=== PATIENT | female | born 1940 | race African-American/Black ===

== ENCOUNTER 2020-06-24 10:51 | Outpatient (REF) | payer MEDICARE, SELFPAY | END 2020-06-24 10:52 | disposition home or self-care (01) | LOC: HO.LAB 10:51 | PROVIDERS: PCP Internal Medicine; Visit Provider Internal Medicine | DX: Z20.822 Contact with and (suspected) exposure to COVID-19 (principal) | CPT/HCPCS: 36415; C9803; U0003 ==

== ENCOUNTER 2023-10-23 01:33 | Emergency (ER) | payer MEDICARE, MEDICAID, SELFPAY ==
--- NOTE | 2023-10-23 | ECG_ITS ---
Test Reason : ABD PAIN Blood Pressure : / mmHG Vent. Rate : 123 BPM Atrial Rate : 000 BPM P-R Int : 000 ms QRS Dur : 080 ms QT Int : 408 ms P-R-T Axes : 000 -31 087 degrees QTc Int : 584 ms Atrial tachycardia with occasional PVCs Left axis deviation Pulmonary disease pattern Septal infarct , age undetermined ST & T wave abnormality, consider anterior ischemia Abnormal ECG When compared with ECG of 18-SEP-2016 22:52, Atrial tachycardia present Referred By: Generic ED Physician Electronically Signed By:Munir Estrella
--- NOTE | ~2023-10-23 | CT_ITS ---
EXAMINATION: CT abdomen pelvis wo IV con CLINICAL INFORMATION: Reason for Exam Right sided abdominal pain, vomiting COMPARISON: No prior CT available for comparison. TECHNIQUE: Multidetector volumetric imaging was performed from the superior aspect of the liver through the pubic symphysis a noncontrasted CT Sagittal and coronal reformatted images were obtained on the technologist's workstation. This CT examination was performed using dose optimization techniques as appropriate, variously including the following: *Automated exposure control *Adjustment of mA and/or kV according to patient size (this includes techniques or standardized protocols for targeted exams where dose is matched to indication/reason for exam; i.e. extremities or head) *Use of iterative reconstruction technique DLP: 360 mGy-cm FINDINGS: LOWER THORAX: Included lung bases are clear. HEPATOBILIARY: No focal hepatic lesions. No biliary ductal dilatation. GALLBLADDER: Gallbladder is distended, there is a large gallstone. SPLEEN: Spleen is normal in size. PANCREAS: No focal mass or ductal dilatation. STOMACH AND GASTROINTESTINAL TRACT: Stomach is grossly unremarkable. Excess amount of stool in the colon possible constipation. Assessment of the bowel limited due to lack of contrast. Few sigmoid diverticula without evidence of diverticulitis. Normal appendix. Adjacent partially calcified lymph node. There is soft tissue fullness in the distal rectum rectoanal junction, this could be impacted stool and/or nondistention, cannot rule out underlying pathologic process. ADRENALS: No adrenal nodules. KIDNEYS/URETERS: No hydronephrosis, stones or solid mass lesions. URINARY BLADDER: Partially decompressed. PELVIC VISCERA: Multiple rounded calcifications likely phleboliths. There is heterogeneous right adnexal complex mass roughly 6 x 3.5 cm, concerning for possible dermoid. PERITONEUM: No free air or fluid. LYMPH NODES: No lymphadenopathy. VASCULAR:Heavy aortic vascular calcifications, no aneurysm. BONES, ABDOMINAL WALL AND SOFT TISSUES: Age-appropriate changes of the spine and skeletal system, no destructive osteolytic or osteosclerotic bone lesion found CT/CT abdomen pelvis wo IV con IMPRESSION: 1. Excess amount of stool in the colon possible constipation. 2. There is soft tissue fullness in the distal rectum rectoanal junction, this could be impacted stool and/or nondistention, cannot rule out underlying pathologic endorectal mass, attention to correlation with rectal exam and sigmoidoscopy. 3. Complex right adnexal mass 6 cm, concerning for possible large dermoid. Recommend follow-up pelvic ultrasound 4. Cholelithiasis. 5. Mild sigmoid diverticulosis without evidence of acute diverticulitis. (Referring physician staff is being called, by physician staff assistance, to be alerted of the above critical findings and recommendations.) 10/23/2023 9:00 AM RO
[2023-10-23 02:09] VITALS: BP 115/96; BP 150/98; PULSE 113; PULSE 92; RESP 15; TEMP 37; O2SAT 95; O2SAT 98; BMI 21.6
--- NOTE | 2023-10-23 02:16 | PC.NURSE ---
Dr. Calhoun notified of tachycardia ? sepsis alert.
[2023-10-23 02:51] LABS: MANUAL DIFF FLAG NO
[2023-10-23 02:52] LABS: Basophils Percent Auto 0.9 % (0-2); Eosinophils Absolute Auto 0.2 X10*3/uL (0.0-0.4); Eosinophils Percent Auto 5.2 % (0-4); Hematocrit 41.5 % (37.0-47.0); Hemoglobin 13.7 g/dl (12.0-16.0); Lymphocytes Absolute Auto 1.3 X10*3/uL (1.2-4.9); Lymphocytes Percent Auto 39.3 % (20-40); Mean Corpuscular Hemoglobin 31.4 pg (27.0-33.0); Mean Platelet Volume 10.3 fL (9.4-12.3); Monocytes Absolute Auto 0.3 X10*3/uL (0.1-1.2); Monocytes Percent Auto 8.9 % (2-11); Neutrophils Absolute Auto 1.5 x10*3/uL (2.0-8.3); Neutrophils Percent Auto 45.7 % (45-73); Platelet Count 187 X10*3/uL (160-400); Red Blood Count 4.37 X10*6/uL (4.20-5.50); Red Cell Distribution Width 13.5 % (11.0-16.0); White Blood Count 3.3 X10*3/uL (4.8-10.8)
[2023-10-23 02:53] LABS: Appearance Urine Clear; Color Urine Yellow; Glucose Urine UA Negative (Negative); Leukocyte Esterase Urine Negative (Negative); Nitrite Urine Negative (Negative); PH 7.5 (5.0-9.0); UMIC TRIGGER UACC YES; Urine Blood Trace (Negative); Urine Ketones Negative (Negative); Urine Protein Negative (Neg-Trace)
[2023-10-23 02:59] LABS: Bacteria Urine None Seen (None Seen); Hyaline Casts Urine 0-2 /LPF (0-2); WBC Urine 0-5 /HPF (0-5)
--- NOTE | 2023-10-23 03:02 | MHC.EDTECH ---
patient toileted. VSS
[2023-10-23 03:05] LABS: Alanine Aminotransferase 8 U/L (0-31); Albumin Level 3.6 g/dL (3.5-5.0); Alkaline Phosphatase 96 U/L (39-117); Anion Gap 11 (12-20); Aspartate Amino Transferase 15 U/L (5-31); Bilirubin Total 1.1 mg/dL (0.0-1.0); Blood Urea Nitrogen 7 mg/dL (9-16); Calcium 8.9 mg/dL (8.4-10.2); Carbon Dioxide 27 mmol/L (22-29); Chloride 110 mmol/L (96-108); Creatinine Clr Calc Pharmacy 40.6; Estimated Glomerular Filt Rate > 60; Glucose Random 90 mg/dL (60-115); Lipase 20 U/L (8-78); Magnesium 2.1 mg/dL (1.6-2.6); Potassium 3.7 mmol/L (3.3-5.1); Sodium 144 mmol/L (135-145); Total Protein 6.7 g/dL (6.5-8.0)
[2023-10-23 03:11] LABS: Troponin-I High Sensitivity 5.2 ng/L (<3.5-17.0)
[2023-10-23 05:29] LABS: Troponin-I High Sensitivity 6.5 ng/L (<3.5-17.0)
[2023-10-23 05:45] VITALS: BP 128/64; PULSE 55; RESP 16; TEMP 36.9; O2SAT 96
--- NOTE | 2023-10-23 07:27 | ED_ITS ---
HPI - Abdominal Pain General Chief Complaint: Abdominal Pain Stated Complaint: abd pain Time Seen by Provider: 10/23/23 06:32 Source: patient and EMS Mode of arrival: EMS Limitations: no limitations History of Present Illness ED Provider: Nicky Maddox APRN HPI narrative: 83 yo female who is legally blind with no known abdominal surgical history here with complaints of right sided abdominal pain intermittent over the last week. Patient reports she has a history of known gallstones and has been to [facility] ED several times, seen surgery team and told she was not a surgical candidate d/t age. She typically follows a low fat diet but still has intermittent pain. No vomiting, diarrhea, fevers, chills. Of note, the past few days she has also has some lower abdominal pressure, pain with urination and is concerned she may have either a UTI or yeast infection. Related Data Previous Rx's ?Medication ?Instructions ?Recorded metronidazole 0.75 % (37.5 mg/5 1 appful vaginal BEDTIME 5 days 10/23/23 gram) vaginal gel #70 grams Allergies Allergy/AdvReac Type Severity Reaction Status Date / Time Penicillins Allergy Unknown Verified 10/23/23 02:12 ANTIBIOTICS Allergy Intermediate STOMACH Uncoded 06/23/22 14:47 UPSET Review of Systems Review of Systems Yes all other systems are reviewed and are negative Constitutional: Reports no additional constitutional complaints, Denies body ache(s), Denies chills, Denies fever(s), Denies headache(s) and Denies weakness Eyes: Reports no additional eye complaints and Denies change in vision Reports system reviewed and no additional complaints, except as documented, Denies dizziness, Denies headache(s), Denies nasal congestion, Denies nasal discharge and Denies neck pain Cardiovascular: Reports no additional cardiovascular complaints, Denies chest pain, Denies leg edema and Denies dyspnea Respiratory: Reports no additional respiratory complaints, Denies cough and Denies dyspnea Gastrointestinal: Reports no additional gastrointestinal complaints, Reports abdominal pain, Denies diarrhea, Denies nausea and Denies vomiting Genitourinary: Reports no additional female genitourinary complaints, Reports dysuria, Denies pelvic pain, Denies flank pain, Denies urinary incontinence, Denies urinary hesitancy, Denies urinary urgency and Denies vaginal discharge Musculoskeletal: Reports no additional musculoskeletal complaints, Denies back pain, Denies arthralgias, Denies joint swelling, Denies neck pain, Denies numbness and Denies tingling Skin/Breast: Reports system reviewed and no additional complaints, except as docu and Denies rash Reports system reviewed and no additional complaints, except as documented, Denies Abnormal speech present, Denies dizziness, Denies headache(s), Denies numbness, Denies tingling and Denies weakness PMF Past Medical History Attestation statement: The following information was validated with the patient. Source: old records reviewed and nursing notes reviewed Social History Social History Smoked in Last 30 Days: No Use of substances other than those prescribed or required for medical reasons: No Advance Directives: No Advance Directives Information Provided: No Physical Exam ED Vital Signs: Vital Signs - 24 hr 10/23/23 02:09 10/23/23 05:45 10/23/23 07:51 Temperature 98.6 F 98.4 F Pulse Rate 113 H 55 74 Respiratory Rate 15 16 18 Blood Pressure 115/96 H 128/64 160/90 H Pulse Oximetry 95 96 96 Oxygen Delivery Method Room Air Room Air Room Air 10/23/23 09:47 10/23/23 11:22 10/23/23 11:23 Temperature 98.5 F 97.9 F 97.9 F Pulse Rate 70 74 74 Respiratory Rate 16 16 16 Blood Pressure 170/83 H 180/95 H 180/95 H Pulse Oximetry 98 97 97 Oxygen Delivery Method Room Air Room Air Room Air BMI result Body Mass Index 21.6 Const General: cooperative, healthy appearing, comfortable and no acute distress Orientation/consciousness: patient oriented x3 Limitations: no limitations [facility] Head: Yes normal to inspection Ears: hearing grossly normal bilaterally General nose exam: Normal external nose present Face and sinus: Yes normal facial exam Mouth: Normal oral and palatal mucosa present Throat: Yes posterior oropharynx normal Eyes General: appearance normal, both eyes and all related structures Pupils: Equal, round and reactive pupils present Neck Neck: Yes normal visual inspection Chest Chest palpation & inspection: normal inspection of the chest Resp Effort & Inspection: normal respiratory effort Auscultation: clear to auscultation bilaterally Cardio Rate: regular rate Rhythm: regular rhythm Peripheral pulses: Peripheral pulses 2+ throughout GI Other: Small amount on stool on rectal exam Inspection: Yes normal to inspection and No distended Palpation (GI): Soft to palpation, Tenderness to palpation present (GI) in the RLQ and in the RUQ; with no rebound tenderness and no guarding Auscultation: normal bowel sounds Rectal Exam - Female: visual inspection normal and normal sphincter tone External Female Exam: normal external appearance Speculum Exam - Vagina: normal appearance of the vagina Back/Spine/Pelvis Thoracic/Lumbar Spine: thoracic and lumbar spine normal to inspection Skin General skin exam: no rashes or lesions noted Neuro General: patient oriented x3, no focal motor deficits and normal sensation to monofilament Cranial nerves: Yes Equal, round and reactive pupils present Cognition (Neuro): normal cognition Speech: No Abnormal speech present Gait exam (Neuro): Normal gait present Motor exam (neuro): 5/5 motor strength present throughout Extrem General: Yes normal to inspection Course Course Course Narrative: [address]/CT abdomen pelvis wo IV con IMPRESSION: 1. Excess amount of stool in the colon possible constipation. 2. There is soft tissue fullness in the distal rectum rectoanal junction, this could be impacted stool and/or nondistention, cannot rule out underlying pathologic endorectal mass, attention to correlation with rectal exam and sigmoidoscopy. 3. Complex right adnexal mass 6 cm, concerning for possible large dermoid. Recommend follow-up pelvic ultrasound 4. Cholelithiasis. 5. Mild sigmoid diverticulosis without evidence of acute diverticulitis. IN regards to finding 1/2 rectal exam shows small amount of stool with no impaction. Enema given. I will speak to GI. Will likely need outpatient f/u. Patient reports she has never had a colonoscopy. She denies any history or family history of colon cancer. In regards to finding 3. Patient was informed with the results. She will need to follow up outpatient with primary care doctor for outpatient pelvic ultrasound. In regards to finding 4. Patient has no evidence of acute cholecystitis. She refused all pain medication here in the emergency room and is tolerating p.o.. I will have her follow up outpatient with General surgery. Reevaluation(s) Reevaluation #1: I reviewed all the above findings with the patient's granddaughter and herself. They will follow up outpatient with these providers. I did review worrisome signs and symptoms of when to return to the emergency room. Comfortable plan for discharge home. Medical Decision Making Medical Decision Making [facility] Narrative: 83 yo female who is legally blind with no known abdominal surgical history here with complaints of right sided abdominal pain intermittent over the last week. Patient reports she has a history of known gallstones and has been to [facility] ED several times, seen surgery team and told she was not a surgical candidate d/t age. She typically follows a low fat diet but still has intermittent pain. No vomiting, diarrhea, fevers, chills. Of note, the past few days she has also has some lower abdominal pressure, pain with urination and is concerned she may have either a UTI or yeast infection.? RUQ/RLQ TTP with no rebound or guarding. +BS. VSS Will need exam, labs, EKG, UA, CT A/P, BV panel Differential Diagnosis Differential Diagnoses: The differential diagnosis associated with the presentation includes cholecystitis, cholethiasis, GERD, gastritis, ACS, appendicitis, UTI, pancreatitis Admission/Observation Consideration of admission/observation: Escalation of care including admission/observation considered Consult Healthcare Provider Management of the patient was discussed with: Hide Tanner Spoke to GI in regards to finding of constipation and ? rectal mass vs stool Patient can follow-up outpatient for colonoscopy Lab Data [facility] Lab Attestation statement: I reviewed the patient's lab results. 10/23/23 02:40 10/23/23 02:40 Labs: Lab Results 10/23/23 10/23/23 10/23/23 Range/Units 02:40 05:03 08:00 WBC 3.3 L (4.8-10.8) X10*3/uL RBC 4.37 (4.20-5.50) X10*6/uL Hgb 13.7 (12.0-16.0) g/dl Hct 41.5 (37.0-47.0) % MCV 95.0 (80.0-98.0) fL MCH 31.4 (27.0-33.0) pg MCHC 33.0 (31.0-35.0) g/dl RDW 13.5 (11.0-16.0) % Plt Count 187 (160-400) X10*3/uL MPV 10.3 (9.4-12.3) fL Immature Gran % (Auto) 0.0 (0.0-0.4) % Neut % (Auto) 45.7 (45-73) % Lymph % (Auto) 39.3 (20-40) % Henry % (Auto) 8.9 (2-11) % Eos % (Auto) 5.2 H (0-4) % Baso % (Auto) 0.9 (0-2) % Lymph # (Auto) 1.3 (1.2-4.9) X10*3/uL Henry # (Auto) 0.3 (0.1-1.2) X10*3/uL Eos # (Auto) 0.2 (0.0-0.4) X10*3/uL Baso # (Auto) 0.0 (0.0-0.2) X10*3/uL Abs Immat Gran (auto) 0.00 (0.00-0.03) X10*3/uL Absolute Neuts (auto) 1.5 L (2.0-8.3) x10*3/uL Absolute Nucleated RBC 0.000 (0.0-0.012) X10*3/uL Nucleated RBC % (auto) 0.0 (0.0-0.2) /100WBC Sodium 144 (135-145) mmol/L Potassium 3.7 (3.3-5.1) mmol/L Chloride 110 H (96-108) mmol/L Carbon Dioxide 27 (22-29) mmol/L Anion Gap 11 L (12-20) BUN 7 L (9-16) mg/dL Creatinine 0.80 (0.5-1.4) mg/dL Estim Creat Clear Calc 40.6 Estimated GFR > 60 Random Glucose 90 (60-115) mg/dL Calcium 8.9 (8.4-10.2) mg/dL Magnesium 2.1 (1.6-2.6) mg/dL Total Bilirubin 1.1 H (0.0-1.0) mg/dL AST 15 (5-31) U/L ALT 8 (0-31) U/L Alkaline Phosphatase 96 (39-117) U/L Troponin I High Sens 5.2 6.5 (<3.5-17.0) ng/L Total Protein 6.7 (6.5-8.0) g/dL Albumin 3.6 (3.5-5.0) g/dL Lipase 20 (8-78) U/L Urine Color Yellow Urine Appearance Clear Urine pH 7.5 (5.0-9.0) Ur Specific [place] 1.010 (1.005-1.025) Urine Protein Negative (Neg-Trace) mg/dL Urine Glucose (UA) Negative (Negative) mg/dL Urine Ketones Negative (Negative) mg/dL Urine Blood Trace H (Negative) Urine Nitrite Negative (Negative) Ur Leukocyte Esterase Negative (Negative) Urine RBC 3-5 H (0-2) /HPF Urine WBC 0-5 (0-5) /HPF Ur Squamous Epith Cells 6-10 (0-2) /HPF Urine Bacteria None Seen (None Seen) Hyaline Casts 0-2 (0-2) /LPF T. vaginalis (PCR) NOT DETECTED (Not Detect) Bact Vaginosis (PCR) POSITIVE A (Negative) C. krusei/glabrata (PCR) NOT DETECTED (Not Detect) April group (PCR) NOT DETECTED (Not Detect) Independent Interpretation I performed an independent interpretation of an: EKG and CT Scan Interpretation: I independently reviewed the CT scan agree with the radiology report I independently viewed the EKG which shows normal sinus rhythm with a rate of 70, normal NC, normal QRS, normal QT Radiology Impression Discussion of test interpretation with radiology: I have reviewed the radiologist's reading. Radiologist Impression: [place] [id number] CT Scan Report Signed Patient: Andreea Coffey MR#: [id number] : 1940 Acct:[id number] Age/Sex: 83 / F ADM Date: 10/23/23 Loc: .ED Attending Dr: Ordering Physician: Nicky Fagan NP Date of Service: 10/23/23 Procedure(s): CT abdomen pelvis wo IV con Accession Number(s): [id number] cc: Physician,Unknown ; Nicky Fagan NP~ EXAMINATION: CT abdomen pelvis wo IV con CLINICAL INFORMATION: Reason for Exam Right sided abdominal pain, vomiting COMPARISON: No prior CT available for comparison. TECHNIQUE: Multidetector volumetric imaging was performed from the superior aspect of the liver through the pubic symphysis a noncontrasted CT Sagittal and coronal reformatted images were obtained on the technologist's workstation. This CT examination was performed using dose optimization techniques as appropriate, variously including the following: *Automated exposure control *Adjustment of mA and/or kV according to patient size (this includes techniques or standardized protocols for targeted exams where dose is matched to indication/reason for exam; i.e. extremities or head) *Use of iterative reconstruction technique DLP: 360 mGy-cm FINDINGS: LOWER THORAX: Included lung bases are clear. HEPATOBILIARY: No focal hepatic lesions. No biliary ductal dilatation. GALLBLADDER: Gallbladder is distended, there is a large gallstone. SPLEEN: Spleen is normal in size. PANCREAS: No focal mass or ductal dilatation. STOMACH AND GASTROINTESTINAL TRACT: Stomach is grossly unremarkable. Excess amount of stool in the colon possible constipation. Assessment of the bowel limited due to lack of contrast. Few sigmoid diverticula without evidence of diverticulitis. Normal appendix. Adjacent partially calcified lymph node. There is soft tissue fullness in the distal rectum rectoanal junction, this could be impacted stool and/or nondistention, cannot rule out underlying pathologic process. ADRENALS: No adrenal nodules. KIDNEYS/URETERS: No hydronephrosis, stones or solid mass lesions. URINARY BLADDER: Partially decompressed. PELVIC VISCERA: Multiple rounded calcifications likely phleboliths. There is heterogeneous right adnexal complex mass roughly 6 x 3.5 cm, concerning for possible dermoid. PERITONEUM: No free air or fluid. LYMPH NODES: No lymphadenopathy. VASCULAR:Heavy aortic vascular calcifications, no aneurysm. BONES, ABDOMINAL WALL AND SOFT TISSUES: Age-appropriate changes of the spine and skeletal system, no destructive osteolytic or osteosclerotic bone lesion found CT/CT abdomen pelvis wo IV con IMPRESSION: 1. Excess amount of stool in the colon possible constipation. 2. There is soft tissue fullness in the distal rectum rectoanal junction, this could be impacted stool and/or nondistention, cannot rule out underlying pathologic endorectal mass, attention to correlation with rectal exam and sigmoidoscopy. 3. Complex right adnexal mass 6 cm, concerning for possible large dermoid. Recommend follow-up pelvic ultrasound 4. Cholelithiasis. 5. Mild sigmoid diverticulosis without evidence of acute diverticulitis. Independent Historian Clinical information obtained from an independent historian. History obtained from or confirmed by: EMS Medications Administered Discontinued Medications Generic Name Dose Route Start Last Admin Trade Name Freq PRN Reason Stop Dose Admin Fentanyl 25 mcg 10/23/23 06:53 10/23/23 07:48 Fentanyl Citrate/Pf 100 Mcg/2 Ml Vial IVPUSH 10/23/23 06:54 Not Given ONCE ONE Protocol Sodium Biphosphate/Sodium Phosphate 133 ml 10/23/23 10:02 10/23/23 10:26 Sodium Phosphate,Henry-Dibasic 133 Ml Enema NC 10/23/23 10:03 133 ml ONCE ONE Administration Critical Care Time Critical Care Time Critical Care Time: Yes Total Critical Care Time: 60 Attestation: Discussion of CT findings with specialists, family and the patient at the bedside with re-evaluation Discharge Plan Discharge Clinical Impression: Cholelithiases Patient Disposition: Home, Self-Care Instructions: Gallstones (ED) Additional Instructions: Her CT shows several findings. She does have gallstones on exam with no evidence of inflammation or infection. Her blood work is normal. She can follow up outpatient with General surgery for elective removal. Please follow a low-fat diet. Her CT also shows a pelvic mass. They do recommend that she have an outpatient pelvic ultrasound. Please follow-up with her primary care doctors that they may order this. Her CT also shows constipation and she may have either stool or a mass in her rectal area. We did speak to the chain mender who recommended an outpatient colonoscopy. She should be increasing fluid and fiber in the diet. She may take a stool softener like Colace daily which is [id number]. Please return for any worsening symptoms Prescriptions: New metronidazole 0.75 % (37.5mg/5 gram) gel 1 appful vaginal BEDTIME 5 Days Qty: 70 0RF Referrals: Emily Campbell MD [Physician] - 1 week Fabián Garduno MD [Physician] - 1 week Physician,Eriberto J [Primary Care Provider] - 1 week Interventions: ED Discharge Assessment Last Done: 10/23/23 11:23 Discharge Date/Time: 10/23/23 12:09 Print Language: Nigerian
[2023-10-23 07:51] VITALS: BP 160/90; PULSE 74; RESP 18; O2SAT 96
--- NOTE | 2023-10-23 07:51 | ECG_ITS ---
Test Reason : ADOMINAL PAIN Blood Pressure : / mmHG Vent. Rate : 070 BPM Atrial Rate : 070 BPM P-R Int : 172 ms QRS Dur : 086 ms QT Int : 384 ms P-R-T Axes : 054 -32 095 degrees QTc Int : 414 ms Normal sinus rhythm Left atrial enlargement Left axis deviation Septal infarct (cited on or before 23-OCT-2023) Abnormal ECG When compared with ECG of 23-OCT-2023 02:24, Rhythm change Vent. rate has decreased BY 53 BPM Referred By: Joanne Salguero Electronically Signed By:CALLIE ESPINOZA
--- NOTE | 2023-10-23 07:56 | PC.NURSE ---
Pt refuses any pain meds, reports she took Tylenol earlier and the pain is not bothering her right now.
--- OUTSIDE RECORDS SUMMARY | 2023-10-23 08:09 | XMS_ITS | Continuity of Care Document ---
Author Organization [facility] ter Address [address] [place] [id number]- Care Team Providers Care Adolescent Medicine Specialist Name Role Phone Prema SOSA, Lin Ortega Primary Care Physician [facility] Date[facility]s): 10/09/21 - 10/09/[address] [address]- Discharge Disposition: A-D/C Home Attending Physician: Trinity Prescott MD Admitting Physician: Trinity Prescott MD Referring Physician: Not on Staff, Referring MD Allergies, Adverse Reactions, Alerts Substance Reaction Severity Status chlorthalidone made BP go down Active hydrochlorothiazide Hydrochlorothiazide adverse reaction Hydrochlorothiazide adverse reaction depression Active lisinopril tinnitus Active losartan itching Active penicillins rash Active Amlodipine Besylate-Atorvastatin made BP down Active Immunizations Given and Recorded Vaccine Date Status Refusal Reason SARS-CoV-2 (COVID-19) Ad26 vaccine 09/28/20 Record ed pneumococcal 13-valent vaccine 1 03/14/19 Given influenza virus vaccine, inactivated 2 03/04/18 Gi sharron influenza virus vaccine, inactivated 3 03/04/16 Gi sharron influenza virus vaccine, inactivated 03/06/13 Give n tetanus/diphtheria/pertussis, acel(Tdap) 4 10/13/17 Given pneumococcal 23-valent vaccine 05/16/12 Given 1Result Comment: [facility]# [id number] PT. TOLERATED INJ. WITHOUT COMPLICATIONS....CO 2Result Comment: [03/04/2018] [facility]# [id number] 3Result Comment: [03/04/2016] pt. tolerated inj. without complications...CO 4Result Comment: [10/13/2017] [facility]# [id number] pt. tolerated inj. without complications...CO Medications brimonidine 0.2% ophthalmic solution See Instructions, 1 drop into Right eye three times a day, 0 Refills, Maintenance, 01/07/21 14:01:00 EDT, Solution, Partial fill upon patient request if the prescription is for a schedule II opioid drug. Start Date: 01/07/21 Status: Ordered clotrimazole 1% vaginal cream with applicator 1 application, Vaginally, Daily at bedtime, for 7 days, # 45 Gm, 0 Refills, Acute 10/16/21 6:20:00 EDT, 10/09/21 6:20:00 EDT, Cream, [facility] #[id number], Partial fill upon patient request if the prescription is for a schedule II opioid drug.,... Start Date: 10/09/21 Stop Date: 10/16/21 Status: Ordered estradiol 0.1 mg/g vaginal cream See Instructions, apply topically as directed 5 times a week, # 42 Gm, 3 Refills, Maintenance, 07/13/18 13:56:17 EST Start Date: 07/13/18 Status: Ordered Home Blood Pressure Monitor See Instructions, # 1 Unknown, Maintenance, dx: I10 use once daily height 158cm weight 48cm, 01/16/21 11:47:00 EDT, Supply Start Date: 01/16/21 Status: Ordered latanoprost 0.005% ophthalmic solution INSTILL 1 DROP INTO RIGHT EYE AT BEDTIME Start Date: 01/07/21 Status: Ordered metoprolol 25 mg oral tablet, extended release See Instructions, take 1/2 to 1 tablet By Mouth Daily, # 15 tablet, Refills 3, Tot. Refills 3, Maintenance, 10/06/21 16:20:00 EDT, Instructions Replace Required Details, Route to Pharmacy Electronically, [facility] #[id number], stop bisoprolol, 1... Start Date: 10/06/21 Status: Ordered metronidazole topical 0.75% gel with applicator 1 applicator, Vaginally, 2 times a day, for 10 days, dx: recurrent BV, # 140 Gm, 0 Refills, Acute 10/16/21 16:15:00 EDT, 10/06/21 16:15:00 EDT, Gel, [facility] #[id number], Partial fill upon patient request if the prescription is for a schedule I... Start Date: 10/06/21 Stop Date: 10/16/21 Status: Ordered Misc Rx Refills 0, Maintenance, Durezol drops, 05/15/19 15:41:08 EST, Compound Start Date: 05/15/19 Status: Ordered ofloxacin 0.3% ophthalmic solution INSTILL 1 DROP INTO LEFT EYE FOUR TIMES DAILY FOR 1 WEEK Start Date: 04/04/21 Status: Ordered omeprazole 20 mg oral enteric coated capsule 1 capsule = 20 mg, By Mouth, Daily, # 30 capsule, 5 Refills, Maintenance, 04/04/21 11:49:00 EDT, [facility] #[id number], Partial fill upon patient request if the prescription is for a schedule II opioid drug., 158, cm, 01/16/21 11:57:... Start Date: 04/04/21 Status: Ordered timolol maleate 0.5% ophthalmic gel forming solution INT 1 GTT IN OU BID UTD Start Date: 12/09/18 Status: Ordered Problem List Condition Effective Dates Status Health Status Inform ant Abdominal pain(Confirmed) Active Atrial tachycardia(Confirmed) Active Atrophic vaginitis(Confirmed) Active Dermoid cyst of right ovary(Confirmed) Active Cataracts, bilateral(Confirmed) Active Cerebral Aneurysm, Nonruptured(Confirmed) 1 04/09/10 Active Chronic cystitis(Confirmed) Active Epigastric pain(Confirmed) Active Epigastric abdominal pain(Confirmed) Active Glaucoma(Confirmed) Active Hypertension(Confirmed) Active Loss of weight(Confirmed) Active Postmenopausal bleeding(Confirmed) Active Urinary urgency(Confirmed) Active Vaginal discharge(Confirmed) Active Vertigo(Confirmed) Active Vision impairment(Confirmed) Active 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 Results Orders for Microbiology Reports Name Date Wet Prep 10/09/21 Microbiology Reports TEST:Wet Prep STATUS:Auth (Verified) BODY SITE: SOURCE:VAGINA COLLECTED DATE/TIME:10/09/21 5:25 AM Wet Prep SPECIMEN DESCRIPTION : VAGINAL SPECIMEN SPECIAL REQUESTS : NONE DIRECT EXAM : 2+ WHITE BLOOD CELLS 2+ YEAST NO CLUE CELLS OBSERVED NO TRICHOMONAS OBSERVED REPORT STATUS : FINAL 10/09/2021 Vital Signs Most recent to oldest [Reference Range]: 1 2 3 Oxygen Saturation [94-100 %] 98 % (10/09/21 6:00 AM) 99 % (10/09/21 4:31 AM) 99 % (10/09/21 3:44 AM) Pulse Rate [55-90 bpm] 57 bpm (10/09/21 6:00 AM) 52 bpm *L* (10/09/21 4:31 AM) 57 bpm (10/09/21 3:44 AM) Blood Pressure [90-138/55-84 mm Hg] 151/94mm Hg *H* (10/09/21 6:00 AM) 158/81mm Hg *H* (10/09/21 4:31 AM) 175/88mm Hg *H* (10/09/21 3:44 AM) Respiratory Rate [16-30 br/min] 27 br/min (10/09/21 6:00 AM) 19 br/min (10/09/21 3:44 AM) 18 br/min (10/09/21 12:52 AM) Temperature [96.8-100.4 DegF] 97.6 DegF (10/09/21 6:00 AM) 97.7 DegF (10/09/21 3:44 AM) 98.0 DegF (10/09/21 3:18 AM) Mode of Delivery (Oxygen) Room air (10/09/21 6:00 AM) Room air (10/09/21 4:31 AM) Room air (10/09/21 3:44 AM) Blood pressure sites Arm, right (10/09/21 6:00 AM) Arm, right (10/09/21 3:44 AM) Arm, left (10/09/21 3:18 AM) Temperature Route Oral (10/09/21 6:00 AM) Oral (10/09/21 3:44 AM) Oral (10/09/21 3:18 AM) Social History Social History Type Response Smoking Status Never smoker; Other: quit smoking about 35 years ago, 3 cigs/d x 3 years; entered on: 05/30/15 Sex Medical Equipment Implanted Date:12/28/18Target Site:Eye Right Description Quantity MRI Company Model CORNEA FULL THICKNESS - TSSU (K001-PK) 1 [employer] Unknow n GITA:No Information Assigning Authority: FDA
--- OUTSIDE RECORDS SUMMARY | 2023-10-23 08:09 | XMS_ITS | Continuity of Care Document ---
Author Organization [facility] Address [address] [place] [address]- Care Team Providers Care Zoo Director Name Role Phone Lin Lloyd MD Primary Care Physician [phone] Encounter [facility] Date(s): 05/21/20 - 05/28/20 [facility] [address], [place] [address] Attending Physician: Luli Bennett MD Referring Physician: Lin Lloyd MD Allergies, Adverse Reactions, Alerts Substance Reaction Severity Status chlorthalidone made BP go down Active hydrochlorothiazide Hydrochlorothiazide adverse reaction Hydrochlorothiazide adverse reaction depression Active lisinopril tinnitus Active losartan itching Active penicillins rash Active Amlodipine Besylate-Atorvastatin made BP down Active Immunizations Given and Recorded Vaccine Date Status Refusal Reason pneumococcal 13-valent vaccine 1 03/14/19 Given influenza virus vaccine, inactivated 2 03/04/18 Gi sharron influenza virus vaccine, inactivated 3 03/04/16 Gi sharron influenza virus vaccine, inactivated 03/06/13 Give n tetanus/diphtheria/pertussis, acel(Tdap) 4 10/13/17 Given pneumococcal 23-valent vaccine 05/16/12 Given 1Result Comment: [facility]# [id number] PT. TOLERATED INJ. WITHOUT COMPLICATIONS....CO 2Result Comment: [03/04/2018] [facility]# [id number] 3Result Comment: [03/04/2016] pt. tolerated inj. without complications...CO 4Result Comment: [10/13/2017] [facility]# [id number] pt. tolerated inj. without complications...CO Medications estradiol 0.1 mg/g vaginal cream See Instructions, apply topically as directed 5 times a week, # 42 Gm, 3 Refills, Maintenance, 07/13/18 13:56:17 EST Start Date: 07/13/18 Status: Ordered fluconazole 150 mg oral tablet 1 tablet, By Mouth, Every 48 hours, PRN NEEDED FOR YEAST INFECTION OR SYMPTOMS, # 2 tablet, 0 Refills, Soft Stop, 05/27/20 8:58:00 EST, [facility] #[id number], 154.94, cm, 05/21/20 13:27:00 EST, Height, 48.4, kg, 05/21/20 13:33:00 EST, Dry Weight Start Date: 05/27/20 Status: Ordered Metoprolol Tartrate 25 mg oral tablet 0.5 tablet = 12.5 mg, By Mouth, 2 times a day, # 90 tablet, 2 Refills, Maintenance, 09/13/19 15:08:00 EDT, Tablet, [facility] #[id number], PUT ON FILE, 154.94, cm, 06/19/19 11:29:00 EST, Height,47, kg, 05/21/19 13:50:00 EST, Dry Weight Start Date: 09/13/19 Status: Ordered Misc Rx Refills 0, Maintenance, Durezol drops, 05/15/19 15:41:08 EST, Compound Start Date: 05/15/19 Status: Ordered timolol maleate 0.5% ophthalmic gel forming solution INT 1 GTT IN OU BID UTD Start Date: 12/09/18 Status: Ordered Problem List Condition Effective Dates Status Health Status Inform ant Abdominal pain(Confirmed) Active Atrophic vaginitis(Confirmed) Active Dermoid cyst of right ovary(Confirmed) Active Cataracts, bilateral(Confirmed) Active Cerebral Aneurysm, Nonruptured(Confirmed) 1 04/09/10 Active Epigastric pain(Confirmed) Active Epigastric abdominal pain(Confirmed) Active Glaucoma(Confirmed) Active Hypertension(Confirmed) Active Loss of weight(Confirmed) Active Postmenopausal bleeding(Confirmed) Active Urinary urgency(Confirmed) Active Vertigo(Confirmed) Active Vision impairment(Confirmed) Active 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 Vital Signs Most recent to oldest [Reference Range]: 1 Height 154.94 cm (05/21/20 1:27 PM) Weight 48.4 kg (05/21/20 1:27 PM) Oxygen Saturation [94-100 %] 100 % (05/21/20 1:27 PM) Pulse Rate [55-90 bpm] 94 bpm *H* (05/21/20 1:27 PM) Body Mass Index [18.5-24.99] 20.16 (05/21/20 1:27 PM) Blood Pressure [90-138/55-84 mm Hg] 156/ 103mm Hg *H* (05/21/20 1:27 PM) Respiratory Rate [16-30 br/min] 16 br/mi n (05/21/20 1:27 PM) Temperature [96.8-100.4 DegF] 97.5 DegF (05/21/20 1:27 PM) Mode of Delivery (Oxygen) Room air (05/21/20 1:27 PM) Blood pressure sites Arm, right (05/21/20 1:27 PM) Temperature Route Temporal (05/21/20 1:27 PM) Dry Weight 48.4 kg (05/21/20 1:27 PM) Weight Obtained Via Standing scale (05/21/20 1:27 PM) Dry Weight Obtained Via Standing scale (05/21/20 1:27 PM) Social History Social History Type Response Smoking Status Never smoker; Other: quit smoking about 35 years ago, 3 cigs/d x 3 years; entered on: 05/30/15 Sex Medical Equipment Implanted Date:12/28/18Target Site:Eye Right Description Quantity MRI Company Model CORNEA FULL THICKNESS - TSSU (K001-PK) 1 [employer] Unknow n GITA:No Information Assigning Authority: FDA
--- OUTSIDE RECORDS SUMMARY | 2023-10-23 08:09 | XMS_ITS | Continuity of Care Document ---
Author Organization [facility] Address [address] [place] [address] [address] [place] [address]- Care Team Providers Care Nut Tightener Name Role Phone Prema SOSA, Lin Ortega Primary Care Physician [facility] Date(s): 01/05/23 - 02/04/[address] [place] [address]- Allergies, Adverse Reactions, Alerts Substance Reaction Severity Status chlorthalidone made BP go down Active hydrochlorothiazide Hydrochlorothiazide adverse reaction Hydrochlorothiazide adverse reaction depression Active bisoprolol dryness Active lisinopril tinnitus Active losartan itching Active penicillins rash Active cloNIDine ?headaches, abdominal pain A ctive Amlodipine Besylate-Atorvastatin made BP down Active Immunizations Given and Recorded Vaccine Date Status Refusal Reason influenza virus vaccine, inactivated 1 06/23/22 Gi sharron influenza virus vaccine, inactivated 2 03/04/18 Gi sharron influenza virus vaccine, inactivated 3 03/04/16 Gi sharron influenza virus vaccine, inactivated 03/06/13 Give n SARS-CoV-2 (COVID-19) Ad26 vaccine 09/28/20 Record ed pneumococcal 13-valent vaccine 4 03/14/19 Given tetanus/diphtheria/pertussis, acel(Tdap) 5 10/13/17 Given pneumococcal 23-valent vaccine 05/16/12 Given 1Result Comment: [facility] [id number] 2Result Comment: [03/04/2018] [facility]# [id number] 3Result Comment: [03/04/2016] pt. tolerated inj. without complications...CO 4Result Comment: [facility]# [id number] PT. TOLERATED INJ. WITHOUT COMPLICATIONS....CO 5Result Comment: [10/13/2017] [facility]# [id number] pt. tolerated inj. without complications...CO Medications brimonidine 0.2% ophthalmic solution 0 Refills, Maintenance, 01/05/23 21:52:00 EDT, Partial fill upon patient request if the prescription is for a schedule II opioid drug. Start Date: 01/05/23 Status: Ordered cloNIDine 0.1 mg oral tablet Refills 0, Maintenance, 01/05/23 21:51:00 EDT, Partial fill upon patient request if the prescription is for a schedule II opioid drug. Start Date: 01/05/23 Status: Ordered Problem List Condition Confirmation Course Effective Dates Status H ealth Status Informant Abdominal pain Confirmed Active Atrial tachycardia Confirmed Active Atrophic vaginitis Confirmed Active Bacterial vaginosis Confirmed Active Dermoid cyst of right ovary Confirmed Active Cataracts, bilateral Confirmed Active Cerebral Aneurysm, Nonruptured 1 Confirmed 04/09/10 Active Chronic cystitis Confirmed Active Epigastric pain Confirmed Active Epigastric abdominal pain Confirmed Active Glaucoma Confirmed Active Hypertension Confirmed Active Loss of weight Confirmed Active Postmenopausal bleeding Confirmed Active Pulmonary regurgitation Confirmed Active Urinary urgency Confirmed Active Vaginal discharge Confirmed Active Vertigo Confirmed Active Vision impairment Confirmed Active 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 Social History Social History Type Response Smoking Status Never smoker; Other: quit smoking about 35 years ago, 3 cigs/d x 3 years; entered on: 05/30/15 Sex Implantable Device List Procedure Provider Procedure Date Device Type Site Corneal Transplant Mando Greene MD 12/28/18 Unk nown Eye Right Device Identifier Serial Number Lot or Batch Number Manufacturing Date Expiration Date Distinct Identification Code MRI Safety Implantable Status Assigning Authority Unknown [id number] Unknown Unknown 01/07/19 Unknown Unknown Active Unknown Patient Care team information Care Team Personnel Name: Lin Lloyd MD Position: [facility] Physician - Primary Care Member Role: PCP Address: Address: [address] [place] [address]- Name: Julio Sampson MD Position: [facility] Renal MD Member Role: Lifetime Consulting Physician Address: Address: [address] [place] [id number]- Name: Frederick Bermudez MD Position: [facility] EMBOSSING TOOL SETTER MD Member Role: Lifetime EMBOSSING TOOL SETTER Physician Address: Address: [address], [address] [address] Name: Hilda Tate RN Position: S RN Member Role: Primary Care Nurse Name: Claudia Castellon RN Position: S RN Member Role: Primary Care Nurse Name: Meghna Martinez RN Position: [facility] SN RN Member Role: Primary Care Nurse Name: Marie Gomez RN Position: [facility] Onco RN Member Role: Primary Care Nurse Care Team Related Persons Name: STACEY BANDA Address: [place] [address] Name: HARDIK SIMMS Name: TABITHA ABDULLAHI Address: home [address] [place] [id number] Name: MADYSON ABDULLAHI
--- OUTSIDE RECORDS SUMMARY | 2023-10-23 08:09 | XMS_ITS | Continuity of Care Document ---
Author Organization [facility] Address [address] [place] [address]- Care Team Providers Care Loss Prevention Supervisor Name Role Phone Lin Lloyd MD Primary Care Physician [phone] [facility]s): 01/02/21 - 01/03/[address] [address] Discharge Disposition: A-D/C Home Attending Physician: Tala Blackwood MD Admitting Physician: Alicia Aguilera MD Referring Physician: Not on Staff, Referring [...] pneumococcal 23-valent vaccine 05/16/12 Given 1Result Comment: [facility]# [id number] PT. TOLERATED INJ. WITHOUT COMPLICATIONS....CO 2Result Comment: [03/04/2018] [facility]# [id number] 3Result Comment: [03/04/2016] pt. tolerated inj. without complications...CO 4Result Comment: [10/13/2017] [facility]# [id number] pt. tolerated inj. without complications...CO Medications acetaminophen 325 mg oral tablet 650 mg, By Mouth, Every 4 hours, PRN, Temperature Greater than 100.5, Refills 0, Maintenance, Pain , Mild, 01/03/21 9:18:00 EDT, Partial fill upon patient request if the prescription is for a schedule II opioid drug. Start Date: 01/03/21 Status: Ordered estradiol 0.1 mg/g vaginal cream See Instructions, apply topically as directed 5 times a week, # 42 Gm, 3 Refills, Maintenance, 07/13/18 13:56:17 EST Start Date: 07/13/18 Status: Ordered Gas-X 80 mg oral tablet, chewable 1 tablet = 80 mg, Chew, 4 times a day, # 48 tablet, 0 Refills, Maintenance, 11/12/20 10:23:00 EDT, Chew Tablet, [facility] #[id number], Partial fill upon patient request if the prescription is for a schedule II opioid drug., 158, cm, 10/29/20 8:1... Start Date: 11/12/20 Status: Ordered metoprolol 25 mg oral tablet 12.5 mg, Tablet, By Mouth, 01/03/21 9:00:00 EDT Start Date: 01/03/21 Stop Date: 01/03/21 Status: Completed Metoprolol Tartrate 25 mg oral tablet 0.5 tablet, By Mouth, 2 times a day, # 90 tablet, 2 Refills, Maintenance, 10/22/20 18:29:00 EDT, [email or web address] #[id number], 154.94, cm, 10/22/20 13:42:00 EDT, Height, 46.5, kg, 05/30/20 11:54:00 EST, Dry Weight Start Date: 10/22/20 Status: Ordered Misc Rx Refills 0, Maintenance, [...] to oldest [Reference Range]: 1 2 3 Weight 51 kg (01/02/21 8:49 PM) Oxygen Saturation [94-100 %] 100 % (01/03/21 11:35 AM) 99 % (01/03/21 6:55 AM) 99 % (01/03/21 4:37 AM) Pulse Rate [55-90 bpm] 69 bpm (01/03/21 11:35 AM) 71 bpm (01/03/21 9:15 AM) 71 bpm (01/03/21 6:55 AM) Blood Pressure [90-138/55-84 mm Hg] 146/68mm Hg *H* (01/03/21 11:35 AM) 134/81mm Hg (01/03/21 9:15 AM) 134/81mm Hg (01/03/21 6:55 AM) Respiratory Rate [16-30 br/min] 17 br/min (01/03/21 11:35 AM) 16 br/min (01/03/21 6:55 AM) 16 br/min (01/03/21 4:37 AM) Temperature [96.8-100.4 DegF] 98.1 DegF (01/03/21 11:35 AM) 98.0 DegF (01/03/21 6:55 AM) 98.5 DegF (01/03/21 4:37 AM) Mode of Delivery (Oxygen) Room air (01/03/21 11:35 AM) Room air (01/03/21 6:55 AM) Room air (01/03/21 4:37 AM) Blood pressure sites Arm, right (01/03/21 11:35 AM) Arm, right (01/03/21 6:55 AM) Arm, right (01/03/21 4:37 AM) Temperature Route Oral (01/03/21 11:35 AM) Oral (01/03/21 6:55 AM) Oral (01/03/21 4:37 AM) Weight Obtained Via Bed scale (01/02/21 8:49 PM) Social History Social History Type Response Smoking Status Never smoker; Other: quit smoking about 35 years ago, 3 cigs/d x 3 years; entered on: 05/30/15 Sex Medical Equipment Implanted Date:12/28/18Target Site:Eye Right Description Quantity MRI Company Model CORNEA FULL THICKNESS - TSSU (K001-PK) 1 [employer] Unknow n GITA:No Information Assigning Authority: FDA
--- OUTSIDE RECORDS SUMMARY | 2023-10-23 08:09 | XMS_ITS | Continuity of Care Document ---
Author Organization [facility] Address [address] [place] [address]- Care Team Providers Care Agricultural Services Director Name Role Phone Lin Lloyd MD Primary Care Physician [phone] Encounter [facility] Date(s): 12/14/22 - 12/15/[address] [address]- Discharge Disposition: A-D/C Home Attending Physician: Mervin Estrada MD Admitting Physician: Mervin Estrada MD Referring Physician: Not on Staff, Referring MD Allergies, Adverse Reactions, Alerts Substance Reaction Severity Status chlorthalidone made BP go down Active lisinopril tinnitus Active Amlodipine Besylate-Atorvastatin made BP down Active hydrochlorothiazide Hydrochlorothiazide adverse reaction Hydrochlorothiazide adverse reaction depression Active bisoprolol dryness Active losartan itching Active penicillins rash Active Immunizations Given and Recorded Vaccine Date [...] pneumococcal 23-valent vaccine 05/16/12 Given 1Result Comment: [facility] [id number] 2Result Comment: [03/04/2018] [facility]# [id number] 3Result Comment: [03/04/2016] pt. tolerated inj. without complications...CO 4Result Comment: [facility]# [id number] PT. TOLERATED INJ. WITHOUT COMPLICATIONS....CO 5Result Comment: [10/13/2017] [facility]# [id number] pt. tolerated inj. without complications...CO Medications brimonidine 0.2% ophthalmic solution See Instructions, 1 drop into Right eye three times a day, 0 Refills, Maintenance, 01/07/21 14:01:00 EDT, Solution, Partial fill upon patient request if the prescription is for a schedule II opioid drug. Start Date: 01/07/21 Status: Ordered cloNIDine 0.1 mg oral tablet 0.1 mg, 1, tablet, By Mouth, Daily at bedtime, # 30 tablet, Refills 0, Maintenance, 01/01/22 8:41:00 EDT, Partial fill upon patient request if the prescription is for a schedule II opioid drug. Start Date: 01/01/22 Status: Ordered Home Blood Pressure Monitor See Instructions, # 1 Unknown, Maintenance, dx: I10 use once daily height 158cm weight 48cm, 01/16/21 11:47:00 EDT, Supply Start Date: 01/16/21 Status: Ordered ursodiol 250 mg oral tablet 1 tablet = 250 mg, By Mouth, 2 times a day, # 60 tablet, 11 Refills, Maintenance, 11/24/22 16:05:00EDT, [facility] #[id number], Partial fill upon patient request if the prescription is for a schedule II opioid drug., 48, cm, 11/24/22 13:12:00 ED... Start Date: 11/24/22 Status: Ordered ursodiol 300 mg oral capsule 300 mg, 1, capsule, By Mouth, 2 times a day, # 180 capsule, Refills 5, Tot. Refills 5, Maintenance,08/18/22 14:42:00 EDT, Route to Pharmacy Electronically, [facility] #[id number], Partial fill upon patient request if the prescription is for a sc... Start Date: 08/18/22 Status: Ordered Problem List Condition Confirmation Course Effective Dates Status H ealth Status Informant Abdominal pain Confirmed Active Atrial tachycardia Confirmed Active Atrophic vaginitis Confirmed Active Bacterial vaginosis Confirmed Active Dermoid cyst of right ovary Confirmed Active Cataracts, bilateral Confirmed Active Cerebral Aneurysm, Nonruptured 1 Confirmed 11/10/10 Active Chronic cystitis Confirmed Active Epigastric pain [...] to oldest [Reference Range]: 1 2 3 Height 158 cm (12/15/22 4:33 PM) 158 cm (12/15/22 12:04 AM) Weight 51 kg (12/15/22 4:33 PM) 51 kg (12/15/22 12:04 AM) Oxygen Saturation [94-100 %] 98 % (12/15/22 4:33 PM) 100 % (12/15/22 11:44 AM) 99 % (12/15/22 10:20 AM) Pulse Rate [55-90 bpm] 77 bpm (12/15/22 4:33 PM) 83 bpm (12/15/22 11:44 AM) 83 bpm (12/15/22 10:20 AM) Body Mass Index [18.5-24.99 kg/m2] 20.43 kg/m2 (12/15/22 4:33 PM) Blood Pressure [90-138/55-84 mm Hg] 156/92mm Hg *H* (12/15/22 4:33 PM) 169/94mm Hg *H* (12/15/22 11:44 AM) 140/103mm Hg *H* (12/15/22 10:20 AM) Respiratory Rate [16-30 br/min] 18 br/min (12/15/22 4:33 PM) 16 br/min (12/15/22 11:44 AM) 18 br/min (12/15/22 10:20 AM) Temperature [96.8-100.4 DegF] 98.6 DegF (12/15/22 4:33 PM) 98.2 DegF (12/15/22 11:44 AM) 98.2 DegF (12/15/22 10:20 AM) Mode of Delivery (Oxygen) Room air (12/15/22 4:33 PM) Room air (12/15/22 11:44 AM) Room air (12/15/22 10:20 AM) Blood pressure sites Arm, right (12/15/22 4:33 PM) Arm, left (12/15/22 11:44 AM) Arm, right (12/15/22 10:20 AM) Temperature Route Oral (12/15/22 4:33 PM) Oral (12/15/22 11:44 AM) Oral (12/15/22 10:20 AM) Dry Weight 51 kg (12/15/22 4:33 PM) 51 kg (12/15/22 12:04 AM) Social History Social History Type Response [...] MRI Safety Implantable Status Assigning Authority Unknown [id number] RCN Unknown Unknown 01/07/19 Unknown Unknown Active Unknown Note * Noone Daniel SOSA: PERFORM Event Display: Patient Education Leaflets Authored Date: [id number] Brain (Cerebral) Aneurysm and Repair ?? Brain (Cerebral) Aneurysm and Repair - Video Brain aneurysms can cause bleeding in the brain. Bleeding in the brain is called a stroke, and stroke can cause serious health problems. Watch and learn about the symptoms of brain aneurysm and how it is repaired. To view the video go to this web address: [email or web address] Or, scan this QR code with your smart phone Last Reviewed Date: 2020 ?? 4946-7179 [employer]. All rights reserved. This information is not intended as a substitute for professional medical care. Always follow your healthcare professional's instructions. ?? Patient Care team information Care Team Personnel Name: Lin Lloyd MD Position: [facility] Physician - Primary Care Member Role: PCP Address: Address: [address] [place] [address]- Name: Julio Sampson MD Position: [facility] Renal MD Member Role: Lifetime Consulting Physician Address: Address: [address] [place] [address], [address] [address] Name: Frederick Bermudez MD Position: [facility] KINDERGARTEN PARAPROFESSIONAL MD Member Role: Lifetime KINDERGARTEN PARAPROFESSIONAL Physician Address: Address: [address] [place] [address]- Name: Hilda Tate RN Position: [facility] RN Member Role: Primary Care Nurse Name: Claudia Castellon RN Position: [facility] RN Member Role: Primary Care Nurse Name: Meghna Martinez RN Position: [facility] SN RN Member Role: Primary Care Nurse Name: Marie Gomez RN Position: [facility] Onco RN Member Role: Primary Care Nurse Name: Memo Durán MD Position: [facility] ED Medicine MD Address: Address: [address] [place] [address]- Name: Hilda Muñiz RN Position: [facility] ED RN W/OE and Tasks Member Role: Patient Care Provider Name: Natalie Fitzpatrick Position: [facility] ED TA [facility] Member Role: Crew Leader Gluing Name: Daniel Cassidy MD Position: [facility] Resident Member Role: ED Resident Address: Address: [address] [place] [address]- Care Team Related Persons Name: STACEY BANDA Address: [place] [address] Name: HARDIK SIMMS Name: TABITHA ABDULLAHI Address: home [address] [place] [id number] Name: MADYSON ABDULLAHI
--- OUTSIDE RECORDS SUMMARY | 2023-10-23 08:09 | XMS_ITS | Continuity of Care Document ---
Author Organization [facility] Address [address] [place] [address]- Care Team Providers Care Email Marketing Assistant Name Role Phone Prema SOSA, Lin Ortega Primary Care Physician Encounter [facility] Date(s): 09/25/19 - 10/02/19 [facility] [address] [place] [address]- [facility] Encounter Diagnosis Vaginitis(Discharge Diagnosis) - 09/25/19 Attending Physician: Kleber Verduzco MD Allergies, Adverse Reactions, Alerts Substance Reaction [...] pneumococcal 23-valent vaccine 05/16/12 Given 1Result Comment: [facility]# [id number] PT. TOLERATED INJ. WITHOUT COMPLICATIONS....CO 2Result Comment: [03/04/2018] [facility]# [id number] 3Result Comment: [03/04/2016] pt. tolerated inj. without complications...CO 4Result Comment: [10/13/2017] [facility]# [id number] pt. tolerated inj. without complications...CO Medications Diflucan 150 mg oral tablet 1 tablet = 150 mg, By Mouth, Once, PRN yeast infection symptoms, # 2 tablet, 0 Refills, Soft Stop, 09/25/19 9:21:00 EDT, Tablet, [facility] #[id number], 154.94, cm, 06/19/19 11:29:00 EST, Height, 47, kg, 05/21/19 13:50:00 EST, Dry Weight Start Date: 09/25/19 Status: Ordered estradiol 0.1 mg/g vaginal cream See Instructions, apply topically as directed 5 times a week, # 42 Gm, 3 Refills, Maintenance, 07/13/18 13:56:17 EST Start Date: 07/13/18 Status: Ordered Metoprolol Tartrate 25 mg oral tablet 0.5 tablet = 12.5 mg, By Mouth, 2 times a day, # 90 tablet, 2 Refills, Maintenance, 09/13/19 15:08:00 EDT, Tablet, [facility] #[id number], PUT ON FILE, 154.94, cm, 06/19/19 11:29:00 [...] 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
--- OUTSIDE RECORDS SUMMARY | 2023-10-23 08:09 | XMS_ITS | Continuity of Care Document ---
Author Organization [facility] Address [address] [place] [address]- Care Team Providers Care Mail Order Sorter Name Role Phone Prema SOSA, Lin Ortega Primary Care Physician [phone] [facility]counter [facility] Date(s): 03/02/23 - 04/01/23 [facility] [address] [place], [place] [address] Allergies, Adverse Reactions, Alerts Substance Reaction Severity Status chlorthalidone made BP go down Active bisoprolol dryness Active Amlodipine Besylate-Atorvastatin made BP down Active hydrochlorothiazide Hydrochlorothiazide adverse reaction Hydrochlorothiazide adverse reaction depression Active lisinopril tinnitus Active losartan itching Active penicillins rash Active cloNIDine ?headaches, abdominal pain A ctive Immunizations Given and Recorded Vaccine Date Status [...] pneumococcal 23-valent vaccine 05/16/12 Given 1Result Comment: [facility] [id number] 2Result Comment: [03/04/2018] [facility]# [id number] 3Result Comment: [03/04/2016] pt. tolerated inj. without complications...CO 4Result Comment: [facility]# [id number] PT. TOLERATED INJ. WITHOUT COMPLICATIONS....CO 5Result Comment: [10/13/2017] [facility]# [id number] pt. tolerated inj. without complications...CO Medications brimonidine [...] MRI Safety Implantable Status Assigning Authority Unknown [id number] RCN Unknown Unknown 01/07/19 Unknown Unknown Active Unknown Patient Care team information Care Team Personnel Name: Lin Lloyd MD Position: [facility] Physician - Primary Care Member Role: PCP Address: Address: [address] [place] [address]- Name: Julio Sampson MD Position: [facility] Renal MD Member Role: Lifetime Consulting Physician Address: Address: [address] [place] [id number] Name: Frederick Bermudez MD Position: [facility] GATE OPERATOR MD Member Role: Lifetime GATE OPERATOR Physician Address: Address: [address] [place] [address] Name: Sarai VASQUEZ, Marie White Position: [facility] Onco RN Member Role: Primary Care Nurse Name: Hilda Tate RN Position: S RN Member Role: Primary Care Nurse Name: Claudia Castellon RN Position: S RN Member Role: Primary Care Nurse Name: Meghna Martinez RN Position: [facility] SN RN Member Role: Primary Care Nurse Care Team Related Persons Name: STACEY BANDA Address: [place] [address] Name: HARDIK SIMMS Name: TABITHA ABDULLAHI Address: home [address] [place] [id number] Name: MADYSON ABDULLAHI
--- OUTSIDE RECORDS SUMMARY | 2023-10-23 08:09 | XMS_ITS | Continuity of Care Document ---
Author Organization [facility] Address [address] [place] [address]- Care Team Providers Care Steam Plant Control Room Operator Name Role Phone Prema SOSA, Lin Ortega Primary Care Physician [phone] Encounter [facility] Date(s): 10/01/21 - 10/31/21 [facility] [address] [place], [place] [address] Allergies, Adverse Reactions, Alerts Substance Reaction Severity [...] pneumococcal 23-valent vaccine 05/16/12 Given 1Result Comment: [facility]# [id number] PT. TOLERATED INJ. WITHOUT COMPLICATIONS....CO 2Result Comment: [03/04/2018] [facility]# [id number] 3Result Comment: [03/04/2016] pt. tolerated inj. without complications...CO 4Result Comment: [10/13/2017] [facility]# [id number] pt. tolerated inj. without complications...CO Medications brimonidine [...] bedtime, # 30 tablet, Refills 0, Maintenance, 10/14/21 14:38:00 EDT, Partial fill upon patient request if the prescription is for a schedule II opioid drug. Start Date: 10/14/21 Status: Ordered estradiol 0.1 mg/g vaginal cream [...] AT BEDTIME Start Date: 01/07/21 Status: Ordered Misc Rx Refills 0, Maintenance, Durezol drops, 05/15/19 15:41:08 EST, Compound Start Date: 05/15/19 Status: Ordered ofloxacin 0.3% ophthalmic solution INSTILL 1 DROP INTO LEFT EYE FOUR TIMES DAILY FOR 1 WEEK Start Date: 04/04/21 Status: Ordered omeprazole 20 mg oral enteric coated capsule 1 capsule = 20 mg, By Mouth, Daily, # 30 capsule, 5 Refills, Maintenance, 04/04/21 11:49:00 EDT, [facility] #[id number], Partial fill upon patient request if the [...]
--- OUTSIDE RECORDS SUMMARY | 2023-10-23 08:09 | XMS_ITS | Continuity of Care Document ---
Author Organization [facility] Address [address] [place] [address]- Care Team Providers Care Mica Miner Name Role Phone Lin Lloyd MD Primary Care Physician Encounter [facility] Date(s): 05/22/21 - 05/29/21 [facility] [address] [place] [address]- Attending Physician: Luli Bennett MD Referring Physician: [...] pneumococcal 23-valent vaccine 05/16/12 Given 1Result Comment: [facility]# [id number] PT. TOLERATED INJ. WITHOUT COMPLICATIONS....CO 2Result Comment: [03/04/2018] [facility]# [id number] 3Result Comment: [03/04/2016] pt. tolerated inj. without complications...CO 4Result Comment: [10/13/2017] [facility]# [id number] pt. tolerated inj. without complications...CO Medications amLODIPine 5 mg oral tablet See Instructions, take 1/2 by mouth daily, # 15 tablet, Refills 5, Tot. Refills 5, Maintenance, 03/14/21 14:41:00 EDT, Instructions Replace Required Details, Route to Pharmacy Electronically, [facility] #[id number], Pt reports allergy to amlodipi... Start Date: 03/14/21 Status: Ordered brimonidine 0.2% ophthalmic solution See Instructions, 1 drop into Right eye three times a day, 0 Refills, Maintenance, 01/07/21 14:01:00 EDT, Solution, Partial fill upon patient request if the prescription is for a schedule II opioid drug. Start Date: 01/07/21 Status: Ordered estradiol 0.1 mg/g vaginal cream [...] AT BEDTIME Start Date: 01/07/21 Status: Ordered metroNIDAZOLE 500 mg oral tablet 1 tablet = 500 mg, By Mouth, Every 12 hours, for 7 days, # 14 tablet, 0 Refills, Acute 06/03/21 14:42:00 EST, 05/27/21 14:42:00 EST, Tablet, [facility] #[id number], Partial fill upon patient request if the prescription is for a schedule II opioid... Start Date: 05/27/21 Stop Date: 06/03/21 Status: [facility] Refills [facility], Maintenance, Durezol drops, 05/15/19 15:41:08 EST, Compound Start Date: 05/15/19 Status: Ordered ofloxacin 0.3% ophthalmic solution INSTILL 1 DROP INTO LEFT EYE FOUR TIMES DAILY FOR 1 WEEK Start Date: 04/04/21 Status: Ordered omeprazole 20 mg oral enteric coated capsule 1 capsule = 20 mg, By Mouth, Daily, # 30 capsule, 5 Refills, Maintenance, 04/04/21 11:49:00 EDT, ECCapsule, [facility] #[id number], Partial fill upon patient request if the [...] recent to oldest [Reference Range]: 1 Height 158 cm (05/22/21 4:42 PM) Oxygen Saturation [94-100 %] 97 % (05/22/21 4:42 PM) Pulse Rate [55-90 bpm] 92 bpm *H* (05/22/21 4:42 PM) Blood Pressure [90-138/55-84 mm Hg] 173/ 94mm Hg *H* (05/22/21 4:42 PM) Respiratory Rate [16-30 br/min] 20 br/mi n (05/22/21 4:42 PM) Temperature [96.8-100.4 DegF] 98.2 DegF (05/22/21 4:42 PM) Mode of Delivery (Oxygen) Room air (05/22/21 4:42 PM) Blood pressure sites Arm, left (05/22/21 4:42 PM) Temperature Route Temporal (05/22/21 4:42 PM) Social History Social History Type Response Smoking Status Never smoker; Other: quit smoking about 35 years ago, 3 cigs/d x 3 years; entered on: 05/30/15 Sex Medical Equipment Implanted Date:12/28/18Target Site:Eye Right Description Quantity MRI Company Model CORNEA FULL THICKNESS - TSSU (K001-PK) 1 [employer] Unknow n GITA:No Information Assigning Authority: FDA
--- OUTSIDE RECORDS SUMMARY | 2023-10-23 08:09 | XMS_ITS | Continuity of Care Document ---
Author Organization [facility] Address [address] [place] [address]- Care Team Providers Care Java Grails Developer Name Role Phone Lin Lloyd MD Primary Care Physician [phone] [facility]counter [facility] Date(s): 06/10[facility]20 - 06/17/[facility] [address] [place], [place] [address] Encounter Diagnosis Dermoid cyst of right ovary(Discharge Diagnosis) - 06/10/20 Hypertension(Discharge Diagnosis) - 06/10/20 Attending Physician: Lin Lloyd MD Allergies, Adverse Reactions, Alerts Substance Reaction Severity Status chlorthalidone made BP go down Active Amlodipine Besylate-Atorvastatin made BP down Active [...] pneumococcal 23-valent vaccine 05/16/12 Given 1Result Comment: [facility]# [id number] PT. TOLERATED INJ. WITHOUT COMPLICATIONS....CO 2Result Comment: [03/04/2018] [facility]# [id number] 3Result Comment: [03/04/2016] pt. tolerated inj. without complications...CO 4Result Comment: [10/13/2017] [facility]# [id number] pt. tolerated inj. without complications...CO Medications Diflucan 150 mg oral tablet 1 tablet = 150 mg, By Mouth, Every 48 hours, # 2 tablet, 0 Refills, Soft Stop, 06/10/20 10:25:00 EST, Tablet, [facility] #[id number], Partial fill upon patient request if the prescription is fora schedule II opioid drug., 154.94, cm, 05/30/20 11... Start Date: 06/10/20 Status: Ordered estradiol 0.1 mg/g vaginal cream See Instructions, apply topically as directed 5 times a week, # 42 Gm, 3 Refills, Maintenance, 07/13/18 13:56:17 EST Start Date: 07/13/18 Status: Ordered Metoprolol Tartrate 25 mg oral tablet 0.5 tablet = 12.5 mg, By Mouth, 2 times a day, # 90 tablet, 2 Refills, Maintenance, 09/13/19 15:08:00 EDT, Tablet, [facility] #[id number], PUT ON FILE, 154.94, cm, 06/19/19 11:29:00 [...] Diagnosis Diagnosis Type Effective Dates Health Status Clinical Service Informant Dermoid cyst of right ovary Discharge Diagnosis 06/10/20 Hypertension Discharge Diagnosis 06/10/20 Social History Social History Type Response Smoking Status Never smoker; Other: quit smoking about 35 years ago, 3 cigs/d x 3 years; entered on: 05/30/15 Sex Medical Equipment Implanted Date:12/28/18Target Site:Eye Right Description Quantity MRI Company Model CORNEA FULL THICKNESS - TSSU (K001-PK) 1 [employer] Unknow n GITA:No Information Assigning Authority: FDA
--- OUTSIDE RECORDS SUMMARY | 2023-10-23 08:09 | XMS_ITS | Continuity of Care Document ---
Author Organization [facility] Address [address] [place] [address]- Care Team Providers Care Residential Supervisor Name Role Phone Lin Lloyd MD Primary Care Physician [place] [facility] [place] 06[place]/22 [facility] [address] [place] [address]- Encounter Diagnosis Atrial tachycardia(Discharge Diagnosis) - 06/23/22 Hypertension(Discharge Diagnosis) - 06/23/22 Cerebral Aneurysm, Nonruptured(Discharge Diagnosis) - 06/23/22 Attending Physician: Lin Lloyd MD Allergies, Adverse [...] pneumococcal 23-valent vaccine 05/16/12 Given 1Result Comment: [facility] [id number] 2Result Comment: [03/04/2018] [facility]# [id number] 3Result Comment: [03/04/2016] pt. tolerated inj. without complications...CO 4Result Comment: [facility]# [id number] PT. TOLERATED INJ. WITHOUT COMPLICATIONS....CO 5Result Comment: [10/13/2017] [facility]# [id number] pt. tolerated inj. 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 Diagnosis Diagnosis Type Effective Dates Health Status Clinical Service Informant Atrial tachycardia Discharge Diagnosis 06/23/22 Hypertension Discharge Diagnosis 06/23/22 Cerebral Aneurysm, Nonruptured Discharge Diagnosis 06/23/22 Vital Signs Most recent to oldest [Reference Range]: 1 2 Height 48 cm (06/25/22 8:28 AM) 48 cm (06/23/22 2:11 PM) Weight 47.8 kg (06/25/22 8:28 AM) 47.8 kg (06/23/22 2:11 PM) Oxygen Saturation [94-100 %] 98 % (06/23/22 2:11 PM) Pulse Rate [55-90 bpm] 71 bpm (06/23/22 2:11 PM) Body Mass Index [18.5-24.99 kg/m2] 207.4 7 kg/m2 *>HHI* (06/23/22 2:11 PM) Blood Pressure [90-138/55-84 mm Hg] 110/ 60mm Hg (06/23/22 2:11 PM) Temperature [96.8-100.4 DegF] 99.0 DegF (06/23/22 2:11 PM) Mode of Delivery (Oxygen) Room air (06/23/22 2:11 PM) Blood pressure sites Arm, left (06/23/22 2:11 PM) Temperature Route Temporal (06/23/22 2:11 PM) Weight Obtained Via Standing scale (06/23/22 2:11 PM) Social History Social History Type Response [...] MRI Safety Implantable Status Assigning Authority Unknown [id number] RCN Unknown Unknown 01/07/19 Unknown Unknown Active Unknown Note * Kati Sena: PERFORM, SIGN, VERIFY Event Display: Patient Education/Instruction Authored Date: [id number] [facility] Clinical Summary Name CAMERON BANDA Age 82 Years 1940 PCP Lin Lloyd MD PCP Visit Date 06/23/2022 13:58:00 Additional Instructions: Scheduled Appointments?? Future Appointments ?No Future Appointments Scheduled Follow-Up Instructions ?? Diagnosis Medications: Please continue your medications until treatment is completed or stopped by your provider. Discuss any questions related to medications with your provider. Medications to Continue with No Changes These medications were not printed or sent to your pharmacy Brimonidine Ophthalmic (brimonidine 0.2% ophthalmic solution) 1 drop into Right eye three times a day. Next Dose: Clonidine (cloNIDine 0.1 mg oral tablet) 1 tab(s) Oral Daily at Bedtime. Next Dose: Durable Medical Equipment (Home Blood Pressure Monitor) dx: I10 use once daily height 158cm weight 48cm. Refills: 0. Next Dose: No Longer Take the Following Medications Bisoprolol (bisoprolol 5 mg oral tablet) TAKE 1/2 TABLET BY MOUTH DAILY. Ocular Lubricant (Systane) Both eyes 4 times a day. Ofloxacin Ophthalmic (ofloxacin 0.3% ophthalmic solution) INSTILL 1 DROP INTO LEFT EYE FOUR TIMES DAILY FOR 1 WEEK. Allergy Info:?? Amlodipine Besylate-Atorvastatin; penicillins; losartan; lisinopril; bisoprolol; hydrochlorothiazide; chlorthalidone Medications Given This Visit Medication Dose Route influenza virus vaccine, inactivated (influenza virus, inactivated vacc (High Dose)) 0.7 mL Intramuscular Future Orders ?No future orders Vital Signs Height 48 cm Weight 47.8 kg BMI 207.47 kg/m2 Blood Pressure 110 mm Hg/60 mm Hg Temperature 99.0 DegF Pulse Rate 71 bpm Respiratory Rate 02 Sat Mode of Delivery 98 %/Room air You can now view a summary of your hospital visit from the comfort of your home through a free online portal called [employer] is a website that allows you to securely view your medical information including discharge summary, medications and follow-up visits. ??You can alsosend a secure electronic message to your doctor???s office to request appointments, renew medications or just ask a question. You can enroll at [email or web address] or register during your next office visit. Disclaimer:?? The information provided is of a general nature and is intended to be used in conjunction with the recommendations and advice of your health care practitioner. ??Every effort has been made to ensure that the information provided is accurate and complete at the time it is provided to you however, as your needs change, or, as new ??information becomes available, different or additional instructions may be required. If you have questions, please consult with your primary care provider or pharmacist, as appropriate. ??This information is not intended to serve as substitution for assessment and evaluation by a qualified health care provider. If you do not have a primary care provider, you may find a [facility] provider by calling [employer] at [phone]. For information about the plan of care including goals and instructions for your diagnosis, please see the patient education orders section of this document. Patient Education Materials?? The content of this educational material or handout may have been modified, supplemented, or adapted from its original content and format to support your individualized medical care. Patient Care team information Care Team Personnel Name: Lin Lloyd MD Position: [facility] Primary Care Physician Member Role: PCP Address: Address: [address] [place] [id number] Name: Julio Sampson MD Position: [facility] Physician (General Medicine) Member Role: Lifetime Consulting Physician Address: Address: [address] [place] [address] Name: Lara SOSA, Frederick Higgins Position: [facility] AUTO TECH MD Member Role: Lifetime AUTO TECH Physician Address: Address: [address] [place] [address] Name: Hilda Tate RN Position: [facility] RN Member Role: Primary Care Nurse Name: Claudia Castellon RN Position: S RN Member Role: Primary Care Nurse Name: Meghna Martinez RN Position: [facility] RN Member Role: Primary Care Nurse Name: Marie Gomez RN Position: [facility] RN Member Role: Primary Care Nurse Care Team Related Persons Name: STACEY B[place]DA Address: [place] [address] Name: HARDIK SIMMS Name: TABITHA ABDULLAHI Address: home [address] [place] [id number] Name: MADYSON ABDULLAHI
--- OUTSIDE RECORDS SUMMARY | 2023-10-23 08:09 | XMS_ITS | Continuity of Care Document ---
Author Organization [facility] Address [address] [place] [address]- Care Team Providers Care Synthetic Filament Spinner Name Role Phone Lin Lloyd MD Primary Care Physician Encounter [facility] [place] Date(s): 11/26/21 - 12/03/21 [facility] [address] [place] [address]- Encounter Diagnosis Hypertension(Discharge Diagnosis) - 11/26/21 Bacterial vaginosis(Discharge Diagnosis) - 11/26/21 Attending Physician: Lin Lloyd MD Allergies, Adverse [...] pneumococcal 23-valent vaccine 05/16/12 Given 1Result Comment: [facility]# [id number] PT. TOLERATED INJ. WITHOUT COMPLICATIONS....CO 2Result Comment: [03/04/2018] [facility]# [id number] 3Result Comment: [03/04/2016] pt. tolerated inj. without complications...CO 4Result Comment: [10/13/2017] [facility]# [id number] pt. tolerated inj. without complications...CO Medications brimonidine 0.2% ophthalmic solution See Instructions, 1 drop into Right eye three times a day, 0 Refills, Maintenance, 01/07/21 14:01:00 EDT, Solution, Partial fill upon patient request if the prescription is for a schedule II opioid drug. Start Date: 01/07/21 Status: Ordered cloNIDine 0.1 mg oral tablet 0.3 mg, 3, tablet, By Mouth, Daily at bedtime, # 30 tablet, Refills 0, Maintenance, 10/14/21 14:38:00 EDT, Partial fill upon patient request if the prescription is for a schedule II opioid drug. Start Date: 10/14/21 Status: Ordered Home Blood Pressure Monitor See Instructions, # 1 Unknown, Maintenance, dx: I10 use once daily height 158cm weight 48cm, 01/16/21 11:47:00 EDT, Supply Start Date: 01/16/21 Status: Ordered ofloxacin 0.3% ophthalmic solution INSTILL 1 DROP INTO LEFT EYE FOUR TIMES DAILY FOR 1 WEEK Start Date: 04/04/21 Status: Ordered Systane Eyes, Both, 4 times a day, 0 Refills, Maintenance, 11/26/21 11:48:00 EDT, Partial fill upon patientrequest if the prescription is for a schedule II opioid drug. Start Date: 11/26/21 Status: Ordered Problem List Condition Effective Dates Status Health Status Inform ant Abdominal pain(Confirmed) Active Atrial tachycardia(Confirmed) Active Atrophic vaginitis(Confirmed) Active Bacterial vaginosis(Confirmed) Active Dermoid cyst of right ovary(Confirmed) Active [...] Effective Dates Health Status Clinical Service Informant Hypertension Discharge Diagnosis 11/26/21 Bacterial vaginosis Discharge Diagnosis 11/26/21 Vital Signs Most recent to oldest [Reference Range]: 1 Height 155 cm (11/26/21 11:22 AM) Weight 46.9 kg (11/26/21 11:22 AM) Oxygen Saturation [94-100 %] 98 % (11/26/21 11:22 AM) Pulse Rate [55-90 bpm] 56 bpm (11/26/21 11:22 AM) Body Mass Index [18.5-24.99] 19.52 (11/26/21 11:22 AM) Blood Pressure [90-138/55-84 mm Hg] 108/ 60mm Hg (11/26/21 11: AM) Respiratory Rate [16-30 br/min] 18 br/mi n (11/26/21 11: AM) Temperature [96.8-100.4 DegF] 99.0 DegF (11/26/21 11: AM) Mode of Delivery (Oxygen) Room air (11/26/21 11:22 AM) Blood pressure sites Arm, left (11/26/21 11:22 AM) Temperature Route Temporal (11/26/21 11:22 AM) Weight Obtained Via Standing scale (11/26/21 11:22 AM) Social History Social History Type Response Smoking Status Never smoker; Other: quit smoking about 35 years ago, 3 cigs/d x 3 years; entered on: 05/30/15 Sex Medical Equipment Implanted Date:12/28/18Target Site:Eye Right Description Quantity MRI Company Model CORNEA FULL THICKNESS - TSSU (K001-PK) 1 [employer] Unknow n GITA:No Information Assigning Authority: FDA
--- OUTSIDE RECORDS SUMMARY | 2023-10-23 08:09 | XMS_ITS | Continuity of Care Document ---
Author Organization [facility] Address [address] [place] [address]- Care Team Providers Care Director Of Special Services Name Role Phone Prema SOSA, Lin Ortega Primary Care Physician Encounter [facility] Date(s): 11/12/20 - 12/12/20 [facility] [address] [place], [place] [address] Allergies, Adverse Reactions, Alerts Substance Reaction Severity [...] 05/16/12 Given 1Result Comment: [facility]# [id number] PT. TOLERATED INJ. WITHOUT COMPLICATIONS....CO 2Result Comment: [03/04/2018] [facility]# [id number] 3Result Comment: [03/04/2016] pt. tolerated inj. without complications...CO 4Result Comment: [10/13/2017] [facility]# [id number] pt. tolerated inj. without complications...CO Medications Diflucan 150 mg oral tablet 1 tablet = 150 mg, By Mouth, Every 48 hours, # 2 tablet, 0 Refills, Soft Stop, 09/04/20 16:38:00 EDT, Tablet, [facility] #[id number], Partial fill upon patient request if the prescription is fora schedule II opioid drug., 154.94, cm, 05/30/20 11... Start Date: 09/04/20 Status: Ordered Diflucan 150 mg oral tablet 1 tablet = 150 mg, By Mouth, Every 48 hours, # 2 tablet, 0 Refills, Soft Stop, 06/10/20 10:25:00 EST, Tablet, [facility] #[id number], Partial fill upon patient request if the [...] Refills, Maintenance, 11/12/20 10:23:00 EDT, Chew Tablet, [facility] #[id number], Partial fill upon patient request if the prescription is for a schedule II opioid drug., 158, cm, 10/29/20 8:1... Start Date: 11/12/20 Status: Ordered Metoprolol Tartrate 25 mg oral tablet 0.5 tablet, By Mouth, 2 times a day, # 90 tablet, 2 Refills, Maintenance, 10/22/20 18:29:00 EDT, [facility] #[id number], 154.94, cm, 10/22/20 13:42:00 EDT, Height, 46.5, [...]
--- OUTSIDE RECORDS SUMMARY | 2023-10-23 08:09 | XMS_ITS | Continuity of Care Document ---
Author Organization [facility] Address [address] [place] [address]- Care Team Providers Care Agile Test Lead Name Role Phone Prema SOSA, Lin Ortega Primary Care Physician [place] [facility] [place]21 [facility] [address] [place], [place] [address] Allergies, Adverse Reactions, Alerts Substance [...] pneumococcal 23-valent vaccine 05/16/12 Given 1Result Comment: [facility]# [id number] PT. TOLERATED INJ. WITHOUT COMPLICATIONS....CO 2Result Comment: [03/04/2018] [facility]# [id number] 3Result Comment: [03/04/2016] pt. tolerated inj. without complications...CO 4Result Comment: [10/13/2017] [facility]# [id number] pt. tolerated inj. without complications...CO Medications brimonidine [...] metoprolol 25 mg oral tablet, extended release 12.5 mg, 0.5, tablet, By Mouth, Daily, # 15 tablet, Refills 3, Tot. Refills 3, Maintenance, 07/29/21 16:47:00 EST, Route to Pharmacy Electronically, [facility] #[id number], Partial fill upon patient request if the prescription is for a schedule I... Start Date: 07/29/21 Stop Date: 11/26/21 Status: Ordered [facility] Rx Refills 0, Maintenance, Durezol drops, 05/15/19 15:41:08 EST, Compound Start Date: 05/15/19 Status: Ordered ofloxacin 0.3% ophthalmic solution INSTILL 1 DROP INTO LEFT EYE FOUR TIMES DAILY FOR 1 WEEK Start Date: 04/04/21 Status: Ordered omeprazole 20 mg oral enteric coated capsule 1 capsule = 20 mg, By Mouth, Daily, # 30 capsule, 5 Refills, Maintenance, 04/04/21 11:49:00 EDT, ECCapsule, [facility] #[id number], Partial fill upon patient request if the [...]
--- OUTSIDE RECORDS SUMMARY | 2023-10-23 08:09 | XMS_ITS | Continuity of Care Document ---
Author Organization [facility] Address [address] [place] [address]- Care Team Providers Care Share Dairy Farmer Name Role Phone Lin Lloyd MD Primary Care Physician [phone] Encounter [facility] [place] Date(s): 11/07/20 - 11/14/20 [facility] [address] [place], [place] [address] Encounter Diagnosis Chronic cystitis(Discharge Diagnosis) - 11/07/20 Abdominal pain(Discharge Diagnosis) - 11/07/20 Atrophic vaginitis(Discharge Diagnosis) - 11/07/20 Attending Physician: Lin Lloyd MD Allergies, Adverse [...] pneumococcal 23-valent vaccine 05/16/12 Given 1Result Comment: [facility]# [id number] PT. TOLERATED INJ. WITHOUT COMPLICATIONS....CO 2Result Comment: [03/04/2018] [facility]# [id number] 3Result Comment: [03/04/2016] pt. tolerated inj. without complications...CO 4Result Comment: [10/13/2017] [facility]# [id number] pt. tolerated inj. without complications...CO Medications Diflucan 150 mg oral tablet 1 tablet = 150 mg, By Mouth, Every 48 hours, # 2 tablet, 0 Refills, Soft Stop, 09/04/20 16:38:00 EDT, Tablet, [facility] #[id number], Partial fill upon patient request if the prescription is fora schedule II opioid drug., 154.94, cm, 05/30/20 11... Start Date: 09/04/20 Status: Ordered Diflucan 150 mg oral tablet 1 tablet = 150 mg, By Mouth, Every 48 hours, # 2 tablet, 0 Refills, Soft Stop, 06/10/20 10:25:00 EST, Tablet, [facility] #[id number], Partial fill upon patient request if the [...] Refills, Maintenance, 11/12/20 10:23:00 EDT, Chew Tablet, [email or web address] #[id number], Partial fill upon patient request if the prescription is for a schedule II opioid drug., 158, cm, 10/29/20 8:1... Start Date: 11/12/20 Status: Ordered Metoprolol Tartrate 25 mg oral tablet 0.5 tablet, By Mouth, 2 times a day, # 90 tablet, 2 Refills, Maintenance, 10/22/20 18:29:00 EDT, [facility] #[id number], 154.94, cm, 10/22/20 13:42:00 EDT, Height, 46.5, [...] Diagnosis Diagnosis Type Effective Dates Health Status Cl inical Service Informant Chronic cystitis Discharge Diagnosis 11/07/20 Abdominal pain Discharge Diagnosis 11/07/20 Atrophic vaginitis Discharge Diagnosis 11/07/20 Social History Social History Type Response Smoking Status Never smoker; Other: quit smoking about 35 years ago, 3 cigs/d x 3 years; entered on: 05/30/15 Sex Medical Equipment Implanted Date:12/28/18Target Site:Eye Right Description Quantity MRI Company Model CORNEA FULL THICKNESS - TSSU (K001-PK) 1 [employer] Unknow n GITA:No Information Assigning Authority: FDA
--- OUTSIDE RECORDS SUMMARY | 2023-10-23 08:09 | XMS_ITS | Continuity of Care Document ---
Author Organization [facility] Address [address] [place] [address]- Care Team Providers Care Medical Billing Assistant Name Role Phone Prema SOSA, Lin Ortega Primary Care Physician En[place] [facility] [place] Date(s): 09/25/21 - 10/02/21 [facility] [address] [place] [address]- Encounter Diagnosis Hypertension(Discharge Diagnosis) - 09/25/21 Atrophic vaginitis(Discharge Diagnosis) - 09/25/21 Attending Physician: Mandi PAPERHANGER PIPE, Sybil Allergies, Adverse Reactions, Alerts Substance Reaction Severity Status chlorthalidone made BP go down Active hydrochlorothiazide Hydrochlorothiazide adverse reaction Hydrochlorothiazide adverse reaction depression Active Amlodipine Besylate-Atorvastatin made BP down Active lisinopril tinnitus Active losartan itching Active [...] 05/16/12 Given 1Result Comment: [facility]# [id number] PT. TOLERATED INJ. WITHOUT COMPLICATIONS....CO 2Result Comment: [03/04/2018] [facility]# [id number] 3Result Comment: [03/04/2016] pt. tolerated inj. without complications...CO 4Result Comment: [10/13/2017] [facility]# [id number] pt. tolerated inj. without complications...CO Medications bisoprolol 5 mg oral tablet 0.5 tablet = 2.5 mg, By Mouth, Daily, # 15 tablet, 3 Refills, Maintenance, 09/29/21 14:29:00 EDT, Tablet, [facility] #[id number], please cut in 2 for patient, visually impaired discontinue metoprolol rx, 155, cm, 09/28/21 14:57:00 EDT, Height,... Start Date: 09/29/21 Status: Ordered brimonidine 0.2% ophthalmic solution See [...] 13:56:17 EST Start Date: 07/13/18 Status: Ordered flecainide 50 mg oral tablet See Instructions, 1 tablet By Mouth as needed for sustained palpitations, # 30 tablet, Refills 3, Tot. Refills 3, Maintenance, 08/26/21 16:33:00 EDT, Instructions Replace Required Details, Route to Pharmacy Electronically, [facility] #[id number],... Start Date: 08/26/21 Status: Ordered Home Blood Pressure Monitor See Instructions, # 1 Unknown, Maintenance, dx: I10 use once daily height 158cm weight 48cm, 01/16/21 11:47:00 EDT, Supply Start Date: 01/16/21 Status: Ordered latanoprost 0.005% ophthalmic solution INSTILL 1 DROP INTO RIGHT EYE AT BEDTIME Start Date: 01/07/21 Status: Ordered metroNIDAZOLE 500 mg oral tablet 1 tablet = 500 mg, By Mouth, Every 8 hours, for 7 days, do not drink alcohol, # 21 tablet, 0 Refills, Acute 10/09/21 12:34:00 EDT, 10/02/21 12:34:00 EDT, Tablet, [facility] #[id number], Partial fill upon patient request if the prescription is for... Start Date: 10/02/21 Stop Date: 10/09/21 Status: Ordered Misc Rx Refills 0, Maintenance, [...] 5 Refills, Maintenance, 04/04/21 11:49:00 EDT, ECCapsule, [facility] #[id number], Partial fill upon patient request if the [...] Status Clinical Service Informant Hypertension Discharge Diagnosis 09/25/21 Atrophic vaginitis Discharge Diagnosis 09/25/21 Vital Signs Most recent to oldest [Reference Range]: 1 2 3 Height 158 cm (09/25/21 4:26 PM) 158 cm (09/25/21 4:25 PM) 158 cm (09/25/21 4:00 PM) Weight 47.1 kg (09/25/21 4:00 PM) Oxygen Saturation [94-100 %] 98 % (09/25/21 4:00 PM) Pulse Rate [55-90 bpm] 79 bpm (09/25/21 4:00 PM) Body Mass Index [18.5-24.99] 18.87 (09/25/21 4:00 PM) Blood Pressure [90-138/55-84 mm Hg] 126/82mm Hg (09/25/21 4:26 PM) 120/80mm Hg (09/25/21 4:25 PM) 148/90mm Hg *H* (09/25/21 4:00 PM) Temperature [96.8-100.4 DegF] 97.3 DegF (09/25/21 4:00 PM) Mode of Delivery (Oxygen) Room air (09/25/21 4:00 PM) Blood pressure sites Arm, right (09/25/21 4:26 PM) Arm, left (09/25/21 4:25 PM) Arm, left (09/25/21 4:00 PM) Temperature Route Temporal (09/25/21 4:00 PM) Weight Obtained Via Standing scale (09/25/21 4:00 PM) Social History Social History Type Response Smoking Status Never smoker; Other: quit smoking about 35 years ago, 3 cigs/d x 3 years; entered on: 05/30/15 Sex Medical Equipment Implanted Date:12/28/18Target Site:Eye Right Description Quantity MRI Company Model CORNEA FULL THICKNESS - TSSU (K001-PK) 1 [employer] Unknow n IGTA:No Information Assigning Authority: FDA
--- OUTSIDE RECORDS SUMMARY | 2023-10-23 08:09 | XMS_ITS | Continuity of Care Document ---
Author Organization [facility] Address [address] [place] [address]- Care Team Providers Care Dye Boarding Machine Operator Name Role Phone Lin Lloyd MD Primary Care Physician Encounter [facility] Date(s): 05/30/20 - 06/29/20 [facility] [address] [place] [address]- Attending Physician: Olinda Currie Admitting Physician: AdmtrOlinda Referring Physician: Admtr, Ar8 Allergies, Adverse Reactions, Alerts Substance Reaction Severity Status chlorthalidone made BP go down Active losartan itching Active Amlodipine Besylate-Atorvastatin made BP down Active hydrochlorothiazide Hydrochlorothiazide adverse reaction Hydrochlorothiazide adverse reaction depression Active lisinopril tinnitus Active penicillins rash Active Immunizations Given and Recorded Vaccine Date Status Refusal Reason pneumococcal 13-valent vaccine 1 03/14/19 Given influenza virus vaccine, inactivated 2 03/04/18 Gi sharron influenza virus vaccine, inactivated 3 03/04/16 Gi sharron influenza virus vaccine, inactivated 03/06/13 Give n tetanus/diphtheria/pertussis, acel(Tdap) 4 10/13/17 Given pneumococcal 23-valent vaccine 05/16/12 Given 1Result Comment: [facility]# [id number] PT. TOLERATED INJ. WITHOUT COMPLICATIONS....CO 2Result Comment: [03/04/2018] [facility]# [id number] 3Result Comment: [03/04/2016] pt. tolerated inj. without complications...CO 4Result Comment: [10/13/2017] [facility]# [id number] pt. tolerated inj. without complications...CO Medications Diflucan 150 mg oral tablet 1 tablet = 150 mg, By Mouth, Every 48 hours, # 2 tablet, 0 Refills, Soft Stop, 06/10/20 10:25:00 EST, Tablet, [facility] #[id number], Partial fill upon patient request if the [...] 2 Refills, Maintenance, 09/13/19 15:08:00 EDT, Tablet, [facility] #[id number], PUT ON FILE, 154.94, cm, 06/19/19 11:29:00 [...] entered on: 05/30/15 Sex Medical Equipment Implanted Date:7/31/19Target Site:Eye Right Description Quantity MRI Company Model CORNEA FULL THICKNESS - TSSU (K001-PK) 1 [employer] Unknow n GITA:No Information Assigning Authority: FDA
--- OUTSIDE RECORDS SUMMARY | 2023-10-23 08:09 | XMS_ITS | Continuity of Care Document ---
Author Organization [facility] Address [address] [place] [address]- Care Team Providers Care Representative Phlebotomy Services Name Role Phone Prema SOSA, Lin Ortega Primary Care Physician [facility]counter [facility] Date(s): 11/07/20 - 12/07/20 [facility] [address] [place], [place] [address] Attending Physician: Olinda Currie Admitting Physician: Olinda Currie Referring Physician: AdmtrOlinda Allergies, Adverse Reactions, Alerts Substance Reaction Severity [...] pneumococcal 23-valent vaccine 05/16/12 Given 1Result Comment: [facility]# [id number] PT. TOLERATED INJ. WITHOUT COMPLICATIONS....CO 2Result Comment: [03/04/2018] [facility]# [id number] 3Result Comment: [03/04/2016] pt. tolerated inj. without complications...CO 4Result Comment: [10/13/2017] [facility]# [id number] pt. tolerated inj. without complications...CO Medications Diflucan 150 mg oral tablet 1 tablet = 150 mg, By Mouth, Every 48 hours, # 2 tablet, 0 Refills, Soft Stop, 09/04/20 16:38:00 EDT, Tablet, [facility] #[id number], Partial fill upon patient request if the prescription is fora schedule II opioid drug., 154.94, cm, 05/30/20 11... Start Date: 09/04/20 Status: Ordered Diflucan 150 mg oral tablet 1 tablet = 150 mg, By Mouth, Every 48 hours, # 2 tablet, 0 Refills, Soft Stop, 06/10/20 10:25:00 EST, Tablet, [facility] #[id number], Partial fill upon patient request if the [...] Refills, Maintenance, 11/12/20 10:23:00 EDT, Chew Tablet, [facility] #[id number], Partial fill upon patient request if the prescription is for a schedule II opioid drug., 158, cm, 10/29/20 8:1... Start Date: 11/12/20 Status: Ordered Metoprolol Tartrate 25 mg oral tablet 0.5 tablet, By Mouth, 2 times a day, # 90 tablet, 2 Refills, Maintenance, 10/22/20 18:29:00 EDT, [facility] #[id number], 154.94, cm, 10/22/20 13:42:00 EDT, Height, 46.5, [...] Most recent to oldest [Reference Range]: 1 Blood Pressure [90-138/55-84 mm Hg] 130/ 78mm Hg (05/15/19 3:46 PM) Social History Social History Type Response Smoking Status Never smoker; Other: quit smoking about 35 years ago, 3 cigs/d x 3 years; entered on: 05/30/15 Sex Medical Equipment Implanted Date:12/28/18Target Site:Eye Right Description Quantity MRI Company Model CORNEA FULL THICKNESS - TSSU (K001-PK) 1 [employer] Unknow n GITA:No Information Assigning Authority: FDA
--- OUTSIDE RECORDS SUMMARY | 2023-10-23 08:10 | XMS_ITS | Continuity of Care Document ---
Author Organization [facility] Address [address] [place] [address]- Care Team Providers Care Fisher Gill Net Name Role Phone Lin Lloyd MD Primary Care Physician Encounter [facility] Date(s): 12/10/21 - 01/09/22 [facility] [address] [place] [address] [place], [place] [address] Attending Physician: Olinda Currie Admitting Physician: Olinda Currie Referring Physician: AdmtrOlinda Allergies, Adverse Reactions, Alerts Substance Reaction Severity Status chlorthalidone made BP go down Active bisoprolol dryness Active losartan itching Active Amlodipine Besylate-Atorvastatin made [...] vaccine 05/16/12 Given 1Result Comment: [facility]# [id number] PT. TOLERATED INJ. WITHOUT COMPLICATIONS....CO 2Result Comment: [03/04/2018] [facility]# [id number] 3Result Comment: [03/04/2016] pt. tolerated inj. without complications...CO 4Result Comment: [10/13/2017] [facility]# [id number] pt. tolerated inj. without complications...CO Medications bisoprolol 5 mg oral tablet TAKE 1/2 TABLET BY MOUTH DAILY Start Date: 01/01/22 Status: Ordered brimonidine 0.2% ophthalmic solution See [...]
--- OUTSIDE RECORDS SUMMARY | 2023-10-23 08:10 | XMS_ITS | Continuity of Care Document ---
Author Organization [facility] Address [address] [place] [address]- Care Team Providers Care Blackjack Supervisor Name Role Phone Lin Lloyd MD Primary Care Physician [phone] [place] [facility] [place]): 05/[place]/20 - 06/06/20 [facility] [address] [place] [address]- Encounter Diagnosis Left eye pain(Discharge Diagnosis) - 05/30/20 Attending Physician: Luli Bennett MD Referring Physician: [...] pneumococcal 23-valent vaccine 05/16/12 Given 1Result Comment: [facility]# [id number] PT. TOLERATED INJ. WITHOUT COMPLICATIONS....CO 2Result Comment: [03/04/2018] [facility]# [id number] 3Result Comment: [03/04/2016] pt. tolerated inj. without complications...CO 4Result Comment: [10/13/2017] [facility]# [id number] pt. tolerated inj. without complications...CO Medications estradiol [...] 0 Refills, Soft Stop, 05/27/20 8:58:00 EST, [facility] #[id number], 154.94, cm, 05/21/20 13:27:00 EST, Height, 48.4, kg, 05/21/20 13:33:00 EST, Dry Weight Start Date: 05/27/20 Status: Ordered Metoprolol Tartrate 25 mg oral tablet 0.5 tablet = 12.5 mg, By Mouth, 2 times a day, # 90 tablet, 2 Refills, Maintenance, 09/13/19 15:08:00 EDT, Tablet, [facility] #[id number], PUT ON FILE, 154.94, cm, 06/19/19 11:29:00 [...] Dates Health Status Cl inical Service Informant Left eye pain Discharge Diagnosis 05/30/20 Vital Signs Most recent to oldest [Reference Range]: 1 Height 154.94 cm (05/30/20 11:47 AM) Weight 46.5 kg (05/30/20 11:47 AM) Oxygen Saturation [94-100 %] 100 % (05/30/20 11:47 AM) Pulse Rate [55-90 bpm] 75 bpm (05/30/20 11:47 AM) Body Mass Index [18.5-24.99] 19.37 (05/30/20 11:47 AM) Blood Pressure [90-138/55-84 mm Hg] 151/ 93mm Hg *H* (05/30/20 11:47 AM) Respiratory Rate [16-30 br/min] 16 br/mi n (05/30/20 11:47 AM) Temperature [96.8-100.4 DegF] 97.1 DegF (05/30/20 11:47 AM) Mode of Delivery (Oxygen) Room air (05/30/20 11:47 AM) Blood pressure sites Arm, right (05/30/20 11:47 AM) Temperature Route Temporal (05/30/20 11:47 AM) Dry Weight 46.5 kg (05/30/20 11:47 AM) Weight Obtained Via Standing scale (05/30/20 11:47 AM) Dry Weight Obtained Via Standing scale (05/30/20 11:47 AM) Social History Social History Type Response Smoking Status Never smoker; Other: quit smoking about 35 years ago, 3 cigs/d x 3 years; entered on: 05/30/15 Sex Medical Equipment Implanted Date:12/28/18Target Site:Eye Right Description Quantity MRI Company Model CORNEA FULL THICKNESS - TSSU (K001-PK) 1 [employer] Unknow n GITA:No Information Assigning Authority: FDA
--- OUTSIDE RECORDS SUMMARY | 2023-10-23 08:10 | XMS_ITS | Continuity of Care Document ---
Author Organization [facility] Address [address] [place] [address]- Care Team Providers Care Histology Tech Name Role Phone Prema SOSA, Lin Ortega Primary Care Physician [phone] Encounter [facility] Date(s): 05/11/19 - 05/11/[address] [address]- [facility] Attending Physician: Dion SOSA, Kenrick Conklin Allergies, Adverse Reactions, Alerts Substance Reaction Severity [...] pneumococcal 23-valent vaccine 05/16/12 Given 1Result Comment: [facility]# [id number] PT. TOLERATED INJ. WITHOUT COMPLICATIONS....CO 2Result Comment: [03/04/2018] [facility]# [id number] 3Result Comment: [03/04/2016] pt. tolerated inj. without complications...CO 4Result Comment: [10/13/2017] [facility]# [id number] pt. tolerated inj. without complications...CO Medications estradiol 0.1 mg/g vaginal cream See Instructions, apply topically as directed 5 times a week, # 42 Gm, 3 Refills, Maintenance, 07/13/18 13:56:17 EST Start Date: 07/13/18 Status: Ordered ketorolac 0.5% ophthalmic solution See Instructions, left eye once per day, 0 Refills, Maintenance, 12/09/18 11:21:33 EDT Start Date: 12/09/18 Status: Ordered Macrobid macrocrystals-monohydrate 100 mg oral capsule 1 capsule = 100 mg, By Mouth, 2 times a day, for 5 days, # 10 capsule, 0 Refills, Acute 05/16/19 11:19:00 EST, 05/11/19 11:19:00 EST, Capsule, 154.94, cm, 05/11/19 10:57:52 EST, Height, 46.2, kg, 05/11/19 10:57:52 EST, Dry Weight Start Date: 05/11/19 Stop Date: 05/16/19 Status: Ordered Metoprolol Tartrate 25 mg oral tablet 0.5 tablet = 12.5 mg, By Mouth, 2 times a day, # 45 tablet, 2 Refills, Maintenance, 03/14/19 13:41:46 EDT, Tablet, PUT ON FILE Start Date: 03/14/19 Status: Ordered Misc Rx Refills 0, Maintenance[facility] day netarsudil 0.02/latonoprost 0.005 takes at2 pm, 12/09/18 11:21:48 EDT, Compound Start Date: 12/09/18 Status: Ordered timolol maleate 0.5% ophthalmic gel forming solution INT 1 GTT IN OU BID UTD Start Date: 12/09/18 Status: Ordered Problem List Condition Effective Dates Status Health Status Inform ant Atrophic vaginitis(Confirmed) Active Dermoid cyst of right ovary(Confirmed) Active Cataracts, bilateral(Confirmed) Active Cerebral Aneurysm, Nonruptured(Confirmed) 1 04/09/10 Active Epigastric pain(Confirmed) Active Epigastric abdominal pain(Confirmed) Active Glaucoma(Confirmed) Active Hypertension(Confirmed) Active Loss of weight(Confirmed) Active Postmenopausal bleeding(Confirmed) Active Vertigo(Confirmed) Active Vision impairment(Confirmed) Active 13 [...]
--- OUTSIDE RECORDS SUMMARY | 2023-10-23 08:10 | XMS_ITS | Continuity of Care Document ---
Author Organization [facility] Address [address] [place] [address]- Care Team Providers Care Vascular Sonographer Name Role Phone Prema SOSA, Lin Ortega Primary Care Physician En[place] [facility] Date(s): 12/08/21 - 01/07/22 [facility] [address] [place] [address]- Allergies, Adverse Reactions, Alerts Substance Reaction Severity [...] Comment: [facility]# [id number] PT. TOLERATED INJ. WITHOUT COMPLICATIONS....CO 2Result Comment: [03/04/2018] [facility]# [id number] 3Result Comment: [03/04/2016] pt. tolerated inj. without complications...CO 4Result Comment: [10/13/2017] [facility]# [id number] pt. tolerated inj. without complications...CO Medications bisoprolol [...]
--- OUTSIDE RECORDS SUMMARY | 2023-10-23 08:10 | XMS_ITS | Continuity of Care Document ---
Author Organization [facility] Address [address] [place] [address]- Care Team Providers Care Biological Sciences Instructor Name Role Phone Lin Lloyd MD Primary Care Physician Encounter [facility] Date(s): 10/28/20 - 10/29/[address] [address]- Encounter Diagnosis Abdominal pain(Final) - 10/28/20 Discharge Disposition: A-D/C Home Attending Physician: Mark Meredith MD Admitting Physician: Mark Meredith MD Referring Physician: Not on Staff, Referring [...] pneumococcal 23-valent vaccine 05/16/12 Given 1Result Comment: [facility]# [id number] PT. TOLERATED INJ. WITHOUT COMPLICATIONS....CO 2Result Comment: [03/04/2018] [facility]# [id number] 3Result Comment: [03/04/2016] pt. tolerated inj. without complications...CO 4Result Comment: [10/13/2017] [facility]# [id number] pt. tolerated inj. without complications...CO Medications Diflucan 150 mg oral tablet 1 tablet = 150 mg, By Mouth, Every 48 hours, # 2 tablet, 0 Refills, Soft Stop, 09/04/20 16:38:00 EDT, Tablet, [facility] #[id number], Partial fill upon patient request if the prescription is fora schedule II opioid drug., 154.94, cm, 05/30/20 11... Start Date: 09/04/20 Status: Ordered Diflucan 150 mg oral tablet 1 tablet = 150 mg, By Mouth, Every 48 hours, # 2 tablet, 0 Refills, Soft Stop, 06/10/20 10:25:00 EST, Tablet, [facility] #[id number], Partial fill upon patient request if the [...] tablet, 2 Refills, Maintenance, 10/22/20 18:29:00 EDT, [facility] #[id number], 154.94, cm, 10/22/20 13:42:00 EDT, Height, 46.5, [...] mm left superior hypophyseal artery aneurysm Results Radiology Reports * Exam Date Time Procedure Performing Provider Status 10/28/20 8:34 PM Chest Portable Jessica Mane; Sera ( Verified) Notes: (Chest Portable) Reason For Exam: Shortness of Breath RESULT: Chest Portable Chest Portable HX OF PRESENT ILLNESS: epigastric pain, urinary incontinence and feeling hot in vagina area 4-5 days.; Reason: Shortness of Breath; Clinical Question(s): CHF / CHF COMPARISON: 03/15/2018 FINDINGS: LINES AND TUBES: None. LUNGS AND PLEURA: Clear lungs. Normal pulmonary vascularity. No pleural effusion. No pneumothorax. HEART, MEDIASTINUM AND MEAGAN: Heart appears enlarged but this is likely exaggerated by technique. Normal mediastinal and hilar contour. BONES AND SOFT TISSUES: No acute abnormality. IMPRESSION: No evidence of acute abnormality. WSN: [id number] Ordering Physician: Mando Mcneill Dictated By: Ag Pryor MD Dictated Date/Time: 10/28/20 8:34 pm Reviewed By: Ag Pryor MD Signed By: Ag Pryor MD Signed Date/Time: 10/28/20 8:34 pm Transcribed By: CHARBEL Transcribed Date/Time: 10/28/20 8:34 pm Vital Signs Most recent to oldest [Reference Range]: 1 2 3 Height 158 cm (10/29/20 8:18 AM) 158 cm (10/29/20 4:55 AM) 158 cm (10/29/20 3:21 AM) Weight 48 kg (10/29/20 8:18 AM) 48 kg (10/29/20 4:55 AM) 48 kg (10/29/20 3:21 AM) Oxygen Saturation [94-100 %] 100 % (10/29/20 8:18 AM) 100 % (10/29/20 4:55 AM) 100 % (10/29/20 3:21 AM) Pulse Rate [55-90 bpm] 70 bpm (10/29/20 8:18 AM) 73 bpm (10/29/20 4:55 AM) 83 bpm (10/29/20 3:21 AM) Body Mass Index [18.5-24.99] 19.23 (10/29/20 8:18 AM) 19.23 (10/29/20 4:55 AM) 19.23 (10/29/20 3:21 AM) Blood Pressure [90-138/55-84 mm Hg] 136/55mm Hg (10/29/20 8:18 AM) 146/74mm Hg *H* (10/29/20 4:55 AM) 181/102mm Hg *H* (10/29/20 3:21 AM) Respiratory Rate [16-30 br/min] 18 br/min (10/29/20 8:18 AM) 17 br/min (10/29/20 4:55 AM) 20 br/min (10/29/20 3:21 AM) Temperature [96.8-100.4 DegF] 98 DegF (10/29/20 8:18 AM) 98.5 DegF (10/29/20 4:55 AM) 97.7 DegF (10/29/20 3:21 AM) Mode of Delivery (Oxygen) Room air (10/29/20 8:18 AM) Room air (10/29/20 4:55 AM) Room air (10/29/20 3:21 AM) Blood pressure sites Arm, left (10/29/20 8:18 AM) Arm, left (10/29/20 4:55 AM) Arm, left (10/29/20 3:21 AM) Temperature Route Oral (10/29/20 8:18 AM) Oral (10/29/20 4:55 AM) Oral (10/29/20 3:21 AM) Dry Weight 48 kg (10/29/20 8:18 AM) 48 kg (10/29/20 4:55 AM) 48 kg (10/29/20 3:21 AM) Social History Social History Type Response Smoking Status Never smoker; Other: quit smoking about 35 years ago, 3 cigs/d x 3 years; entered on: 05/30/15 Sex Medical Equipment Implanted Date:12/28/18Target Site:Eye Right Description Quantity MRI Company Model CORNEA FULL THICKNESS - TSSU (K001-PK) 1 [employer] Unknow n GITA:No Information Assigning Authority: FDA
--- OUTSIDE RECORDS SUMMARY | 2023-10-23 08:10 | XMS_ITS | Continuity of Care Document ---
Author Organization [facility] Address [address] [place] [address]- Care Team Providers Care Brand Ambassador Name Role Phone Prema SOSA, Lin Ortega Primary Care Physician [facility]counter [facility] Date(s): 11/30/19 - 12/30/19 [facility] [address] [place] [address]- [facility] Allergies, Adverse Reactions, Alerts Substance Reaction Severity [...] pneumococcal 23-valent vaccine 05/16/12 Given 1Result Comment: [facility]# [id number] PT. TOLERATED INJ. WITHOUT COMPLICATIONS....CO 2Result Comment: [03/04/2018] [facility]# [id number] 3Result Comment: [03/04/2016] pt. tolerated inj. without complications...CO 4Result Comment: [10/13/2017] [facility]# [id number] pt. tolerated inj. without complications...CO Medications Diflucan 150 mg oral tablet 1 tablet = 150 mg, By Mouth, Once, PRN yeast infection symptoms, # 2 tablet, 0 Refills, Soft Stop, 11/21/19 13:22:00 EDT, Tablet, [facility] #[id number], 154.94, cm, 06/19/19 11:29:00 EST, Height, 47, kg, 05/21/19 13:50:00 EST, Dry Weight Start Date: 11/21/19 Status: Ordered estradiol 0.1 mg/g vaginal cream See Instructions, apply topically as directed 5 times a week, # 42 Gm, 3 Refills, Maintenance, 07/13/18 13:56:17 EST Start Date: 07/13/18 Status: Ordered Metoprolol Tartrate 25 mg oral tablet 0.5 tablet = 12.5 mg, By Mouth, 2 times a day, # 90 tablet, 2 Refills, Maintenance, 09/13/19 15:08:00 EDT, Tablet, [facility] #[id number], PUT ON FILE, 154.94, cm, 06/19/19 11:29:00 [...]
--- OUTSIDE RECORDS SUMMARY | 2023-10-23 08:10 | XMS_ITS | Continuity of Care Document ---
Author Organization [facility] Address [address] [place] [address]- Care Team Providers Care Billing Supervisor Name Role Phone Lin Lloyd MD Primary Care Physician [phone] [place] [facility] [place](s): 09/13/19 - 09/20/19 [facility] [address] [place] [address]- [facility] Encounter Diagnosis Atrophic vaginitis(Discharge Diagnosis) - 09/13/19 Hypertension(Discharge Diagnosis) - 09/13/19 Urinary urgency(Discharge Diagnosis) - 09/13/19 Attending Physician: Lin Lloyd MD Allergies, Adverse [...] Given 1Result Comment: [facility]# [id number] PT. TOLERATED INJ. WITHOUT COMPLICATIONS....CO 2Result Comment: [03/04/2018] [facility]# [id number] 3Result Comment: [03/04/2016] pt. tolerated inj. without complications...CO 4Result Comment: [10/13/2017] [facility]# [id number] pt. tolerated inj. without complications...CO Medications estradiol 0.1 mg/g vaginal cream See Instructions, apply topically as directed 5 times a week, # 42 Gm, 3 Refills, Maintenance, 07/13/18 13:56:17 EST Start Date: 07/13/18 Status: Ordered Metoprolol Tartrate 25 mg oral tablet 0.5 tablet = 12.5 mg, By Mouth, 2 times a day, # 90 tablet, 2 Refills, Maintenance, 09/13/19 15:08:00 EDT, Tablet, [facility] #[id number], PUT ON FILE, 154.94, cm, 06/19/19 11:29:00 [...] Effective Dates Health Status Clinical Service Informant Atrophic vaginitis Discharge Diagnosis 09/13/19 Hypertension Discharge Diagnosis 09/13/19 Urinary urgency Discharge Diagnosis 09/13/19 Social History Social History Type Response Smoking Status Never smoker; Other: quit smoking about 35 years ago, 3 cigs/d x 3 years; entered on: 05/30/15 Sex Medical Equipment Implanted Date:12/28/18Target Site:Eye Right Description Quantity MRI Company Model CORNEA FULL THICKNESS - TSSU (K001-PK) 1 [employer] Unknow n GITA:No Information Assigning Authority: FDA
--- OUTSIDE RECORDS SUMMARY | 2023-10-23 08:10 | XMS_ITS | Continuity of Care Document ---
Author Organization [facility] Address [address] [place] [address]- Care Team Providers Care Lunchroom Food Service Supervisor Name Role Phone Lin Lloyd MD Primary Care Physician [facility]counter [facility] Date(s): 06/08/22 - 07/08/22 [facility] [address] [place], [place] [address] Allergies, Adverse Reactions, Alerts Substance Reaction Severity [...] pneumococcal 23-valent vaccine 05/16/12 Given 1Result Comment: [facility] [id number] 2Result Comment: [03/04/2018] [facility]# [id number] 3Result Comment: [03/04/2016] pt. tolerated inj. without complications...CO 4Result Comment: [facility]# [id number] PT. TOLERATED INJ. WITHOUT COMPLICATIONS....CO 5Result Comment: [10/13/2017] [facility]# [id number] pt. tolerated inj. without complications...CO Medications brimonidine [...] MRI Safety Implantable Status Assigning Authority Unknown [id number] RCN Unknown Unknown 01/07/19 Unknown Unknown Active Unknown Patient Care team information Care Team Personnel Name: Lin Llody MD Position: [facility] Primary Care Physician Member Role: PCP Address: Address: [address] [place] [address] Name: Julio Sampson MD Position: [facility] Physician (General Medicine) Member Role: Lifetime Consulting Physician Address: Address: [address] [place] [address], [address] [place] [address]- Name: Lara SOSA, Frederick Higgins Position: [facility] STRAW HAT BRUSHER MD Member Role: Lifetime STRAW HAT BRUSHER Physician Address: Address: [address] [place] [address]- Name: Hilda Tate RN Position: [facility] RN Member Role: Primary Care Nurse Name: Claudia Castellon RN Position: [facility] RN Member Role: Primary Care Nurse Name: Meghna Martinez RN Position: [facility] SN RN Member Role: Primary Care Nurse Name: Marie Gomez RN Position: [facility] RN Member Role: Primary Care Nurse Care Team Related Persons Name: STACEY BANDA Address: [place] [address] Name: HARDIK SIMMS Name: TABITHA ABDULLAHI Address: home [address] [place] [id number] Name: MADYSON ABDULLAHI
--- OUTSIDE RECORDS SUMMARY | 2023-10-23 08:10 | XMS_ITS | Continuity of Care Document ---
Author Organization [facility] Address [address] [place] [address]- Care Team Providers Care Harvest Worker Name Role Phone Lin Lloyd MD Primary Care Physician [phone] Encounter [facility] Date(s): 12/31/21 - 01/01/[address] [address]- Encounter Diagnosis Abdominal pain(Final) - 01/01/22 Cholelithiasis(Final) - 01/01/22 Dizziness(Final) - 01/01/22 EKG abnormality(Final) - 01/01/22 Dizziness(Final) - 01/01/22 EKG abnormality(Final) - 01/01/22 Discharge Disposition: A-D/C Home Attending Physician: Abran Ball MD Admitting Physician: Fabio Perez MD Referring Physician: Not on Staff, Referring [...] 23-valent vaccine 05/16/12 Given 1Result Comment: [facility]# [id number] PT. TOLERATED INJ. WITHOUT COMPLICATIONS....CO 2Result Comment: [03/04/2018] [facility]# [id number] 3Result Comment: [03/04/2016] pt. tolerated inj. without complications...CO 4Result Comment: [10/13/2017] [facility]# [id number] pt. tolerated inj. without complications...CO Medications Acetaminophen Tablet 650 mg, Tablet, By Mouth, Once, STAT, 12/31/21 10:00:00 EDT, Stop date 12/31/21 10:00:00 EDT Start Date: 12/31/21 Stop Date: 12/31/21 Status: Completed bisoprolol 5 mg oral tablet TAKE 1/2 [...] Results Orders for Microbiology Reports Name Date Urine Culture (URINE CULTURE) 12/31/21 Microbiology Reports TEST:Urine Culture STATUS:Auth (Verified) BODY SITE: SOURCE:URINE COLLECTED DATE/TIME:12/31/21 10:57 AM Urine Culture SPECIMEN DESCRIPTION : URINE SPECIAL REQUESTS : NONE CULTURE : NO GROWTH REPORT STATUS : FINAL 01/01/2022 Radiology Reports * Exam Date Time Procedure Performing Provider Status 12/31/21 11:45 AM Chest 2 Views Frontal and Lat Amanda Reyez; Auth (Verified) Notes: (Chest 2 Views Frontal and Lat) Reason For Exam: Abdominal Pain RESULT: Chest 2 Views Frontal and Lat Chest 2 Views Frontal and Lat Hx of Present Illness: patient from home, has hx of gallstones and known r sided ovarian cyst, presents today with right lower abdominal pain for four days, worsening today.; Reason: Abdominal Pain; Clinical Question(s): Pneumonia COMPARISON: 10/28/20. FINDINGS: LINES AND TUBES: None. LUNGS AND PLEURA: Clear lungs. Normal pulmonary vascularity. No pleural effusion. No pneumothorax. HEART, MEDIASTINUM AND MEAGAN: Heart is at the upper limits of normal for size. Normal upper mediastinal and hilar contour. BONES AND SOFT TISSUES: No acute abnormality. IMPRESSION: No acute abnormality. WSN: [id number] Ordering Physician: Bryson Carrera Dictated By: Dominga Brenner MD Dictated Date/Time: 12/31/21 12:06 p Reviewed By: Domniga Brenner MD Signed By: Dominga Brenner MD Signed Date/Time: 12/31/21 12:06 pm Transcribed By: CHARBEL Transcribed Date/Time: 12/31/21 11:58 am Vital Signs Most recent to oldest [Reference Range]: 1 2 3 Height 158 cm (01/01/22 10:08 AM) 158 cm (01/01/22 4:11 AM) 158 cm (01/01/22 2:04 AM) Weight 46.6 kg (01/01/22 2:04 AM) 46.8 kg (01/01/22 1:48 AM) Oxygen Saturation [94-100 %] 100 % (01/01/22 10:08 AM) 100 % (01/01/22 7:59 AM) 99 % (01/01/22 4:11 AM) Pulse Rate [55-90 bpm] 61 bpm (01/01/22 10:08 AM) 54 bpm *L* (01/01/22 7:59 AM) 56 bpm (01/01/22 4:11 AM) Body Mass Index [18.5-24.99] 18.67 (01/01/22 2:04 AM) Blood Pressure [90-138/55-84 mm Hg] 115/86mm Hg (01/01/22 10:08 AM) 117/66mm Hg (01/01/22 7:59 AM) 106/54mm Hg (01/01/22 4:11 AM) Respiratory Rate [16-30 br/min] 18 br/min (01/01/22 10:08 AM) 18 br/min (01/01/22 9:48 AM) 18 br/min (01/01/22 7:59 AM) Temperature [96.8-100.4 DegF] 97.5 DegF (01/01/22 10:08 AM) 97.3 DegF (01/01/22 7:59 AM) 98.2 DegF (01/01/22 4:11 AM) Mode of Delivery (Oxygen) Room air (01/01/22 10:08 AM) Room air (01/01/22 7:59 AM) Room air (01/01/22 4:11 AM) Blood pressure sites Arm, right (01/01/22 10:08 AM) Arm, right (01/01/22 7:59 AM) Arm, right (01/01/22 4:11 AM) Temperature Route Oral (01/01/22 10:08 AM) Oral (01/01/22 7:59 AM) Oral (01/01/22 4:11 AM) Dry Weight 46.6 kg (01/01/22 2:04 AM) Weight Obtained Via Bed scale (01/01/22 2:04 AM) Social History Social History Type Response Smoking Status Never smoker; Other: quit smoking about 35 years ago, 3 cigs/d x 3 years; entered on: 05/30/15 Sex Medical Equipment Implanted Date:12/28/18Target Site:Eye Right Description Quantity MRI Company Model CORNEA FULL THICKNESS - TSSU (K001-PK) 1 [employer] Unknow n GITA:No Information Assigning Authority: FDA
--- OUTSIDE RECORDS SUMMARY | 2023-10-23 08:10 | XMS_ITS | Continuity of Care Document ---
Author Organization [facility] Address [address] [place] [address]- Care Team Providers Care Farm Operations Technical Director Name Role Phone Prema SOSA, Lin Ortega Primary Care Physician [phone] Encounter [facility] Date(s): 12/28/22 - 01/27/23 [facility] [address] [place], [place] [address] Allergies, Adverse Reactions, Alerts Substance Reaction Severity [...] 05/16/12 Given 1Result Comment: [facility] [id number] 2Result Comment: [03/04/2018] [facility]# [id number] 3Result Comment: [03/04/2016] pt. tolerated inj. without complications...CO 4Result Comment: [facility]# [id number] PT. TOLERATED INJ. WITHOUT COMPLICATIONS....CO 5Result Comment: [10/13/2017] [facility]# [id number] pt. tolerated inj. without complications...CO Medications brimonidine [...] MRI Safety Implantable Status Assigning Authority Unknown [id number] RCN Unknown Unknown 01/07/19 Unknown Unknown Active Unknown Patient Care team information Care Team Personnel Name: Lin Lloyd MD Position: [facility] Physician - Primary Care Member Role: PCP Address: Address: [address] [place] [address]- [place] Name: Julio Sampson MD Position: [facility] Renal MD Member Role: Lifetime Consulting Physician Address: Address: [address] [place] [address]- [place] Name: Frederick Bermudez MD Position: [facility] PROP AND EFFECTS DESIGNER MD Member Role: [employer]etime PROP AND EFFECTS DESIGNER Physician Address: Address: [address] [place], [place] [address] [place], [place] [address] Name: Hilda Tate RN Position: S RN Member Role: Primary Care Nurse Name: Claudia Castellon RN Position: S RN Member Role: Primary Care Nurse Name: Meghna Martinez RN Position: [facility] SN RN Member Role: Primary Care Nurse Name: Marie Gomez RN Position: [facility] Onco RN Member Role: Primary Care Nurse Care Team Related Persons Name: STACEY BANDA Address: [place] [address] Name: HARDIK SIMMS Name: TABITHA ABDULLAHI Address: home [address] [place] [address] Name: MADYSON ABDULLAHI
--- OUTSIDE RECORDS SUMMARY | 2023-10-23 08:10 | XMS_ITS | Continuity of Care Document ---
Author Organization [facility] Address [address] [place] [address]- Care Team Providers Care Boiler House Inspector Name Role Phone Lin Lloyd MD Primary Care Physician [phone] Encounter [facility] Date(s): 08/25/23 - 08/25/[address] [address]- Encounter Diagnosis Urinary tract infection(Final) - 08/25/23 Discharge Disposition: A-D/C Home Attending Physician: Jarrell Fan DO Admitting Physician: Jarrell Fan DO Referring Physician: Not on Staff, Referring MD [...] pneumococcal 23-valent vaccine 05/16/12 Given 1Result Comment: [facility] [id number] 2Result Comment: [03/04/2018] [facility]# [id number] 3Result Comment: [03/04/2016] pt. tolerated inj. without complications...CO 4Result Comment: [facility]# [id number] PT. TOLERATED INJ. WITHOUT COMPLICATIONS....CO 5Result Comment: [10/13/2017] [facility]# [id number] pt. tolerated inj. without complications...CO Medications brimonidine 0.2% ophthalmic solution 0 Refills, Maintenance, 01/05/23 21:52:00 EDT, Partial fill upon patient request if the prescription is for a schedule II opioid drug. Start Date: 01/05/23 Status: Ordered cephalexin monohydrate 500 mg oral capsule 1 capsule = 500 mg, By Mouth, 4 times a day, for 5 days, # 20 capsule, 0 Refills, Acute 08/30/23 5:37:00 EDT, 08/25/23 5:37:00 EDT, Capsule, [facility] #[id number], Partial fill upon patient request if the prescription is for a schedule II opioid... Start Date: 08/25/23 Stop Date: 08/30/23 Status: Ordered cloNIDine 0.1 mg oral tablet [...] Exam Date Time Procedure Performing Provider Status 08/25/23 3:51 AM Chest 2 Views Frontal and Lat Mando Bush; Sera (Verified) Notes: (Chest 2 Views Frontal and Lat) Reason For Exam: Shortness of Breath, Fever;Other: RESULT: Chest 2 Views Frontal and Lat Examination: Chest performed on 08/25/2023. History: Shortness of breath Findings: Frontal and lateral views of the chest are compared to a prior study dated 12/31/2021. The cardiac silhouette is at the upper limits of normal for size. The lungs are clear. The osseous and soft tissue structures are unremarkable. Impression: There is no acute cardiopulmonary disease. WSN: [id number] Ordering Physician: Sybil Pepe Dictated By: Jovanna Rivera MD Dictated Date/Time: 08/25/23 7:51 am Reviewed By: Jovanna Rivera MD Signed By: Jovanna Rivera MD Signed Date/Time: 08/25/23 7:51 am Transcribed By: CHARBEL Transcribed Date/Time: 08/25/23 7:50 am * Exam Date Time Procedure Performing Provider Status 08/25/23 3:12 AM US RUQ Richard Benitez; Sera (Jennifer ified) Notes: (US RUQ) Reason For Exam: Abdominal Pain;Other: RESULT: US RUQ US RUQ REASON: Abdominal Pain; Clinical Question(s): Cholecystitis COMPARISON: 01/05/2023. FINDINGS: Liver: Normal in size and echotexture. No focal lesion. Smooth hepatic contour. Main portal vein patent with normal hepatopetal direction of flow. Gallbladder: Solitary mobile gallstone. Normal wall thickness. No pericholecystic fluid. Negative Perez sign. Biliary Tree: No intrahepatic or extrahepatic bile duct dilation is identified. Common duct measures: 0.4 cm. Pancreas: No abnormality in the visualized portions of the pancreas. Right kidney: 7.3 cm in length. Normal parenchymal echotexture and thickness. No hydronephrosis, stone or mass. IMPRESSION: Cholelithiasis, no sonographic evidence for acute cholecystitis. I have personally reviewed the images and I agree with this report. WSN: [id number] Ordering Physician: Sybil Pepe Dictated By: Ezio[Radiology] Marito SOSA Dictated Date/Time: 08/25/23 7:32 am Reviewed By: Ag Pryor MD Signed By: Ag Pryor MD Signed Date/Time: 08/25/23 7:37 am Transcribed By: CHARBEL Transcribed Date/Time: 08/25/23 3:53 am Vital Signs Most recent to oldest [Reference Range]: 1 2 3 Oxygen Saturation [94-100 %] 97 % (08/25/23 9:48 AM) 92 % *L* (08/25/23 4:00 AM) 98 % (08/25/23 2:26 AM) Pulse Rate [55-90 bpm] 69 bpm (08/25/23 9:48 AM) 75 bpm (08/25/23 4:00 AM) 85 bpm (08/25/23 2:26 AM) Blood Pressure [90-138/55-84 mm Hg] 151/85mm Hg *H* (08/25/23 9:48 AM) 149/82mm Hg *H* (08/25/23 4:00 AM) 158/88mm Hg *H* (08/25/23 2:26 AM) Respiratory Rate [16-30 br/min] 18 br/min (08/25/23 9:48 AM) 17 br/min (08/25/23 4:00 AM) 20 br/min (08/25/23 2:26 AM) Temperature [96.8-100.4 DegF] 97.9 DegF (08/25/23 4:00 AM) 98.1 DegF (08/25/23 2:26 AM) Mode of Delivery (Oxygen) Room air (08/25/23 9:48 AM) Room air (08/25/23 4:00 AM) Room air (08/25/23 2:26 AM) Blood pressure sites Arm, right (08/25/23 9:48 AM) Arm, right (08/25/23 4:00 AM) Arm, right (08/25/23 2:26 AM) Temperature Route Oral (08/25/23 4:00 AM) Oral (08/25/23 2:26 AM) Social History Social History Type Response [...] MRI Safety Implantable Status Assigning Authority Unknown [id number] RCN Unknown Unknown 01/07/19 Unknown Unknown Active Unknown Note * Afshin SOSA, Sybil Mata: PERFORM Event Display: Patient Education Leaflets Authored Date: [id number] Gallstones??with Biliary Colic ?? [id number] Gallstones??with Biliary Colic Your abdominal pain??is from irritation and spasm of the gallbladder.??This is called biliary colic.??The gallbladder is a small sac under the liver that stores and releases a bile. Bile is a fluid made in the liver that helps your body digest fat.??Crystals may form stones inside the gallbladder (gallstones). Gallstones can cause the gallbladder to spasm. If they block the duct out of the gallbladder, they??can cause pain and even an infection.?? A number of things increase the risk of having gallstones: ??? Being female ??? Being severely overweight (obese) ??? Older age ??? Losing or gaining weight quickly ??? Eating a high-calorie diet ??? Being ??? Taking hormone therapy ??? Having diabetes Home care ??? Rest in bed. ??? Drink only clear liquids until you feel better. ??? You may have been prescribed medicine for pain or nausea. Take these as directed. ??? Fat in your diet makes the gallbladder contract and may cause increased pain. Don't eat foods that are high in fat such as full-fat dairy, fried foods, and fatty meats for at least 2 days. ??? If you are overweight, talk with yourhealthcare provider about losing weight. ?? Follow-up care Follow up with your healthcare provider or as advised. You may have another bout of pain from your gallstones??at some point.??Removal of the gallbladder is an option to prevent this. Talk with your healthcare provider about your treatment options. ?? When to seek medical advice Call your healthcare provider if any of the following occur: ??? Pain gets worse or lasts for longer than 6 hours ??? Pain moves to the right lower belly ??? Repeated vomiting ??? Swollen belly ??? Fever of 100.4??F (38??C) or higher, or as directed by your healthcare provider ??? Very dark urine, light colored stools, or yellow color of the skin or eyes ??? Chest, arm, back, neck, or jaw pain ??? Symptoms get worse or you have new symptoms ?? Last Reviewed Date: 2021 ?? [id number] [employer]. All rights reserved. This information is not intended as a substitute for professional medical care. Always follow your healthcare professional's instructions. ?? Patient Care team information Care Team Personnel Name: Prema SOSA, Lin Ortega Position: [facility] Physician - Primary Care Member Role: PCP Address: Address: [address] [place] [address]- Name: Adrián SOSA, Julio Bethea Position: [facility] Renal MD Member Role: Lifetime Consulting Physician Address: Address: [address] [place] [address], [address] [address]- Name: Lara SOSA, Frederick Higgins Position: [facility] TONE REGULATOR MD Member Role: Lifetime TONE REGULATOR Physician Address: Address: [address] [place] [address]- Name: Jarvis VASQUEZ, Marie White Position: [facility] Onco RN Member Role: Primary Care Nurse Name: Hilda Tate RN Position: S RN Member Role: Primary Care Nurse Name: Claudia Castellon RN Position: [facility] RN Member Role: Primary Care Nurse Care Team Related Persons Name: STACEY BANDA Address: [place] [address] Name: HARDIK SIMMS Name: TABITHA ABDULLAHI Address: home [address] [place] [address] Name: MADYSON ABDULLAHI
--- OUTSIDE RECORDS SUMMARY | 2023-10-23 08:10 | XMS_ITS | Continuity of Care Document ---
Author Organization [facility] ter Address [address] [place] [address]- Care Team Providers Care Housecleaner Floor Name Role Phone Lin Lloyd MD Primary Care Physician [phone] [place] [facility] Date[place]s): 09/01/23 - 09/01/[address] [address]- Discharge Disposition: A-D/C Home Attending Physician: Alaina Chow MD Admitting Physician: Alaina Chow MD Referring Physician: Not on Staff, Referring MD Allergies, Adverse Reactions, Alerts Substance Reaction Severity Status chlorthalidone made BP go down Active hydrochlorothiazide Hydrochlorothiazide adverse reaction Hydrochlorothiazide adverse reaction depression Active cloNIDine ?headaches, abdominal pain A ctive Amlodipine Besylate-Atorvastatin made BP down Active bisoprolol dryness Active lisinopril tinnitus Active [...] 23-valent vaccine 05/16/12 Given 1Result Comment: [facility] [id number] 2Result Comment: [03/04/2018] [facility]# [id number] 3Result Comment: [03/04/2016] pt. tolerated inj. without complications...CO 4Result Comment: [facility]# [id number] PT. TOLERATED INJ. WITHOUT COMPLICATIONS....CO 5Result Comment: [10/13/2017] [facility]# [id number] pt. tolerated inj. without complications...CO Medications brimonidine [...] Exam Date Time Procedure Performing Provider Status 09/01/23 10:[address] Abd/Pelvis W/ IV Contrast Only Edith Soler; Auth (Verified) Notes: (CT Abd/Pelvis W/ IV Contrast Only) Reason For Exam: LLQ abdominal pain;Other: RESULT: CT Abd/Pelvis W/ IV Contrast Only CT Abd/Pelvis W/ IV Contrast Only Hx of Present Illness: abd pain; Reason: Other:; LLQ abdominal pain; Clinical Question(s): Diverticulitis; Order Comment: TECHNIQUE: Spiral CT through the abdomen and pelvis with IV contrast formatted in 3 planes. 75 cc of Omnipaque 300 was administered intravenously. This study was performed without oral contrast. Weight-based protocol using automatic tube modulation was used to optimize exposure parameters. CTDIvol Body: 11.30 mGy, DLP Body: 539 mGy*cm. COMPARISON: CT abdomen and pelvis from 04/11/2022 FINDINGS: Bleacher Operator View Findings, Lines and Tubes: None. Visualized Chest: Dependent changes. No pleural effusion. Cardiomegaly. Diaphragm: Normal. Liver: Normal. Gallbladder: Cholelithiasis without acute cholecystitis Bile ducts: No biliary ductal dilation. Spleen: Normal. Pancreas: Atrophic. Minimal prominence of the distal pancreatic duct (201:36) is unchanged. Adrenal glands: Normal. Kidneys and ureters: No hydronephrosis, stones, or suspicious masses. Small hypodensities that are too small to characterize are noted, requiring no dedicated follow up. Bladder: Trace pericystic stranding, unchanged from 2022. Reproductive organs: Bilobed fat-containing right adnexal mass measuring at least 5.4 x 3.1 cm (202:84) with some calcification (202:80), compatible with dermoid, similar to 2022. 1.9 cm fluid density right adnexal cyst (201:90). Similar fullness of the left adnexa and tissue adjacent to the left gonadal vein compared to 2022 (201:91). Stomach, small bowel, and large bowel: No abnormal bowel wall thickening or distention. Colonic diverticulosis without evidence of acute diverticulitis. Appendix: Normal. Peritoneum and retroperitoneum: No ascites or pneumoperitoneum. No omental or mesenteric lesions. Lymph nodes: No enlarged lymph nodes. Blood vessels: Moderate atherosclerotic vascular calcification. No aortic aneurysm. No evidence of venous thrombosis. Abdominal and pelvic wall: Similar configuration of the peritoneal cavity with decreased AP diameter of the peritoneal cavity with only 1.2 cm between the anterior wall of the aorta and rectus sheathin the mid abdomen (201:49). No evidence of bowel obstruction. Bones: No acute abnormality. Osteopenia. Grade 1 retrolisthesis of L1 on L2 is unchanged. Spine degenerative changes. IMPRESSION: No acute abnormality within the abdomen or pelvis. Colonic diverticulosis without evidence of acutediverticulitis. Chronic findings as above. WSN: [id number] Ordering Physician: Irina Lopez Dictated By: Ag Peters MD Dictated Date/Time: 09/01/23 11:54 a Reviewed By: Ag Peters MD Signed By: Ag Peters MD Signed Date/Time: 09/01/23 11:54 am Transcribed By: CHARBEL Transcribed Date/Time: 09/01/23 11:42 am * Exam Date Time Procedure Performing Provider Status 09/01/23 8:08 AM US RUQ Zara Fan; Sera ( Verified) Notes: (US RUQ) Reason For Exam: Abdominal Pain;Other: RESULT: US RUQ US RUQ Hx of Present Illness: Abdominal Pain; Clinical Question(s): Cholecystitis COMPARISON: Multiple priors, most recent 08/25/2023. FINDINGS: Liver: Normal in size and echotexture. No focal lesion. Smooth hepatic contour. Main portal vein patent with normal hepatopetal direction of flow. Gallbladder: Solitary mobile gallstone. Normal wall thickness. No pericholecystic fluid. Negative Perez sign. Biliary Tree: No intrahepatic or extrahepatic bile duct dilation is identified. Common duct measures: 0.4 cm. Pancreas: Partially obscured by overlying bowel gas. No abnormality in the visualized portions of the pancreas. Right kidney: 8.3 cm in length. Normal parenchymal echotexture and thickness. No hydronephrosis, stone or mass. IMPRESSION: Solitary gallstone without evidence of acute cholecystitis. I have personally reviewed the images and I agree with this report. WSN: [id number] Ordering Physician: Irina Lopez Dictated By: Afia Valdez DO Dictated Date/Time: 09/01/23 8:22 am Reviewed By: Ghassan Chávez MD Signed By: Ghassan Chávez MD Signed Date/Time: 09/01/23 8:27 am Transcribed By: CHARBEL Transcribed Date/Time: 09/01/23 8:14 am Vital Signs Most recent to oldest [Reference Range]: 1 2 3 Oxygen Saturation [94-100 %] 97 % (09/01/23 2:29 PM) 15 % *L* (09/01/23 9:24 AM) Pulse Rate [55-90 bpm] 75 bpm (09/01/23 2:29 PM) 72 bpm (09/01/23 9:24 AM) Blood Pressure [90-138/55-84 mm Hg] 164/89mm Hg *H* (09/01/23 2:29 PM) 159/96mm Hg *H* (09/01/23 9:24 AM) Respiratory Rate [16-30 br/min] 12 br/min *L* (09/01/23 2:29 PM) 99 br/min *H* (09/01/23 9:24 AM) Temperature [96.8-100.4 DegF] 98.3 DegF (09/01/23 2:29 PM) 97.7 DegF (09/01/23 9:24 AM) Mode of Delivery (Oxygen) Room air (09/01/23 2:29 PM) Room air (09/01/23 12:27 PM) Room air (09/01/23 9:24 AM) Blood pressure sites Arm, left (09/01/23 2:29 PM) Arm, right (09/01/23 12:27 PM) Arm, left (09/01/23 9:24 AM) Temperature Route Oral (09/01/23 2:29 PM) Oral (09/01/23 12:27 PM) Oral (09/01/23 9:24 AM) Social History Social History Type Response [...] MRI Safety Implantable Status Assigning Authority Unknown [id number] RCN Unknown Unknown 01/07/19 Unknown Unknown Active Unknown EKG study * Event Display: ECG 12-Lead Authored Date: Please click on pdf link to open report * Event Display: ECG 12-Lead Authored Date: Ventricular Rate: 68 BPM Atrial Rate: 68 BPM P-R Interval: 170 ms QRS Duration: 86 ms Q-T Interval: 430 ms QTC Calculation(Bazett): 457 ms P [place]: 62 degrees R [place]: -31 degrees T [place]: 109 degrees Normal sinus rhythm Possible Left atrial enlargement Left axis deviation Septal infarct , age undetermined T wave abnormality, consider anterolateral ischemia Abnormal ECG When compared with ECG of 05-JAN-2023 15:11, Premature atrial complexes are no longer Present Septal infarct is now Present Confirmed by MDAYSON MONTIEL MD ([id number]) on 09/01/2023 9:18:21 AM [place]: MADYSON MONTIEL MD Note * Irina Bonds: PERFORM, SIGN, VERIFY Event Display: Patient Education Handout Authored Date: [id number] Patient Care team information Care Team Personnel Name: Lin Lloyd MD Position: [facility] Physician - Primary Care Member Role: PCP Address: Address: [address] [address]- Name: Julio Sampson MD Position: [facility] Renal MD Member Role: Lifetime Consulting Physician Address: Address: [address] [facility], [facility] [address] [place] [address]- [place] Name: Lara SOSA, Frederick Higgins Position: [facility] MOLDER SHOULDER PAD MD Member Role: Lifetime MOLDER SHOULDER PAD Physician Address: Address: [address] [place] [address]- Name: Marie Conley RN Position: [facility] Onco RN Member Role: Primary Care Nurse Name: Hilda Tate RN Position: [facility] RN Member Role: Primary Care Nurse Name: Claudia Castellon RN Position: [facility] RN Member Role: Primary Care Nurse Name: Meghna Martinez RN Position: [facility] [place] Office Staff Member Role: Primary Care Nurse Care Team Related Persons Name: STACEY BANDA Address: [place] [address] Name: HARDIK SIMMS Name: TABITHA ABDULLAHI Address: home [address] [place] [address] Name: MADYSON ABDULLAHI
--- OUTSIDE RECORDS SUMMARY | 2023-10-23 08:10 | XMS_ITS | Continuity of Care Document ---
Author Organization [facility] Address [address] [place] [address]- Care Team Providers Care Wares Sorter Name Role Phone Lin Lloyd MD Primary Care Physician [phone] Encounter [facility] Date(s): 03/04/21 - 04/03/21 [facility] [address] [place] [address]- [place] Allergies, Adverse Reactions, Alerts Substance Reaction Severity [...] 23-valent vaccine 05/16/12 Given 1Result Comment: [facility]# [id number] PT. TOLERATED INJ. WITHOUT COMPLICATIONS....CO 2Result Comment: [03/04/2018] [facility]# [id number] 3Result Comment: [03/04/2016] pt. tolerated inj. without complications...CO 4Result Comment: [10/13/2017] [facility]# [id number] pt. tolerated inj. without complications...CO Medications amiodarone 200 mg oral tablet 200 mg, 1, tablet, By Mouth, Daily, # 30 tablet, Refills 3, Tot. Refills 3, Maintenance, 03/07/21 14:10:00 EDT, Route to Pharmacy Electronically, [email or web address] #[id number], Partial fill upon patient request if the prescription is for a schedule II o... Start Date: 03/07/21 Status: Ordered amLODIPine 5 mg oral tablet 5 mg, 1, tablet, By Mouth, Daily, # 30 tablet, Refills 5, Tot. Refills 5, Maintenance, 03/14/21 14:41:00 EDT, Route to Pharmacy Electronically, [facility] #[id number], Pt reports allergy to amlodipine, however, reaction is documented as made BP... Start Date: 03/14/21 Stop Date: 09/10/21 Status: Ordered brimonidine 0.2% ophthalmic solution See Instructions, 1 drop into Right eye three times a day, 0 Refills, Maintenance, 01/07/21 14:01:00 EDT, Solution, Partial fill upon patient request if the prescription is for a schedule II opioid drug. Start Date: 01/07/21 Status: Ordered Diflucan 150 mg oral tablet 1 tablet = 150 mg, By Mouth, Once, # 1 tablet, 0 Refills, Soft Stop, 04/01/21 11:10:00 EDT, Tablet,[facility] #[id number], Partial fill upon patient request if the prescription is for a schedule II opioid drug., 158, cm, 01/16/21 11:57:00 EDT, H... Start Date: 04/01/21 Status: Ordered estradiol 0.1 mg/g vaginal cream See Instructions, apply topically as directed 5 times a week, # 42 Gm, 3 Refills, Maintenance, 07/13/18 13:56:17 EST Start Date: 07/13/18 Status: Ordered Gas-X 80 mg oral tablet, chewable 1 tablet = 80 mg, Chew, 4 times a day, # 48 tablet, 0 Refills, Maintenance, 11/12/20 10:23:00 EDT, Chew Tablet, [facility] #[id number], Partial fill upon patient request if the prescription is for a schedule II opioid drug., 158, cm, 10/29/20 8:1... Start Date: 11/12/20 Status: Ordered Home Blood Pressure Monitor See Instructions, # 1 Unknown, Maintenance, dx: I10 use once daily height 158cm weight 48cm, 01/16/21 11:47:00 EDT, Supply Start Date: 01/16/21 Status: Ordered latanoprost 0.005% ophthalmic solution INSTILL 1 DROP INTO RIGHT EYE AT BEDTIME Start Date: 01/07/21 Status: Ordered lidocaine 5% topical film 1 patch, Topically, Daily, remove patches after 12 hours If patches not covered by insurance, can use lidocaine gel or cream, # 30 patch, 5 Refills, Maintenance, 01/16/21 11:51:00 EDT, Patch, [facility] #[id number], Partial fill upon patient r... Start Date: 01/16/21 Status: Ordered Misc Rx Refills 0, Maintenance, Durezol drops, 05/15/19 15:41:08 EST, Compound Start Date: 05/15/19 Status: Ordered ocular lubricant - solution See Instructions, PRN for dry eyes, 2 drops left eye 4 times a day as needed for pain/ dry eyes., #15 mL, 2 Refills, Maintenance, 01/07/21 14:31:00 EDT, Solution, [facility] #[id number], Partial fill upon patient request if the prescription is... Start Date: 01/07/21 Status: Ordered omeprazole 20 mg oral enteric coated capsule 1 capsule = 20 mg, By Mouth, Daily, # 30 capsule, 3 Refills, Maintenance, 01/17/21 12:14:00 EDT, ECCapsule, [facility] #[id number], Partial fill upon patient request if the prescription is for a schedule II opioid drug., 158, cm, 01/16/21 11:57:... Start Date: 01/17/21 Status: Ordered timolol maleate 0.5% ophthalmic gel forming solution INT 1 GTT IN OU BID UTD Start Date: 12/09/18 Status: Ordered traMADol 50 mg oral tablet 1 tablet = 50 mg, By Mouth, Every 8 hours, PRN as needed for pain, # 25 tablet, 0 Refills, Maintenance, 01/07/21 14:05:00 EDT, Tablet, [facility] #[id number], Partial fill upon patient request if the prescription is for a schedule II opioid drug.... Start Date: 01/07/21 Status: Ordered Problem List Condition Effective Dates [...]
--- OUTSIDE RECORDS SUMMARY | 2023-10-23 08:10 | XMS_ITS | Continuity of Care Document ---
Author Organization [facility] Address [address] [place] [address]- Care Team Providers Care Ancient Art Curator Name Role Phone Prema SOSA, Lin Ortega Primary Care Physician [phone] Encounter [facility] Date(s): 01/27/21 - 02/26/21 [facility] [address] [place], [place] [address] Allergies, Adverse Reactions, Alerts [...] Given 1Result Comment: [facility]# [id number] PT. TOLERATED INJ. WITHOUT COMPLICATIONS....CO 2Result Comment: [03/04/2018] [facility]# [id number] 3Result Comment: [03/04/2016] pt. tolerated inj. without complications...CO 4Result Comment: [10/13/2017] [facility]# [id number] pt. tolerated inj. without complications...CO Medications brimonidine 0.2% ophthalmic solution See Instructions, 1 drop into Right eye three times a day, 0 Refills, Maintenance, 01/07/21 14:01:00 EDT, Solution, Partial fill upon patient request if the prescription is for a schedule II opioid drug. Start Date: 01/07/21 Status: Ordered diltiazem 30 mg oral tablet 30 mg, 1, tablet, By Mouth, 3 times a day, # 90 tablet, Refills 5, Tot. Refills 5, Maintenance, 01/16/21 11:45:00 EDT, Route to Pharmacy Electronically, [facility] #[id number], new dosage, cancel out prescriptin for 120mg ER diltiazem, 158, cm, 0... Start Date: 01/16/21 Status: Ordered estradiol 0.1 mg/g vaginal cream See Instructions, apply topically as directed 5 times a week, # 42 Gm, 3 Refills, Maintenance, 07/13/18 13:56:17 EST Start Date: 07/13/18 Status: Ordered Gas-X 80 mg oral tablet, chewable 1 tablet = 80 mg, Chew, 4 times a day, # 48 tablet, 0 Refills, Maintenance, 11/12/20 10:23:00 EDT, Chew Tablet, [facility] #[id number], Partial fill upon patient request if the [...] 5 Refills, Maintenance, 01/16/21 11:51:00 EDT, Patch, [facility] #[id number], Partial fill upon patient r... Start Date: 01/16/21 Status: Ordered Misc Rx Refills 0, Maintenance, Durezol drops, 05/15/19 15:41:08 EST, Compound Start Date: 05/15/19 Status: Ordered nebivolol 2.5 mg oral tablet 1 tablet = 2.5 mg, By Mouth, Daily, To replace diltiazem, # 30 tablet, 5 Refills, Maintenance, 02/24/21 10:12:00 EDT, Tablet, [facility] #[id number], Partial fill upon patient request if the prescription is for a schedule II opioid drug., 158, cm... Start Date: 02/24/21 Stop Date: 08/23/21 Status: Ordered ocular lubricant - solution See Instructions, PRN for dry eyes, 2 drops left eye 4 times a day as needed for pain/ dry eyes., #15 mL, 2 Refills, Maintenance, 01/07/21 14:31:00 EDT, Solution, [facility] #[id number], Partial fill upon patient request if the prescription is... Start Date: 01/07/21 Status: Ordered omeprazole 20 mg oral enteric coated capsule 1 capsule = 20 mg, By Mouth, Daily, # 30 capsule, 3 Refills, Maintenance, 01/17/21 12:14:00 EDT, ECCapsule, [facility] #[id number], Partial fill upon patient request if the [...] 0 Refills, Maintenance, 01/07/21 14:05:00 EDT, Tablet, [facility] #[id number], Partial fill upon patient request if the [...]
--- OUTSIDE RECORDS SUMMARY | 2023-10-23 08:11 | XMS_ITS | Continuity of Care Document ---
Author Organization [facility] Address [address] [place] [address] [address] [place] [address]- Care Team Providers Care Service Writer Advisor Name Role Phone Lin Lloyd MD Primary Care Physician Encounter [facility] Date(s): 08/18/22 - 08/25/[address] [place] [address]- Attending Physician: Saurav Gutierrez MD Referring Physician: Lin Lloyd MD Allergies, Adverse Reactions, Alerts Substance Reaction Severity Status chlorthalidone made BP go down Active penicillins rash Active Amlodipine Besylate-Atorvastatin made BP down Active hydrochlorothiazide Hydrochlorothiazide adverse reaction Hydrochlorothiazide adverse reaction depression Active bisoprolol dryness Active lisinopril tinnitus Active losartan itching Active Immunizations Given and Recorded Vaccine Date [...] Given 1Result Comment: [facility] [id number] 2Result Comment: [03/04/2018] [facility]# [id number] 3Result Comment: [03/04/2016] pt. tolerated inj. without complications...CO 4Result Comment: [facility]# [id number] PT. TOLERATED INJ. WITHOUT COMPLICATIONS....CO 5Result Comment: [10/13/2017] [facility]# [id number] pt. tolerated inj. without complications...CO Medications brimonidine [...] Supply Start Date: 01/16/21 Status: Ordered ursodiol 300 mg oral capsule 300 mg, 1, capsule, By Mouth, 2 times a day, # 180 capsule, Refills 5, Tot. Refills 5, Maintenance,08/18/22 14:42:00 EDT, [id number], Partial fill upon patient request if the [...] recent to oldest [Reference Range]: 1 Height 48 cm (08/18/22 2:00 PM) Weight 48.2 kg (08/18/22 2:00 PM) Pulse Rate [55-90 bpm] 85 bpm (08/18/22 2:00 PM) Body Mass Index [18.5-24.99 kg/m2] 209.2 kg/m2 *>HHI* (08/18/22 2:00 PM) Blood Pressure [90-138/55-84 mm Hg] 157/ 94mm Hg *H* (08/18/22 2:00 PM) Respiratory Rate [16-30 br/min] 16 br/mi n (08/18/22 2:00 PM) Temperature [96.8-100.4 DegF] 97.8 DegF (08/18/22 2:00 PM) Blood pressure sites Arm, left (08/18/22 2:00 PM) Temperature Route Temporal (08/18/22 2:00 PM) Weight Obtained Via Standing scale (08/18/22 2:00 PM) Social History Social History Type Response [...] MRI Safety Implantable Status Assigning Authority Unknown [id number] RCN Unknown Unknown 01/07/19 Unknown Unknown Active Unknown Patient Care team information Care Team Personnel Name: Lin Lloyd MD Position: [facility] Primary Care Physician Member Role: PCP Address: Address: [address] [place] [address]- Name: Julio Sampson MD Position: [facility] Physician (General Medicine) Member Role: Lifetime Consulting Physician Address: Address: [address] [place] [address] Name: Frederick Bermudez MD Position: [facility] LABORATORY SCIENTIST MD Member Role: Lifetime LABORATORY SCIENTIST Physician Address: Address: [address] [place] [address] Name: Hilda Tate RN Position: [facility] RN Member Role: Primary Care Nurse Name: Claudia Castellon RN Position: [facility] RN Member Role: Primary Care Nurse Name: Meghna Martinez RN Position: S SN RN Member Role: Primary Care Nurse Name: Marie Gomez RN Position: [facility] Onco RN Member Role: Primary Care Nurse Care Team Related Persons Name: VERONIKA, STACEY Address: [place] [address] Name: HARDIK SIMMS Name: TABITHA ABDULLAHI Address: [address] [address] Name: MADYSON ABDULLAHI
--- OUTSIDE RECORDS SUMMARY | 2023-10-23 08:11 | XMS_ITS | Continuity of Care Document ---
Author Organization [facility] Address [address] [place] [address]- Care Team Providers Care Poundmaster Name Role Phone Lin Lloyd MD Primary Care Physician [facility] Date(s): 04/01/22 - 05/01/22 [facility] [address] [place], [place] [address] Attending Physician: Olinda Currie Admitting Physician: AdmtrOlinda [...] 1Result Comment: [facility]# [id number] PT. TOLERATED INJ. WITHOUT COMPLICATIONS....CO 2Result Comment: [03/04/2018] [facility]# [id number] 3Result Comment: [03/04/2016] pt. tolerated inj. without complications...CO 4Result Comment: [10/13/2017] [facility]# [id number] pt. tolerated inj. without complications...CO Medications bisoprolol [...] Date: 11/26/21 Status: Ordered Problem List Condition Confirmation Course [...] weight Confirmed Active Postmenopausal bleeding Confirmed Active Urinary urgency Confirmed Active Vaginal [...] MRI Safety Implantable Status Assigning Authority Unknown [id number] RCN Unknown Unknown 01/07/19 Unknown Unknown Active Unknown EKG study * Event Display: EKG Authored Date: Patient Care team information Care Team Personnel Name: Lin Lloyd MD Position: [facility] Primary Care Physician Member Role: PCP Address: Address: [address] [place] [address]- Name: Julio Sampson MD Position: [facility] Physician (General Medicine) Member Role: Lifetime Consulting Physician Address: Address: [address] [place] [address], [address] [address] Name: Frederick Bermudez MD Position: [facility] DOUGHNUT MAKER MD Member Role: Lifetime DOUGHNUT MAKER Physician Address: Address: [address] [place] [id number] Name: Hilda Tate RN Position: [facility] RN Member Role: Primary Care Nurse Name: Claudia Castellon RN Position: S RN Member Role: Primary Care Nurse Name: Meghna Martinez RN Position: [facility] SN RN Member Role: Primary Care Nurse Name: Marie Gomez RN Position: S RN Member Role: Primary Care Nurse Care Team Related Persons Name: STACEY BANDA Address: [place] [address] Name: HARDIK SIMMS Name: TABITHA ABDULLAHI Address: home [address] [place] [address] Name: MADYSON ABDULLAHI
--- OUTSIDE RECORDS SUMMARY | 2023-10-23 08:11 | XMS_ITS | Continuity of Care Document ---
Author Organization [facility] Address [address] [place] [address]- Care Team Providers Care Medicine Assistant Name Role Phone Lin Lloyd MD Primary Care Physician [phone] Encounter [facility] Date(s): 12/30/21 - 01/29/22 [facility] [address] [place], [place] [address] Allergies, Adverse Reactions, Alerts Substance Reaction Severity [...] 23-valent vaccine 05/16/12 Given 1Result Comment: [facility]# [id number] PT. TOLERATED INJ. WITHOUT COMPLICATIONS....CO 2Result Comment: [03/04/2018] [facility]# [id number] 3Result Comment: [03/04/2016] pt. tolerated inj. without complications...CO 4Result Comment: [10/13/2017] [facility]# [id number] pt. tolerated inj. without complications...CO Medications bisoprolol [...] Procedure Date Device Type Site Corneal Transplant Ramona SOSA, Mando Davis 12/28/18 Unk nown Eye Right Device Identifier Serial Number Lot or Batch Number Manufacturing Date Expiration Date Distinct Identification Code MRI Safety Implantable Status Assigning Authority Unknown [id number] RCN Unknown Unknown 01/07/19 Unknown Unknown Active Unknown Care Team Personnel Name: Lin Lloyd MD Address: [address] [place] [address]
--- OUTSIDE RECORDS SUMMARY | 2023-10-23 08:11 | XMS_ITS | Continuity of Care Document ---
Author Organization [facility] Address [address] [place] [address]- Care Team Providers Care Handkerchief Presser Name Role Phone Prema SOSA, Lin Ortega Primary Care Physician [facility] Date(s): 10/06/21 - 11/05/21 [facility] [address] [place], [place] [address] Allergies, Adverse Reactions, Alerts Substance Reaction Severity [...] 23-valent vaccine 05/16/12 Given 1Result Comment: [facility]# [id number] PT. TOLERATED INJ. WITHOUT COMPLICATIONS....CO 2Result Comment: [03/04/2018] [facility]# [id number] 3Result Comment: [03/04/2016] pt. tolerated inj. without complications...CO 4Result Comment: [10/13/2017] [facility]# [id number] pt. tolerated inj. without complications...CO Medications brimonidine [...] 5 Refills, Maintenance, 04/04/21 11:49:00 EDT, [facility][id number], Partial fill upon patient request if the [...]
--- OUTSIDE RECORDS SUMMARY | 2023-10-23 08:11 | XMS_ITS | Continuity of Care Document ---
Author Organization [facility] Address [address] [place] [address] [address] [place] [address]- Care Team Providers Care Compliance Consultant Name Role Phone Prema SOSA, Lin Ortega Primary Care Physician Encounter [facility] Date(s): 02/23/23 - 03/25/[address] [place] [address]- Attending Physician: Admtr, Olinda Admitting Physician: Admtr, Olinda Referring Physician: Admtr, Ar8 Allergies, Adverse Reactions, Alerts Substance Reaction Severity Status chlorthalidone made BP go down Active hydrochlorothiazide Hydrochlorothiazide adverse reaction Hydrochlorothiazide adverse reaction depression Active lisinopril tinnitus Active Amlodipine Besylate-Atorvastatin made BP down Active bisoprolol dryness Active losartan itching [...] vaccine 05/16/12 Given 1Result Comment: [facility] [id number] 2Result Comment: [03/04/2018] [facility]# [id number] 3Result Comment: [03/04/2016] pt. tolerated inj. without complications...CO 4Result Comment: [facility]# [id number] PT. TOLERATED INJ. WITHOUT COMPLICATIONS....CO 5Result Comment: [10/13/2017] [facility]# [id number] pt. tolerated inj. without complications...CO Medications brimonidine [...] MRI Safety Implantable Status Assigning Authority Unknown [id number] RCN Unknown Unknown 01/07/19 Unknown Unknown Active Unknown Patient Care team information Care Team Personnel Name: Lin Lloyd MD Position: [facility] Physician - Primary Care Member Role: PCP Address: Address: [address] [place] [id number] Name: Julio Sampson MD Position: [facility] Renal MD Member Role: Lifetime Consulting Physician Address: Address: [address] [place] [address], [address] [address]- Name: Lara SOSA, Frederick Higgins Position: [facility] PUBLIC SPEAKING TEACHER MD Member Role: Lifetime PUBLIC SPEAKING TEACHER Physician Address: Address: [address] [place], [place] [address] [place] [address]- Name: Sarai VASQUEZ, Marie White Position: [facility] Onco RN Member Role: Primary Care Nurse Name: Hilda Tate RN Position: S RN Member Role: Primary Care Nurse Name: Claudia Castellon RN Position: S RN Member Role: Primary Care Nurse Name: Meghna Martinez RN Position: [facility] SN RN Member Role: Primary Care Nurse Care Team Related Persons Name: STACEY BANDA Address: [place] [address] Name: HARDIK SIMMS Name: TABITHA ABDULLAHI Address: home [address] [place] [id number] Name: MADYSON ABDULLAHI
--- OUTSIDE RECORDS SUMMARY | 2023-10-23 08:11 | XMS_ITS | Continuity of Care Document ---
Author Organization [facility] Address [address] [place] [address]- Care Team Providers Care Psychiatric Technician Name Role Phone Prema SOSA, Lin Ortega Primary Care Physician [facility] Date(s): 10/06/21 - 11/05/21 [facility] [address] [place], [place] [address] Allergies, Adverse Reactions, Alerts Substance [...] pneumococcal 23-valent vaccine 05/16/12 Given 1Result Comment: [facility]# [id number] PT. TOLERATED INJ. WITHOUT COMPLICATIONS....CO 2Result Comment: [03/04/2018] [facility]# [id number] 3Result Comment: [03/04/2016] pt. tolerated inj. without complications...CO 4Result Comment: [10/13/2017] [facility]# [id number] pt. tolerated inj. without complications...CO Medications brimonidine [...] 5 Refills, Maintenance, 04/04/21 11:49:00 EDT, [facility][id number], Partial fill upon patient request if the [...]
--- OUTSIDE RECORDS SUMMARY | 2023-10-23 08:11 | XMS_ITS | Continuity of Care Document ---
Author Organization [facility] Address [address], [address] [address]- Care Team Providers Care Radiologic Technology Program Director Name Role Phone Lin Lloyd MD Primary Care Physician [phone] Encounter [facility] Date(s): 06/22/19 - 08/03/19 [facility] [address] [place] [address]- Attending Physician: Latoya Way MD Admitting Physician: Latoya Way MD Referring Physician: Lin Lloyd MD Allergies, [...] 23-valent vaccine 05/16/12 Given 1Result Comment: [facility]# [id number] PT. TOLERATED INJ. WITHOUT COMPLICATIONS....CO 2Result Comment: [03/04/2018] [facility]# [id number] 3Result Comment: [03/04/2016] pt. tolerated inj. without complications...CO 4Result Comment: [10/13/2017] [facility]# [id number] pt. tolerated inj. without complications...CO Medications Carafate 1 gm oral tablet 1 Gm, 1, tablet, By Mouth, 2 times a day, # 28 tablet, Refills 0, Tot. Refills 0, Maintenance, 05/21/19 14:35:00 EST, Route to Pharmacy Electronically, [facility] #[id number], 154.94, cm, 05/21/19 13:50:00 EST, Height, 47, kg, 05/21/19 13:50:00 E... Start Date: 05/21/19 Stop Date: 06/04/19 Status: Ordered estradiol 0.1 mg/g vaginal cream See Instructions, apply topically as directed 5 times a week, # 42 Gm, 3 Refills, Maintenance, 07/13/18 13:56:17 EST Start Date: 07/13/18 Status: Ordered fluconazole 150 mg oral tablet 1 tablet = 150 mg, By Mouth, Every 48 hours, # 2 tablet, 0 Refills, Soft Stop, 06/29/19 13:37:00 EST, Tablet, [facility] #[id number], 154.94, cm, 06/19/19 11:29:00 EST, Height, 47, kg, 05/21/19 13:50:00 EST, Dry Weight Start Date: 06/29/19 Status: Ordered Metoprolol Tartrate 25 mg oral tablet 0.5 tablet = 12.5 mg, By Mouth, 2 times a day, # 45 tablet, 2 Refills, Maintenance, 03/14/19 13:41:46 EDT, Tablet, PUT ON FILE Start Date: 03/14/19 Status: Ordered Misc Rx Refills 0, Maintenance, Durezol drops, 05/15/19 15:41:08 EST, Compound Start Date: 05/15/19 Status: Ordered pantoprazole 40 mg oral delayed release tablet 1 tablet = 40 mg, By Mouth, Daily, for gastritis take before food, # 30 tablet, 0 Refills, Maintenance, 05/15/19 15:32:57 EST, CR Tablet, 154.94, cm, 05/15/19 14:55:01 EST, Height, 46.2, kg, 05/11/1910:57:52 EST, Dry Weight Start Date: 05/15/19 Status: Ordered timolol maleate [...]
--- OUTSIDE RECORDS SUMMARY | 2023-10-23 08:11 | XMS_ITS | Continuity of Care Document ---
Author Organization [facility] ter Address [address] [place] [address]- Care Team Providers Care Spring Clipper Name Role Phone Prema SOSA, Lin Ortega Primary Care Physician [facility]counter [facility] Date(s): 07/01/19 - 07/01/[address] [address]- [place] Encounter Diagnosis Abdominal pain(Final) - 07/01/19 Discharge Disposition: A-D/C Home Attending Physician: Leda Elias DO Admitting Physician: Leda Elias DO Referring Physician: Not on Staff, Referring [...] 23-valent vaccine 05/16/12 Given 1Result Comment: [facility]# [id number] PT. TOLERATED INJ. WITHOUT COMPLICATIONS....CO 2Result Comment: [03/04/2018] [facility]# [id number] 3Result Comment: [03/04/2016] pt. tolerated inj. without complications...CO 4Result Comment: [10/13/2017] [facility]# [id number] pt. tolerated inj. without complications...CO Medications Carafate 1 gm oral tablet 1 Gm, 1, tablet, By Mouth, 2 times a day, # 28 tablet, Refills 0, Tot. Refills 0, Maintenance, 05/21/19 14:35:00 EST, Route to Pharmacy Electronically, [facility] #[id number], 154.94, cm, 05/21/19 13:50:00 EST, Height, 47, [...] Refills, Soft Stop, 06/29/19 13:37:00 EST, Tablet, [facility] #[id number], 154.94, cm, 06/19/19 11:29:00 EST, Height, 47, [...] 1 2 3 Oxygen Saturation [94-100 %] 100 % (07/01/19 5:40 PM) 99 % (07/01/19 4:41 PM) 99 % (07/01/19 2:02 PM) Pulse Rate [55-90 bpm] 61 bpm (07/01/19 5:40 PM) 62 bpm (07/01/19 4:41 PM) 60 bpm (07/01/19 2:02 PM) Blood Pressure [90-138/55-84 mm Hg] 163/92mm Hg *H* (07/01/19 5:40 PM) 154/91mm Hg *H* (07/01/19 4:41 PM) 177/85mm Hg *H* (07/01/19 2:02 PM) Respiratory Rate [16-30 br/min] 18 br/min (07/01/19 5:40 PM) 20 br/min (07/01/19 4:41 PM) 16 br/min (07/01/19 2:02 PM) Temperature [96.8-100.4 DegF] 98.4 DegF (07/01/19 4:41 PM) 98.2 DegF (07/01/19 2:02 PM) 98.1 DegF (07/01/19 11:45 AM) Liters per Minute 0 L/min (07/01/19 4:41 PM) 0 L/min (07/01/19 2:02 PM) 0 L/min (07/01/19 11:45 AM) Mode of Delivery (Oxygen) Room air (07/01/19 5:40 PM) Room air (07/01/19 4:41 PM) Room air (07/01/19 2:02 PM) Blood pressure sites Arm, right (07/01/19 5:40 PM) Arm, left (07/01/19 4:41 PM) Arm, right (07/01/19 2:02 PM) Temperature Route Oral (07/01/19 4:41 PM) Oral (07/01/19 2:02 PM) Oral (07/01/19 11:45 AM) Social History Social History Type Response Smoking Status Never smoker; Other: quit smoking about 35 years ago, 3 cigs/d x 3 years; entered on: 05/30/15 Sex Medical Equipment Implanted Date:12/28/18Target Site:Eye Right Description Quantity MRI Company Model CORNEA FULL THICKNESS - TSSU (K001-PK) 1 [employer] Unknow n GITA:No Information Assigning Authority: FDA
--- OUTSIDE RECORDS SUMMARY | 2023-10-23 08:11 | XMS_ITS | Continuity of Care Document ---
Author Organization [facility] Address [address] [place] [address]- Care Team Providers Care Senior Assistant Manager Name Role Phone Prema SOSA, Lin Ortega Primary Care Physician [facility] Date(s): 11/11/21 - 12/11/21 [facility] [address] [place], [place] [address] Allergies, Adverse Reactions, Alerts [...] 23-valent vaccine 05/16/12 Given 1Result Comment: [facility]# [id number] PT. TOLERATED INJ. WITHOUT COMPLICATIONS....CO 2Result Comment: [03/04/2018] [facility]# [id number] 3Result Comment: [03/04/2016] pt. tolerated inj. without complications...CO 4Result Comment: [10/13/2017] [facility]# [id number] pt. tolerated inj. without complications...CO Medications brimonidine [...]
--- OUTSIDE RECORDS SUMMARY | 2023-10-23 08:11 | XMS_ITS | Continuity of Care Document ---
Author Organization [facility] ter Address [address] [place] [address]- Care Team Providers Care Drum Puller Name Role Phone Lin Lloyd MD Primary Care Physician Encounter [facility] Date(s): 02/23/22 - 03/28/[address] [address]- Attending Physician: Lin Lloyd MD Admitting Physician: Lin Lloyd MD Referring Physician: Lin Lloyd MD Allergies, [...] [facility]# [id number] PT. TOLERATED INJ. WITHOUT COMPLICATIONS....CO 2Result Comment: [03/04/2018] [facility]# [id number] 3Result Comment: [03/04/2016] pt. tolerated inj. without complications...CO 4Result Comment: [10/13/2017] [facility]# [id number] pt. tolerated inj. without complications...CO Medications bisoprolol [...] MRI Safety Implantable Status Assigning Authority Unknown [id number] RCN Unknown Unknown 01/07/19 Unknown Unknown Active Unknown Patient Care team information Personnel Name: Lin Lloyd MD Address: Address: [address] [place] [address]
--- OUTSIDE RECORDS SUMMARY | 2023-10-23 08:11 | XMS_ITS | Continuity of Care Document ---
Author Organization [facility] Address [address] [place] [address]- Care Team Providers Care Industrial Engineering Technologist Name Role Phone Lin Lloyd MD Primary Care Physician [phone] Encounter [facility] Date(s): 06/14/20 - 07/24/[address] [address] Attending Physician: Lin Lloyd MD Admitting Physician: [...] pneumococcal 23-valent vaccine 05/16/12 Given 1Result Comment: [facility]# [id number] PT. TOLERATED INJ. WITHOUT COMPLICATIONS....CO 2Result Comment: [03/04/2018] [facility]# [id number] 3Result Comment: [03/04/2016] pt. tolerated inj. without complications...CO 4Result Comment: [10/13/2017] [facility]# [id number] pt. tolerated inj. without complications...CO Medications Diflucan 150 mg oral tablet 1 tablet = 150 mg, By Mouth, Every 48 hours, # 2 tablet, 0 Refills, Soft Stop, 06/10/20 10:25:00 EST, Tablet, [facility] #[id number], Partial fill upon patient request if the [...] 2 Refills, Maintenance, 09/13/19 15:08:00 EDT, Tablet, [facility] #[id number], PUT ON FILE, 154.94, cm, 06/19/19 11:29:00 [...]
--- OUTSIDE RECORDS SUMMARY | 2023-10-23 08:11 | XMS_ITS | Continuity of Care Document ---
Author Organization [facility] Address Unknown Care Team Providers Care Monotype Operator Name Role Phone Lin Lloyd MD Primary Care Physician [place] [facility] [place] 01/08/22 - 01/15/22 [facility] Attending Physician: Simón Tafoya MD Referring Physician: Lin Lloyd MD Allergies, Adverse Reactions, Alerts Substance Reaction Severity Status chlorthalidone made BP go down Active hydrochlorothiazide Hydrochlorothiazide adverse reaction Hydrochlorothiazide adverse reaction depression Active bisoprolol dryness Active Amlodipine Besylate-Atorvastatin made [...] 23-valent vaccine 05/16/12 Given 1Result Comment: [facility]# [id number] PT. TOLERATED INJ. WITHOUT COMPLICATIONS....CO 2Result Comment: [03/04/2018] [facility]# [id number] 3Result Comment: [03/04/2016] pt. tolerated inj. without complications...CO 4Result Comment: [10/13/2017] [facility]# [id number] pt. tolerated inj. without complications...CO Medications bisoprolol [...] oldest [Reference Range]: 1 Height 158 cm (01/08/22 2:35 PM) Weight 53.5 kg (01/08/22 2:35 PM) Pulse Rate [55-90 bpm] 78 bpm (01/08/22 2:35 PM) Body Mass Index [18.5-24.99] 21.43 (01/08/22 2:35 PM) Blood Pressure [90-138/55-84 mm Hg] 158/ 98mm Hg *H* (01/08/22 2:35 PM) Temperature [96.8-100.4 DegF] 97.0 DegF (01/08/22 2:35 PM) Blood pressure sites Arm, right (01/08/22 2:35 PM) Temperature Route Temporal (01/08/22 2:35 PM) Weight Obtained Via Standing scale (01/08/22 2:35 PM) Social History Social History Type Response Smoking Status Never smoker; Other: quit smoking about 35 years ago, 3 cigs/d x 3 years; entered on: 05/30/15 Sex Medical Equipment Implanted Date:12/28/18Target Site:Eye Right Description Quantity MRI Company Model CORNEA, TBI Full Thickness, Fresh, Human Allograft 1 [employer] Unknow n GITA:No Information Assigning Authority: FDA
--- OUTSIDE RECORDS SUMMARY | 2023-10-23 08:11 | XMS_ITS | Continuity of Care Document ---
Author Organization [facility] Address [address] [place] [address]- Care Team Providers Care Sash Repairer Name Role Phone Prema SOSA, Lin Ortega Primary Care Physician [phone] [facility]counter [facility] Date(s): 05/21/20 - 06/20/20 [facility] [address] [place], [place] [address] Allergies, Adverse Reactions, Alerts Substance [...] pneumococcal 23-valent vaccine 05/16/12 Given 1Result Comment: [facility]# [id number] PT. TOLERATED INJ. WITHOUT COMPLICATIONS....CO 2Result Comment: [03/04/2018] [facility]# [id number] 3Result Comment: [03/04/2016] pt. tolerated inj. without complications...CO 4Result Comment: [10/13/2017] [facility]# [id number] pt. tolerated inj. without complications...CO Medications Diflucan 150 mg oral tablet 1 tablet = 150 mg, By Mouth, Every 48 hours, # 2 tablet, 0 Refills, Soft Stop, 06/10/20 10:25:00 EST, Tablet, [id number] #[id number], Partial fill upon patient request if the [...] 2 Refills, Maintenance, 09/13/19 15:08:00 EDT, Tablet, [facility] #[id number], PUT ON FILE, 154.94, cm, 06/19/19 11:29:00 [...]
--- OUTSIDE RECORDS SUMMARY | 2023-10-23 08:11 | XMS_ITS | Continuity of Care Document ---
Author Organization [facility] Address [address] [place] [address]- Care Team Providers Care Prospect Manager Name Role Phone Prema SOSA, Lin Ortega Primary Care Physician [phone] Encounter [facility] Date(s): 05/01/20 - 05/31/20 [facility] [address] [place] [address]- Allergies, Adverse Reactions, Alerts Substance Reaction Severity [...] 1Result Comment: [facility]# [id number] PT. TOLERATED INJ. WITHOUT COMPLICATIONS....CO 2Result Comment: [03/04/2018] [facility]# [id number] 3Result Comment: [03/04/2016] pt. tolerated inj. without complications...CO 4Result Comment: [10/13/2017] [facility]# [id number] pt. tolerated inj. without complications...CO Medications estradiol [...] 0 Refills, Soft Stop, 05/27/20 8:58:00 EST, [facility] #[id number], 154.94, cm, 05/21/20 13:27:00 EST, Height, 48.4, kg, 05/21/20 13:33:00 EST, Dry Weight Start Date: 05/27/20 Status: Ordered Metoprolol Tartrate 25 mg oral tablet 0.5 tablet = 12.5 mg, By Mouth, 2 times a day, # 90 tablet, 2 Refills, Maintenance, 09/13/19 15:08:00 EDT, Tablet, [facility] #[id number], PUT ON FILE, 154.94, cm, 06/19/19 11:29:00 EST, Height,47, kg, 05/21/19 13:50:00 EST, Dry Weight Start Date: 09/13/19 Status: Ordered Misc Rx Refills 0, Maintenance, Durezol drops, 05/15/19 15:41:08 EST, Compound Start Date: 05/15/19 Status: Ordered prednisolone ophthalmic acetate 1% suspension 1 drops, Eye, Left, 4 times a day, for 7 days, # 5 mL, 0 Refills, Acute 06/06/20 16:53:00 EST, 05/30/20 16:53:00 EST, Ophth Suspension, [facility] #[id number], Partial fill upon patient request if the prescription is for a schedule II opioid drug... Start Date: 05/30/20 Stop Date: 06/06/20 Status: Ordered timolol maleate 0.5% ophthalmic gel [...]
--- OUTSIDE RECORDS SUMMARY | 2023-10-23 08:11 | XMS_ITS | Continuity of Care Document ---
Author Organization [facility] Address [address] [place] [address]- Care Team Providers Care Concentrator Operator Name Role Phone Lin Lloyd MD Primary Care Physician Encounter [facility] Date(s): 06/19/19 - 06/26/19 [facility] [address] [place] [address]- [facility] Encounter Diagnosis Suprapubic pain(Discharge Diagnosis) - 06/19/19 Attending Physician: Kenrick Ashley MD Referring Physician: Lin Lloyd MD Allergies, [...] pneumococcal 23-valent vaccine 05/16/12 Given 1Result Comment: [facility]# [id number] PT. TOLERATED INJ. WITHOUT COMPLICATIONS....CO 2Result Comment: [03/04/2018] [facility]# [id number] 3Result Comment: [03/04/2016] pt. tolerated inj. without complications...CO 4Result Comment: [10/13/2017] [facility]# [id number] pt. tolerated inj. without complications...CO Medications Carafate 1 gm oral tablet 1 Gm, 1, tablet, By Mouth, 2 times a day, # 28 tablet, Refills 0, Tot. Refills 0, Maintenance, 05/21/19 14:35:00 EST, Route to Pharmacy Electronically, [facility] #[id number], 154.94, cm, 05/21/19 13:50:00 EST, Height, 47, [...] # 1 tablet, 0 Refills, Soft Stop, 06/21/19 17:52:00 EST, Tablet,[facility] #[id number], 154.94, cm, 06/19/19 11:29:00 EST, Height, 47, kg, 05/21/19 13:50:00 EST, Dry Weight Start Date: 06/21/19 Status: Ordered Metoprolol Tartrate 25 mg oral [...] Dates Health Status Cl inical Service Informant Suprapubic pain Discharge Diagnosis 06/19/19 Vital Signs Most recent to oldest [Reference Range]: 1 Height 154.94 cm (06/19/19 11:29 AM) Oxygen Saturation [94-100 %] 100 % (06/19/19 11:29 AM) Pulse Rate [55-90 bpm] 94 bpm *H* (06/19/19 11:29 AM) Blood Pressure [90-138/55-84 mm Hg] 145/ 91mm Hg *H* (06/19/19 11:29 AM) Respiratory Rate [16-30 br/min] 20 br/mi n (06/19/19 11:29 AM) Temperature [96.8-100.4 DegF] 98.2 DegF (06/19/19 11:29 AM) Mode of Delivery (Oxygen) Room air (06/19/19 11:29 AM) Blood pressure sites Arm, left (06/19/19 11:29 AM) Temperature Route Oral (06/19/19 11:29 AM) Weight Obtained Via Standing scale (06/19/19 11:29 AM) Dry Weight Obtained Via Standing scale (06/19/19 11:29 AM) Social History Social History Type Response Smoking Status Never smoker; Other: quit smoking about 35 years ago, 3 cigs/d x 3 years; entered on: 05/30/15 Sex Medical Equipment Implanted Date:12/28/18Target Site:Eye Right Description Quantity MRI Company Model CORNEA FULL THICKNESS - TSSU (K001-PK) 1 [employer] Unknow n GITA:No Information Assigning Authority: FDA
--- OUTSIDE RECORDS SUMMARY | 2023-10-23 08:11 | XMS_ITS | Continuity of Care Document ---
Author Organization [facility] Address [address] [place] [address]- Care Team Providers Care Director Of Cloud Services Name Role Phone Prema SOSA, Lin Ortega Primary Care Physician [phone] [facility]counter [facility] Date[facility]s): 03/05/20 - 04/04/20 [facility] [address], [place] [address] [...] 23-valent vaccine 05/16/12 Given 1Result Comment: [facility]# [id number] PT. TOLERATED INJ. WITHOUT COMPLICATIONS....CO 2Result Comment: [03/04/2018] [facility]# [id number] 3Result Comment: [03/04/2016] pt. tolerated inj. without complications...CO 4Result Comment: [10/13/2017] [facility]# [id number] pt. tolerated inj. without complications...CO Medications Diflucan 150 mg oral tablet 1 tablet = 150 mg, By Mouth, Once, PRN yeast infection symptoms, # 2 tablet, 0 Refills, Soft Stop, 11/21/19 13:22:00 EDT, Tablet, [facility] #[id number], 154.94, cm, 06/19/19 11:29:00 EST, Height, 47, [...] 2 Refills, Maintenance, 09/13/19 15:08:00 EDT, Tablet, [id number] #[id number], PUT ON FILE, 154.94, cm, 06/19/19 11:29:00 [...]
--- OUTSIDE RECORDS SUMMARY | 2023-10-23 08:11 | XMS_ITS | Continuity of Care Document ---
Author Organization [facility] Address [address] [place] [address]- Care Team Providers Care Computer Tape Librarian Name Role Phone Prema SOSA, Lin Ortega Primary Care Physician [facility]counter [facility] Date(s): 04/17/21 - 05/17/21 [facility] [address] [place], [place] [address] Allergies, Adverse Reactions, Alerts Substance Reaction [...] pneumococcal 23-valent vaccine 05/16/12 Given 1Result Comment: [facility]# [id number] PT. TOLERATED INJ. WITHOUT COMPLICATIONS....CO 2Result Comment: [03/04/2018] [facility]# [id number] 3Result Comment: [03/04/2016] pt. tolerated inj. without complications...CO 4Result Comment: [10/13/2017] [facility]# [id number] pt. tolerated inj. without complications...CO Medications amLODIPine 5 mg oral tablet See Instructions, take 1/2 by mouth daily, # 15 tablet, Refills 5, Tot. Refills 5, Maintenance, 03/14/21 14:41:00 EDT, Instructions Replace Required Details, Route to Pharmacy Electronically, [email or web address] #[id number], Pt reports allergy to amlodipi... Start Date: [...] 5 Refills, Maintenance, 04/04/21 11:49:00 EDT, ECCapsule, [email or web address] #[id number], Partial fill upon patient request if the [...]
--- OUTSIDE RECORDS SUMMARY | 2023-10-23 08:11 | XMS_ITS | Continuity of Care Document ---
Author Organization [facility] Address [address] [place] [address]- Care Team Providers Care Manager Product Name Role Phone Prema SOSA, Lin Ortega Primary Care Physician [facility]counter [facility] Date(s): 12/21/22 - 01/20/23 [facility] [address] [place], [place] [address] Allergies, Adverse Reactions, Alerts Substance Reaction [...] pneumococcal 23-valent vaccine 05/16/12 Given 1Result Comment: [facility] [id number] 2Result Comment: [03/04/2018] [facility]# [id number] 3Result Comment: [03/04/2016] pt. tolerated inj. without complications...CO 4Result Comment: [facility]# [id number] PT. TOLERATED INJ. WITHOUT COMPLICATIONS....CO 5Result Comment: [10/13/2017] [facility]# [id number] pt. tolerated inj. without complications...CO Medications brimonidine [...] MRI Safety Implantable Status Assigning Authority Unknown [id number] RCN Unknown Unknown 01/07/19 Unknown Unknown Active Unknown Patient Care team information Care Team Personnel Name: Lin Lloyd MD Position: [facility] Physician - Primary Care Member Role: PCP Address: Address: [address] [place] [address]- Name: Julio Sampson MD Position: [facility] Renal MD Member Role: Lifetime Consulting Physician Address: Address: [address] [place] [address]- Name: Frederick Bermudez MD Position: [facility] VOICE OVER ARTIST MD Member Role: Lifetime VOICE OVER ARTIST Physician Address: Address: [address] [place], [place] [address] [place] [address]- Name: Hilda Tate RN Position: S RN Member Role: Primary Care Nurse Name: Claudia Castellon RN Position: S RN Member Role: Primary Care Nurse Name: Meghna Martinez RN Position: [facility] SN RN Member Role: Primary Care Nurse Name: Marie Gomez RN Position: [facility] Onco RN Member Role: Primary Care Nurse Care Team Related Persons Name: STACEY BANDA Address: [place] [address] Name: HARDIK SIMMS Name: TABITHA ABDULLAHI Address: home [address] [place] [address] Name: MADYSON ABDULLAHI
--- OUTSIDE RECORDS SUMMARY | 2023-10-23 08:11 | XMS_ITS | Continuity of Care Document ---
Author Organization [facility] Address [address] [place] [address]- Care Team Providers Care Design/Animation Instructor Name Role Phone Lin Lloyd MD Primary Care Physician [phone] Encounter [facility] Date(s): 10/22/20 - 10/29/20 [facility] [address] [place] [address]- Encounter Diagnosis Suprapubic pain(Discharge Diagnosis) - 10/22/20 Attending Physician: Luli Bennett MD Referring Physician: [...] pneumococcal 23-valent vaccine 05/16/12 Given 1Result Comment: [facility]# [id number] PT. TOLERATED INJ. WITHOUT COMPLICATIONS....CO 2Result Comment: [03/04/2018] [facility]# [id number] 3Result Comment: [03/04/2016] pt. tolerated inj. without complications...CO 4Result Comment: [10/13/2017] [facility]# [id number] pt. tolerated inj. without complications...CO Medications Diflucan 150 mg oral tablet 1 tablet = 150 mg, By Mouth, Every 48 hours, # 2 tablet, 0 Refills, Soft Stop, 09/04/20 16:38:00 EDT, Tablet, [facility] #[id number], Partial fill upon patient request if the prescription is fora schedule II opioid drug., 154.94, cm, 05/30/20 11... Start Date: 09/04/20 Status: Ordered Diflucan 150 mg oral tablet 1 tablet = 150 mg, By Mouth, Every 48 hours, # 2 tablet, 0 Refills, Soft Stop, 06/10/20 10:25:00 EST, Tablet, [facility] #[id number], Partial fill upon patient request if the [...] tablet, 2 Refills, Maintenance, 10/22/20 18:29:00 EDT, [facility] #[id number], 154.94, cm, 10/22/20 13:42:00 EDT, Height, 46.5, [...] inical Service Informant Suprapubic pain Discharge Diagnosis 10/22/20 Vital Signs Most recent to oldest [Reference Range]: 1 Height 154.94 cm (10/22/20 1:42 PM) Oxygen Saturation [94-100 %] 100 % (10/22/20 1:42 PM) Pulse Rate [55-90 bpm] 73 bpm (10/22/20 1:42 PM) Blood Pressure [90-138/55-84 mm Hg] 187/ 105mm Hg *H* (10/22/20 1:42 PM) Respiratory Rate [16-30 br/min] 18 br/mi n (10/22/20 1:42 PM) Temperature [96.8-100.4 DegF] 97.5 DegF (10/22/20 1:42 PM) Mode of Delivery (Oxygen) Room air (10/22/20 1:42 PM) Blood pressure sites Arm, left (10/22/20 1:42 PM) Temperature Route Temporal (10/22/20 1:42 PM) Social History Social History Type Response Smoking Status Never smoker; Other: quit smoking about 35 years ago, 3 cigs/d x 3 years; entered on: 05/30/15 Sex Medical Equipment Implanted Date:12/28/18Target Site:Eye Right Description Quantity MRI Company Model CORNEA FULL THICKNESS - TSSU (K001-PK) 1 [employer] Unknow n GITA:No Information Assigning Authority: FDA
--- OUTSIDE RECORDS SUMMARY | 2023-10-23 08:11 | XMS_ITS | Continuity of Care Document ---
Author Organization [facility] Address [address] [place] [address]- Care Team Providers Care Stave And Bolt Equalizer Name Role Phone Prema SOSA, Lin Ortega Primary Care Physician [facility]counter [facility] Date(s): 11/30/22 - 12/30/22 [facility] [address] [place], [place] [address] Allergies, Adverse Reactions, Alerts Substance Reaction Severity Status chlorthalidone made BP go down Active hydrochlorothiazide Hydrochlorothiazide adverse reaction Hydrochlorothiazide adverse reaction depression Active bisoprolol dryness Active cloNIDine ?headaches, abdominal pain A ctive Amlodipine Besylate-Atorvastatin made BP down Active lisinopril [...] 05/16/12 Given 1Result Comment: [facility] [id number] 2Result Comment: [03/04/2018] [facility]# [id number] 3Result Comment: [03/04/2016] pt. tolerated inj. without complications...CO 4Result Comment: [facility]# [id number] PT. TOLERATED INJ. WITHOUT COMPLICATIONS....CO 5Result Comment: [10/13/2017] [facility]# [id number] pt. tolerated inj. without complications...CO Medications aluminum hydroxide/magnesium hydroxide/simethicone 200 mg-200 mg-20 mg/5 mL oral suspension 10 mL, By Mouth, 4 times a day, PRN Pain , Moderate, # 400 mL, 11 Refills, Maintenance, 12/25/22 13:07:00 EDT, Suspension, [facility] #[id number], Partial fill upon patient request if the prescription is for a schedule II opioid drug., 10 mL By M... Start Date: 12/25/22 Status: Ordered brimonidine 0.2% ophthalmic solution See Instructions, 1 drop into Right eye three times a day, 0 Refills, Maintenance, 01/07/21 14:01:00 EDT, Solution, Partial fill upon patient request if the prescription is for a schedule II opioid drug. Start Date: 01/07/21 Status: Ordered candesartan 4 mg oral tablet 1 tablet = 4 mg, By Mouth, Daily, TAKE WITH FOOD, # 30 tablet, 2 Refills, Maintenance, 12/21/22 16:55:00 EDT, Tablet, [facility] #[id number], Partial fill upon patient request if the prescription is for a schedule II opioid drug., 158, cm, ... Start Date: 12/21/22 Status: Ordered Home Blood Pressure Monitor See Instructions, # 1 Unknown, Maintenance, dx: I10 use once daily height 158cm weight 48cm WITH SMALL ADULT CUFF 20 TO 26 CM, 12/25/22 13:01:00 EDT, Supply Start Date: 12/25/22 Status: Ordered ursodiol 250 mg oral tablet 1 tablet = 250 mg, By Mouth, 2 times a day, # 60 tablet, 11 Refills, Maintenance, 11/24/22 16:05:00EDT, [facility] #[id number], Partial fill upon patient request if the prescription is for a schedule II opioid drug., 48, cm, 11/24/22 13:12:00 ED... Start Date: 11/24/22 Status: Ordered ursodiol 300 mg oral capsule 300 mg, 1, capsule, By Mouth, 2 times a day, # 180 capsule, Refills 5, Tot. Refills 5, Maintenance,08/18/22 14:42:00 EDT, Route to Pharmacy Electronically, [facility] #[id number], Partial fill upon patient request if the [...] MRI Safety Implantable Status Assigning Authority Unknown [id number] RCN Unknown Unknown 01/07/19 Unknown Unknown Active Unknown Patient Care team information Care Team Personnel Name: Lin Lloyd MD Position: [facility] Physician - Primary Care Member Role: PCP Address: Address: [address] [place] [address]- Name: Julio Sampson MD Position: [facility] Renal MD Member Role: Lifetime Consulting Physician Address: Address: [address] [place] [id number] Name: Frederick Bermudez MD Position: [facility] OIL BURNER INSTALLER MD Member Role: Lifetime OIL BURNER INSTALLER Physician Address: Address: [address] [place] [address] Name: Hilda Tate RN Position: [facility] RN Member Role: Primary Care Nurse Name: Claudia Castellon RN Position: [facility] RN Member Role: Primary Care Nurse Name: Meghna Martinez RN Position: [facility] SN RN Member Role: Primary Care Nurse Name: Marie Gomez RN Position: [facility] Onco RN Member Role: Primary Care Nurse Care Team Related Persons Name: STACEY BANDA Address: [place] [address] Name: HARDIK SIMMS Name: TABITHA ABDULLAHI Address: [address] [address] Name: MADYSON ABDULLAHI
--- OUTSIDE RECORDS SUMMARY | 2023-10-23 08:11 | XMS_ITS | Continuity of Care Document ---
Author Organization [facility] Address [address] [place] [address]- Care Team Providers Care After School Tutor Name Role Phone Lin Lloyd MD Primary Care Physician [phone] [facility]counter [facility] Date(s): 01/28/22 - 02/27/22 [facility] [address] [place], [place] [address] Allergies, Adverse Reactions, Alerts Substance Reaction Severity Status chlorthalidone made BP go down Active hydrochlorothiazide Hydrochlorothiazide adverse reaction Hydrochlorothiazide adverse reaction depression Active bisoprolol dryness Active lisinopril tinnitus Active Amlodipine Besylate-Atorvastatin made BP down Active losartan itching Active penicillins rash Active [...] vaccine 05/16/12 Given 1Result Comment: [facility]# [id number] PT. TOLERATED INJ. WITHOUT COMPLICATIONS....CO 2Result Comment: [03/04/2018] [facility]# [id number] 3Result Comment: [03/04/2016] pt. tolerated inj. without complications...CO 4Result Comment: [10/13/2017] [facility]# [id number] pt. tolerated inj. without complications...CO Medications bisoprolol [...] MRI Safety Implantable Status Assigning Authority Unknown [id number] RCN Unknown Unknown 01/07/19 Unknown Unknown Active Unknown Patient Care team information Personnel Name: Prema SOSA, Lin Ortega Address: Address: [address] [place] [address]
--- OUTSIDE RECORDS SUMMARY | 2023-10-23 08:11 | XMS_ITS | Continuity of Care Document ---
Author Organization [facility] Address [address] [place] [address] [address] [place] [address]- Care Team Providers Care Front End Web Designer Name Role Phone Prema SOSA, Lin Ortega Primary Care Physician [facility]counter [facility] Date(s): 11/24/22 - 12/24/[address] [place] [address]- Allergies, Adverse Reactions, Alerts Substance Reaction Severity Status chlorthalidone made BP go down Active hydrochlorothiazide Hydrochlorothiazide adverse reaction Hydrochlorothiazide adverse reaction depression Active bisoprolol dryness Active lisinopril tinnitus Active penicillins rash Active cloNIDine ?headaches, abdominal pain A ctive Amlodipine Besylate-Atorvastatin made BP down Active losartan itching Active Immunizations Given and [...] 1Result Comment: [facility] [id number] 2Result Comment: [03/04/2018] [facility]# [id number] 3Result Comment: [03/04/2016] pt. tolerated inj. without complications...CO 4Result Comment: [facility]# [id number] PT. TOLERATED INJ. WITHOUT COMPLICATIONS....CO 5Result Comment: [10/13/2017] [facility]# [id number] pt. tolerated inj. without complications...CO Medications brimonidine [...] 2 Refills, Maintenance, 12/21/22 16:55:00 EDT, Tablet, [facility] #[id number], Partial fill upon patient request if the [...] 60 tablet, 11 Refills, Maintenance, 11/24/22 16:05:00EDT, [facility] #[id number], Partial fill upon patient request if the prescription is for a schedule II opioid drug., 48, cm, 11/24/22 13:12:00 ED... Start Date: 11/24/22 Status: Ordered ursodiol 300 mg oral capsule 300 mg, 1, capsule, By Mouth, 2 times a day, # 180 capsule, Refills 5, Tot. Refills 5, Maintenance,08/18/22 14:42:00 EDT, Route to Pharmacy Electronically, [facility] #[id number], Partial fill upon patient request if the [...] MRI Safety Implantable Status Assigning Authority Unknown [id number] RCN Unknown Unknown 01/07/19 Unknown Unknown Active Unknown Patient Care team information Care Team Personnel Name: Lin Lloyd MD Position: [facility] Physician - Primary Care Member Role: PCP Address: Address: [address] [place] [address]- Name: Julio Sampson MD Position: [facility] Renal MD Member Role: Lifetime Consulting Physician Address: Address: [address] [place] [address], [address] [address] Name: Frederick Bermudez MD Position: [facility] MANAGER INSURANCE MD Member Role: Lifetime MANAGER INSURANCE Physician Address: Address: [address] [place] [address] Name: Hilda Tate RN Position: [facility] RN Member Role: Primary Care Nurse Name: Claudia Castellon RN Position: [facility] RN Member Role: Primary Care Nurse Name: Meghna Martinez RN Position: [facility] SN RN Member Role: Primary Care Nurse Name: Marie Gomez RN Position: [facility] Onco RN Member Role: Primary Care Nurse Care Team Related Persons Name: STACEY BANDA Address: [place] [address] Name: HARDIK SIMMS Name: TABITHA ABDULLAHI Address: home [address] [place] [address] Name: MADYSON ABDULLAHI
--- OUTSIDE RECORDS SUMMARY | 2023-10-23 08:11 | XMS_ITS | Continuity of Care Document ---
Author Organization [facility] Address [address] [place] [address]- Care Team Providers Care Apartment Locator Name Role Phone Lin Lloyd MD Primary Care Physician [facility] Date(s): 03/25/22 - 04/24/22 [facility] [address] [place], [place] [address] Allergies, Adverse Reactions, Alerts Substance Reaction [...] 05/16/12 Given 1Result Comment: [facility]# [id number] PT. TOLERATED INJ. WITHOUT COMPLICATIONS....CO 2Result Comment: [03/04/2018] [facility]# [id number] 3Result Comment: [03/04/2016] pt. tolerated inj. without complications...CO 4Result Comment: [10/13/2017] [facility]# [id number] pt. tolerated inj. without complications...CO Medications aluminum hydroxide/magnesium hydroxide/simethicone 200 mg-200 mg-20 mg/5 mL oral suspension 10 mL, By Mouth, 2 times a day before breakfast and dinne, PRN for control of stomach acid, for 14 days, # 360 mL, 0 Refills, Acute 04/25/22 18:30:00 EST, 04/11/22 18:30:00 EST, Suspension, [facility] #[id number], Partial fill upon patient reques... Start Date: 04/11/22 Stop Date: 04/25/22 Status: Ordered bisoprolol 5 mg oral tablet TAKE 1/2 [...] opioid drug. Start Date: 11/26/21 Status: Ordered Tylenol 325 mg oral tablet 650 mg, 2, tablet, By Mouth, Every 4 hours, PRN, for 14 days, not to exceed 4000 mg/day, # 50 tablet, Refills 0, Tot. Refills 0, Acute 04/25/22 18:30:00 EST, for pain, 04/11/22 18:30:00 EST, Route toPharmacy Electronically, [facility] #[id number]... Start Date: 04/11/22 Stop Date: 04/25/22 Status: Ordered Problem List Condition Confirmation Course [...] MRI Safety Implantable Status Assigning Authority Unknown [id number] RCN Unknown Unknown 01/07/19 Unknown Unknown Active Unknown Patient Care team information Care Team Personnel Name: Lin Lloyd MD Position: [facility] Primary Care Physician Member Role: PCP Address: Address: [address] [place] [address] Name: Julio Sampson MD Position: [facility] Physician (General Medicine) Member Role: Lifetime Consulting Physician Address: Address: [address] [place] [address] Name: Frederick Bermudez MD Position: [facility] BINDING NICKER MD Member Role: Lifetime BINDING NICKER Physician Address: Address: [address] [place] [address] Name: Hilda Tate RN Position: [facility] RN Member Role: Primary Care Nurse Name: Claudia Castellon RN Position: [facility] RN Member Role: Primary Care Nurse Name: Meghna Martinze RN Position: [facility] RN Member Role: Primary Care Nurse Name: Marie Gomez RN Position: [facility] RN Member Role: Primary Care Nurse Care Team Related Persons Name: STACEY BANDA Address: [place] [address] Name: HARDIK SIMMS Name: TABITHA ABDULLAHI Address: home [address] [place] [id number] Name: MADYSON ABDULLAHI
--- OUTSIDE RECORDS SUMMARY | 2023-10-23 08:11 | XMS_ITS | Continuity of Care Document ---
Author Organization [facility] Address [address] [place] [address]- Care Team Providers Care Accounts Receivable Collector Name Role Phone Lin Lloyd MD Primary Care Physician [facility]s): 10/30/21 - 11/29/21 [facility] [address] [place] [address]- Attending Physician: Admtr, Lai8 Admitting Physician: Admtr, Ar8 Referring Physician: Admtr, Ar8 Allergies, Adverse Reactions, [...] pneumococcal 23-valent vaccine 05/16/12 Given 1Result Comment: [facility]# [id number] PT. TOLERATED INJ. WITHOUT COMPLICATIONS....CO 2Result Comment: [03/04/2018] [facility]# [id number] 3Result Comment: [03/04/2016] pt. tolerated inj. without complications...CO 4Result Comment: [10/13/2017] [facility]# [id number] pt. tolerated inj. without complications...CO Medications brimonidine [...]
--- OUTSIDE RECORDS SUMMARY | 2023-10-23 08:11 | XMS_ITS | Continuity of Care Document ---
Author Organization [facility] Address [address] [place] [address]- Care Team Providers Care Supervisor Ornamental Ironworking Name Role Phone Lin Lloyd MD Primary Care Physician Encounter [facility] Date(s): 04/04/21 - 04/11/21 [facility] [address] [place] [address]- Encounter Diagnosis Hypertension(Discharge Diagnosis) - 04/04/21 Atrial tachycardia(Discharge Diagnosis) - 04/04/21 Attending Physician: Lin Lloyd MD Allergies, Adverse Reactions, Alerts Substance Reaction Severity Status chlorthalidone made BP go down Active hydrochlorothiazide Hydrochlorothiazide adverse reaction Hydrochlorothiazide adverse reaction depression Active penicillins rash Active Amlodipine Besylate-Atorvastatin made [...] pneumococcal 23-valent vaccine 05/16/12 Given 1Result Comment: [facility]# [id number] PT. TOLERATED INJ. WITHOUT COMPLICATIONS....CO 2Result Comment: [03/04/2018] [facility]# [id number] 3Result Comment: [03/04/2016] pt. tolerated inj. without complications...CO 4Result Comment: [10/13/2017] [facility]# [id number] pt. tolerated inj. without complications...CO Medications amLODIPine 5 mg oral tablet See Instructions, take 1/2 by mouth daily, # 15 tablet, Refills 5, Tot. Refills 5, Maintenance, 03/14/21 14:41:00 EDT, Instructions Replace Required Details, Route to Pharmacy Electronically, [facility] #[id number], Pt reports allergy to amlodipi... Start Date: [...] 5 Refills, Maintenance, 04/04/21 11:49:00 EDT, ECCapsule, [facility] #[id number], Partial fill upon patient request if the [...] Status Clinical Service Informant Hypertension Discharge Diagnosis 04/04/21 Atrial tachycardia Discharge Diagnosis 04/04/21 Vital Signs Most recent to oldest [Reference Range]: 1 Height 158 cm (04/04/21 11:30 AM) Weight 46.2 kg (04/04/21 11:30 AM) Oxygen Saturation [94-100 %] 99 % (04/04/21 11:30 AM) Pulse Rate [55-90 bpm] 104 bpm *H* (04/04/21 11:30 AM) Body Mass Index [18.5-24.99] 18.51 (04/04/21 11:30 AM) Blood Pressure [90-138/55-84 mm Hg] 124/ 68mm Hg (04/04/21 11:30 AM) Respiratory Rate [16-30 br/min] 18 br/mi n (04/04/21 11:30 AM) Temperature [96.8-100.4 DegF] 97.8 DegF (04/04/21 11:30 AM) Mode of Delivery (Oxygen) Room air (04/04/21 11:30 AM) Blood pressure sites Arm, left (04/04/21 11:30 AM) Temperature Route Temporal (04/04/21 11:30 AM) Weight Obtained Via Standing scale (04/04/21 11:30 AM) Social History Social History Type Response Smoking Status Never smoker; Other: quit smoking about 35 years ago, 3 cigs/d x 3 years; entered on: 05/30/15 Sex Medical Equipment Implanted Date:12/28/18Target Site:Eye Right Description Quantity MRI Company Model CORNEA FULL THICKNESS - TSSU (K001-PK) 1 [employer] Unknow n GITA:No Information Assigning Authority: FDA
--- OUTSIDE RECORDS SUMMARY | 2023-10-23 08:11 | XMS_ITS | Continuity of Care Document ---
Author Organization [facility] ter Address [address] [place] [address]- Care Team Providers Care Wildlife Manager Name Role Phone Lin Lloyd MD Primary Care Physician [facility] Date(s): 01/03/21 - 02/02/[address] [address]- Attending Physician: Not on Staff, Attending MD Admitting Physician: Not on Staff, Admitting MD Referring Physician: Not on Staff, Referring [...] 05/16/12 Given 1Result Comment: [facility]# [id number] PT. TOLERATED INJ. WITHOUT COMPLICATIONS....CO 2Result Comment: [03/04/2018] [facility]# [id number] 3Result Comment: [03/04/2016] pt. tolerated inj. without complications...CO 4Result Comment: [10/13/2017] [facility]# [id number] pt. tolerated inj. without complications...CO Medications brimonidine [...] 01/16/21 11:45:00 EDT, Route to Pharmacy Electronically, [facility] #[id number], new dosage, cancel out prescriptin for 120mg [...] Refills, Maintenance, 11/12/20 10:23:00 EDT, Chew Tablet, [facility] #[id number], Partial fill upon patient request if the [...] 5 Refills, Maintenance, 01/16/21 11:51:00 EDT, Patch, [facility] #[id number], Partial fill upon patient r... Start Date: 01/16/21 Status: Ordered Misc Rx Refills 0, Maintenance, Durezol drops, 05/15/19 15:41:08 EST, Compound Start Date: 05/15/19 Status: Ordered ocular lubricant - solution See Instructions, PRN for dry eyes, 2 drops left eye 4 times a day as needed for pain/ dry eyes., #15 mL, 2 Refills, Maintenance, 01/07/21 14:31:00 EDT, Solution, [facility] #[id number], Partial fill upon patient request if the prescription is... Start Date: 01/07/21 Status: Ordered omeprazole 20 mg oral enteric coated capsule 1 capsule = 20 mg, By Mouth, Daily, # 30 capsule, 3 Refills, Maintenance, 01/17/21 12:14:00 EDT, ECCapsule, [facility] #[id number], Partial fill upon patient request if the [...] 0 Refills, Maintenance, 01/07/21 14:05:00 EDT, Tablet, [facility] #[id number], Partial fill upon patient request if the [...]
--- OUTSIDE RECORDS SUMMARY | 2023-10-23 08:11 | XMS_ITS | Continuity of Care Document ---
Author Organization [facility] Address [address] [place] [address]- Care Team Providers Care Historian Research Assistant Name Role Phone Prema SOSA, Lin Ortega Primary Care Physician [facility] Date(s): 01/16/21 - 02/15/21 [facility] [address] [place], [place] [address] Allergies, Adverse Reactions, Alerts Substance Reaction [...] 23-valent vaccine 05/16/12 Given 1Result Comment: [facility]# [id number] PT. TOLERATED INJ. WITHOUT COMPLICATIONS....CO 2Result Comment: [03/04/2018] [facility]# [id number] 3Result Comment: [03/04/2016] pt. tolerated inj. without complications...CO 4Result Comment: [10/13/2017] [facility]# [id number] pt. tolerated inj. without complications...CO Medications brimonidine [...] 01/16/21 11:45:00 EDT, Route to Pharmacy Electronically, [facility] #[id number], new dosage, cancel out prescriptin for 120mg [...] Refills, Maintenance, 11/12/20 10:23:00 EDT, Chew Tablet, [facility] #[id number], Partial fill upon patient request if the [...] 5 Refills, Maintenance, 01/16/21 11:51:00 EDT, Patch, [facility] #[id number], Partial fill upon patient r... Start Date: 01/16/21 Status: Ordered Misc Rx Refills 0, Maintenance, Durezol drops, 05/15/19 15:41:08 EST, Compound Start Date: 05/15/19 Status: Ordered ocular lubricant - solution See Instructions, PRN for dry eyes, 2 drops left eye 4 times a day as needed for pain/ dry eyes., #15 mL, 2 Refills, Maintenance, 01/07/21 14:31:00 EDT, Solution, [facility] #[id number], Partial fill upon patient request if the prescription is... Start Date: 01/07/21 Status: Ordered omeprazole 20 mg oral enteric coated capsule 1 capsule = 20 mg, By Mouth, Daily, # 30 capsule, 3 Refills, Maintenance, 01/17/21 12:14:00 EDT, ECCapsule, [facility] #[id number], Partial fill upon patient request if the [...] 0 Refills, Maintenance, 01/07/21 14:05:00 EDT, Tablet, [facility] #46046, Partial fill upon patient request if the [...]
--- OUTSIDE RECORDS SUMMARY | 2023-10-23 08:11 | XMS_ITS | Continuity of Care Document ---
Author Organization [facility] Address [address] [place] [address]- Care Team Providers Care Care Partner Name Role Phone Lin Lloyd MD Primary Care Physician [facility] Date(s): 07/29/21 - 08/28/21 [facility] [address] [place] [address]- [place] Allergies, Adverse Reactions, Alerts Substance Reaction [...] vaccine 05/16/12 Given 1Result Comment: [facility]# [id number] PT. TOLERATED INJ. WITHOUT COMPLICATIONS....CO 2Result Comment: [03/04/2018] [facility]# [id number] 3Result Comment: [03/04/2016] pt. tolerated inj. without complications...CO 4Result Comment: [10/13/2017] [facility]# [id number] pt. tolerated inj. without complications...CO Medications brimonidine [...] Replace Required Details, Route to Pharmacy Electronically, [facility] #[id number],... Start Date: 08/26/21 Status: Ordered Home Blood [...] 07/29/21 16:47:00 EST, Route to Pharmacy Electronically, [facility] #[id number], Partial fill upon patient request if the prescription is for a schedule I... Start Date: 07/29/21 Stop Date: 11/26/21 Status: Ordered [facility] Rx Refills 0, Maintenance, Durezol drops, 05/15/19 15:41:08 EST, Compound Start Date: 05/15/19 Status: Ordered ofloxacin 0.3% ophthalmic solution INSTILL 1 DROP INTO LEFT EYE FOUR TIMES DAILY FOR 1 WEEK Start Date: 04/04/21 Status: Ordered omeprazole 20 mg oral enteric coated capsule 1 capsule = 20 mg, By Mouth, Daily, # 30 capsule, 5 Refills, Maintenance, 04/04/21 11:49:00 EDT, ECCapsule, [facility] #[id number], Partial fill upon patient request if the [...]
--- OUTSIDE RECORDS SUMMARY | 2023-10-23 08:11 | XMS_ITS | Continuity of Care Document ---
Author Organization [facility] Address [address] [place] [address]- Care Team Providers Care Big Data Analytics Lead Name Role Phone Prema SOSA, Lin Ortega Primary Care Physician [facility] Date[facility]s): 01/27/23 - 02/26/23 [facility] [address] [place], [place] [address] Allergies, Adverse [...] 1Result Comment: [facility] [id number] 2Result Comment: [03/04/2018] [facility]# [id number] 3Result Comment: [03/04/2016] pt. tolerated inj. without complications...CO 4Result Comment: [facility]# [id number] PT. TOLERATED INJ. WITHOUT COMPLICATIONS....CO 5Result Comment: [10/13/2017] [facility]# [id number] pt. tolerated inj. without complications...CO Medications brimonidine [...] MRI Safety Implantable Status Assigning Authority Unknown [id number] RCN Unknown Unknown 01/07/19 Unknown Unknown Active Unknown Patient Care team information Care Team Personnel Name: Lin Lloyd MD Position: [facility] Physician - Primary Care Member Role: PCP Address: Address: [address] [place] [address]- Name: Julio Sampson MD Position: [facility] Renal MD Member Role: Lifetime Consulting Physician Address: Address: [address] [place] [address] Name: Frederick Bermudez MD Position: [facility] CLINICAL INFORMATICIST MD Member Role: Lifetime CLINICAL INFORMATICIST Physician Address: Address: [address] [place] [address] Name: Hilda Tate RN Position: S RN Member Role: Primary Care Nurse Name: Claudia Castellon RN Position: S RN Member Role: Primary Care Nurse Name: Meghna Martinez RN Position: [facility] SN RN Member Role: Primary Care Nurse Name: Marie Gomez RN Position: [facility] Onco RN Member Role: Primary Care Nurse Care Team Related Persons Name: STACEY BANDA Address: [place] [address] Name: HARDIK SIMMS Name: TABITHA ABDULLAHI Address: home [address] [place] [id number] Name: MADYSON ABDULLAHI
--- OUTSIDE RECORDS SUMMARY | 2023-10-23 08:11 | XMS_ITS | Continuity of Care Document ---
Author Organization [facility] Address [address] [place] [address]- Care Team Providers Care Commercial Plumber Name Role Phone Lin Lloyd MD Primary Care Physician [phone] [facility]counter [facility] Date[facility]s): 10/22/20 - 11/21/20 [facility] [address] [place] [address]- Attending Physician: Olinda Currie Admitting Physician: AdmOlinda mccullough Referring Physician: Admtr, Ar8 Allergies, Adverse Reactions, [...] 05/16/12 Given 1Result Comment: [facility]# [id number] PT. TOLERATED INJ. WITHOUT COMPLICATIONS....CO 2Result Comment: [03/04/2018] [facility]# [id number] 3Result Comment: [03/04/2016] pt. tolerated inj. without complications...CO 4Result Comment: [10/13/2017] [facility]# [id number] pt. tolerated inj. without complications...CO Medications Diflucan 150 mg oral tablet 1 tablet = 150 mg, By Mouth, Every 48 hours, # 2 tablet, 0 Refills, Soft Stop, 09/04/20 16:38:00 EDT, Tablet, [facility] #[id number], Partial fill upon patient request if the prescription is fora schedule II opioid drug., 154.94, cm, 05/30/20 11... Start Date: 09/04/20 Status: Ordered Diflucan 150 mg oral tablet 1 tablet = 150 mg, By Mouth, Every 48 hours, # 2 tablet, 0 Refills, Soft Stop, 06/10/20 10:25:00 EST, Tablet, [facility] #[id number], Partial fill upon patient request if the [...] Refills, Maintenance, 11/12/20 10:23:00 EDT, Chew Tablet, [facility] #[id number], Partial fill upon patient request if the prescription is for a schedule II opioid drug., 158, cm, 10/29/20 8:1... Start Date: 11/12/20 Status: Ordered Metoprolol Tartrate 25 mg oral tablet 0.5 tablet, By Mouth, 2 times a day, # 90 tablet, 2 Refills, Maintenance, 10/22/20 18:29:00 EDT, [facility] #[id number], 154.94, cm, 10/22/20 13:42:00 EDT, Height, 46.5, [...]
--- OUTSIDE RECORDS SUMMARY | 2023-10-23 08:11 | XMS_ITS | Continuity of Care Document ---
Author Organization [facility] ter Address [address] [place] [address]- Care Team Providers Care Atlassian Administrator Name Role Phone Lin Lloyd MD Primary Care Physician [facility] Date(s): 05/15/19 - 05/15/[address] [address]- [facility] Attending Physician: Lin Lloyd MD Allergies, Adverse [...] pneumococcal 23-valent vaccine 05/16/12 Given 1Result Comment: [facility]# [id number] PT. TOLERATED INJ. WITHOUT COMPLICATIONS....CO 2Result Comment: [03/04/2018] [facility]# [id number] 3Result Comment: [03/04/2016] pt. tolerated inj. without complications...CO 4Result Comment: [10/13/2017] [facility]# [id number] pt. tolerated inj. without complications...CO Medications ciprofloxacin 250 mg oral tablet 1 capsule, By Mouth, 2 times a day, for 7 days, TAKE WITH FOOD, # 14 tablet, 0 Refills, Acute 05/22/19 15:35:56 EST, 05/15/19 15:35:56 EST, Tablet, [facility] #[id number], 154.94, cm, 05/15/19 14:55:01 EST, Height, 46.2, kg, 05/11/19 10:57:52 EST... Start Date: 05/15/19 Stop Date: 05/22/19 Status: Ordered estradiol 0.1 mg/g vaginal cream [...]
--- OUTSIDE RECORDS SUMMARY | 2023-10-23 08:12 | XMS_ITS | Continuity of Care Document ---
Author Organization [facility] Address [address] [place] [address]- Care Team Providers Care Captain/Airline Pilot Name Role Phone Lin Lloyd MD Primary Care Physician [facility] Date(s): 02/16/23 - 06/16/23 [facility] [address] [place], [place] [address] Attending Physician: Lin Lloyd MD Allergies, Adverse [...] Given 1Result Comment: [facility] [id number] 2Result Comment: [03/04/2018] [facility]# [id number] 3Result Comment: [03/04/2016] pt. tolerated inj. without complications...CO 4Result Comment: [facility]# [id number] PT. TOLERATED INJ. WITHOUT COMPLICATIONS....CO 5Result Comment: [10/13/2017] [facility]# [id number] pt. tolerated inj. without complications...CO Medications brimonidine [...] MRI Safety Implantable Status Assigning Authority Unknown [id number] RCN Unknown Unknown 01/07/19 Unknown Unknown Active Unknown Patient Care team information Care Team Personnel Name: Lin Lloyd MD Position: [facility] Physician - Primary Care Member Role: PCP Address: Address: [address] [place] [id number] Name: Julio Sampson MD Position: [facility] Renal MD Member Role: Lifetime Consulting Physician Address: Address: [address] [place] [address], [address] [address] Name: Frederick Bermudez MD Position: [facility] MAP AND CHART MOUNTER MD Member Role: Lifetime MAP AND CHART MOUNTER Physician Address: Address: [address] [place] [address] Name: Jarvis VASQUEZ, Marie White Position: [facility] Onco RN Member Role: Primary Care Nurse Name: Hilda Tate RN Position: [facility] RN Member Role: Primary Care Nurse Name: Claudia Castellon RN Position: [facility] RN Member Role: Primary Care Nurse Name: Meghna Martinez RN Position: [facility] SN RN Member Role: Primary Care Nurse Care Team Related Persons Name: STACEY BANDA Address: [place] [address] Name: HARDIK SIMMS Name: TABITAH ABDULLAHI Address: home [address] [place] [id number] Name: MADYSON ABDULLAHI
--- OUTSIDE RECORDS SUMMARY | 2023-10-23 08:12 | XMS_ITS | Continuity of Care Document ---
Author Organization [facility] Address [address] [place] [address]- Care Team Providers Care Erp Engineer Name Role Phone Lin Lloyd MD Primary Care Physician [facility] Date(s): 07/30/21 - 08/29/21 [facility] [address] [place] [address]- Attending Physician: Olinda Currie Admitting Physician: Olinda [...] 23-valent vaccine 05/16/12 Given 1Result Comment: [facility]# [id number] PT. TOLERATED INJ. WITHOUT COMPLICATIONS....CO 2Result Comment: [03/04/2018] [facility]# [id number] 3Result Comment: [03/04/2016] pt. tolerated inj. without complications...CO 4Result Comment: [10/13/2017] [facility]# [id number] pt. tolerated inj. without complications...CO Medications brimonidine [...] Replace Required Details, Route to Pharmacy Electronically, [facility] #[id number],... Start Date: 08/26/21 Status: Ordered Home Blood [...] 07/29/21 16:47:00 EST, Route to Pharmacy Electronically, [facility] #[id number], Partial fill upon patient request if the prescription is for a schedule I... Start Date: 07/29/21 Stop Date: 11/26/21 Status: Ordered Misc Rx Refills 0, Maintenance, Durezol drops, 05/15/19 15:41:08 EST, Compound Start Date: 05/15/19 Status: Ordered ofloxacin 0.3% ophthalmic solution INSTILL 1 DROP INTO LEFT EYE FOUR TIMES DAILY FOR 1 WEEK Start Date: 04/04/21 Status: Ordered omeprazole 20 mg oral enteric coated capsule 1 capsule = 20 mg, By Mouth, Daily, # 30 capsule, 5 Refills, Maintenance, 04/04/21 11:49:00 EDT, ECCinocenteule, [facility] #[id number], Partial fill upon patient request if the [...]
--- OUTSIDE RECORDS SUMMARY | 2023-10-23 08:12 | XMS_ITS | Continuity of Care Document ---
Author Organization [facility] Address [address] [place] [address]- Care Team Providers Care Inspector Balance Truing Name Role Phone Prema SOSA, Lin Ortega Primary Care Physician [facility]s): 11/12/20 - 12/12/20 [facility] [address] [place], [place] [address] Allergies, Adverse Reactions, Alerts Substance [...] 23-valent vaccine 05/16/12 Given 1Result Comment: [facility]# [id number] PT. TOLERATED INJ. WITHOUT COMPLICATIONS....CO 2Result Comment: [03/04/2018] [facility]# [id number] 3Result Comment: [03/04/2016] pt. tolerated inj. without complications...CO 4Result Comment: [10/13/2017] [facility]# [id number] pt. tolerated inj. without complications...CO Medications Diflucan 150 mg oral tablet 1 tablet = 150 mg, By Mouth, Every 48 hours, # 2 tablet, 0 Refills, Soft Stop, 09/04/20 16:38:00 EDT, Tablet, [facility] #[id number], Partial fill upon patient request if the prescription is fora schedule II opioid drug., 154.94, cm, 05/30/20 11... Start Date: 09/04/20 Status: Ordered Diflucan 150 mg oral tablet 1 tablet = 150 mg, By Mouth, Every 48 hours, # 2 tablet, 0 Refills, Soft Stop, 06/10/20 10:25:00 EST, Tablet, [facility] #[id number], Partial fill upon patient request if the [...] Refills, Maintenance, 11/12/20 10:23:00 EDT, Chew Tablet, [facility] #[id number], Partial fill upon patient request if the prescription is for a schedule II opioid drug., 158, cm, 10/29/20 8:1... Start Date: 11/12/20 Status: Ordered Metoprolol Tartrate 25 mg oral tablet 0.5 tablet, By Mouth, 2 times a day, # 90 tablet, 2 Refills, Maintenance, 10/22/20 18:29:00 EDT, [facility] #[id number], 154.94, cm, 10/22/20 13:42:00 EDT, Height, 46.5, [...]
--- OUTSIDE RECORDS SUMMARY | 2023-10-23 08:12 | XMS_ITS | Continuity of Care Document ---
Author Organization [facility] Address [address] [place] [address]- Care Team Providers Care Hand Shaker Name Role Phone Lin Lloyd MD Primary Care Physician Encounter [facility] R [id number] Date(s): 01/04/23 - 02/03/23 [facility] [address] [place] [address]- Attending Physician: Olinda Currie Admitting Physician: AdmOlinda [...] influenza virus vaccine, inactivated 2 03/04/18 Gi sharrno influenza virus vaccine, inactivated 3 03/04/16 Gi sharron influenza virus vaccine, inactivated 03/06/13 Give n SARS-CoV-2 (COVID-19) Ad26 vaccine 09/28/20 Record ed pneumococcal 13-valent vaccine 4 03/14/19 Given tetanus/diphtheria/pertussis, acel(Tdap) 5 10/13/17 Given pneumococcal 23-valent vaccine 05/16/12 Given 1Result Comment: [facility] [id number] 2Result Comment: [03/04/2018] [facility]# [id number] 3Result Comment: [03/04/2016] pt. tolerated inj. without complications...CO 4Result Comment: [facility]# [id number] PT. TOLERATED INJ. WITHOUT COMPLICATIONS....CO 5Result Comment: [10/13/2017] [facility]# [id number] pt. tolerated inj. without complications...CO Medications brimonidine [...] MRI Safety Implantable Status Assigning Authority Unknown [id number] RCN Unknown Unknown 01/07/19 Unknown Unknown Active Unknown Patient Care team information Care Team Personnel Name: Lin Lloyd MD Position: [facility] Physician - Primary Care Member Role: PCP Address: Address: [address] [place] [address]- Name: Julio Sampson MD Position: [facility] Renal MD Member Role: Lifetime Consulting Physician Address: Address: [address] [place] [address]- Name: Frederick Bermudez MD Position: [facility] TURNING LATHE TENDER MD Member Role: Lifetime TURNING LATHE TENDER Physician Address: Address: [address], [address] [address]- Name: Hilda Tate RN Position: S RN Member Role: Primary Care Nurse Name: Claudia Castellon RN Position: S RN Member Role: Primary Care Nurse Name: Meghna Martinez RN Position: [facility] SN RN Member Role: Primary Care Nurse Name: Marie Gomez RN Position: [facility] Onco RN Member Role: Primary Care Nurse Care Team Related Persons Name: STACEY BANDA Address: [place] [address] Name: HARDIK SIMMS Name: TABITHA ABDULLAHI Address: home [address] [place] [address] Name: MADYSON ABDULLAHI
--- OUTSIDE RECORDS SUMMARY | 2023-10-23 08:12 | XMS_ITS | Continuity of Care Document ---
Author Organization [facility] Address [address] [place] [address]- Care Team Providers Care Radiographer Angiogram Name Role Phone Prema SOSA, Lin Ortega Primary Care Physician [facility] Date[facility]): 09[facility]/21 - 10/11/21 [facility] [address] [place], [place] [address] Attending Physician: Kailey Garduno DO Allergies, Adverse Reactions, Alerts Substance Reaction Severity [...] Given 1Result Comment: [facility]# [id number] PT. TOLERATED INJ. WITHOUT COMPLICATIONS....CO 2Result Comment: [03/04/2018] [facility]# [id number] 3Result Comment: [03/04/2016] pt. tolerated inj. without complications...CO 4Result Comment: [10/13/2017] [facility]# [id number] pt. tolerated inj. without complications...CO Medications brimonidine [...] 10/16/21 6:20:00 EDT, 10/09/21 6:20:00 EDT, Cream, [facility] #[id number], Partial fill upon patient request if the [...] Replace Required Details, Route to Pharmacy Electronically, [facility] #[id number], stop bisoprolol, 1... Start Date: 10/06/21 Status: Ordered metronidazole topical 0.75% gel with applicator 1 applicator, Vaginally, 2 times a day, for 10 days, dx: recurrent BV, # 140 Gm, 0 Refills, Acute 10/16/21 16:15:00 EDT, 10/06/21 16:15:00 EDT, Gel, [facility] #[id number], Partial fill upon patient request if the [...] 5 Refills, Maintenance, 04/04/21 11:49:00 EDT, ECCapsule, [facility] #[id number], Partial fill upon patient request if the [...] THICKNESS - TSSU (K001-PK) 1 Tissue Bank [employer] Unknow n GITA:No Information Assigning Authority: FDA
--- OUTSIDE RECORDS SUMMARY | 2023-10-23 08:12 | XMS_ITS | Continuity of Care Document ---
Author Organization [facility] Address [address] [place] [address]- Care Team Providers Care Cargo Worker Name Role Phone Prema SOSA, Lin Ortega Primary Care Physician Encounter [facility] Date(s): 01/28/21 - 02/27/21 [facility] [address] [place] [address]- Allergies, Adverse Reactions, Alerts Substance Reaction Severity [...] 05/16/12 Given 1Result Comment: [facility]# [id number] PT. TOLERATED INJ. WITHOUT COMPLICATIONS....CO 2Result Comment: [03/04/2018] [facility]# [id number] 3Result Comment: [03/04/2016] pt. tolerated inj. without complications...CO 4Result Comment: [10/13/2017] [facility]# [id number] pt. tolerated inj. without complications...CO Medications brimonidine [...] 01/16/21 11:45:00 EDT, Route to Pharmacy Electronically, [facility] #[id number], new dosage, cancel out prescriptin for 120mg [...] Refills, Maintenance, 11/12/20 10:23:00 EDT, Chew Tablet, [facility] #[id number], Partial fill upon patient request if the [...] 5 Refills, Maintenance, 01/16/21 11:51:00 EDT, Patch, [facility] #[id number], Partial fill upon patient r... Start Date: 01/16/21 Status: Ordered Misc Rx Refills 0, Maintenance, Durezol drops, 05/15/19 15:41:08 EST, Compound Start Date: 05/15/19 Status: Ordered nebivolol 2.5 mg oral tablet 1 tablet = 2.5 mg, By Mouth, Daily, To replace diltiazem, # 30 tablet, 5 Refills, Maintenance, 02/24/21 10:12:00 EDT, Tablet, [facility] #[id number], Partial fill upon patient request if the prescription is for a schedule II opioid drug., 158, cm... Start Date: 02/24/21 Stop Date: 08/23/21 Status: Ordered ocular lubricant - solution See Instructions, PRN for dry eyes, 2 drops left eye 4 times a day as needed for pain/ dry eyes., #15 mL, 2 Refills, Maintenance, 01/07/21 14:31:00 EDT, Solution, [facility] #[id number], Partial fill upon patient request if the prescription is... Start Date: 01/07/21 Status: Ordered omeprazole 20 mg oral enteric coated capsule 1 capsule = 20 mg, By Mouth, Daily, # 30 capsule, 3 Refills, Maintenance, 01/17/21 12:14:00 EDT, ECCapsule, [facility] #[id number], Partial fill upon patient request if the [...] 0 Refills, Maintenance, 01/07/21 14:05:00 EDT, Tablet, [facility] #[id number], Partial fill upon patient request if the [...]
--- OUTSIDE RECORDS SUMMARY | 2023-10-23 08:12 | XMS_ITS | Continuity of Care Document ---
Author Organization [facility] Address [address] [place] [address]- Care Team Providers Care Pumper Brewery Name Role Phone Prema SOSA, Lin Ortega Primary Care Physician [facility] Date(s): 06/07/20 - 07/07/20 [facility] [address] [place], [place] [address] Allergies, Adverse Reactions, Alerts Substance [...] pneumococcal 23-valent vaccine 05/16/12 Given 1Result Comment: [facility]# [id number] PT. TOLERATED INJ. WITHOUT COMPLICATIONS....CO 2Result Comment: [03/04/2018] [facility]# [id number] 3Result Comment: [03/04/2016] pt. tolerated inj. without complications...CO 4Result Comment: [10/13/2017] [facility]# [id number] pt. tolerated inj. without complications...CO Medications Diflucan 150 mg oral tablet 1 tablet = 150 mg, By Mouth, Every 48 hours, # 2 tablet, 0 Refills, Soft Stop, 06/10/20 10:25:00 EST, Tablet, [facility] #[id number], Partial fill upon patient request if the [...] 2 Refills, Maintenance, 09/13/19 15:08:00 EDT, Tablet, [facility] #[id number], PUT ON FILE, 154.94, cm, 06/19/19 11:29:00 [...]
--- OUTSIDE RECORDS SUMMARY | 2023-10-23 08:12 | XMS_ITS | Continuity of Care Document ---
Author Organization [facility] Address [address] [place] [address]- Care Team Providers Care Drive In Teller Name Role Phone Lin Lloyd MD Primary Care Physician [facility] Date(s): 05/30/20 - 05/30/[address] [address]- Discharge Disposition: A-D/C Home Attending Physician: Jair Sparks DO Admitting Physician: Jair Sparks DO Referring Physician: Not on Staff, Referring [...] Given 1Result Comment: [facility]# [id number] PT. TOLERATED INJ. WITHOUT COMPLICATIONS....CO 2Result Comment: [03/04/2018] [facility]# [id number] 3Result Comment: [03/04/2016] pt. tolerated inj. without complications...CO 4Result Comment: [10/13/2017] [facility]# [id number] pt. tolerated inj. without complications...CO Medications estradiol [...] 0 Refills, Soft Stop, 05/27/20 8:58:00 EST, [facility] #[id number], 154.94, cm, 05/21/20 13:27:00 EST, Height, 48.4, kg, 05/21/20 13:33:00 EST, Dry Weight Start Date: 05/27/20 Status: Ordered Metoprolol Tartrate 25 mg oral tablet 0.5 tablet = 12.5 mg, By Mouth, 2 times a day, # 90 tablet, 2 Refills, Maintenance, 09/13/19 15:08:00 EDT, Tablet, [facility] #[id number], PUT ON FILE, 154.94, cm, 06/19/19 11:29:00 [...] 16:53:00 EST, 05/30/20 16:53:00 EST, Ophth Suspension, [facility] #[id number], Partial fill upon patient request if the [...] Most recent to oldest [Reference Range]: 1 Oxygen Saturation [94-100 %] 100 % (05/30/20 2:17 PM) Pulse Rate [55-90 bpm] 70 bpm (05/30/20 2:17 PM) Blood Pressure [90-138/55-84 mm Hg] 94/7 0mm Hg (05/30/20 2:17 PM) Respiratory Rate [16-30 br/min] 18 br/mi n (05/30/20 2:17 PM) Temperature [96.8-100.4 DegF] 97.9 DegF (05/30/20 2:17 PM) Mode of Delivery (Oxygen) Room air (05/30/20 2:17 PM) Blood pressure sites Arm, left (05/30/20 2:17 PM) Temperature Route Oral (05/30/20 2:17 PM) Social History Social History Type Response Smoking Status Never smoker; Other: quit smoking about 35 years ago, 3 cigs/d x 3 years; entered on: 05/30/15 Sex Medical Equipment Implanted Date:12/28/18Target Site:Eye Right Description Quantity MRI Company Model CORNEA FULL THICKNESS - TSSU (K001-PK) 1 [employer] Unknow n GITA:No Information Assigning Authority: FDA
--- OUTSIDE RECORDS SUMMARY | 2023-10-23 08:12 | XMS_ITS | Continuity of Care Document ---
Author Organization [facility] Address [address] [place] [address]- Care Team Providers Care Development Intern Name Role Phone Lin Lloyd MD Primary Care Physician [facility] Date(s): 11/04/20 - 11/04/[address] [address]- Encounter Diagnosis Abdominal pain(Final) - 11/04/20 UTI (urinary tract infection)(Final) - 11/04/20 Discharge Disposition: A-D/C Home Attending Physician: Julius Stover MD Admitting Physician: Julius Stover MD Referring Physician: Not on Staff, Referring [...] 23-valent vaccine 05/16/12 Given 1Result Comment: [facility]# [id number] PT. TOLERATED INJ. WITHOUT COMPLICATIONS....CO 2Result Comment: [03/04/2018] [facility]# [id number] 3Result Comment: [03/04/2016] pt. tolerated inj. without complications...CO 4Result Comment: [10/13/2017] [facility]# [id number] pt. tolerated inj. without complications...CO Medications Diflucan 150 mg oral tablet 1 tablet = 150 mg, By Mouth, Every 48 hours, # 2 tablet, 0 Refills, Soft Stop, 09/04/20 16:38:00 EDT, Tablet, [facility] #[id number], Partial fill upon patient request if the prescription is fora schedule II opioid drug., 154.94, cm, 05/30/20 11... Start Date: 09/04/20 Status: Ordered Diflucan 150 mg oral tablet 1 tablet = 150 mg, By Mouth, Every 48 hours, # 2 tablet, 0 Refills, Soft Stop, 06/10/20 10:25:00 EST, Tablet, [facility] #[id number], Partial fill upon patient request if the prescription is fora schedule II opioid drug., 154.94, cm, 05/30/20 11... Start Date: 06/10/20 Status: Ordered estradiol 0.1 mg/g vaginal cream See Instructions, apply topically as directed 5 times a week, # 42 Gm, 3 Refills, Maintenance, 07/13/18 13:56:17 EST Start Date: 07/13/18 Status: Ordered Keflex monohydrate 500 mg oral capsule 1 capsule = 500 mg, By Mouth, 4 times a day, for 7 days, # 27 capsule, 0 Refills, Acute 11/11/20 14:20:00 EDT, 11/04/20 14:20:00 EDT, Capsule, [facility] #[id number], Partial fill upon patient request if the prescription is for a schedule II opio... Start Date: 11/04/20 Stop Date: 11/11/20 Status: Ordered Metoprolol Tartrate 25 mg oral tablet 0.5 tablet, By Mouth, 2 times a day, # 90 tablet, 2 Refills, Maintenance, 10/22/20 18:29:00 EDT, [facility] #[id number], 154.94, cm, 10/22/20 13:42:00 EDT, Height, 46.5, [...] [Reference Range]: 1 Oxygen Saturation [94-100 %] 98 % (11/04/20 11:43 AM) Pulse Rate [55-90 bpm] 88 bpm (11/04/20 11:43 AM) Blood Pressure [90-138/55-84 mm Hg] 165/ 86mm Hg *H* (11/04/20 11:43 AM) Respiratory Rate [16-30 br/min] 17 br/mi n (11/04/20 11:43 AM) Temperature [96.8-100.4 DegF] 98.6 DegF (11/04/20 11:43 AM) Mode of Delivery (Oxygen) Room air (11/04/20 11:43 AM) Temperature Route Oral (11/04/20 11:43 AM) Social History Social History Type Response Smoking Status Never smoker; Other: quit smoking about 35 years ago, 3 cigs/d x 3 years; entered on: 05/30/15 Sex Medical Equipment Implanted Date:12/28/18Target Site:Eye Right Description Quantity MRI Company Model CORNEA FULL THICKNESS - TSSU (K001-PK) 1 [employer] Unknow n GITA:No Information Assigning Authority: FDA
--- OUTSIDE RECORDS SUMMARY | 2023-10-23 08:12 | XMS_ITS | Continuity of Care Document ---
Author Organization [facility] Address [address] [place] [address]- Care Team Providers Care Medical Coding Instructor Name Role Phone Prema SOSA, Lin Ortega Primary Care Physician [phone] [facility]counter [facility] Date(s): 12/04/19 - 01/03/20 [facility] [address] [place] [address]- [facility] Allergies, Adverse Reactions, Alerts Substance Reaction Severity [...] 1Result Comment: [facility]# [id number] PT. TOLERATED INJ. WITHOUT COMPLICATIONS....CO 2Result Comment: [03/04/2018] [facility]# [id number] 3Result Comment: [03/04/2016] pt. tolerated inj. without complications...CO 4Result Comment: [10/13/2017] [facility]# [id number] pt. tolerated inj. without complications...CO Medications Diflucan 150 mg oral tablet 1 tablet = 150 mg, By Mouth, Once, PRN yeast infection symptoms, # 2 tablet, 0 Refills, Soft Stop, 11/21/19 13:22:00 EDT, Tablet, [facility] #[id number], 154.94, cm, 06/19/19 11:29:00 EST, Height, 47, [...] 2 Refills, Maintenance, 09/13/19 15:08:00 EDT, Tablet, [facility] #[id number], PUT ON FILE, 154.94, cm, 06/19/19 11:29:00 [...]
--- OUTSIDE RECORDS SUMMARY | 2023-10-23 08:12 | XMS_ITS | Continuity of Care Document ---
Author Organization [facility] Address [address] [place] [address]- Care Team Providers Care Management Specialist Name Role Phone Prema SOSA, Lin Ortega Primary Care Physician [facility] Date(s): 09/11/21 - 10/11/21 [facility] [address] [place] [address]- Attending Physician: Olinda Currie Admitting Physician: AdmOlinda mccullough Referring Physician: AdmtrOlinda Allergies, Adverse Reactions, Alerts [...] 05/16/12 Given 1Result Comment: [facility]# [id number] PT. TOLERATED INJ. WITHOUT COMPLICATIONS....CO 2Result Comment: [03/04/2018] [facility]# [id number] 3Result Comment: [03/04/2016] pt. tolerated inj. without complications...CO 4Result Comment: [10/13/2017] [facility]# [id number] pt. tolerated inj. without complications...CO Medications brimonidine [...] 10/16/21 6:20:00 EDT, 10/09/21 6:20:00 EDT, Cream, [facility] #[id number], Partial fill upon patient request if the [...] Replace Required Details, Route to Pharmacy Electronically, [facility] #[id number], stop bisoprolol, 1... Start Date: 10/06/21 Status: Ordered metronidazole topical 0.75% gel with applicator 1 applicator, Vaginally, 2 times a day, for 10 days, dx: recurrent BV, # 140 Gm, 0 Refills, Acute 10/16/21 16:15:00 EDT, 10/06/21 16:15:00 EDT, Gel, [email or web address] #[id number], Partial fill upon patient request if the [...] 5 Refills, Maintenance, 04/04/21 11:49:00 EDT, ECCapsule, [facility] #[id number], Partial fill upon patient request if the [...]
--- OUTSIDE RECORDS SUMMARY | 2023-10-23 08:12 | XMS_ITS | Continuity of Care Document ---
Author Organization [facility] Address [address] [place] [address]- Care Team Providers Care Medical Administrative Assistant Name Role Phone Prema SOSA, Lin Ortega Primary Care Physician [facility] Date[facility]s): 05/15/19 - 05/25/19 [facility] [address] [place] [address]- [facility] Attending Physician: Olinda Currie Admitting Physician: Olinda Currie Referring Physician: AdmOlinda mccullough Allergies, Adverse Reactions, Alerts Substance Reaction Severity [...] pneumococcal 23-valent vaccine 05/16/12 Given 1Result Comment: [facility]# [id number] PT. TOLERATED INJ. WITHOUT COMPLICATIONS....CO 2Result Comment: [03/04/2018] [facility]# [id number] 3Result Comment: [03/04/2016] pt. tolerated inj. without complications...CO 4Result Comment: [10/13/2017] [facility]# [id number] pt. tolerated inj. without complications...CO Medications Carafate 1 gm oral tablet 1 Gm, 1, tablet, By Mouth, 2 times a day, # 28 tablet, Refills 0, Tot. Refills 0, Maintenance, 05/21/19 14:35:00 EST, Route to Pharmacy Electronically, [facility] #[id number], 154.94, cm, 05/21/19 13:50:00 EST, Height, 47, [...] Dry Weight Start Date: 05/15/19 Status: Ordered simethicone 80 mg oral tablet 1 tablet = 80 mg, Chew, 3 times a day after meals and bedtime, PRN for gas, for 10 days, # 60 tablet, 0 Refills, Acute 05/31/19 14:35:00 EST, 05/21/19 14:35:00 EST, Tablet, [facility] #[id number], 154.94, cm, 05/21/19 13:50:00 EST, Height, 47, kg... Start Date: 05/21/19 Stop Date: 05/31/19 Status: Ordered timolol maleate 0.5% ophthalmic gel [...]
--- OUTSIDE RECORDS SUMMARY | 2023-10-23 08:12 | XMS_ITS | Continuity of Care Document ---
Author Organization [facility] Address [address] [place] [address]- Care Team Providers Care Family Sociologist Name Role Phone Lin Lloyd MD Primary Care Physician [facility] Date(s): 03/25/21 - 04/24/21 [facility] [address] [place] [address]- [place] Allergies, Adverse Reactions, Alerts Substance Reaction [...] 1Result Comment: [facility]# [id number] PT. TOLERATED INJ. WITHOUT COMPLICATIONS....CO 2Result Comment: [03/04/2018] [facility]# [id number] 3Result Comment: [03/04/2016] pt. tolerated inj. without complications...CO 4Result Comment: [10/13/2017] [facility]# [id number] pt. tolerated inj. without complications...CO Medications amLODIPine 5 mg oral tablet See Instructions, take 1/2 by mouth daily, # 15 tablet, Refills 5, Tot. Refills 5, Maintenance, 03/14/21 14:41:00 EDT, Instructions Replace Required Details, Route to Pharmacy Electronically, [facility] #[id number], Pt reports allergy to amlodipi... Start Date: [...] 5 Refills, Maintenance, 04/04/21 11:49:00 EDT, ECCapsule, [facility] #[id number], Partial fill upon patient request if the [...]
--- OUTSIDE RECORDS SUMMARY | 2023-10-23 08:12 | XMS_ITS | Continuity of Care Document ---
Author Organization [facility] Address [address] [place] [address] [address] [place] [address]- Care Team Providers Care Wheel Press Clerk Name Role Phone Lin Lloyd MD Primary Care Physician Encounter [facility] Date(s): 01/04/23 - 03/25/[address] [place] [address]- Attending Physician: Saurav Gutierrez MD Referring Physician: [...] pneumococcal 23-valent vaccine 05/16/12 Given 1Result Comment: [facility] [id number] 2Result Comment: [03/04/2018] [facility]# [id number] 3Result Comment: [03/04/2016] pt. tolerated inj. without complications...CO 4Result Comment: [facility]# [id number] PT. TOLERATED INJ. WITHOUT COMPLICATIONS....CO 5Result Comment: [10/13/2017] [facility]# [id number] pt. tolerated inj. without complications...CO Medications brimonidine [...] MRI Safety Implantable Status Assigning Authority Unknown [id number] RCN Unknown Unknown 01/07/19 Unknown Unknown Active Unknown Patient Care team information Care Team Personnel Name: Lin Lloyd MD Position: [facility] Physician - Primary Care Member Role: PCP Address: Address: [address] [place] [address]- Name: Julio Sampson MD Position: [facility] Renal MD Member Role: Lifetime Consulting Physician Address: Address: [address] [place] [address], [address] [address]- [place] Name: Lara SOSA, Frederick Higgins Position: [facility] SHOT HOLE SHOOTER MD Member Role: Lifetime SHOT HOLE SHOOTER Physician Address: Address: [address] [place] [address]- Name: Sarai VASQUEZ, Marie White Position: [facility] Onco RN Member Role: Primary Care Nurse Name: Hilda Tate RN Position: S RN Member Role: Primary Care Nurse Name: Claudia Castellon RN Position: S RN Member Role: Primary Care Nurse Name: Meghna Martinez RN Position: [facility] SN RN Member Role: Primary Care Nurse Care Team Related Persons Name: STACEY BANDA Address: [place] [address] Name: HARDIK SIMMS Name: TABITHA ABDULLAHI Address: home [address] [place] [address] Name: MADYSON ABDULLAHI
--- OUTSIDE RECORDS SUMMARY | 2023-10-23 08:12 | XMS_ITS | Continuity of Care Document ---
Author Organization [facility] Address [address] [place] [address]- Care Team Providers Care Biomedical Electronics Technician Name Role Phone Lin Lloyd MD Primary Care Physician [phone] [facility] Date(s): 12/11/22 - 01/10/23 [facility] [address] [place] [address]- [place] Allergies, Adverse Reactions, Alerts Substance Reaction Severity Status chlorthalidone made BP go down Active cloNIDine ?headaches, abdominal pain A ctive Amlodipine Besylate-Atorvastatin made BP down Active hydrochlorothiazide [...] 1Result Comment: [facility] [id number] 2Result Comment: [03/04/2018] [facility]# [id number] 3Result Comment: [03/04/2016] pt. tolerated inj. without complications...CO 4Result Comment: [facility]# [id number] PT. TOLERATED INJ. WITHOUT COMPLICATIONS....CO 5Result Comment: [10/13/2017] [facility]# [id number] pt. tolerated inj. without complications...CO Medications brimonidine [...] Procedure Date Device Type Site Corneal Transplant Manod Greene MD 12/28/18 Unk nown Eye Right Device Identifier Serial Number Lot or Batch Number Manufacturing Date Expiration Date Distinct Identification Code MRI Safety Implantable Status Assigning Authority Unknown [id number] RCN Unknown Unknown 01/07/19 Unknown Unknown Active Unknown Patient Care team information Care Team Personnel Name: Lin Lloyd MD Position: [facility] Physician - Primary Care Member Role: PCP Address: Address: [address] [place] [address]- Name: Julio Sampson MD Position: [facility] Renal MD Member Role: Lifetime Consulting Physician Address: Address: [address] [place] [address] Name: Frederick Bermudez MD Position: [facility] SHOOK MACHINE OPERATOR MD Member Role: Lifetime SHOOK MACHINE OPERATOR Physician Address: Address: [address] [place] [address] Name: Hilda Tate RN Position: [facility] RN Member Role: Primary Care Nurse Name: Claudia Castellon RN Position: S RN Member Role: Primary Care Nurse Name: Meghna Martinez RN Position: [facility] SN RN Member Role: Primary Care Nurse Name: Marie Gomez RN Position: [facility] Onco RN Member Role: Primary Care Nurse Care Team Related Persons Name: VERONIKASTACEY KHOURY Address: [place] [address] Name: HARDIK SIMMS Name: TABITHA ABDULLAHI Address: home [address] [place] [address] Name: MADYSON ABDULLAHI
--- OUTSIDE RECORDS SUMMARY | 2023-10-23 08:12 | XMS_ITS | Continuity of Care Document ---
Author Organization [facility] Address [address] [place] [address]- Care Team Providers Care Boat Painter Name Role Phone Lin Lloyd MD Primary Care Physician [phone] Encounter [facility] R [id number] Date(s): 12/22/21 - 01/21/22 [facility] [address] [place] [address]- Attending Physician: Olinda Currie Admitting Physician: Admtr, Ar8 Referring Physician: Admtr, [...] [facility]# [id number] PT. TOLERATED INJ. WITHOUT COMPLICATIONS....CO 2Result Comment: [03/04/2018] [facility]# [id number] 3Result Comment: [03/04/2016] pt. tolerated inj. without complications...CO 4Result Comment: [10/13/2017] [facility]# [id number] pt. tolerated inj. without complications...CO Medications bisoprolol [...] MRI Safety Implantable Status Assigning Authority Unknown [id number] RCN Unknown Unknown 01/07/19 Unknown Unknown Active Unknown
--- OUTSIDE RECORDS SUMMARY | 2023-10-23 08:12 | XMS_ITS | Continuity of Care Document ---
Author Organization [facility] ter Address [address] [place] [address]- Care Team Providers Care Cloth Printer Helper Name Role Phone Lin Lloyd MD Primary Care Physician Encounter [facility] Date(s): 04/11/22 - 04/11/[address] [address]- Discharge Disposition: A-D/C Home Attending Physician: Horacio Beckwith MD Admitting Physician: Horacio Beckwith MD Referring Physician: Not on Staff, Referring [...] 23-valent vaccine 05/16/12 Given 1Result Comment: [facility]# [id number] PT. TOLERATED INJ. WITHOUT COMPLICATIONS....CO 2Result Comment: [03/04/2018] [facility]# [id number] 3Result Comment: [03/04/2016] pt. tolerated inj. without complications...CO 4Result Comment: [10/13/2017] [facility]# [id number] pt. tolerated inj. without complications...CO Medications aluminum hydroxide/magnesium hydroxide/simethicone 200 mg-200 mg-20 mg/5 mL oral suspension 10 mL, By Mouth, 2 times a day before breakfast and dinne, PRN for control of stomach acid, for 14 days, # 360 mL, 0 Refills, Acute 04/25/22 18:30:00 EST, 04/11/22 18:30:00 EST, Suspension, [facility] #[id number], Partial fill upon patient reques... Start Date: [...] pain, 04/11/22 18:30:00 EST, Route toPharmacy Electronically, [id number]... Start Date: 04/11/22 Stop Date: 04/25/22 [...] Exam Date Time Procedure Performing Provider Status 04/11/22 3:[address] Abd/Pelvis W/ IV Contrast Only Paola Aponte; Auth (Verified) Notes: (CT Abd/Pelvis W/ IV Contrast Only) Reason For Exam: RUQ abdominal pain;Other: RESULT: CT Abd/Pelvis W/ IV Contrast Only CT Abd/Pelvis W/ IV Contrast Only Hx of Present Illness: Pt to ED via EMS from home with c o RLQ abd pain x 1 week. Notes nausea, no vomiting or diarrhea. Legally blind.; Reason: Other:; RUQ abdominal pain; Clinical Question(s): Biliary Obstruction; Order Comment: Patient unable to tolerate PO contrast. TECHNIQUE: Spiral CT through the abdomen and pelvis with IV contrast formatted in 3 planes. 100 cc of Omnipaque 300 was administered intravenously. This study was performed without oral contrast. Weight-based protocol using automatic tube modulation was used to optimize exposure parameters. CTDIvol Body: 10.20 mGy, DLP Body: 502 mGy*cm. COMPARISON: 12/31/2021 FINDINGS: Leather Cutter View Findings, Lines and Tubes: None. Visualized Chest: Lung bases are clear. No pleural effusion. The heart is normal in size. No pericardial effusion. Diaphragm: Normal. Liver: Normal. Gallbladder: Cholelithiasis. Bile ducts: No biliary ductal dilation. Spleen: Normal. Pancreas: Normal. Adrenal glands: Normal. Kidneys and ureters: Tiny cyst in the upper pole of the left kidney. The kidneys and ureters are otherwise unremarkable. Bladder: Normal. 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 The uterus and left adnexal region are unremarkable. Stomach, small bowel, and large bowel: The stomach and small intestine are normal. There is diverticulosis of the distal descending and sigmoid segments of the colon without diverticulitis. The colonand rectum are otherwise unremarkable. Appendix: Normal. Peritoneum and retroperitoneum: No ascites or pneumoperitoneum. No omental or mesenteric lesions. Lymph nodes: No enlarged lymph nodes. Blood vessels: Normal. No aneurysm. No evidence of venous thrombosis. Abdominal and pelvic wall: Unremarkable. Bones: No acute abnormality. Stable retrolisthesis of L1 on L2 with diminished height of the L1-2 intervertebral disc. IMPRESSION: No acute abnormality. 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 Sigmoid diverticulosis without diverticulitis. Cholelithiasis. WSN: [id number] Ordering Physician: Shiva Winslow Dictated By: Ghassan Chávez MD Dictated Date/Time: 04/11/22 4:33 pm Reviewed By: Ghassan Chávez MD Signed By: Ghassan Chávez MD Signed Date/Time: 04/11/22 4:33 pm Transcribed By: CHARBEL Transcribed Date/Time: 04/11/22 4:19 pm * Exam Date Time Procedure Performing Provider Status 04/11/22 11:29 AM US RUQ Joanne Quarles; Auth (Verified) Notes: (US RUQ) Reason For Exam: Abdominal Pain;Other: RESULT: US RUQ US RUQ Reason: Abdominal Pain; Clinical Question(s): Cholecystitis COMPARISON: Right upper quadrant ultrasound dated 01/27/2022, CT abdomen and pelvis dated 12/31/2021, MR abdomen dated 01/11/2012 FINDINGS: Liver: Coarse hepatic echotexture. No suspicious lesion. Smooth hepatic contour. Main portal vein patent with normal hepatopetal direction of flow. Gallbladder: Multiple mobile gallstones. Normal wall thickness. No pericholecystic fluid. Negative Perez sign. Biliary Tree: No intrahepatic or extrahepatic bile duct dilation is identified. Common duct measures: 0.2 cm. Pancreas: Partially obscured by overlying bowel gas. No abnormality in the visualized portions of the pancreas. Right kidney: 7.9 cm in length. Normal parenchymal echotexture and thickness. No hydronephrosis, stone or mass. IMPRESSION: Cholelithiasis without evidence of acute cholecystitis. Coarse hepatic echotexture may be related to underlying hepatocellular disease.Clinical correlationis recommended. I have personally reviewed the images and I agree with this report. WSN: [id number] Ordering Physician: Shiva Winslow Dictated By: Phoebe Mojica MD Dictated Date/Time: 04/11/22 1:40 pm Reviewed By: Amanda Horvath MD Signed By: Amanda Horvath MD Signed Date/Time: 04/11/22 1:45 pm Transcribed By: CHARBEL Transcribed Date/Time: 04/11/22 12:45 pm Vital Signs Most recent to oldest [Reference Range]: 1 2 3 Height 48 cm (04/11/22 7:22 PM) 48 cm (04/11/22 6:44 PM) 160 cm (04/11/22 4:40 PM) Weight 48 kg (04/11/22 4:40 PM) 48 kg (04/11/22 3:40 PM) 48 kg (04/11/22 11:46 AM) Oxygen Saturation [94-100 %] 100 % (04/11/22 7:22 PM) 100 % (04/11/22 6:44 PM) 98 % (04/11/22 4:40 PM) Pulse Rate [55-90 bpm] 79 bpm (04/11/22 7:22 PM) 83 bpm (04/11/22 6:44 PM) 64 bpm (04/11/22 4:40 PM) Body Mass Index [18.5-24.99 kg/m2] 18.75 kg/m2 (04/11/22 4:40 PM) Blood Pressure [90-138/55-84 mm Hg] 167/94mm Hg *H* (04/11/22 7:22 PM) 195/118mm Hg *H* (04/11/22 6:44 PM) 182/93mm Hg *H* (04/11/22 4:40 PM) Respiratory Rate [16-30 br/min] 17 br/min (04/11/22 7:22 PM) 17 br/min (04/11/22 6:44 PM) 16 br/min (04/11/22 4:40 PM) Temperature [96.8-100.4 DegF] 97.9 DegF (04/11/22 7:22 PM) 98.1 DegF (04/11/22 6:44 PM) 97.5 DegF (04/11/22 4:40 PM) Mode of Delivery (Oxygen) Room air (04/11/22 7:22 PM) Room air (04/11/22 6:44 PM) Room air (04/11/22 4:40 PM) Blood pressure sites Arm, right (04/11/22 7:22 PM) Arm, right (04/11/22 6:44 PM) Arm, left (04/11/22 4:40 PM) Temperature Route Oral (04/11/22 7:22 PM) Oral (04/11/22 6:44 PM) Oral (04/11/22 4:40 PM) Dry Weight 48 kg (04/11/22 4:40 PM) 48 kg (04/11/22 9:50 AM) Social History Social History Type Response [...] MRI Safety Implantable Status Assigning Authority Unknown [id number] RCN Unknown Unknown 01/07/19 Unknown Unknown Active Unknown Note * Abigail Burnham DO: PERFORM Event Display: Patient Education Leaflets Authored Date: [id number] Aluminum Hydroxide/Magnesium Hydroxide/Simethicone Oral Suspension ?? [id number] Aluminum Hydroxide/Magnesium Hydroxide/Simethicone Oral Suspension Brands: Almacone, Comfort Gel, Maalox Max, Maalox Plus, Mi-Acid, Mintox Plus Uses This medicine is used for the following purposes: ??? heartburn ??? indigestion ??? reduce gas ?? Instructions Drink the medicine. Measure the dose of liquid medicine carefully. Use the measuring device that comes with the medicine. If you do not have one, please ask your pharmacist for help. Take the medicine after eating a meal. Store at room temperature or in the refrigerator. Do not freeze. Keep the medicine away from heat and light. Shake the bottle well before using the medicine. This medicine can reduce the absorption of other medicines. Talk to your doctor or pharmacist aboutthe best times to use this product. If you are using this medicine regularly, it is important to take each dose of medicine on time. Keep taking the medicine even if you feel well. If you forget to take a dose on time, take it as soon as you remember. If it is almost time for thenext dose, do not take the missed dose. Return to your normal dosing schedule. Do not take 2 doses of this medicine at one time. Tell your doctor and pharmacist about all your medicines. Include prescription and ckus-rwh-mxlzjormykajtdpr, vitamins, and herbal medicines. Tell your doctor if symptoms do not get better or if they get worse. ?? Cautions Tell your doctor and pharmacist if you ever had an allergic reaction to a medicine. Do not use the medication any more than instructed. Please check with your doctor before drinking alcohol while on this medicine. Tell the doctor or pharmacist if you are , planning to be , or . Do not start or stop any other medicines without first speaking to your doctor or pharmacist. ?? Side Effects The following is a list of some common side effects from this medicine. Please speak with your doctor about what you should do if you experience these or other side effects. ??? constipation or diarrhea ??? headaches ??? nausea Call your doctor or get medical help right away if you notice any of these more serious side effects: ??? decreased appetite ??? irregular heart beat ??? shallow, irregular breathing ??? confusion ??? coughing up blood or vomit that looks like coffee grounds ??? fainting ??? slow heartbeat ??? muscleweakness ??? stomach pain ??? dark, tarry stool ??? unusual or unexplained tiredness or weakness A few people may have an allergic reaction to this medicine. Symptoms can include difficulty breathing, skin rash, itching, swelling, or severe dizziness. If you notice any of these symptoms, seek medical help quickly. ?? Extra Please speak with your doctor, nurse, or pharmacist if you have any questions about this medicine. ?? [email or web address] IMPORTANT NOTE: This document tells you briefly how to take your medicine, but it does not tell youall there is to know about it. Your doctor or pharmacist may give you other documents about your medicine. Please talk to them if you have any questions. Always follow their advice. There is a more complete description of this medicine available in [place]. Scan this code on your smartphone or tablet or use the web address below. You can also ask your pharmacist for a printout. If you have any questions, please ask your pharmacist. The display and use of this drug information is subject to Terms of Use. Copyright(c) 2021 [employer]. ?? The [employer]. All rights reserved. This information is not intended as a substitute for professional medical care. Always follow your healthcare professional's instructions. ?? * Abigail Burnham DO: PERFORM Event Display: Patient Education Leaflets Authored Date: Gallstones??with Biliary Colic ?? [id number] Gallstones??with Biliary Colic Your abdominal pain??is from [...] ??? If you are overweight, [facility] about losing weight. ?? Follow-up care [...] symptoms ?? Last Reviewed Date: 2021 ?? [id number] The [employer]. All rights reserved. This information is not intended as a substitute for professional medical care. Always follow your healthcare professional's instructions. ?? * BHSPowerscribe , CIS S: TRANSCRIBE Amanda Horvath MD O: VERIFY Phoebe Mojica MD: SIGN Event Display: Result: Authored Date: [id number] US RUQ Reason: Abdominal Pain; Clinical Question(s): Cholecystitis COMPARISON: Right upper quadrant ultrasound dated 01/27/2022, CT abdomen and pelvis dated 12/31/2021, MR abdomen dated 01/11/2012 FINDINGS: Liver: Coarse hepatic echotexture. No suspicious lesion. Smooth hepatic contour. Main portal vein patent with normal hepatopetal direction of flow. Gallbladder: Multiple mobile gallstones. Normal wall thickness. No pericholecystic fluid. Negative Perez sign. Biliary Tree: No intrahepatic or extrahepatic bile duct dilation is identified. Common duct measures: 0.2 cm. Pancreas: Partially obscured by overlying bowel gas. No abnormality in the visualized portions of the pancreas. Right kidney: 7.9 cm in length. Normal parenchymal echotexture and thickness. No hydronephrosis, stone or mass. IMPRESSION: Cholelithiasis without evidence of acute cholecystitis. Coarse hepatic echotexture may be related to underlying hepatocellular disease.Clinical correlationis recommended. I have personally reviewed the images and I agree with this report. WSN: [id number] Ordering Physician: Shiva Winslow Dictated By: Phoebe Mojica MD Dictated Date/Time: 04/11/22 1:40 pm Reviewed By: Amanda Horvath MD Signed By: Amanda Horvath MD Signed Date/Time: 04/11/22 1:45 pm Transcribed By: CHARBEL Transcribed Date/Time: 04/11/22 12:[address] Abdomen and Pelvis W contrast IV * BHSPowerscribe , CIS S: TRANSCRIBE Ghassan Chávez MD: VERIFY Event Display: Result: Authored Date: CT Abd/Pelvis W/ IV Contrast Only Hx of Present Illness: Pt to ED via EMS from home with c o RLQ abd pain x 1 week. Notes nausea, no vomiting or diarrhea. Legally blind.; Reason: Other:; RUQ abdominal pain; Clinical Question(s): Biliary Obstruction; Order Comment: Patient unable to tolerate PO contrast. TECHNIQUE: Spiral CT through the abdomen and pelvis with IV contrast formatted in 3 planes. 100 cc of Omnipaque 300 was administered intravenously. This study was performed without oral contrast. Weight-based protocol using automatic tube modulation was used to optimize exposure parameters. CTDIvol Body: 10.20 mGy, DLP Body: 502 mGy*cm. COMPARISON: 12/31/2021 FINDINGS: Leather Cutter View Findings, Lines and Tubes: None. Visualized Chest: Lung bases are clear. No pleural effusion. The heart is normal in size. No pericardial effusion. Diaphragm: Normal. Liver: Normal. Gallbladder: Cholelithiasis. Bile ducts: No biliary ductal dilation. Spleen: Normal. Pancreas: Normal. Adrenal glands: Normal. Kidneys and ureters: Tiny cyst in the upper pole of the left kidney. The kidneys and ureters are otherwise unremarkable. Bladder: Normal. 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 The uterus and left adnexal region are unremarkable. Stomach, small bowel, and large bowel: The stomach and small intestine are normal. There is diverticulosis of the distal descending and sigmoid segments of the colon without diverticulitis. The colonand rectum are otherwise unremarkable. Appendix: Normal. Peritoneum and retroperitoneum: No ascites or pneumoperitoneum. No omental or mesenteric lesions. Lymph nodes: No enlarged lymph nodes. Blood vessels: Normal. No aneurysm. No evidence of venous thrombosis. Abdominal and pelvic wall: Unremarkable. Bones: No acute abnormality. Stable retrolisthesis of L1 on L2 with diminished height of the L1-2 intervertebral disc. IMPRESSION: No acute abnormality. 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 Sigmoid diverticulosis without diverticulitis. Cholelithiasis. WSN: [id number] Ordering Physician: Shiva Winslow Dictated By: Ghassan Chávez MD Dictated Date/Time: 04/11/22 4:33 pm Reviewed By: Ghassan Chávez MD Signed By: Ghassan Chávez MD Signed Date/Time: 04/11/22 4:33 pm Transcribed By: CHARBEL Transcribed Date/Time: 04/11/22 4:19 pm Patient Care team information Care Team Personnel Name: Lin Lloyd MD Position: [facility] Primary Care Physician Member Role: PCP Address: Address: [address] [place] [address] Name: Julio Sampson MD Position: [facility] Physician (General Medicine) Member Role: Lifetime Consulting Physician Address: Address: [address] [place] [address] Name: Frederick Bermudez MD Position: [facility] PORTABLE MACHINE SANDER MD Member Role: Lifetime PORTABLE MACHINE SANDER Physician Address: Address: [address] [place] [address] Name: Hilda Tate RN Position: [facility] RN Member Role: Primary Care Nurse Name: Claudia Castellon RN Position: [facility] RN Member Role: Primary Care Nurse Name: Meghna Martinez RN Position: [facility] RN Member Role: Primary Care Nurse Name: Marie Gomez RN Position: [facility] RN Member Role: Primary Care Nurse Name: Abigail Burnham DO Position: [facility] Resident Member Role: ED Resident Address: Address: [address] [place] [address] Name: Horacio Beckwith MD Position: [facility] ED Medicine MD Member Role: Admitting Physician Address: Address: [address] [place] [address] [place] [address]- [place] Name: Kaylynn Jiang Position: [facility] ED RN W/OE and Tasks Member Role: Patient Care Provider Name: Shahida Figueroa Position: [facility] ED TA [facility] Care Team Related Persons Name: STACEY BANDA Address: [place] [address] Name: HARDIK SIMMS Name: TABITHA ABDULLAHI Address: home [address] [place] [id number] Name: MADYSON ABDULLAHI
--- OUTSIDE RECORDS SUMMARY | 2023-10-23 08:12 | XMS_ITS | Continuity of Care Document ---
Author Organization [facility] Address [address] [place] [address]- Care Team Providers Care Log Cutter Name Role Phone Prema SOSA, Lin Ortega Primary Care Physician [facility]counter [facility] Date(s): 11/01/20 - 12/01/20 [facility] [address] [place], [place] [address] Allergies, Adverse Reactions, Alerts Substance [...] pneumococcal 23-valent vaccine 05/16/12 Given 1Result Comment: [facility]# [id number] PT. TOLERATED INJ. WITHOUT COMPLICATIONS....CO 2Result Comment: [03/04/2018] [facility]# [id number] 3Result Comment: [03/04/2016] pt. tolerated inj. without complications...CO 4Result Comment: [10/13/2017] [facility]# [id number] pt. tolerated inj. without complications...CO Medications Diflucan 150 mg oral tablet 1 tablet = 150 mg, By Mouth, Every 48 hours, # 2 tablet, 0 Refills, Soft Stop, 09/04/20 16:38:00 EDT, Tablet, [facility][id number], Partial fill upon patient request if the prescription is fora schedule II opioid drug., 154.94, cm, 05/30/20 11... Start Date: 09/04/20 Status: Ordered Diflucan 150 mg oral tablet 1 tablet = 150 mg, By Mouth, Every 48 hours, # 2 tablet, 0 Refills, Soft Stop, 06/10/20 10:25:00 EST, Tablet, [facility] #[id number], Partial fill upon patient request if the [...] Refills, Maintenance, 11/12/20 10:23:00 EDT, Chew Tablet, [facility][id number], Partial fill upon patient request if the prescription is for a schedule II opioid drug., 158, cm, 10/29/20 8:1... Start Date: 11/12/20 Status: Ordered Metoprolol Tartrate 25 mg oral tablet 0.5 tablet, By Mouth, 2 times a day, # 90 tablet, 2 Refills, Maintenance, 10/22/20 18:29:00 EDT, [facility] #[id number], 154.94, cm, 10/22/20 13:42:00 EDT, Height, 46.5, [...] International Unknow n GITA:No Information Assigning Authority: FDA"
--- OUTSIDE RECORDS SUMMARY | 2023-10-23 08:12 | XMS_ITS | Continuity of Care Document ---
Author Organization [facility] Address [address] [place] [address]- Care Team Providers Care Furnace Clerk Name Role Phone Prema SOSA, Lin Ortega Primary Care Physician Encounter [facility] Date(s): 09/25/21 - 10/25/21 [facility] [address] [place], [place] [address] Allergies, Adverse Reactions, Alerts Substance Reaction Severity [...] 05/16/12 Given 1Result Comment: [facility]# [id number] PT. TOLERATED INJ. WITHOUT COMPLICATIONS....CO 2Result Comment: [03/04/2018] [facility]# [id number] 3Result Comment: [03/04/2016] pt. tolerated inj. without complications...CO 4Result Comment: [10/13/2017] [facility]# [id number] pt. tolerated inj. without complications...CO Medications brimonidine [...] capsule, 5 Refills, Maintenance, 04/04/21 11:49:00 EDT, [id number], Partial fill upon patient request if the [...]
--- OUTSIDE RECORDS SUMMARY | 2023-10-23 08:12 | XMS_ITS | Continuity of Care Document ---
Author Organization [facility] Address [address] [place] [address]- Care Team Providers Care Technical Solutions Director Name Role Phone Prema SOSA, Lin Ortega Primary Care Physician [phone] Encounter [facility] Date(s): 05/21/19 - 05/31/19 [facility] [address] [place] [address]- [facility] Attending Physician: Olinda Currie Admitting Physician: AdmOlinda [...] 23-valent vaccine 05/16/12 Given 1Result Comment: [facility]# [id number] PT. TOLERATED INJ. WITHOUT COMPLICATIONS....CO 2Result Comment: [03/04/2018] [facility]# [id number] 3Result Comment: [03/04/2016] pt. tolerated inj. without complications...CO 4Result Comment: [10/13/2017] [facility]# [id number] pt. tolerated inj. without complications...CO Medications Carafate 1 gm oral tablet 1 Gm, 1, tablet, By Mouth, 2 times a day, # 28 tablet, Refills 0, Tot. Refills 0, Maintenance, 05/21/19 14:35:00 EST, [id number], 154.94, cm, 05/21/19 13:50:00 EST, Height, 47, [...] ON FILE Start Date: 03/14/19 Status: [facility] Refills [facility], Maintenance, Durezol drops, 05/15/19 [...]
--- OUTSIDE RECORDS SUMMARY | 2023-10-23 08:12 | XMS_ITS | Continuity of Care Document ---
Author Organization [facility] Address [address] [place] [address]- Care Team Providers Care Tobacco Sieve Operator Name Role Phone Prema SOSA, Lin Ortega Primary Care Physician [phone] Encounter [facility] Date(s): 07/04/19 - 07/14/19 [facility] [address] [place] [address]- Attending Physician: AdmLai [email or web address] Admitting Physician: AdmtrOlinda Referring Physician: Admtr, Ar8 [...] pneumococcal 23-valent vaccine 05/16/12 Given 1Result Comment: [facility]# [id number] PT. TOLERATED INJ. WITHOUT COMPLICATIONS....CO 2Result Comment: [03/04/2018] [facility]# [id number] 3Result Comment: [03/04/2016] pt. tolerated inj. without complications...CO 4Result Comment: [10/13/2017] [facility]# [id number] pt. tolerated inj. without complications...CO Medications Carafate 1 gm oral tablet 1 Gm, 1, tablet, By Mouth, 2 times a day, # 28 tablet, Refills 0, Tot. Refills 0, Maintenance, 05/21/19 14:35:00 EST, Route to Pharmacy Electronically, [facility] #[id number], 154.94, cm, 05/21/19 13:50:00 EST, Height, 47, [...] Refills, Soft Stop, 06/29/19 13:37:00 EST, [id number], 154.94, cm, 06/19/19 11:29:00 EST, Height, 47, [...]
--- OUTSIDE RECORDS SUMMARY | 2023-10-23 08:12 | XMS_ITS | Continuity of Care Document ---
Author Organization [facility] Address [address] [place] [address]- Care Team Providers Care Croze Machine Operator Name Role Phone Prema SOSA, Lin Ortega Primary Care Physician [phone] Encounter [facility] Date(s): 04/04/21 - 05/04/21 [facility] [address] [place] [address]- Allergies, Adverse Reactions, Alerts Substance Reaction Severity [...] 1Result Comment: [facility]# [id number] PT. TOLERATED INJ. WITHOUT COMPLICATIONS....CO 2Result Comment: [03/04/2018] [facility]# [id number] 3Result Comment: [03/04/2016] pt. tolerated inj. without complications...CO 4Result Comment: [10/13/2017] [facility]# [id number] pt. tolerated inj. without complications...CO Medications amLODIPine 5 mg oral tablet See Instructions, take 1/2 by mouth daily, # 15 tablet, Refills 5, Tot. Refills 5, Maintenance, 03/14/21 14:41:00 EDT, Instructions Replace Required Details, Route to Pharmacy Electronically, [facility] #[id number], Pt reports allergy to amlodipi... Start Date: [...] 5 Refills, Maintenance, 04/04/21 11:49:00 EDT, ECCapsule, [facility] #[id number], Partial fill upon patient request if the [...]
--- OUTSIDE RECORDS SUMMARY | 2023-10-23 08:12 | XMS_ITS | Continuity of Care Document ---
Author Organization [facility] Address [address] [place] [address]- Care Team Providers Care Utility Locator Name Role Phone Lin Lolyd MD Primary Care Physician [phone] Encounter [facility] Date(s): 10/14/21 - 10/21/21 [facility] [address] [place] [address]- Encounter Diagnosis Hypertension(Discharge Diagnosis) - 10/14/21 Atrial tachycardia(Discharge Diagnosis) - 10/14/21 Attending Physician: Lin Lloyd MD Allergies, Adverse [...] Comment: [facility]# [id number] PT. TOLERATED INJ. WITHOUT COMPLICATIONS....CO 2Result Comment: [03/04/2018] [facility]# [id number] 3Result Comment: [03/04/2016] pt. tolerated inj. without complications...CO 4Result Comment: [10/13/2017] [facility]# [id number] pt. tolerated inj. without complications...CO Medications brimonidine [...] AT BEDTIME Start Date: 01/07/21 Status: Ordered [facility] Rx Refills 0, Maintenance, Durezol drops, 05/15/19 15:41:08 EST, Compound Start Date: 05/15/19 Status: Ordered ofloxacin 0.3% ophthalmic solution INSTILL 1 DROP INTO LEFT EYE FOUR TIMES DAILY FOR 1 WEEK Start Date: 04/04/21 Status: Ordered omeprazole 20 mg oral enteric coated capsule 1 capsule = 20 mg, By Mouth, Daily, # 30 capsule, 5 Refills, Maintenance, 04/04/21 11:49:00 EDT, [facility] #[id number], Partial fill upon patient request if the [...] Status Clinical Service Informant Hypertension Discharge Diagnosis 10/14/21 Atrial tachycardia Discharge Diagnosis 10/14/21 Vital Signs Most recent to oldest [Reference Range]: 1 2 3 Height 155 cm (10/14/21 2:43 PM) 155 cm (10/14/21 2:25 PM) 155 cm (10/14/21 2:10 PM) Weight 47.4 kg (10/14/21 2:10 PM) Oxygen Saturation [94-100 %] 98 % (10/14/21 2:10 PM) Pulse Rate [55-90 bpm] 64 bpm (10/14/21 2:10 PM) Body Mass Index [18.5-24.99] 19.73 (10/14/21 2:10 PM) Blood Pressure [90-138/55-84 mm Hg] 158/88mm Hg *H* (10/14/21 2:43 PM) 164/98mm Hg *H* (10/14/21 2:25 PM) 162/94mm Hg *H* (10/14/21 2:10 PM) Respiratory Rate [16-30 br/min] 18 br/min (10/14/21 2:10 PM) Temperature [96.8-100.4 DegF] 98.8 DegF (10/14/21 2:10 PM) Mode of Delivery (Oxygen) Room air (10/14/21 2:10 PM) Blood pressure sites Arm, left (10/14/21 2:25 PM) Arm, left (10/14/21 2:10 PM) Temperature Route Temporal (10/14/21 2:10 PM) Weight Obtained Via Standing scale (10/14/21 2:10 PM) Social History Social History Type Response Smoking Status Never smoker; Other: quit smoking about 35 years ago, 3 cigs/d x 3 years; entered on: 05/30/15 Sex Medical Equipment Implanted Date:12/28/18Target Site:Eye Right Description Quantity MRI Company Model CORNEA FULL THICKNESS - TSSU (K001-PK) 1 [employer] Unknow n GITA:No Information Assigning Authority: FDA
--- OUTSIDE RECORDS SUMMARY | 2023-10-23 08:12 | XMS_ITS | Continuity of Care Document ---
Author Organization [facility] ter Address [address] [place] [address]- Care Team Providers Care Web Marketing Assistant Name Role Phone Prema SOSA, Lin Ortega Primary Care Physician Encounter [facility] Date(s): 06/19/19 - 06/26/[address] [address]- [facility] Attending Physician: Dion SOSA, Kenrick Conklin Allergies, [...] pneumococcal 23-valent vaccine 05/16/12 Given 1Result Comment: [facility]# [id number] PT. TOLERATED INJ. WITHOUT COMPLICATIONS....CO 2Result Comment: [03/04/2018] [facility]# [id number] 3Result Comment: [03/04/2016] pt. tolerated inj. without complications...CO 4Result Comment: [10/13/2017] [facility]# [id number] pt. tolerated inj. without complications...CO Medications Carafate 1 gm oral tablet 1 Gm, 1, tablet, By Mouth, 2 times a day, # 28 tablet, Refills 0, Tot. Refills 0, Maintenance, 05/21/19 14:35:00 EST, Route to Pharmacy Electronically, [facility] #[id number], 154.94, cm, 05/21/19 13:50:00 EST, Height, 47, [...] 0 Refills, Soft Stop, 06/21/19 17:52:00 EST, Tablet,[facility] #[id number], 154.94, cm, 06/19/19 11:29:00 EST, Height, 47, [...] for Microbiology Reports Name Date Urine Culture 06/19/19 Microbiology Reports TEST:Urine Culture STATUS:Auth (Verified) BODY SITE: SOURCE:CLEAN COLLECTED DATE/TIME:06/19/19 11:53 AM Urine Culture SPECIMEN DESCRIPTION : CLEAN CATCH (URINE) SPECIAL REQUESTS : NONE CULTURE : NO GROWTH REPORT STATUS : FINAL 06/20/2019 Social History Social History Type Response Smoking Status Never smoker; Other: quit smoking about 35 years ago, 3 cigs/d x 3 years; entered on: 05/30/15 Sex Medical Equipment Implanted Date:12/28/18Target Site:Eye Right Description Quantity MRI Company Model CORNEA FULL THICKNESS - TSSU (K001-PK) 1 [employer] Unknow n GITA:No Information Assigning Authority: FDA
--- OUTSIDE RECORDS SUMMARY | 2023-10-23 08:12 | XMS_ITS | Continuity of Care Document ---
Author Organization [facility] Address [address] [place] [address] [address] [place] [address]- Care Team Providers Care Wine Pasteurizer Name Role Phone Lin Lloyd MD Primary Care Physician [phone] Encounter [facility] Date(s): 11/24/22 - 12/01/[address] [place] [address]- Attending Physician: Saurav Gutierrez MD Referring Physician: [...] 05/16/12 Given 1Result Comment: [facility] [id number] 2Result Comment: [03/04/2018] [facility]# [id number] 3Result Comment: [03/04/2016] pt. tolerated inj. without complications...CO 4Result Comment: [facility]# [id number] PT. TOLERATED INJ. WITHOUT COMPLICATIONS....CO 5Result Comment: [10/13/2017] [facility]# [id number] pt. tolerated inj. without complications...CO Medications brimonidine [...] 60 tablet, 11 Refills, Maintenance, 11/24/22 16:05:00EDT, [facility] #[id number], Partial fill upon patient request if the prescription is for a schedule II opioid drug., 48, cm, 11/24/22 13:12:00 ED... Start Date: 11/24/22 Status: Ordered ursodiol 300 mg oral capsule 300 mg, 1, capsule, By Mouth, 2 times a day, # 180 capsule, Refills 5, Tot. Refills 5, Maintenance,08/18/22 14:42:00 EDT, Route to Pharmacy Electronically, [facility] #[id number], Partial fill upon patient request if the [...] [Reference Range]: 1 2 Height 48 cm (11/24/22 1:12 PM) 48 cm (11/24/22 1:05 PM) Weight 51.0 kg (11/24/22 1:05 PM) Pulse Rate [55-90 bpm] 92 bpm *H* (11/24/22 1:05 PM) Body Mass Index [18.5-24.99 kg/m2] 221.3 5 kg/m2 *>HHI* (11/24/22 1:05 PM) Blood Pressure [90-138/55-84 mm Hg] 157/ 101mm Hg *H* (11/24/22 1:12 PM) 166/103mm Hg *H* (11/24/22 1:05 PM) Respiratory Rate [16-30 br/min] 16 br/mi n (11/24/22 1:12 PM) 16 br/min (11/24/22 1:05 PM) Temperature [96.8-100.4 DegF] 98.1 DegF (11/24/22 1:05 PM) Blood pressure sites Arm, left (11/24/22 1:12 PM) Arm, left (11/24/22 1:05 PM) Temperature Route Temporal (11/24/22 1:05 PM) Weight Obtained Via Standing scale (11/24/22 1:05 PM) Social History Social History Type Response [...] MRI Safety Implantable Status Assigning Authority Unknown [id number] RCN Unknown Unknown 01/07/19 Unknown Unknown Active Unknown Patient Care team information Care Team Personnel Name: Lin Lloyd MD Position: [facility] Physician - Primary Care Member Role: PCP Address: Address: [address], [place] [address]- [place] Name: Julio Sampson MD Position: [facility] Renal MD Member Role: Lifetime Consulting Physician Address: Address: [address] [facility], [address] [address]- [place] Name: Frederick Bermudez MD Position: [facility] STREET INSPECTOR MD Member Role: Lifetime STREET INSPECTOR Physician Address: Address: [address] [place] [address]- Name: Hilda Tate RN Position: S RN Member Role: Primary Care Nurse Name: Claudia Castellon RN Position: [facility] RN Member Role: Primary Care Nurse Name: Meghna Martinez RN Position: [facility] SN RN Member Role: Primary Care Nurse Name: Marie Gomez RN Position: [facility] Onco RN Member Role: Primary Care Nurse Care Team Related Persons Name: VERONIKA STACEY Address: [place] [address] Name: HARDIK SIMMS Name: TABITHA ABDULLAHI Address: home [address] [place] [address] Name: MADYSON ABDULLAHI
--- OUTSIDE RECORDS SUMMARY | 2023-10-23 08:12 | XMS_ITS | Continuity of Care Document ---
Author Organization [facility] Address [address] [place] [address]- Care Team Providers Care Mixed Crop Farmer Name Role Phone Lin Lloyd MD Primary Care Physician [phone] Encounter [facility] Date(s): 12/25/22 - 01/01/23 [facility] [address] [place] [address]- Encounter Diagnosis Hypertension(Discharge Diagnosis) - 12/25/22 Atrial tachycardia(Discharge Diagnosis) - 12/25/22 Cerebral Aneurysm, Nonruptured(Discharge Diagnosis) - 12/25/22 Attending Physician: Lin Lloyd MD Allergies, Adverse [...] vaccine 05/16/12 Given 1Result Comment: [facility]] [id number] 2Result Comment: [03/04/2018] [facility] 2[facility]# [id number] 3Result Comment: [03/04/2016] pt. tolerated inj. without complications...CO 4Result Comment: [facility] 2]# [id number] PT. TOLERATED INJ. WITHOUT COMPLICATIONS....CO 5Result Comment: [10/13/2017] [facility] 2[facility]# [id number] pt. tolerated inj. without complications...CO Medications aluminum hydroxide/magnesium hydroxide/simethicone 200 mg-200 mg-20 mg/5 mL oral suspension 10 mL, By Mouth, 4 times a day, PRN Pain , Moderate, # 400 mL, 11 Refills, Maintenance, 12/25/22 13:07:00 EDT, Suspension, [facility] #[id number], Partial fill upon patient request if the [...] 2 Refills, Maintenance, 12/21/22 16:55:00 EDT, Tablet, [facility] #[id number], Partial fill upon patient request if the [...] 60 tablet, 11 Refills, Maintenance, 11/24/22 16:05:00EDT, [facility] #[id number], Partial fill upon patient request if the prescription is for a schedule II opioid drug., 48, cm, 11/24/22 13:12:00 ED... Start Date: 11/24/22 Status: Ordered ursodiol 300 mg oral capsule 300 mg, 1, capsule, By Mouth, 2 times a day, # 180 capsule, Refills 5, Tot. Refills 5, Maintenance,08/18/22 14:42:00 EDT, Route to Pharmacy [facility]ically, [id number], Partial fill upon patient request if the [...] Status Clinical Service Informant Hypertension Discharge Diagnosis 12/25/22 Atrial tachycardia Discharge Diagnosis 12/25/22 Cerebral Aneurysm, Nonruptured Discharge Diagnosis 12/25/22 Vital Signs Most recent to oldest [Reference Range]: 1 2 3 Height 158 cm (12/25/22 1:00 PM) 158 cm (12/25/22 12:52 PM) 158 cm (12/25/22 12:47 PM) Weight 49 kg (12/25/22 12:38 PM) Oxygen Saturation [94-100 %] 100 % (12/25/22 12:38 PM) Pulse Rate [55-90 bpm] 95 bpm *H* (12/25/22 12:38 PM) Body Mass Index [18.5-24.99 kg/m2] 19.63 kg/m2 (12/25/22 12:38 PM) Blood Pressure [90-138/55-84 mm Hg] 136/88mm Hg (12/25/22 1:00 PM) 120/72mm Hg (12/25/22 12:52 PM) 119/85mm Hg (12/25/22 12:47 PM) Temperature [96.8-100.4 DegF] 99.0 DegF (12/25/22 12:38 PM) Mode of Delivery (Oxygen) Room air (12/25/22 12:38 PM) Blood pressure sites Arm, right (12/25/22 12:52 PM) Arm, right (12/25/22 12:47 PM) Arm, right (12/25/22 12:38 PM) Temperature Route Temporal (12/25/22 12:38 PM) Weight Obtained Via Standing scale (12/25/22 12:38 PM) Social History Social History Type Response [...] MRI Safety Implantable Status Assigning Authority Unknown [id number] RCN Unknown Unknown 01/07/19 Unknown Unknown Active Unknown Note * Adore Jones: PERFORM, SIGN, VERIFY Event Display: Patient Education/Instruction Authored Date: [id number] [facility] *No Edge Adult Ped Clinical Summary Name CAMERON BANDA Age 82 Years 1940 PCP Lin Lloyd MD PCP Visit Date 12/25/2022 12:29:00 Additional Instructions: Scheduled Appointments?? Future Appointments ?*[facility]??Cardiology1 ?[address]??[place],??[place],??[address] ?Phone:??--?Fax:??-- ?Appt. Date:??01/04/2023?3:15 PM ?Scheduled Provider:??Gerson Henderson Follow-Up Instructions ?? Diagnosis Medications: Please continue your medications until treatment is completed or stopped by your provider. Discuss any questions related to medications with your provider. New Medications [facility] #[id number], [address], [place] [id number], [phone] Al Hydroxide/Mg Hydroxide/Simethicone (aluminum hydroxide/magnesium hydroxide/simethicone 200 mg-200 mg-20 mg/5 mL oral suspension) 10 Milliliter Oral 4 times a day as needed Pain , Moderate. Refills: 11. Next Dose: Medications to Continue Taking That Have Changed - - Durable Medical Equipment (Home Blood Pressure Monitor) dx: I10 use once daily height 158cm weight 48cm WITH SMALL ADULT CUFF 20 TO 26 CM. Refills: 0. Next Dose: Medications to Continue with No Changes These medications were not printed or sent to your pharmacy Brimonidine Ophthalmic (brimonidine 0.2% ophthalmic solution) 1 drop into Right eye three times a day. Next Dose: Candesartan (candesartan 4 mg oral tablet) 1 tab(s) Oral Daily. TAKE WITH FOOD. Refills: 2. Next Dose: Ursodiol (ursodiol 250 mg oral tablet) 1 tab(s) Oral twice a day. Refills: 11. Next Dose: Ursodiol (ursodiol 300 mg oral capsule) 1 capsule Oral twice a day. Refills: 5. Next Dose: Allergy Info:?? Amlodipine Besylate-Atorvastatin; cloNIDine; penicillins; losartan; lisinopril; bisoprolol; hydrochlorothiazide; chlorthalidone Medications Given This Visit Future Orders ?No future orders Vital Signs Height 158 cm Weight 49 kg BMI 19.63 kg/m2 Blood Pressure 136 mm Hg/88 mm Hg Temperature 99.0 DegF Pulse Rate 95 bpm Respiratory Rate 02 Sat Mode of Delivery 100 %/Room air You can now view a summary of your hospital visit from the comfort of your home through a free online portal called [employer]. [employer] is a website that allows you to securely view your medical information including discharge summary, medications and follow-up visits. ??You can alsosend a secure electronic message to your doctor???s office to request appointments, renew medications or just ask a question. You can enroll at [email or web address] or register during your next office visit. [...] primary care provider, you may find a [facility] provider by calling [facility] [employer] Link at [phone]. For information about the plan of care [...] Team Personnel Name: Lin Lloyd MD Position: [facility] Physician - Primary Care Member Role: PCP Address: Address: [address] [place] [address]- Name: Julio Sampson MD Position: [facility] Renal MD Member Role: Lifetime Consulting Physician Address: Address: [address] [place] [address], [facility] [address] [place] [address]- Name: Frederick Bermudez MD Position: [facility] TAX MANAGER PUBLIC MD Member Role: Lifetime TAX MANAGER PUBLIC Physician Address: Address: [address] [place] [address] [id number] Name: Hilda Tate RN Position: [facility] RN Member Role: Primary Care Nurse Name: Claudia Castellon RN Position: S RN Member Role: Primary Care Nurse Name: Meghna Martinez RN Position: [facility] SN RN Member Role: Primary Care Nurse Name: Marie Gomez RN Position: [facility] Onco RN Member Role: Primary Care Nurse Care Team Related Persons Name: STACEY BANDA Address: [place] [address] Name: HARDIK SIMMS Name: TABITHA ABDULLAHI Address: home [address] [place] [address] Name: MADYSON ABDULLAHI
--- OUTSIDE RECORDS SUMMARY | 2023-10-23 08:12 | XMS_ITS | Continuity of Care Document ---
Author Organization [facility] Address [address] [place] [address]- Care Team Providers Care Master Craftsman Name Role Phone Prema SOSA, Lin Ortega Primary Care Physician [phone] Encounter [facility] Date(s): 08/12/21 - 09/11/21 [facility] [address] [place] [address]- Allergies, Adverse Reactions, Alerts Substance Reaction Severity [...] Given 1Result Comment: [facility]# [id number] PT. TOLERATED INJ. WITHOUT COMPLICATIONS....CO 2Result Comment: [03/04/2018] [facility]# [id number] 3Result Comment: [03/04/2016] pt. tolerated inj. without complications...CO 4Result Comment: [10/13/2017] [facility]# [id number] pt. tolerated inj. without complications...CO Medications brimonidine [...] Replace Required Details, Route to Pharmacy Electronically, [facility] #[id number],... Start Date: 08/26/21 Status: Ordered Home Blood [...] 07/29/21 16:47:00 EST, Route to Pharmacy Electronically, [facility] #[id number], Partial fill upon patient request if the [...] 5 Refills, Maintenance, 04/04/21 11:49:00 EDT, ECCapsule, [facility] #[id number], Partial fill upon patient request if the [...]
--- OUTSIDE RECORDS SUMMARY | 2023-10-23 08:12 | XMS_ITS | Continuity of Care Document ---
Author Organization [facility] Address [address] [place] [address]- Care Team Providers Care Wire Photo Operator News Name Role Phone Lin Lloyd MD Primary Care Physician En[place] [facility] Date(s): 01/16/21 - 01/23/21 [facility] [address] [place] [address]- Encounter Diagnosis Atrial tachycardia(Discharge Diagnosis) - 01/16/21 Cerebral Aneurysm, Nonruptured(Discharge Diagnosis) - 01/16/21 Hypertension(Discharge Diagnosis) - 01/16/21 Attending Physician: Lin Lloyd MD Allergies, Adverse [...] 23-valent vaccine 05/16/12 Given 1Result Comment: [facility]# [id number] PT. TOLERATED INJ. WITHOUT COMPLICATIONS....CO 2Result Comment: [03/04/2018] [facility]# [id number] 3Result Comment: [03/04/2016] pt. tolerated inj. without complications...CO 4Result Comment: [10/13/2017] [facility]# [id number] pt. tolerated inj. without complications...CO Medications brimonidine [...] 01/16/21 11:45:00 EDT, Route to Pharmacy Electronically, [facility] #[id number], new dosage, cancel out prescriptin for 120mg [...] Refills, Maintenance, 11/12/20 10:23:00 EDT, Chew Tablet, [facility] #[id number], Partial fill upon patient request if the [...] 5 Refills, Maintenance, 01/16/21 11:51:00 EDT, Patch, [facility] #[id number], Partial fill upon patient r... Start Date: 01/16/21 Status: Ordered Misc Rx Refills 0, Maintenance, Durezol drops, 05/15/19 15:41:08 EST, Compound Start Date: 05/15/19 Status: Ordered ocular lubricant - solution See Instructions, PRN for dry eyes, 2 drops left eye 4 times a day as needed for pain/ dry eyes., #15 mL, 2 Refills, Maintenance, 01/07/21 14:31:00 EDT, Solution, [facility] #[id number], Partial fill upon patient request if the prescription is... Start Date: 01/07/21 Status: Ordered omeprazole 20 mg oral enteric coated capsule 1 capsule = 20 mg, By Mouth, Daily, # 30 capsule, 3 Refills, Maintenance, 01/17/21 12:14:00 EDT, ECCapsule, [facility] #[id number], Partial fill upon patient request if the [...] 0 Refills, Maintenance, 01/07/21 14:05:00 EDT, Tablet, [facility] #[id number], Partial fill upon patient request if the [...] Effective Dates Health Status Clinical Service Informant Cerebral Aneurysm, Nonruptured Discharge Diagnosis 01/16/21 Atrial tachycardia Discharge Diagnosis 01/16/21 Hypertension Discharge Diagnosis 01/16/21 Vital Signs Most recent to oldest [Reference Range]: 1 2 Height 158 cm (01/16/21 11:57 AM) 158 cm (01/16/21 11:36 AM) Weight 48.2 kg (01/16/21 11:36 AM) Oxygen Saturation [94-100 %] 98 % (01/16/21 11:36 AM) Pulse Rate [55-90 bpm] 61 bpm (01/16/21 11:36 AM) Body Mass Index [18.5-24.99] 19.31 (01/16/21 11:36 AM) Blood Pressure [90-138/55-84 mm Hg] 136/ 78mm Hg (01/16/21 11:57 AM) 142/76mm Hg *H* (01/16/21 11:36 AM) Temperature [96.8-100.4 DegF] 98.6 DegF (01/16/21 11:36 AM) Blood pressure sites Arm, left (01/16/21 11:36 AM) Temperature Route Temporal (01/16/21 11:36 AM) Social History Social History Type Response Smoking Status Never smoker; Other: quit smoking about 35 years ago, 3 cigs/d x 3 years; entered on: 05/30/15 Sex Medical Equipment Implanted Date:12/28/18Target Site:Eye Right Description Quantity MRI Company Model CORNEA FULL THICKNESS - TSSU (K001-PK) 1 [employer] Unknow n GITA:No Information Assigning Authority: FDA
--- OUTSIDE RECORDS SUMMARY | 2023-10-23 08:12 | XMS_ITS | Continuity of Care Document ---
Author Organization [facility] Address [address] [place] [address]- Care Team Providers Care Senior Benefits Specialist Name Role Phone Prema SOSA, Lin Ortega Primary Care Physician Encounter [facility] Date(s): 01/08/21 - 02/07/21 [facility] [address] [place] [address]- Allergies, Adverse Reactions, Alerts Substance Reaction Severity [...] 1Result Comment: [facility]# [id number] PT. TOLERATED INJ. WITHOUT COMPLICATIONS....CO 2Result Comment: [03/04/2018] [facility]# [id number] 3Result Comment: [03/04/2016] pt. tolerated inj. without complications...CO 4Result Comment: [10/13/2017] [facility]# [id number] pt. tolerated inj. without complications...CO Medications brimonidine [...] 01/16/21 11:45:00 EDT, Route to Pharmacy Electronically, [facility] #[id number], new dosage, cancel out prescriptin for 120mg [...] Refills, Maintenance, 11/12/20 10:23:00 EDT, Chew Tablet, [facility] #[id number], Partial fill upon patient request if the [...] 5 Refills, Maintenance, 01/16/21 11:51:00 EDT, Patch, [facility] #[id number], Partial fill upon patient r... Start Date: 01/16/21 Status: Ordered Misc Rx Refills 0, Maintenance, Durezol drops, 05/15/19 15:41:08 EST, Compound Start Date: 05/15/19 Status: Ordered ocular lubricant - solution See Instructions, PRN for dry eyes, 2 drops left eye 4 times a day as needed for pain/ dry eyes., #15 mL, 2 Refills, Maintenance, 01/07/21 14:31:00 EDT, Solution, [facility] #[id number], Partial fill upon patient request if the prescription is... Start Date: 01/07/21 Status: Ordered omeprazole 20 mg oral enteric coated capsule 1 capsule = 20 mg, By Mouth, Daily, # 30 capsule, 3 Refills, Maintenance, 01/17/21 12:14:00 EDT, ECCapsule, [facility] #[id number], Partial fill upon patient request if the [...] 0 Refills, Maintenance, 01/07/21 14:05:00 EDT, Tablet, [facility] #[id number], Partial fill upon patient request if the [...]
--- OUTSIDE RECORDS SUMMARY | 2023-10-23 08:12 | XMS_ITS | Continuity of Care Document ---
Author Organization [facility] Address [address] [place] [address]- Care Team Providers Care Rn Assessment Name Role Phone Prema SOSA, Lin Ortega Primary Care Physician [phone] Encounter [facility] Date(s): 03/27/21 - 04/26/21 [facility] [address] [place], [place] [address] Allergies, Adverse Reactions, Alerts Substance Reaction [...] 23-valent vaccine 05/16/12 Given 1Result Comment: [facility]# [id number] PT. TOLERATED INJ. WITHOUT COMPLICATIONS....CO 2Result Comment: [03/04/2018] [facility]# [id number] 3Result Comment: [03/04/2016] pt. tolerated inj. without complications...CO 4Result Comment: [10/13/2017] [facility]# [id number] pt. tolerated inj. without complications...CO Medications amLODIPine 5 mg oral tablet See Instructions, take 1/2 by mouth daily, # 15 tablet, Refills 5, Tot. Refills 5, Maintenance, 03/14/21 14:41:00 EDT, Instructions Replace Required Details, Route to Pharmacy Electronically, [email or web address] #[id number], Pt reports allergy to amlodipi... Start Date: [...] 5 Refills, Maintenance, 04/04/21 11:49:00 EDT, ECCapsule, [email or web address] #[id number], Partial fill upon patient request if the [...]
--- OUTSIDE RECORDS SUMMARY | 2023-10-23 08:13 | XMS_ITS | Continuity of Care Document ---
Author Organization [facility] Address [address] [place] [address]- Care Team Providers Care Power Screwdriver Operator Name Role Phone Prema SOSA, Lin Ortega Primary Care Physician [facility] Date(s): 09/25/19 - 10/25/19 [facility] [address] [place] [address]- [facility] Attending Physician: Olinda Currie Admitting [...] 23-valent vaccine 05/16/12 Given 1Result Comment: [facility]# [id number] PT. TOLERATED INJ. WITHOUT COMPLICATIONS....CO 2Result Comment: [03/04/2018] [facility]# [id number] 3Result Comment: [03/04/2016] pt. tolerated inj. without complications...CO 4Result Comment: [10/13/2017] [facility]# [id number] pt. tolerated inj. without complications...CO Medications Diflucan 150 mg oral tablet 1 tablet = 150 mg, By Mouth, Once, PRN yeast infection symptoms, # 2 tablet, 0 Refills, Soft Stop, 09/25/19 9:21:00 EDT, Tablet, [facility] #[id number], 154.94, cm, 06/19/19 11:29:00 EST, Height, 47, [...] 2 Refills, Maintenance, 09/13/19 15:08:00 EDT, Tablet, [facility] #[id number], PUT ON FILE, 154.94, cm, 06/19/19 11:29:00 [...]
--- OUTSIDE RECORDS SUMMARY | 2023-10-23 08:13 | XMS_ITS | Continuity of Care Document ---
Author Organization [facility] Address [address] [place] [address]- Care Team Providers Care Client Strategist Name Role Phone Prema SOSA, Lin Ortega Primary Care Physician [facility]counter [facility] Date(s): 11/18/22 - 12/18/22 [facility] [address] [place], [place] [address] Allergies, Adverse Reactions, Alerts Substance Reaction [...] vaccine 05/16/12 Given 1Result Comment: [facility] [id number] 2Result Comment: [03/04/2018] [facility]# [id number] 3Result Comment: [03/04/2016] pt. tolerated inj. without complications...CO 4Result Comment: [facility]# [id number] PT. TOLERATED INJ. WITHOUT COMPLICATIONS....CO 5Result Comment: [10/13/2017] [facility]# [id number] pt. tolerated inj. without complications...CO Medications brimonidine [...] 60 tablet, 11 Refills, Maintenance, 11/24/22 16:05:00EDT, [facility] #[id number], Partial fill upon patient request if the prescription is for a schedule II opioid drug., 48, cm, 11/24/22 13:12:00 ED... Start Date: 11/24/22 Status: Ordered ursodiol 300 mg oral capsule 300 mg, 1, capsule, By Mouth, 2 times a day, # 180 capsule, Refills 5, Tot. Refills 5, Maintenance,08/18/22 14:42:00 EDT, Route to Pharmacy Electronically, [facility] #[id number], Partial fill upon patient request if the [...] Range]: 1 Blood Pressure [90-138/55-84 mm Hg] 137/ 82mm Hg (11/19/22 12:45 PM) Social History Social History Type Response [...] MRI Safety Implantable Status Assigning Authority Unknown [id number] RCN Unknown Unknown 01/07/19 Unknown Unknown Active Unknown Patient Care team information Care Team Personnel Name: Prema SOSA, Lin Ortega Position: [facility] Physician - Primary Care Member Role: PCP Address: Address: [address] [place] [address]- Name: Julio Sampson MD Position: [facility] Renal MD Member Role: Lifetime Consulting Physician Address: Address: [address] [place] [address], [address] [address] Name: Lara SOSA, Frederick Higgins Position: [facility] EPIC TRAINER MD Member Role: Lifetime EPIC TRAINER Physician Address: Address: [address] [place] [address] Name: Hilda Ttae RN Position: S RN Member Role: Primary Care Nurse Name: Claudia Castellon RN Position: S RN Member Role: Primary Care Nurse Name: Meghna Martinez RN Position: [facility] SN RN Member Role: Primary Care Nurse Name: Marie Gomez RN Position: [facility] Onco RN Member Role: Primary Care Nurse Care Team Related Persons Name: STACEY BANDA Address: [place] [address] Name: HARDIK SIMMS Name: TABITHA ABDULLAHI Address: home [address] [place] [id number] Name: MADYSON ABDULLAHI
--- OUTSIDE RECORDS SUMMARY | 2023-10-23 08:13 | XMS_ITS | Continuity of Care Document ---
Author Organization [facility] Address [address] [place] [address]- Care Team Providers Care Barrel Rifler Button Name Role Phone Prema SOSA, Lin Ortega Primary Care Physician [phone] [facility]counter [facility] Date(s): 07/18/19 - 07/18/[address] [address]- [facility] Encounter Diagnosis left eye pain(Final) - 07/18/19 Discharge Disposition: A-D/C Home Attending Physician: Gretta Muro MD Admitting Physician: Gretta Muro MD Referring Physician: Not on Staff, Referring [...] Comment: [facility]# [id number] PT. TOLERATED INJ. WITHOUT COMPLICATIONS....CO 2Result Comment: [03/04/2018] [facility]# [id number] 3Result Comment: [03/04/2016] pt. tolerated inj. without complications...CO 4Result Comment: [10/13/2017] [facility]# [id number] pt. tolerated inj. without complications...CO Medications Carafate 1 gm oral tablet 1 Gm, 1, tablet, By Mouth, 2 times a day, # 28 tablet, Refills 0, Tot. Refills 0, Maintenance, 05/21/19 14:35:00 EST, Route to Pharmacy Electronically, [facility] #[id number], 154.94, cm, 05/21/19 13:50:00 EST, Height, 47, [...] Refills, Soft Stop, 06/29/19 13:37:00 EST, Tablet, [facility] #[id number], 154.94, cm, 06/19/19 11:29:00 EST, Height, 47, kg, 05/21/19 13:50:00 EST, Dry Weight Start Date: 06/29/19 Status: Ordered Metoprolol Tartrate 25 mg oral tablet 0.5 tablet = 12.5 mg, By Mouth, 2 times a day, # 45 tablet, 2 Refills, Maintenance, 03/14/19 13:41:46 EDT, Tablet, PUT ON FILE Start Date: 03/14/19 Status[facility], Maintenance, Durezol drops, 05/15/19 [...] 3 Oxygen Saturation [94-100 %] 100 % (07/18/19 5:45 PM) 98 % (07/18/19 3:10 PM) 100 % (07/18/19 12:16 PM) Pulse Rate [55-90 bpm] 69 bpm (07/18/19 5:45 PM) 79 bpm (07/18/19 3:10 PM) 93 bpm *H* (07/18/19 12:16 PM) Blood Pressure [90-138/55-84 mm Hg] 160/109mm Hg *H* (07/18/19 5:45 PM) 147/102mm Hg *H* (07/18/19 3:10 PM) 111/62mm Hg (07/18/19 12:16 PM) Respiratory Rate [16-30 br/min] 20 br/min (07/18/19 5:45 PM) 20 br/min (07/18/19 3:10 PM) 16 br/min (07/18/19 12:16 PM) Temperature [96.8-100.4 DegF] 98.1 DegF (07/18/19 3:10 PM) 97.8 DegF (07/18/19 12:16 PM) Mode of Delivery (Oxygen) Room air (07/18/19 5:45 PM) Room air (07/18/19 3:10 PM) Room air (07/18/19 12:16 PM) Blood pressure sites Arm, right (07/18/19 5:45 PM) Arm, right (07/18/19 3:10 PM) Arm, right (07/18/19 12:16 PM) Temperature Route Oral (07/18/19 3:10 PM) Oral (07/18/19 12:16 PM) Social History Social History Type Response Smoking Status Never smoker; Other: quit smoking about 35 years ago, 3 cigs/d x 3 years; entered on: 05/30/15 Sex Medical Equipment Implanted Date:12/28/18Target Site:Eye Right Description Quantity MRI Company Model CORNEA FULL THICKNESS - TSSU (K001-PK) 1 [employer] Unknow n GITA:No Information Assigning Authority: FDA
--- OUTSIDE RECORDS SUMMARY | 2023-10-23 08:13 | XMS_ITS | Continuity of Care Document ---
Author Organization [facility] Address [address] [place] [address]- Care Team Providers Care Mobile Marketing Manager Name Role Phone Prema SOSA, Lin Ortega Primary Care Physician [facility] Date(s): 09/03/20 - 10/03/20 [facility] [address] [place], [place] [address] Allergies, Adverse Reactions, Alerts Substance Reaction Severity [...] 23-valent vaccine 05/16/12 Given 1Result Comment: [facility]# [id number] PT. TOLERATED INJ. WITHOUT COMPLICATIONS....CO 2Result Comment: [03/04/2018] [facility]# [id number] 3Result Comment: [03/04/2016] pt. tolerated inj. without complications...CO 4Result Comment: [10/13/2017] [facility]# [id number] pt. tolerated inj. without complications...CO Medications Diflucan 150 mg oral tablet 1 tablet = 150 mg, By Mouth, Every 48 hours, # 2 tablet, 0 Refills, Soft Stop, 09/04/20 16:38:00 EDT, Tablet, [facility] #[id number], Partial fill upon patient request if the prescription is fora schedule II opioid drug., 154.94, cm, 05/30/20 11... Start Date: 09/04/20 Status: Ordered Diflucan 150 mg oral tablet 1 tablet = 150 mg, By Mouth, Every 48 hours, # 2 tablet, 0 Refills, Soft Stop, 06/10/20 10:25:00 EST, Tablet, [facility] #[id number], Partial fill upon patient request if the [...] 2 Refills, Maintenance, 09/13/19 15:08:00 EDT, Tablet, [email or web address] #76228, PUT ON FILE, 154.94, cm, 06/19/19 11:29:00 [...]
--- OUTSIDE RECORDS SUMMARY | 2023-10-23 08:13 | XMS_ITS | Continuity of Care Document ---
Author Organization [facility] Address [address] [place] [address]- Care Team Providers Care Forensics Team Director Name Role Phone Lin Lloyd MD Primary Care Physician [phone] [facility]counter [facility] Date(s): 05/15/19 - 05/22/19 [facility] [address] [place] [address]- [facility] Encounter Diagnosis Abdominal pain(Discharge Diagnosis) - 05/15/19 Urinary urgency(Discharge Diagnosis) - 05/15/19 Hypertension(Discharge Diagnosis) - 05/15/19 Attending Physician: Lin Lloyd MD Allergies, Adverse [...] 1Result Comment: [facility]# [id number] PT. TOLERATED INJ. WITHOUT COMPLICATIONS....CO 2Result Comment: [03/04/2018] [facility]# [id number] 3Result Comment: [03/04/2016] pt. tolerated inj. without complications...CO 4Result Comment: [10/13/2017] [facility]# [id number] pt. tolerated inj. without complications...CO Medications Carafate 1 gm oral tablet 1 Gm, 1, tablet, By Mouth, 2 times a day, # 28 tablet, Refills 0, Tot. Refills 0, Maintenance, 05/21/19 14:35:00 EST, Route to Pharmacy Electronically, [facility] #[id number], 154.94, cm, 05/21/19 13:50:00 EST, Height, 47, [...] 05/31/19 14:35:00 EST, 05/21/19 14:35:00 EST, Tablet, [facility] #[id number], 154.94, cm, 05/21/19 13:50:00 EST, Height, 47, [...] Dates Health Status Cl inical Service Informant Hypertension Discharge Diagnosis 05/15/19 Urinary urgency Discharge Diagnosis 05/15/19 Abdominal pain Discharge Diagnosis 05/15/19 Vital Signs Most recent to oldest [Reference Range]: 1 Height 154.94 cm (05/15/19 2:55 PM) Weight 47.6 kg (05/15/19 2:55 PM) Oxygen Saturation [94-100 %] 98 % (05/15/19 2:55 PM) Pulse Rate [55-90 bpm] 56 bpm (05/15/19 2:55 PM) Body Mass Index [18.5-24.99] 19.83 (05/15/19 2:55 PM) Blood Pressure [90-138/55-84 mm Hg] 154/ 86mm Hg *H* (05/15/19 2:55 PM) Respiratory Rate [16-30 br/min] 16 br/mi n (05/15/19 2:55 PM) Temperature [96.8-100.4 DegF] 97.9 DegF (05/15/19 2:55 PM) Mode of Delivery (Oxygen) Room air (05/15/19 2:55 PM) Blood pressure sites Arm, left (05/15/19 2:55 PM) Temperature Route Oral (05/15/19 2:55 PM) Weight Obtained Via Standing scale (05/15/19 2:55 PM) Social History Social History Type Response Smoking Status Never smoker; Other: quit smoking about 35 years ago, 3 cigs/d x 3 years; entered on: 05/30/15 Sex Medical Equipment Implanted Date:12/28/18Target Site:Eye Right Description Quantity MRI Company Model CORNEA FULL THICKNESS - TSSU (K001-PK) 1 [employer] Unknow n GITA:No Information Assigning Authority: FDA
--- OUTSIDE RECORDS SUMMARY | 2023-10-23 08:13 | XMS_ITS | Continuity of Care Document ---
Author Organization [facility] Address [address] [place] [address]- Care Team Providers Care Painter Helper Spray Name Role Phone Prema SOSA, Lin Ortega Primary Care Physician [phone] Encounter [facility] Date(s): 05/13/20 - 05/20/20 [facility] [address] [place] [address]- Encounter Diagnosis Eye pain(Discharge Diagnosis) - 05/13/20 Attending Physician: Luli Bennett MD Referring Physician: Lin Lloyd MD Allergies, Adverse Reactions, Alerts Substance Reaction Severity Status chlorthalidone made BP go down Active lisinopril tinnitus Active losartan itching Active penicillins rash Active Amlodipine Besylate-Atorvastatin made BP down Active hydrochlorothiazide Hydrochlorothiazide adverse reaction Hydrochlorothiazide adverse reaction depression Active Immunizations Given and Recorded Vaccine Date Status Refusal Reason pneumococcal 13-valent vaccine 1 03/14/19 Given influenza virus vaccine, inactivated 2 03/04/18 Gi sharron influenza virus vaccine, inactivated 3 03/04/16 Gi sharron influenza virus vaccine, inactivated 03/06/13 Give n tetanus/diphtheria/pertussis, acel(Tdap) 4 10/13/17 Given pneumococcal 23-valent vaccine 05/16/12 Given 1Result Comment: [facility]# [id number] PT. TOLERATED INJ. WITHOUT COMPLICATIONS....CO 2Result Comment: [03/04/2018] [facility]# [id number] 3Result Comment: [03/04/2016] pt. tolerated inj. without complications...CO 4Result Comment: [10/13/2017] [facility]# [id number] pt. tolerated inj. without complications...CO Medications Diflucan 150 mg oral tablet 1 tablet = 150 mg, By Mouth, Once, PRN yeast infection symptoms, # 2 tablet, 0 Refills, Soft Stop, 05/01/20 15:50:00 EST, Tablet, [facility] #[id number], 154.94, cm, 06/19/19 11:29:00 EST, Height, 47, kg, 05/21/19 13:50:00 EST, Dry Weight Start Date: 05/01/20 Status: Ordered Diflucan 150 mg oral tablet 1 tablet = 150 mg, By Mouth, Once, PRN yeast infection symptoms, # 2 tablet, 0 Refills, Soft Stop, 11/21/19 13:22:00 EDT, Tablet, [facility] #[id number], 154.94, cm, 06/19/19 11:29:00 EST, Height, 47, [...] 2 Refills, Maintenance, 09/13/19 15:08:00 EDT, Tablet, [facility] #[id number], PUT ON FILE, 154.94, cm, 06/19/19 11:29:00 [...] Dates Health Status Clini jeanette Service Informant Eye pain Discharge Diagnosis 05/13/20 Vital Signs Most recent to oldest [Reference Range]: 1 Height 154.94 cm (05/13/20 10:18 AM) Weight 48.8 kg (05/13/20 10:18 AM) Oxygen Saturation [94-100 %] 100 % (05/13/20 10:18 AM) Pulse Rate [55-90 bpm] 107 bpm *H* (05/13/20 10:18 AM) Body Mass Index [18.5-24.99] 20.33 (05/13/20 10:18 AM) Blood Pressure [90-138/55-84 mm Hg] 149/ 95mm Hg *H* (05/13/20 10:18 AM) Respiratory Rate [16-30 br/min] 16 br/mi n (05/13/20 10:18 AM) Temperature [96.8-100.4 DegF] 97.5 DegF (05/13/20 10:18 AM) Mode of Delivery (Oxygen) Room air (05/13/20 10:18 AM) Blood pressure sites Arm, right (05/13/20 10:18 AM) Temperature Route Temporal (05/13/20 10:18 AM) Dry Weight 48.8 kg (05/13/20 10:18 AM) Weight Obtained Via Standing scale (05/13/20 10:18 AM) Dry Weight Obtained Via Standing scale (05/13/20 10:18 AM) Social History Social History Type Response Smoking Status Never smoker; Other: quit smoking about 35 years ago, 3 cigs/d x 3 years; entered on: 05/30/15 Sex Medical Equipment Implanted Date:12/28/18Target Site:Eye Right Description Quantity MRI Company Model CORNEA FULL THICKNESS - TSSU (K001-PK) 1 [employer] Unknow n GITA:No Information Assigning Authority: FDA
--- OUTSIDE RECORDS SUMMARY | 2023-10-23 08:13 | XMS_ITS | Continuity of Care Document ---
Author Organization [facility] Address [address] [place] [address]- Care Team Providers Care Manager Case Name Role Phone Lin Lloyd MD Primary Care Physician [facility] Date(s): 03/05/21 - 04/04/21 [facility] [address] [place] [address]- [place] Allergies, Adverse Reactions, Alerts Substance Reaction [...] 1Result Comment: [facility]# [id number] PT. TOLERATED INJ. WITHOUT COMPLICATIONS....CO 2Result Comment: [03/04/2018] [facility]# [id number] 3Result Comment: [03/04/2016] pt. tolerated inj. without complications...CO 4Result Comment: [10/13/2017] [facility]# [id number] pt. tolerated inj. without complications...CO Medications amLODIPine 5 mg oral tablet See Instructions, take 1/2 by mouth daily, # 15 tablet, Refills 5, Tot. Refills 5, Maintenance, 03/14/21 14:41:00 EDT, Instructions Replace Required Details, Route to Pharmacy Electronically, [facility] #[id number], Pt reports allergy to amlodipi... Start Date: [...] 5 Refills, Maintenance, 04/04/21 11:49:00 EDT, ECCapsule, [facility] #[id number], Partial fill upon patient request if the [...]
--- OUTSIDE RECORDS SUMMARY | 2023-10-23 08:13 | XMS_ITS | Continuity of Care Document ---
Author Organization [facility] Address [address] [place] [address]- Care Team Providers Care Sample Examiner Name Role Phone Prema SOSA, Lin Ortega Primary Care Physician [facility] Date[facility]s): 11/11/22 - 12/11/22 [facility] [address] [place], [place] [address] Allergies, Adverse Reactions, Alerts Substance [...] 23-valent vaccine 05/16/12 Given 1Result Comment: [facility] [id number] 2Result Comment: [03/04/2018] [facility]# [id number] 3Result Comment: [03/04/2016] pt. tolerated inj. without complications...CO 4Result Comment: [facility]# [id number] PT. TOLERATED INJ. WITHOUT COMPLICATIONS....CO 5Result Comment: [10/13/2017] [facility]# [id number] pt. tolerated inj. without complications...CO Medications brimonidine [...] 60 tablet, 11 Refills, Maintenance, 11/24/22 16:05:00EDT, [facility] #[id number], Partial fill upon patient request if the prescription is for a schedule II opioid drug., 48, cm, 11/24/22 13:12:00 ED... Start Date: 11/24/22 Status: Ordered ursodiol 300 mg oral capsule 300 mg, 1, capsule, By Mouth, 2 times a day, # 180 capsule, Refills 5, Tot. Refills 5, Maintenance,08/18/22 14:42:00 EDT, Route to Pharmacy Electronically, [facility] #[id number], Partial fill upon patient request if the [...] MRI Safety Implantable Status Assigning Authority Unknown [id number] RCN Unknown Unknown 01/07/19 Unknown Unknown Active Unknown Patient Care team information Care Team Personnel Name: Prema SOSA, Lin Ortega Position: [facility] Physician - Primary Care Member Role: PCP Address: Address: [address] [place] [id number] Name: Julio Sampson MD Position: [facility] Renal MD Member Role: Lifetime Consulting Physician Address: Address: [address] [place] [id number] Name: Frederick Bermudez MD Position: [facility] CYCLE TOURING GUIDE MD Member Role: Lifetime CYCLE TOURING GUIDE Physician Address: Address: [address] [place] [id number] Name: Hilda Tate RN Position: S RN Member Role: Primary Care Nurse Name: Claudia Castellon RN Position: S RN Member Role: Primary Care Nurse Name: Meghna Martinez RN Position: [facility] SN RN Member Role: Primary Care Nurse Name: Marie Gomez RN Position: [facility] Onco RN Member Role: Primary Care Nurse Care Team Related Persons Name: STACEY BANDA Address: [place] [address] Name: HARDIK SIMMS Name: TABITHA ABDULLAHI Address: home [address] [place] [id number] Name: MADYSON ABDULLAHI
--- OUTSIDE RECORDS SUMMARY | 2023-10-23 08:13 | XMS_ITS | Continuity of Care Document ---
Author Organization [facility] Address [address] [place] [address]- Care Team Providers Care Automation Engineer Name Role Phone Lin Lloyd MD Primary Care Physician [facility] Date(s): 06/24/20 - 06/24/[address] [address]- Encounter Diagnosis Abdominal pain(Final) - 06/24/20 Discharge Disposition: A-D/C Home Attending Physician: Richard Bourgeois MD Admitting Physician: Richard Bourgeois MD Referring Physician: Not on Staff, Referring [...] pneumococcal 23-valent vaccine 05/16/12 Given 1Result Comment: [facility]# [id number] PT. TOLERATED INJ. WITHOUT COMPLICATIONS....CO 2Result Comment: [03/04/2018] [facility]# [id number] 3Result Comment: [03/04/2016] pt. tolerated inj. without complications...CO 4Result Comment: [10/13/2017] [facility]# [id number] pt. tolerated inj. without complications...CO Medications Diflucan 150 mg oral tablet 1 tablet = 150 mg, By Mouth, Every 48 hours, # 2 tablet, 0 Refills, Soft Stop, 06/10/20 10:25:00 EST, Tablet, [facility] #[id number], Partial fill upon patient request if the [...] 2 Refills, Maintenance, 09/13/19 15:08:00 EDT, Tablet, [facility] #[id number], PUT ON FILE, 154.94, cm, 06/19/19 11:29:00 [...] recent to oldest [Reference Range]: 1 2 Oxygen Saturation [94-100 %] 98 % (06/24/20 5:02 PM) 99 % (06/24/20 1:39 PM) Pulse Rate [55-90 bpm] 72 bpm (06/24/20 5:02 PM) 77 bpm (06/24/20 1:39 PM) Blood Pressure [90-138/55-84 mm Hg] 133/ 89mm Hg (06/24/20 5:02 PM) 140/88mm Hg *H* (06/24/20 1:39 PM) Respiratory Rate [16-30 br/min] 16 br/mi n (06/24/20 5:02 PM) 14 br/min *L* (06/24/20 1:39 PM) Temperature [96.8-100.4 DegF] 98 DegF (06/24/20 5:02 PM) 98.3 DegF (06/24/20 1:39 PM) Mode of Delivery (Oxygen) Room air (06/24/20 5:02 PM) Room air (06/24/20 1:39 PM) Blood pressure sites Arm, right (06/24/20 1:39 PM) Temperature Route Oral (06/24/20 5:02 PM) Oral (06/24/20 1:39 PM) Social History Social History Type Response Smoking Status Never smoker; Other: quit smoking about 35 years ago, 3 cigs/d x 3 years; entered on: 05/30/15 Sex Medical Equipment Implanted Date:12/28/18Target Site:Eye Right Description Quantity MRI Company Model CORNEA FULL THICKNESS - TSSU (K001-PK) 1 [employer] Unknow n GITA:No Information Assigning Authority: FDA
--- OUTSIDE RECORDS SUMMARY | 2023-10-23 08:13 | XMS_ITS | Continuity of Care Document ---
Author Organization [facility] Address [address] [place] [address]- Care Team Providers Care Reservations Agent Name Role Phone Prema SOSA, Lin Ortega Primary Care Physician [phone] [facility]counter [facility] Date(s): 12/04/21 - 01/03/22 [facility] [address] [place], [place] [address] Allergies, Adverse Reactions, Alerts [...] pneumococcal 23-valent vaccine 05/16/12 Given 1Result Comment: [facility]# [id number] PT. TOLERATED INJ. WITHOUT COMPLICATIONS....CO 2Result Comment: [03/04/2018] [facility]# [id number] 3Result Comment: [03/04/2016] pt. tolerated inj. without complications...CO 4Result Comment: [10/13/2017] [facility]# [id number] pt. tolerated inj. without complications...CO Medications bisoprolol [...]
--- OUTSIDE RECORDS SUMMARY | 2023-10-23 08:13 | XMS_ITS | Continuity of Care Document ---
Author Organization [facility] Address [address] [place] [address] soniya, [address] [place] [address]- Care Team Providers Care Game Protector Name Role Phone Prema SOSA, Lin Ortega Primary Care Physician [facility] Date(s): 01/16/21 - 02/15/21 [facility] [address] [place] [address] Drive, [address] [place], [place] [address] Allergies, Adverse Reactions, Alerts [...] Given 1Result Comment: [facility]# [id number] PT. TOLERATED INJ. WITHOUT COMPLICATIONS....CO 2Result Comment: [03/04/2018] [facility]# [id number] 3Result Comment: [03/04/2016] pt. tolerated inj. without complications...CO 4Result Comment: [10/13/2017] [facility]# [id number] pt. tolerated inj. without complications...CO Medications brimonidine [...] 01/16/21 11:45:00 EDT, Route to Pharmacy Electronically, [facility] #[id number], new dosage, cancel out prescriptin for 120mg [...] Refills, Maintenance, 11/12/20 10:23:00 EDT, Chew Tablet, [facility] #[id number], Partial fill upon patient request if the [...] 5 Refills, Maintenance, 01/16/21 11:51:00 EDT, Patch, [facility] #[id number], Partial fill upon patient r... Start Date: 01/16/21 Status: Ordered Misc Rx Refills 0, Maintenance, Durezol drops, 05/15/19 15:41:08 EST, Compound Start Date: 05/15/19 Status: Ordered ocular lubricant - solution See Instructions, PRN for dry eyes, 2 drops left eye 4 times a day as needed for pain/ dry eyes., #15 mL, 2 Refills, Maintenance, 01/07/21 14:31:00 EDT, Solution, [facility] #[id number], Partial fill upon patient request if the prescription is... Start Date: 01/07/21 Status: Ordered omeprazole 20 mg oral enteric coated capsule 1 capsule = 20 mg, By Mouth, Daily, # 30 capsule, 3 Refills, Maintenance, 01/17/21 12:14:00 EDT, ECCapsule, [facility] #[id number], Partial fill upon patient request if the [...] 0 Refills, Maintenance, 01/07/21 14:05:00 EDT, Tablet, [facility] #[id number], Partial fill upon patient request if the [...]
--- OUTSIDE RECORDS SUMMARY | 2023-10-23 08:13 | XMS_ITS | Continuity of Care Document ---
Author Organization [facility] Address [address] [place] [address]- Care Team Providers Care Rounding Machine Tender Name Role Phone Lin Lloyd MD Primary Care Physician [facility]counter [facility] Date(s): 09/28/21 - 09/28/[address] [address]- Encounter Diagnosis Asymptomatic hypertension(Final) - 09/28/21 Discharge Disposition: A-D/C Home Attending Physician: Austin Cardozo MD Admitting Physician: Austin Cardozo MD Referring Physician: Not on Staff, Referring MD Allergies, Adverse Reactions, Alerts Substance Reaction Severity Status chlorthalidone made BP go down Active hydrochlorothiazide Hydrochlorothiazide adverse reaction Hydrochlorothiazide adverse reaction depression Active Amlodipine Besylate-Atorvastatin made BP down Active penicillins rash Active lisinopril tinnitus Active losartan itching Active [...] Comment: [facility]# [id number] PT. TOLERATED INJ. WITHOUT COMPLICATIONS....CO 2Result Comment: [03/04/2018] [facility]# [id number] 3Result Comment: [03/04/2016] pt. tolerated inj. without complications...CO 4Result Comment: [10/13/2017] [facility]# [id number] pt. tolerated inj. without complications...CO Medications brimonidine [...] Replace Required Details, Route to Pharmacy Electronically, [facility] #[id number],... Start Date: 08/26/21 Status: Ordered Home Blood [...] 07/29/21 16:47:00 EST, Route to Pharmacy Electronically, [facility] #[id number], Partial fill upon patient request if the prescription is for a schedule I... Start Date: 07/29/21 Stop Date: 11/26/21 Status: [facility]dered [facility] Refills 0, Maintenance, Durezol drops, 05/15/19 15:41:08 EST, Compound Start Date: 05/15/19 Status: Ordered ofloxacin 0.3% ophthalmic solution INSTILL 1 DROP INTO LEFT EYE FOUR TIMES DAILY FOR 1 WEEK Start Date: 04/04/21 Status: Ordered omeprazole 20 mg oral enteric coated capsule 1 capsule = 20 mg, By Mouth, Daily, # 30 capsule, 5 Refills, Maintenance, 04/04/21 11:49:00 [facility] #[id number], Partial fill upon patient request if the [...] to oldest [Reference Range]: 1 2 Height 155 cm (09/28/21 2:57 PM) 155 cm (09/28/21 9:38 AM) Weight 48 kg (09/28/21 2:57 PM) 48 kg (09/28/21 9:38 AM) Oxygen Saturation [94-100 %] 100 % (09/28/21 2:57 PM) 100 % (09/28/21 9:38 AM) Pulse Rate [55-90 bpm] 70 bpm (09/28/21 2:57 PM) 80 bpm (09/28/21 9:38 AM) Blood Pressure [90-138/55-84 mm Hg] 170/ 80mm Hg *H* (09/28/21 2:57 PM) 155/84mm Hg *H* (09/28/21 9:38 AM) Respiratory Rate [16-30 br/min] 16 br/mi n (09/28/21 2:57 PM) 18 br/min (09/28/21 9:38 AM) Temperature [96.8-100.4 DegF] 98.0 DegF (09/28/21 2:57 PM) 98.8 DegF (09/28/21 9:38 AM) Mode of Delivery (Oxygen) Room air (09/28/21 2:57 PM) Room air (09/28/21 9:38 AM) Blood pressure sites Arm, left (09/28/21 2:57 PM) Arm, right (09/28/21 9:38 AM) Temperature Route Oral (09/28/21 2:57 PM) Oral (09/28/21 9:38 AM) Dry Weight 48 kg (09/28/21 2:57 PM) 48 kg (09/28/21 9:38 AM) Social History Social History Type Response Smoking Status Never smoker; Other: quit smoking about 35 years ago, 3 cigs/d x 3 years; entered on: 05/30/15 Sex Medical Equipment Implanted Date:12/28/18Target Site:Eye Right Description Quantity MRI Company Model CORNEA FULL THICKNESS - TSSU (K001-PK) 1 [employer] Unknow n GITA:No Information Assigning Authority: FDA
--- OUTSIDE RECORDS SUMMARY | 2023-10-23 08:13 | XMS_ITS | Continuity of Care Document ---
Author Organization [facility] Address [address] [place] [address]- Care Team Providers Care Size Roller Operator Name Role Phone Prema SOSA, Lin Ortega Primary Care Physician [facility] Date(s): 04/30/23 - 05/30/23 [facility] [address] [place], [place] [address] Allergies, Adverse Reactions, Alerts Substance Reaction [...] 05/16/12 Given 1Result Comment: [facility] [id number] 2Result Comment: [03/04/2018] [facility]# [id number] 3Result Comment: [03/04/2016] pt. tolerated inj. without complications...CO 4Result Comment: [facility]# [id number] PT. TOLERATED INJ. WITHOUT COMPLICATIONS....CO 5Result Comment: [10/13/2017] [facility]# [id number] pt. tolerated inj. without complications...CO Medications brimonidine [...] MRI Safety Implantable Status Assigning Authority Unknown [id number] RCN Unknown Unknown 01/07/19 Unknown Unknown Active Unknown Patient Care team information Care Team Personnel Name: Lin Lloyd MD Position: [facility] Physician - Primary Care Member Role: PCP Address: Address: [address] [place] [address]- Name: Julio Sampson MD Position: [facility] Renal MD Member Role: Lifetime Consulting Physician Address: Address: [address] [place] [address], [address] [address] Name: Frederick Bermudez MD Position: [facility] PLASMA TABLE OPERATOR MD Member Role: [employer]etime PLASMA TABLE OPERATOR Physician Address: Address: [address] [place] [address]- Name: Jarvis VASQUEZ, Marie White Position: [facility] Onco RN Member Role: Primary Care Nurse Name: Hilda Tate RN Position: S RN Member Role: Primary Care Nurse Name: Claudia Castellon RN Position: S RN Member Role: Primary Care Nurse Name: Meghna Martinez RN Position: [facility] SN RN Member Role: Primary Care Nurse Care Team Related Persons Name: STACEY BANDA Address: [place] [address] Name: HARDIK SIMMS Name: TABITHA ABDULLAHI Address: home [address] [place] [address] Name: MADYSON ABDULLAHI
--- OUTSIDE RECORDS SUMMARY | 2023-10-23 08:13 | XMS_ITS | Continuity of Care Document ---
Author Organization [facility] Address [address] [place] [address]- Care Team Providers Care Shift Supervisor Rn Name Role Phone Lin Lloyd MD Primary Care Physician [place] [facility] [place](s): 10/30/21 - 01/21/22 [facility] [address] [place] [address]- Attending Physician: Ángel Mireles Admitting Physician: Ángel Mireles Referring Physician: Lin Lloyd MD Allergies, Adverse [...] 1Result Comment: [facility]# [id number] PT. TOLERATED INJ. WITHOUT COMPLICATIONS....CO 2Result Comment: [03/04/2018] [facility]# [id number] 3Result Comment: [03/04/2016] pt. tolerated inj. without complications...CO 4Result Comment: [10/13/2017] [facility]# [id number] pt. tolerated inj. without complications...CO Medications bisoprolol [...] Type Site Corneal Transplant Ramona SOSA, Mando Davsi 12/28/18 Unk nown Eye Right Device Identifier Serial Number Lot or Batch Number Manufacturing Date Expiration Date Distinct Identification Code MRI Safety Implantable Status Assigning Authority Unknown [id number] RCN Unknown Unknown 01/07/19 Unknown Unknown Active Unknown
--- OUTSIDE RECORDS SUMMARY | 2023-10-23 08:13 | XMS_ITS | Continuity of Care Document ---
Author Organization [facility] Address [address] [place] [address]- Care Team Providers Care Certified Surgical Tech/First Assistant Name Role Phone Prema SOSA, Lin Ortega Primary Care Physician [phone] [facility] Date[facility]s): 12/02/21 - 01/01/22 [facility] [address] [place], [place] [address] Allergies, Adverse [...] 05/16/12 Given 1Result Comment: [facility]# [id number] PT. TOLERATED INJ. WITHOUT COMPLICATIONS....CO 2Result Comment: [03/04/2018] [facility]# [id number] 3Result Comment: [03/04/2016] pt. tolerated inj. without complications...CO 4Result Comment: [10/13/2017] [facility]# [id number] pt. tolerated inj. without complications...CO Medications bisoprolol [...]
--- OUTSIDE RECORDS SUMMARY | 2023-10-23 08:13 | XMS_ITS | Continuity of Care Document ---
Author Organization [facility] Address [address] [place] [address]- Care Team Providers Care Component Design Engineer Name Role Phone Lin Lloyd MD Primary Care Physician Encounter [facility] Date(s): 05/12/21 - 06/11/21 [facility] [address] [place] [address]- Attending Physician: Olinda Currie Admitting Physician: AdmtrOlinda Referring Physician: Admtr Ar8 Allergies, Adverse Reactions, Alerts Substance Reaction [...] 05/16/12 Given 1Result Comment: [facility]# [id number] PT. TOLERATED INJ. WITHOUT COMPLICATIONS....CO 2Result Comment: [03/04/2018] [facility]# [id number] 3Result Comment: [03/04/2016] pt. tolerated inj. without complications...CO 4Result Comment: [10/13/2017] [facility]# [id number] pt. tolerated inj. without complications...CO Medications amLODIPine 2.5 mg oral tablet 2.5 mg, 1, tablet, By Mouth, Daily, # 90 tablet, Refills 2, Tot. Refills 2, Maintenance, 06/11/21 9:10:00 EST, Route to Pharmacy Electronically, [facility] #[id number], Partial fill upon patientrequest if the prescription is for a schedule II op... Start Date: 06/11/21 Status: Ordered brimonidine 0.2% ophthalmic solution See [...] 1 tablet = 500 mg, By Mouth, 2 times a day, for 7 days, # 14 tablet, 0 Refills, Acute 06/18/21 8:48:00 EST, 06/11/21 8:48:00 EST, Tablet, [facility] #[id number], Partial fill upon patient request if the prescription is for a schedule II opioid dr... Start Date: 06/11/21 Stop Date: 06/18/21 Status: Ordered Misc Rx Refills 0, Maintenance, [...] 5 Refills, Maintenance, 04/04/21 11:49:00 EDT, ECCapsule, [facility] #[id number], Partial fill upon patient request if the [...]
--- OUTSIDE RECORDS SUMMARY | 2023-10-23 08:13 | XMS_ITS | Continuity of Care Document ---
Author Organization [facility] Address [address] [place] [address]- Care Team Providers Care Script Girl Name Role Phone Lin Lloyd MD Primary Care Physician [facility] Date(s): 08/14/21 - 09/13/21 [facility] [address] [place] [address]- [place] Allergies, Adverse Reactions, Alerts Substance Reaction [...] pneumococcal 23-valent vaccine 05/16/12 Given 1Result Comment: [facility]# [id number] PT. TOLERATED INJ. WITHOUT COMPLICATIONS....CO 2Result Comment: [03/04/2018] [facility]# [id number] 3Result Comment: [03/04/2016] pt. tolerated inj. without complications...CO 4Result Comment: [10/13/2017] [facility]# [id number] pt. tolerated inj. without complications...CO Medications brimonidine [...] Replace Required Details, Route to Pharmacy Electronically, [facility] #[id number],... Start Date: 08/26/21 Status: Ordered Home Blood [...] 07/29/21 16:47:00 EST, Route to Pharmacy Electronically, [facility] #[id number], Partial fill upon patient request if the prescription is for a schedule I... Start Date: 07/29/21 Stop Date: 11/26/21 Status: Ordered [facility] [place] Refills 0, Maintenance, Durezol drops, 05/15/19 15:41:08 EST, Compound Start Date: 05/15/19 Status: Ordered ofloxacin 0.3% ophthalmic solution INSTILL 1 DROP INTO LEFT EYE FOUR TIMES DAILY FOR 1 WEEK Start Date: 04/04/21 Status: Ordered omeprazole 20 mg oral enteric coated capsule 1 capsule = 20 mg, By Mouth, Daily, # 30 capsule, 5 Refills, Maintenance, 04/04/21 11:49:00 EDT, ECCapsule, [facility] #[id number], Partial fill upon patient request if the [...]
--- OUTSIDE RECORDS SUMMARY | 2023-10-23 08:13 | XMS_ITS | Continuity of Care Document ---
Author Organization [facility] Address [address] [place] [address]- Care Team Providers Care Lead Caster Name Role Phone Lin Lloyd MD Primary Care Physician [facility] Date(s): 11/07/20 - 11/08/[address] [address]- Discharge Disposition: A-D/C Walkout Attending Physician: Not on Staff, Attending MD [...] pneumococcal 23-valent vaccine 05/16/12 Given 1Result Comment: [facility]# [id number] PT. TOLERATED INJ. WITHOUT COMPLICATIONS....CO 2Result Comment: [03/04/2018] [facility]# [id number] 3Result Comment: [03/04/2016] pt. tolerated inj. without complications...CO 4Result Comment: [10/13/2017] [facility]# [id number] pt. tolerated inj. without complications...CO Medications Diflucan 150 mg oral tablet 1 tablet = 150 mg, By Mouth, Every 48 hours, # 2 tablet, 0 Refills, Soft Stop, 09/04/20 16:38:00 EDT, Tablet, [email or web address] #[id number], Partial fill upon patient request if the prescription is fora schedule II opioid drug., 154.94, cm, 05/30/20 11... Start Date: 09/04/20 Status: Ordered Diflucan 150 mg oral tablet 1 tablet = 150 mg, By Mouth, Every 48 hours, # 2 tablet, 0 Refills, Soft Stop, 06/10/20 10:25:00 EST, Tablet, [email or web address] #[id number], Partial fill upon patient request if the [...] 11/11/20 14:20:00 EDT, 11/04/20 14:20:00 EDT, Capsule, [facility] #[id number], Partial fill upon patient request if the prescription is for a schedule II opio... Start Date: 11/04/20 Stop Date: 11/11/20 Status: Ordered Metoprolol Tartrate 25 mg oral tablet 0.5 tablet, By Mouth, 2 times a day, # 90 tablet, 2 Refills, Maintenance, 10/22/20 18:29:00 EDT, [email or web address] #[id number], 154.94, cm, 10/22/20 13:42:00 EDT, Height, 46.5, kg, 05/30/20 11:54:00 EST, Dry Weight Start Date: 10/22/20 Status: Ordered Misc Rx Refills 0, Maintenance, Durezol drops, 05/15/19 15:41:08 EST, Compound Start Date: 12/16/19 Status: Ordered timolol maleate 0.5% ophthalmic gel [...] Range]: 1 2 Oxygen Saturation [94-100 %] 100 % (11/08/20 3:11 AM) 100 % (11/07/20 10:47 PM) Pulse Rate [55-90 bpm] 86 bpm (11/08/20 3:11 AM) 73 bpm (11/07/20 10:47 PM) Blood Pressure [90-138/55-84 mm Hg] 153/ 78mm Hg *H* (11/08/20 3:11 AM) 174/84mm Hg *H* (11/07/20 10:47 PM) Respiratory Rate [16-30 br/min] 16 br/mi n (11/08/20 3:11 AM) 18 br/min (11/07/20 10:47 PM) Temperature [96.8-100.4 DegF] 98.3 DegF (11/08/20 3:11 AM) 98.0 DegF (11/07/20 10:47 PM) Mode of Delivery (Oxygen) Room air (11/08/20 3:11 AM) Room air (11/07/20 10:47 PM) Blood pressure sites Arm, left (11/07/20 10:47 PM) Temperature Route Oral (11/08/20 3:11 AM) Oral (11/07/20 10:47 PM) Weight Obtained Via UTO (11/07/20 10:47 PM) Dry Weight Obtained Via UTO (11/07/20 10:47 PM) Social History Social History Type Response Smoking Status Never smoker; Other: quit smoking about 35 years ago, 3 cigs/d x 3 years; entered on: 05/30/15 Sex Medical Equipment Implanted Date:12/28/18Target Site:Eye Right Description Quantity MRI Company Model CORNEA FULL THICKNESS - TSSU (K001-PK) 1 [employer] Unknow n GITA:No Information Assigning Authority: FDA
--- OUTSIDE RECORDS SUMMARY | 2023-10-23 08:13 | XMS_ITS | Continuity of Care Document ---
Author Organization [facility] Address [address] [place] [address]- Care Team Providers Care Oil Burner Repairer Name Role Phone Prema SOSA, Lin Ortega Primary Care Physician [facility] Date(s): 12/18/19 - 01/17/20 [facility] [address] [place] [address]- [facility] Allergies, Adverse Reactions, Alerts Substance Reaction Severity [...] 23-valent vaccine 05/16/12 Given 1Result Comment: [facility]# [id number] PT. TOLERATED INJ. WITHOUT COMPLICATIONS....CO 2Result Comment: [03/04/2018] [facility]# [id number] 3Result Comment: [03/04/2016] pt. tolerated inj. without complications...CO 4Result Comment: [10/13/2017] [facility]# [id number] pt. tolerated inj. without complications...CO Medications Diflucan 150 mg oral tablet 1 tablet = 150 mg, By Mouth, Once, PRN yeast infection symptoms, # 2 tablet, 0 Refills, Soft Stop, 11/21/19 13:22:00 EDT, Tablet, [facility] #[id number], 154.94, cm, 06/19/19 11:29:00 EST, Height, 47, [...] 2 Refills, Maintenance, 09/13/19 15:08:00 EDT, Tablet, [facility] #[id number], PUT ON FILE, 154.94, cm, 06/19/19 11:29:00 [...]
--- OUTSIDE RECORDS SUMMARY | 2023-10-23 08:13 | XMS_ITS | Continuity of Care Document ---
Author Organization [facility] Address [address] [place] [address]- Care Team Providers Care Theatrical Performer Name Role Phone Lin Lloyd MD Primary Care Physician [phone] Encounter [facility] Date(s): 09/11/21 - 09/18/21 [facility] [address] [place] [address]- Attending Physician: Joseph Mendoza DO Referring Physician: Lin Lloyd MD Allergies, Adverse [...] [facility]# [id number] PT. TOLERATED INJ. WITHOUT COMPLICATIONS....CO 2Result Comment: [03/04/2018] [facility]# [id number] 3Result Comment: [03/04/2016] pt. tolerated inj. without complications...CO 4Result Comment: [10/13/2017] [facility]# [id number] pt. tolerated inj. without complications...CO Medications brimonidine [...] Replace Required Details, Route to Pharmacy Electronically, [facility] #[id number],... Start Date: 08/26/21 Status: Ordered Home Blood [...] 07/29/21 16:47:00 EST, Route to Pharmacy Electronically, [facility] #[id number], Partial fill upon patient request if the prescription is for a schedule I... Start Date: 07/29/21 Stop Date: 11/26/21 Status: Ordered metroNIDAZOLE 500 mg oral tablet 1 tablet = 500 mg, By Mouth, Every 8 hours, for 7 days, # 21 tablet, 0 Refills, Acute 09/21/21 8:06:00 EDT, 09/14/21 8:06:00 EDT, Tablet, [facility] #[id number], Partial fill upon patient request if the prescription is for a schedule II opioid drYesica. Start Date: 09/14/21 Stop Date: 09/21/21 Status: Ordered Misc Rx Refills 0, Maintenance, Durezol drops, 12/16/19 15:41:08 EST, Compound Start Date: 05/15/19 Status: Ordered ofloxacin 0.3% ophthalmic solution INSTILL 1 DROP INTO LEFT EYE FOUR TIMES DAILY FOR 1 WEEK Start Date: 04/04/21 Status: Ordered omeprazole 20 mg oral enteric coated capsule 1 capsule = 20 mg, By Mouth, Daily, # 30 capsule, 5 Refills, Maintenance, 04/04/21 11:49:00 EDT, [facility] #[id number], Partial fill upon patient request if the [...] oldest [Reference Range]: 1 Height 158 cm (09/11/21 12:31 PM) Oxygen Saturation [94-100 %] 100 % (09/11/21 12:31 PM) Pulse Rate [55-90 bpm] 73 bpm (09/11/21 12:31 PM) Blood Pressure [90-138/55-84 mm Hg] 169/ 96mm Hg *H* (09/11/21 12:31 PM) Temperature [96.8-100.4 DegF] 98.3 DegF (09/11/21 12:31 PM) Mode of Delivery (Oxygen) Room air (09/11/21 12:31 PM) Blood pressure sites Arm, right (09/11/21 12:31 PM) Temperature Route Temporal (09/11/21 12:31 PM) Social History Social History Type Response Smoking Status Never smoker; Other: quit smoking about 35 years ago, 3 cigs/d x 3 years; entered on: 05/30/15 Sex Medical Equipment Implanted Date:12/28/18Target Site:Eye Right Description Quantity MRI Company Model CORNEA FULL THICKNESS - TSSU (K001-PK) 1 [employer] Unknow n GITA:No Information Assigning Authority: FDA
--- OUTSIDE RECORDS SUMMARY | 2023-10-23 08:13 | XMS_ITS | Continuity of Care Document ---
Author Organization [facility] Address [address] [place] [address]- Care Team Providers Care Zinc Miner Blasting Name Role Phone Prema SOSA, Lin Ortega Primary Care Physician [phone] Encounter [facility] Date(s): 09/09/20 - 10/09/20 [facility] [address] [place], [place] [address] Allergies, Adverse Reactions, Alerts Substance Reaction [...] vaccine 05/16/12 Given 1Result Comment: [facility]# [id number] PT. TOLERATED INJ. WITHOUT COMPLICATIONS....CO 2Result Comment: [03/04/2018] [facility]# [id number] 3Result Comment: [03/04/2016] pt. tolerated inj. without complications...CO 4Result Comment: [10/13/2017] [facility]# [id number] pt. tolerated inj. without complications...CO Medications Diflucan 150 mg oral tablet 1 tablet = 150 mg, By Mouth, Every 48 hours, # 2 tablet, 0 Refills, Soft Stop, 09/04/20 16:38:00 EDT, Tablet, [facility] #[id number], Partial fill upon patient request if the prescription is fora schedule II opioid drug., 154.94, cm, 05/30/20 11... Start Date: 09/04/20 Status: Ordered Diflucan 150 mg oral tablet 1 tablet = 150 mg, By Mouth, Every 48 hours, # 2 tablet, 0 Refills, Soft Stop, 06/10/20 10:25:00 EST, Tablet, [facility] #[id number], Partial fill upon patient request if the [...] 2 Refills, Maintenance, 09/13/19 15:08:00 EDT, Tablet, [facility] #[id number], PUT ON FILE, 154.94, cm, 06/19/19 11:29:00 [...]
--- OUTSIDE RECORDS SUMMARY | 2023-10-23 08:13 | XMS_ITS | Continuity of Care Document ---
Author Organization [facility] Address [address] [place] [address]- Care Team Providers Care Customer Account Specialist Name Role Phone Lin Lloyd MD Primary Care Physician [phone] Encounter [facility] Date(s): 07/30/21 - 08/06/21 [facility] [address] [place] [address]- Attending Physician: Leda Wadsworth MD Referring Physician: Lin Lloyd MD Allergies, [...] 05/16/12 Given 1Result Comment: [facility]# [id number] PT. TOLERATED INJ. WITHOUT COMPLICATIONS....CO 2Result Comment: [03/04/2018] [facility]# [id number] 3Result Comment: [03/04/2016] pt. tolerated inj. without complications...CO 4Result Comment: [10/13/2017] [facility]# [id number] pt. tolerated inj. without complications...CO Medications brimonidine [...] 07/29/21 16:47:00 EST, Route to Pharmacy Electronically, [facility] #[id number], Partial fill upon patient request if the [...] 5 Refills, Maintenance, 04/04/21 11:49:00 EDT, ECCapsule, [facility] #[id number], Partial fill upon patient request if the [...] oldest [Reference Range]: 1 Height 158 cm (07/30/21 3:03 PM) Oxygen Saturation [94-100 %] 99 % (07/30/21 3:03 PM) Pulse Rate [55-90 bpm] 76 bpm (07/30/21 3:03 PM) Blood Pressure [90-138/55-84 mm Hg] 165/ 89mm Hg *H* (07/30/21 3:03 PM) Temperature [96.8-100.4 DegF] 97.2 DegF (07/30/21 3:03 PM) Mode of Delivery (Oxygen) Room air (07/30/21 3:03 PM) Blood pressure sites Arm, left (07/30/21 3:03 PM) Temperature Route Temporal (07/30/21 3:03 PM) Social History Social History Type Response Smoking Status Never smoker; Other: quit smoking about 35 years ago, 3 cigs/d x 3 years; entered on: 05/30/15 Sex Medical Equipment Implanted Date:12/28/18Target Site:Eye Right Description Quantity MRI Company Model CORNEA FULL THICKNESS - TSSU (K001-PK) 1 [employer] Unknow n GITA:No Information Assigning Authority: FDA
--- OUTSIDE RECORDS SUMMARY | 2023-10-23 08:13 | XMS_ITS | Continuity of Care Document ---
Author Organization [facility] Address [address] [place] [id number]- Care Team Providers Care Presser And Sh[employer]s Name Role Phone Lin Lloyd MD Primary Care Physician [phone] Encounter [facility] Date(s): 01/05/23 - 01/05/[address] [address]- Encounter Diagnosis Cholelithiases(Final) - 01/05/23 Discharge Disposition: A-D/C Home Attending Physician: Kris Kitchen MD Admitting Physician: Kris Kitchen MD Referring Physician: Not on Staff, Referring [...] 23-valent vaccine 05/16/12 Given 1Result Comment: [facility] [id number] 2Result Comment: [03/04/2018] [facility]# [id number] 3Result Comment: [03/04/2016] pt. tolerated inj. without complications...CO 4Result Comment: [facility]# [id number] PT. TOLERATED INJ. WITHOUT COMPLICATIONS....CO 5Result Comment: [10/13/2017] [facility]# [id number] pt. tolerated inj. without complications...CO Medications brimonidine [...] Reports Name Date Urine Culture (URINE CULTURE) 01/05/23 Microbiology Reports TEST:Urine Culture STATUS:Unauthenticated BODY SITE: SOURCE:URINE COLLECTED DATE/TIME:01/05/23 1:35 PM Urine Culture SPECIMEN DESCRIPTION : URINE SPECIAL REQUESTS : NONE Reflexed from [id number] REPORT STATUS : PRELIMINARY REPORT Radiology Reports * Exam Date Time Procedure Performing Provider Status 01/05/23 4:09 PM US RUQ Cary Irizarry; Auth (Ve rified) Notes: (US RUQ) Reason For Exam: Abdominal Pain;Other: RESULT: US RUQ US RUQ INDICATION: Abdominal pain, concern for cholecystitis. COMPARISON: None. FINDINGS: Liver: Coarse hepatic echotexture. No suspicious lesion. Smooth hepatic contour. Main portal vein patent with normal hepatopetal direction of flow. Gallbladder: Mobile stone within the gallbladder. No pericholecystic fluid, wall thickening, or other evidence of obstruction. Biliary Tree: No intrahepatic or extrahepatic bile duct dilation is identified. Common duct measures: 0.4 cm. Pancreas: No abnormality in the visualized portions of the pancreas. Right kidney: 8.7 cm in length. Normal parenchymal echotexture and thickness. No hydronephrosis, stone or mass. IMPRESSION: Cholelithiasis with no evidence of acute cholecystitis. Coarse hepatic echotexture which may represent underlying hepatocellular disease. I have personally reviewed the images and I agree with this report. WSN: [id number] Ordering Physician: Robert León Dictated By: Miguelangel Bautista MD Dictated Date/Time: 01/05/23 4:30 pm Reviewed By: Vipul Redding MD Signed By: Vipul Redding MD Signed Date/Time: 01/05/23 4:35 pm Transcribed By: CHARBEL Transcribed Date/Time: 01/05/23 4:21 pm * Exam Date Time Procedure Performing Provider Status 01/05/23 3:[address] Abdomen and Pelvis W/O Contrast Evelyne Mcghee; Auth (Verified) Notes: (CT Abdomen and Pelvis W/O Contrast) Reason For Exam: Flank pain, kidney stone suspected;Other: RESULT: CT Abdomen and Pelvis W/O Contrast CT Abdomen and Pelvis W/O Contrast Hx of Present Illness: Right sided flank pain getting worse for the last two weeks- reports urinaryfrequency and pain like something is pushing down on her bladder. No fevers- some nausea, no n d. Legally blind.; Reason: Other:; Flank pain, kidney stone suspected; Clinical Question(s): Calculus; Left Side flank; Order Comment: TECHNIQUE: Spiral CT through the abdomen and pelvis without IV contrast formatted in 3 planes. Thisstudy was performed without oral contrast. Weight- based protocol using automatic tube modulation was used to optimize exposure parameters. CTDIvol Body: 3.60 mGy, DLP Body: 150 mGy*cm. COMPARISON: 04/11/2022 FINDINGS: Accountant Tax View Findings, Lines and Tubes: None. Visualized Chest: Bibasilar atelectasis. 3 mm pulmonary nodule within the right lower lobe. No pleural effusion. The heart is normal in size. No pericardial effusion. Small hiatal hernia. Diaphragm: Normal. Liver: Normal. Gallbladder: Normal. Within the gallbladder. Bile ducts: No biliary ductal dilation. Spleen: Normal. Pancreas: Normal. Adrenal glands: Normal. Kidneys and ureters: No hydronephrosis, stones, or noncontrast evidence of suspicious masses. Bladder: Normal. Reproductive organs: 5.9 x 3.5 x 3.5 cm right dermoid. Stomach, small bowel, and large bowel: A few scattered diverticula within the descending, sigmoid colon. Appendix: Normal. Peritoneum and retroperitoneum: No ascites or pneumoperitoneum. No omental or mesenteric lesions. Lymph nodes: No enlarged lymph nodes. Blood vessels: Normal. No aneurysm. Abdominal and pelvic wall: Unremarkable. Bones: No acute abnormality. IMPRESSION: No evidence of nephrolithiasis or obstructive uropathy. Cholelithiasis. Right ovarian dermoid. 3 mm right lower lobe pulmonary nodule. WSN: [id number] Ordering Physician: Robert León Dictated By: Donell Solano MD Dictated Date/Time: 01/05/23 4:13 pm Reviewed By: Donell Solano MD Signed By: Donell Solano MD Signed Date/Time: 01/05/23 4:13 pm Transcribed By: CHARBEL Transcribed Date/Time: 01/05/23 3:57 pm Vital Signs Most recent to oldest [Reference Range]: 1 2 3 Height 155 cm (01/05/23 11:13 PM) 155 cm (01/05/23 9:43 PM) 155 cm (01/05/23:07 PM) Weight 51 kg (01/05/23 11:13 PM) 51 kg (01/05/23 9:43 PM) 51 kg (01/05/23:07 PM) Oxygen Saturation [94-100 %] 99 % (01/05/23 11:13 PM) 100 % (01/05/23 9:43 PM) 100 % (01/05/23:07 PM) Pulse Rate [55-90 bpm] 78 bpm (01/05/23 11:13 PM) 76 bpm (01/05/23 9:43 PM) 77 bpm (01/05/23:07 PM) Body Mass Index [18.5-24.99 kg/m2] 21.23 kg/m2 (01/05/23 11:13 PM) 21.23 kg/m2 (01/05/23 9:43 PM) 21.23 kg/m2 (01/05/23 9:07 PM) Blood Pressure [90-138/55-84 mm Hg] 131/82mm Hg (01/05/23 11:13 PM) 182/107mm Hg *H* (01/05/23 9:43 PM) 200/108mm Hg *H* (01/05/23 9:07 PM) Respiratory Rate [16-30 br/min] 15 br/min *L* (01/05/23 11:13 PM) 18 br/min (01/05/23 9:43 PM) 18 br/min (01/05/23 9:07 PM) Temperature [96.8-100.4 DegF] 98.1 DegF (01/05/23 11:13 PM) 98.1 DegF (01/05/23 9:43 PM) 98.1 DegF (01/05/23 1:17 PM) Mode of Delivery (Oxygen) Room air (01/05/23 11:13 PM) Room air (01/05/23 9:43 PM) Room air (01/05/23 9:07 PM) Blood pressure sites Arm, left (01/05/23 11:13 PM) Arm, left (01/05/23 9:43 PM) Arm, right (01/05/23 5:17 PM) Temperature Route Oral (01/05/23 11:13 PM) Oral (01/05/23 9:43 PM) Oral (01/05/23 1:17 PM) Dry Weight 51 kg (01/05/23 11:13 PM) 51 kg (01/05/23 9:43 PM) 51 kg (01/05/23 9:07 PM) Social History Social History Type Response [...] MRI Safety Implantable Status Assigning Authority Unknown [id number] RCN Unknown Unknown 01/07/19 Unknown Unknown Active Unknown EKG study * Event Display: ECG 12-Lead Authored Date: Please click on pdf link to open report * Event Display: ECG 12-Lead Authored Date: Ventricular Rate: 73 BPM Atrial Rate: 73 BPM P-R Interval: 160 ms QRS Duration: 78 ms Q-T Interval: 380 ms QTC Calculation(Bazett): 418 ms P Hammond: 53 degrees R Hammond: -37 degrees T Hammond: 88 degrees Sinus rhythm with Premature atrial complexes Possible Left atrial enlargement Left axis deviation Minimal voltage criteria for LVH, may be normal variant ( Reed product ) T wave abnormality, consider lateral ischemia Abnormal ECG When compared with ECG of 04-JAN-2023 15:24, Premature atrial complexes are now Present Confirmed by SURY RO MD ([id number]) on 01/05/2023 3:32:50 PM Davidson: SURY RO MD Consult note * Evette Ocampo MD: VERIFY, PERFORM, SIGN Event Display: Consultation Note Authored Date: Patient: CAMERON COFFEY Age: 82 years Sex: Female : 1940 Associated Diagnoses: None Author: Evette Ocampo MD Visit Information Consulting Physician: Dr. León Clinical Question: Cholelithiasis without cholecystitis, RUQ pain Consult Attending: Dr. Potter History of Present Illness Cameron is an 82-year-old female with a significant past medical history of high blood pressure and acerebral aneurysm who is well-known to the general surgery service for cholelithiasis. She presented to the emergency department with concerns of right upper quadrant pain for the last several weeks.A general surgery consultation was requested. Patient was seen and evaluated bedside. She was resting comfortably in no acute distress. She states that she has been having issues with right upper quadrant pain for quite some time. She has seen Dr. Holder in the office and is being managed conservatively with diet alterations and medication therapy with ursodiol. She states that her pain is intermittent and located both in the right upper quadrant and epigastric region. She denies any changes to her bowel habits or urinary habits. She also denies any associated nausea vomiting, fever, chills, chest pain, shortness of breath. Does state during questioning that she does not want any surgical intervention for this. 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 Chronic cystitis / SNOMED CT 32123901 / Confirmed Epigastric pain / SNOMED CT 421780245 / Confirmed Epigastric abdominal pain / SNOMED CT 803954205 / Confirmed Glaucoma / SNOMED CT 58444374 / Confirmed Hypertension / SNOMED CT 71800309 / Confirmed Loss of weight / SNOMED CT [id number] / Confirmed Postmenopausal bleeding / SNOMED CT 944277449 / Confirmed Pulmonary regurgitation / SNOMED CT 589702880 / Confirmed Urinary urgency / SNOMED CT 852375676 / Confirmed Vaginal discharge / SNOMED CT 617776930 / Confirmed Vertigo / SNOMED CT 5085653311 / Confirmed Vision impairment / SNOMED CT 1228253233 / Confirmed Allergies Allergic Reactions (Selected) Severity Not Documented Amlodipine Besylate-Atorvastatin- Made bp down. Bisoprolol- Dryness. Chlorthalidone- Made bp go down. Hydrochlorothiazide- Hydrochlorothiazide adverse reaction, hydrochlorothiazide adverse reaction anddepression. Lisinopril- Tinnitus. Losartan- Itching. Penicillins- Rash. Nonallergic Reactions (Selected) Severity Not Documented CloNIDine- ?headaches, abdominal pain. Surgical History Esophagogastroduodenoscopy and polypectomy of stomach: 02/28/18 EGD in 2012 cataract and glaucoma surgery 2012 Social History Social History Alcohol Details: Use: Never. Employment/School Details: Status: Retired. Other: Previously worked in a factory for 10 years. Substance Abuse Details: Use: Never. Tobacco Details: Never smoker, Other: quit smoking about 35 years ago, 3 cigs/d x 3 years. Electronic Cigarette/Vaping Details: Electronic Cigarette Use: Never. . Family History Denies any pertinent family history Review of Systems Negative: Constitutional, Eye, Skin, Head/Neck, ENMT, Respiratory, Cardio, Gastrointestinal, Breast, Gynecologic, Genitourinary, Endocrine, Muscoloskeletal, Immunologic, Hematologic, Lymphatic, Neurologic, Psych reviewed and negative except as noted in HPI. Physical Examination Vital Signs Vitals : VITALS 01/05/2023 17:17 EDT Pulse Rate 75 bpm Respiratory Rate 19 br/min Systolic Blood Pressure 150 mm Hg H Diastolic Blood Pressure 112 mm Hg H Blood pressure sites Arm, right Pulse Pressure 38 mm Hg Oxygen Saturation 98 % Mode of Delivery (Oxygen) Room air 01/05/2023 13:17 EDT Height 155 cm Weight 51 kg Dry Weight 51 kg Weight lb/oz 112 lb 7 oz Temperature 98.1 DegF Temperature Route Oral Pulse Rate 95 bpm H Respiratory Rate 16 br/min Systolic Blood Pressure 183 mm Hg H Diastolic Blood Pressure 109 mm Hg H Blood pressure sites Arm, right Mean Arterial Pressure 134 mm Hg Pulse Pressure 74 mm Hg Oxygen Saturation 99 % Mode of Delivery (Oxygen) Room air 1 - 10 Pain Scale Score 9 . Weight : Weight lb/oz 01/05/2023 13:17 EDT Weight lb/oz 112 lb 7 oz . BMI : Body Mass Index 01/04/2023 15:38 EDT Body Mass Index 20.19 kg/m2 . GENERAL APPEARANCE: Thin appearing woman in no acute distress. LUNGS: Auscultation of the lungs revealed normal breath sounds without any other adventitious sounds or rubs. CARDIOVASCULAR: There was a regular rate and rhythm without any murmurs, gallops, rubs. ABDOMEN: Soft, nondistended with tenderness to palpation in the right upper quadrant and epigastricregion. Negative Perez sign EXTREMITIES: No cyanosis, clubbing or edema. NEUROLOGIC: Alert and oriented x 3. Normal affect. Results Review 7 day results Labs & Documents Laboratory : LABORATORY 01/05/2023 17:46 EDT Est Creatinine Clearance 45.20 mL/min 01/05/2023 16:27 EDT WBC 3.7 k/mm3 L RBC 4.23 m/mm3 Hgb 13.3 Gm/dL Hct 40.9 % MCV 96.7 femtoliters MCH 31.4 pg MCHC 32.5 g/dL L Platelet Count 208 k/mm3 RDW-SD 47.8 femtoliters H MPV 10.5 femtoliters Nucleated RBC (Automated) 0.0 #/100 WBC'S Abs. NRBC 0.0 k/mm3 Abs. Neut 1.6 k/mm3 Abs. Lymph 1.6 k/mm3 Abs. Warren 0.3 k/mm3 L Abs. Eo 0.0 k/mm3 Abs. Baso 0.0 k/mm3 Neut % 44.8 % Lymph % 44.0 % H Warren % 9.3 % Eos % 0.8 % Baso % 0.8 % Imm Gran 0.3 % Abs. Imm Gran 0.0 k/mm3 Hold Blue Top SPECIMEN DISCARDED AFTER 4 HOURS. Sodium 143 mmol/L Potassium 4.0 mmol/L Chloride 108 mmol/L H Bicarbonate Level 24 mmol/L Anion Gap 11 Glucose Level 79 mg/dL BUN 6 mg/dL L Creatinine-Blood 0.7 mg/dL Estimated GFR Creatinine 81 ML/MIN/1.73 M2 Calcium 9.3 mg/dL Calcium, Ionized pH Corrected 1.28 mmol/L Magnesium 2.2 mg/dL Protein, Total 6.5 Gm/dL Albumin 4.1 Gm/dL AG Ratio 1.7 Alkaline Phosphatase 95 units/L Lipase 27 units/L AST (SGOT) 21 units/L ALT (SGPT) 14 units/L Bilirubin, Total 1.1 mg/dL Nt-Probnp 477 pg/mL H High Sensitivity Troponin (HSTnT) 18 ng/L H Hold Thomason Top SPECIMEN DISCARDED AFTER 1 WEEK 01/05/2023 13:35 EDT Urine Culture Urine Culture (Preliminary) Appear/Color, Urine LIGHT YELLOW Clarity CLEAR Specific [place], Urine 1.015 pH, Urine 5.5 Albumin, Urine NEGATIVE Glucose, Urine NEGATIVE Ketones, Urine NEGATIVE Bilirubin, Urine NEGATIVE Hemoglobin, Urine NEGATIVE Nitrite, Urine NEGATIVE Leukocyte, Urine 1+ Urobilinogen NORMAL mg/dL WBC's, Urine 1 /HPF RBC's, Urine 1 /HPF Squamous Epith 2 /HPF Mucus SLIGHT /LPF Culture Indication CULTURE INDICATED Malb/Creat Ratio Unable to calculate mg/Gm Urine Creat For Micro Alb 130.9 mg/dL Micro-Albumin <12.0 mg/L * Final Report * Reason For Exam Flank pain, kidney stone suspected;Other: RESULT: CT Abdomen and Pelvis W/O Contrast CT Abdomen and Pelvis W/O Contrast Hx of Present Illness: Right sided flank pain getting worse for the last two weeks- reports urinaryfrequency and pain like something is pushing down on her bladder. No fevers- some nausea, no n d. Legally blind.; Reason: Other:; Flank pain, kidney stone suspected; Clinical Question(s): Calculus; Left Side flank; Order Comment: TECHNIQUE: Spiral CT through the abdomen and pelvis without IV contrast formatted in 3 planes. Thisstudy was performed without oral contrast. Weight- based protocol using automatic tube modulation was used to optimize exposure parameters. CTDIvol Body: 3.60 mGy, DLP Body: 150 mGy*cm. COMPARISON: 04/11/2022 FINDINGS: Accountant Tax View Findings, Lines and Tubes: None. Visualized Chest: Bibasilar atelectasis. 3 mm pulmonary nodule within the right lower lobe. No pleural effusion. The heart is normal in size. No pericardial effusion. Small hiatal hernia. Diaphragm: Normal. Liver: Normal. Gallbladder: Normal. Within the gallbladder. Bile ducts: No biliary ductal dilation. Spleen: Normal. Pancreas: Normal. Adrenal glands: Normal. Kidneys and ureters: No hydronephrosis, stones, or noncontrast evidence of suspicious masses. Bladder: Normal. Reproductive organs: 5.9 x 3.5 x 3.5 cm right dermoid. Stomach, small bowel, and large bowel: A few scattered diverticula within the descending, sigmoid colon. Appendix: Normal. Peritoneum and retroperitoneum: No ascites or pneumoperitoneum. No omental or mesenteric lesions. Lymph nodes: No enlarged lymph nodes. Blood vessels: Normal. No aneurysm. Abdominal and pelvic wall: Unremarkable. Bones: No acute abnormality. IMPRESSION: No evidence of nephrolithiasis or obstructive uropathy. Cholelithiasis. Right ovarian dermoid. 3 mm right lower lobe pulmonary nodule. WSN: [id number] Ordering Physician: Robert León * Final Report * Reason For Exam Abdominal Pain;Other: RESULT: US RUQ US RUQ INDICATION: Abdominal pain, concern for cholecystitis. COMPARISON: None. FINDINGS: Liver: Coarse hepatic echotexture. No suspicious lesion. Smooth hepatic contour. Main portal vein patent with normal hepatopetal direction of flow. Gallbladder: Mobile stone within the gallbladder. No pericholecystic fluid, wall thickening, or other evidence of obstruction. Biliary Tree: No intrahepatic or extrahepatic bile duct dilation is identified. Common duct measures: 0.4 cm. Pancreas: No abnormality in the visualized portions of the pancreas. Right kidney: 8.7 cm in length. Normal parenchymal echotexture and thickness. No hydronephrosis, stone or mass. IMPRESSION: Cholelithiasis with no evidence of acute cholecystitis. Coarse hepatic echotexture which may represent underlying hepatocellular disease. I have personally reviewed the images and I agree with this report. WSN: [id number] Ordering Physician: Robert León Impression and Plan Mrs. Coffey is an 82-year-old female with hypertension and cerebral aneurysm who presented to the emergency department with right upper quadrant pain and known cholelithiasis. Surgical consultation was requested given her previously established care. On examination the patient is resting comfortablyin no acute distress and hemodynamically stable. Abdominal exam is soft, nondistended with tenderness to palpation in the right upper quadrant and epigastric region. Labs were reviewed and unremarkable. CT imaging as well as right upper quadrant ultrasound were reviewed and showed no abnormal findings other than known cholelithiasis with no acute cholecystitis. Given the patient's presentation it is likely she is dealing with some biliary colic secondary to her cholelithiasis. Unfortunately given the patient's high risk to undergo surgery given her cerebral aneurysm and her unwillingness to undergo surgery, no acute surgical intervention would be recommended at this time. She has previously stated that Tylenol and Maalox tend to work for her pain for some time. This suggests that her painmay also be related to acid reflux. Would recommend continued conservative management for her cholelithiasis. Discussed with Dr. Tariq Mckeon Surgery [id number] Patient Care team information Care Team Personnel Name: Lin Lloyd MD Position: [facility] Physician - Primary Care Member Role: PCP Address: Address: [address] [place] [address]- Name: Julio Sampson MD Position: [facility] Renal MD Member Role: Lifetime Consulting Physician Address: Address: [address] [place] [address]- Name: Frederick Bermudez MD Position: [facility] WATCH CASE POLISHER MD Member Role: Lifetime WATCH CASE POLISHER Physician Address: Address: [address] [address]- Name: Hilda Tate RN Position: [facility] RN Member Role: Primary Care Nurse Name: Claudia Castellon RN Position: [facility] RN Member Role: Primary Care Nurse Name: Meghna Martinez RN Position: [facility] SN RN Member Role: Primary Care Nurse Name: Marie Gomez RN Position: [facility] Onco RN Member Role: Primary Care Nurse Name: *[facility], ED Attending Position: [facility] ED Attendings Patient Name: Kris Kitchen MD Position: [facility] Resident Member Role: Admitting Physician Address: Address: [address] [place] [address] Name: Ivette Muniz Position: [facility] ED TA [facility] Member Role: Plastic Cablemaking Machine Operator Name: Sera Traore RN Position: [facility] ED RN W/OE and Tasks Member Role: Patient Care Provider Care Team Related Persons Name: STACEY COFFEY Address: [place] [address] Name: HARDIK SIMMS Name: TABITHA ABDULLAHI Address: home [address] [place] [address] Name: MADYSON ABDULLAHI
--- OUTSIDE RECORDS SUMMARY | 2023-10-23 08:13 | XMS_ITS | Continuity of Care Document ---
Author Organization [facility] Address [address] [place] [address]- Care Team Providers Care Estate Planning Attorney Name Role Phone Lin Lloyd MD Primary Care Physician [phone] [facility]counter [facility] Date(s): 11/14/20 - 11/14/[address] [address]- Discharge Disposition: A-D/C Home Attending Physician: Gretta [...] Comment: [facility]# [id number] PT. TOLERATED INJ. WITHOUT COMPLICATIONS....CO 2Result Comment: [03/04/2018] [facility]# [id number] 3Result Comment: [03/04/2016] pt. tolerated inj. without complications...CO 4Result Comment: [10/13/2017] [facility]# [id number] pt. tolerated inj. without complications...CO Medications Diflucan 150 mg oral tablet 1 tablet = 150 mg, By Mouth, Every 48 hours, # 2 tablet, 0 Refills, Soft Stop, 09/04/20 16:38:00 EDT, Tablet, [facility] #[id number], Partial fill upon patient request if the prescription is fora schedule II opioid drug., 154.94, cm, 05/30/20 11... Start Date: 09/04/20 Status: Ordered Diflucan 150 mg oral tablet 1 tablet = 150 mg, By Mouth, Every 48 hours, # 2 tablet, 0 Refills, Soft Stop, 06/10/20 10:25:00 EST, Tablet, [facility] #[id number], Partial fill upon patient request if the [...] Refills, Maintenance, 11/12/20 10:23:00 EDT, Chew Tablet, [facility] #[id number], Partial fill upon patient request if the prescription is for a schedule II opioid drug., 158, cm, 10/29/20 8:1... Start Date: 11/12/20 Status: Ordered Metoprolol Tartrate 25 mg oral tablet 0.5 tablet, By Mouth, 2 times a day, # 90 tablet, 2 Refills, Maintenance, 10/22/20 18:29:00 EDT, [facility] #[id number], 154.94, cm, 10/22/20 13:42:00 EDT, Height, 46.5, [...] 1 2 3 Oxygen Saturation [94-100 %] 95 % (11/14/20 1:29 PM) 99 % (11/14/20 12:34 PM) 98 % (11/14/20 10:38 AM) Pulse Rate [55-90 bpm] 82 bpm (11/14/20 1:29 PM) 88 bpm (11/14/20 12:34 PM) 85 bpm (11/14/20 10:38 AM) Blood Pressure [90-138/55-84 mm Hg] 192/89mm Hg *H* (11/14/20 1:29 PM) 182/102mm Hg *H* (11/14/20 12:34 PM) 176/100mm Hg *H* (11/14/20 10:38 AM) Respiratory Rate [16-30 br/min] 14 br/min *L* (11/14/20 1:29 PM) 17 br/min (11/14/20 12:34 PM) 19 br/min (11/14/20 10:38 AM) Temperature [96.8-100.4 DegF] 98.0 DegF (11/14/20 1:29 PM) 98.1 DegF (11/14/20 12:34 PM) 98 DegF (11/14/20 10:38 AM) Mode of Delivery (Oxygen) Room air (11/14/20 1:29 PM) Room air (11/14/20 12:34 PM) Room air (11/14/20 10:38 AM) Blood pressure sites Arm, left (11/14/20 1:29 PM) Arm, left (11/14/20 12:34 PM) Arm, left (11/14/20 10:38 AM) Temperature Route Oral (11/14/20 1:29 PM) Oral (11/14/20 12:34 PM) Oral (11/14/20 10:38 AM) Social History Social History Type Response Smoking Status Never smoker; Other: quit smoking about 35 years ago, 3 cigs/d x 3 years; entered on: 05/30/15 Sex Medical Equipment Implanted Date:12/28/18Target Site:Eye Right Description Quantity MRI Company Model CORNEA FULL THICKNESS - TSSU (K001-PK) 1 [employer] Unknow n GITA:No Information Assigning Authority: FDA
--- OUTSIDE RECORDS SUMMARY | 2023-10-23 08:13 | XMS_ITS | Continuity of Care Document ---
Author Organization [facility] Address [address] [place] [address]- Care Team Providers Care Weaving Loom Operator Name Role Phone Lin Lloyd MD Primary Care Physician [facility]22 - 05/10/22 [facility] [address] [place], [place] [address] Allergies, Adverse Reactions, [...] Given 1Result Comment: [facility]# [id number] PT. TOLERATED INJ. WITHOUT COMPLICATIONS....CO 2Result Comment: [03/04/2018] [facility]# [id number] 3Result Comment: [03/04/2016] pt. tolerated inj. without complications...CO 4Result Comment: [10/13/2017] [facility]# [id number] pt. tolerated inj. without complications...CO Medications bisoprolol [...] weight Confirmed Active Postmenopausal bleeding Confirmed Active Severe obesity Confirmed Active Urinary [...] MRI Safety Implantable Status Assigning Authority Unknown [id number] RCN Unknown Unknown 01/07/19 Unknown Unknown Active Unknown Patient Care team information Care Team Personnel Name: Lin Lloyd MD Position: [facility] Primary Care Physician Member Role: PCP Address: Address: [address] [place] [address]- Name: Julio Sampson MD Position: [facility] Physician (General Medicine) Member Role: Lifetime Consulting Physician Address: Address: [address] [place] [address], [address] [address]- Name: Frederick Bermudez MD Position: [facility] HARNESS MENDER MD Member Role: Lifetime HARNESS MENDER Physician Address: Address: [address] [address]- Name: Hilda Tate RN Position: [facility] RN Member Role: Primary Care Nurse Name: Claudia Castellon RN Position: [facility] RN Member Role: Primary Care Nurse Name: Meghna Martinez RN Position: [facility] SN RN Member Role: Primary Care Nurse Name: Marie Gomez RN Position: [facility] RN Member Role: Primary Care Nurse Care Team Related Persons Name: STACEY BANDA Address: [place] [address] Name: HARDIK SIMMS Name: TABITHA ABDULLAHI Address: home [address] [place] [id number] Name: MADYSON ABDULLAHI
--- OUTSIDE RECORDS SUMMARY | 2023-10-23 08:13 | XMS_ITS | Continuity of Care Document ---
Author Organization [facility] Address [address] [place] [address]- Care Team Providers Care Curriculum Manager Name Role Phone Prema SOSA, Lin Ortega Primary Care Physician [facility]counter [facility] Date(s): 12/25/22 - 01/24/23 [facility] [address] [place], [place] [address] Attending Physician: Olinda Currie Admitting Physician: [...] pneumococcal 23-valent vaccine 05/16/12 Given 1Result Comment: [facility] [id number] 2Result Comment: [03/04/2018] [facility]# [id number] 3Result Comment: [03/04/2016] pt. tolerated inj. without complications...CO 4Result Comment: [facility]# [id number] PT. TOLERATED INJ. WITHOUT COMPLICATIONS....CO 5Result Comment: [10/13/2017] [facility]# [id number] pt. tolerated inj. without complications...CO Medications brimonidine [...] MRI Safety Implantable Status Assigning Authority Unknown [id number] RCN Unknown Unknown 01/07/19 Unknown Unknown Active Unknown EKG study * Event Display: EKG Authored Date: Patient Care team information Care Team Personnel Name: Lin Lloyd MD Position: S Physician - Primary Care Member Role: PCP Address: Address: [address] [place], [place] [id number]- [place] Name: Adrián SOSA, Julio Bethea Position: [facility] Renal MD Member Role: Lifetime Consulting Physician Address: Address: [address] [facility] [place] [address]- [place] Name: Lara SOSA, Frederick Higgins Position: [facility] MACHINE BRUSHER MD Member Role: Lifetime MACHINE BRUSHER Physician Address: Address: [address] [place] [address]- Name: Hilda Tate RN Position: [facility] RN Member Role: Primary Care Nurse Name: Claudia Castellon RN Position: S RN Member Role: Primary Care Nurse Name: Meghna Martinez RN Position: [facility] SN RN Member Role: Primary Care Nurse Name: Marie Gomez RN Position: [facility] Onco RN Member Role: Primary Care Nurse Care Team Related Persons Name: STACEY BANDA Address: [place] [address] Name: HARDIK SIMMS Name: TABITHA ABDULLAHI Address: home [address] [place] [address] Name: MADYSON ABDULLAHI
--- OUTSIDE RECORDS SUMMARY | 2023-10-23 08:13 | XMS_ITS | Continuity of Care Document ---
Author Organization [facility] Address [address] [place] [address]- Care Team Providers Care Final Inspector Movement Assembly Name Role Phone Lin Lloyd MD Primary Care Physician [facility] Date(s): 03/13/21 - 04/12/21 [facility] [address] [place] [address]- [place] Allergies, Adverse Reactions, Alerts Substance Reaction [...] 1Result Comment: [facility]# [id number] PT. TOLERATED INJ. WITHOUT COMPLICATIONS....CO 2Result Comment: [03/04/2018] [facility]# [id number] 3Result Comment: [03/04/2016] pt. tolerated inj. without complications...CO 4Result Comment: [10/13/2017] [facility]# [id number] pt. tolerated inj. without complications...CO Medications amLODIPine 5 mg oral tablet See Instructions, take 1/2 by mouth daily, # 15 tablet, Refills 5, Tot. Refills 5, Maintenance, 03/14/21 14:41:00 EDT, Instructions Replace Required Details, Route to Pharmacy Electronically, [facility] #[id number], Pt reports allergy to amlodipi... Start Date: [...] 5 Refills, Maintenance, 04/04/21 11:49:00 EDT, ECCapsule, [facility] #[id number], Partial fill upon patient request if the [...]
--- OUTSIDE RECORDS SUMMARY | 2023-10-23 08:13 | XMS_ITS | Continuity of Care Document ---
Author Organization [facility] Address [address] [place] [address]- Care Team Providers Care Gauge Maker Apprentice Name Role Phone Lin Lloyd MD Primary Care Physician [facility] Date(s): 05/21/19 - 05/28/19 [facility] [address] [place] [address]- [facility] Attending Physician: Karime Hart MD Referring Physician: Lin Lloyd MD Allergies, [...] [facility]# [id number] PT. TOLERATED INJ. WITHOUT COMPLICATIONS....CO 2Result Comment: [03/04/2018] [facility]# [id number] 3Result Comment: [03/04/2016] pt. tolerated inj. without complications...CO 4Result Comment: [10/13/2017] [facility]# [id number] pt. tolerated inj. without complications...CO Medications Carafate 1 gm oral tablet 1 Gm, 1, tablet, By Mouth, 2 times a day, # 28 tablet, Refills 0, Tot. Refills 0, Maintenance, 05/21/19 14:35:00 EST, Route to Pharmacy Electronically, [facility] #[id number], 154.94, cm, 05/21/19 13:50:00 EST, Height, 47, [...] 05/31/19 14:35:00 EST, 05/21/19 14:35:00 EST, Tablet, [facility] #[id number], 154.94, cm, 05/21/19 13:50:00 EST, Height, 47, [...] oldest [Reference Range]: 1 Height 154.94 cm (05/21/19 1:50 PM) Weight 47 kg (05/21/19 1:50 PM) Oxygen Saturation [94-100 %] 100 % (05/21/19 1:50 PM) Pulse Rate [55-90 bpm] 72 bpm (05/21/19 1:50 PM) Body Mass Index [18.5-24.99] 19.58 (05/21/19 1:50 PM) Blood Pressure [90-138/55-84 mm Hg] 165/ 94mm Hg *H* (05/21/19 1:50 PM) Respiratory Rate [16-30 br/min] 17 br/mi n (05/21/19 1:50 PM) Temperature [96.8-100.4 DegF] 98.0 DegF (05/21/19 1:50 PM) Mode of Delivery (Oxygen) Room air (05/21/19 1:50 PM) Blood pressure sites Arm, right (05/21/19 1:50 PM) Temperature Route Oral (05/21/19 1:50 PM) Dry Weight 47 kg (05/21/19 1:50 PM) Dry Weight Obtained Via Standing scale (05/21/19 1:50 PM) Social History Social History Type Response Smoking Status Never smoker; Other: quit smoking about 35 years ago, 3 cigs/d x 3 years; entered on: 05/30/15 Sex Medical Equipment Implanted Date:12/28/18Target Site:Eye Right Description Quantity MRI Company Model CORNEA FULL THICKNESS - TSSU (K001-PK) 1 [employer] Unknow n GITA:No Information Assigning Authority: FDA
--- OUTSIDE RECORDS SUMMARY | 2023-10-23 08:13 | XMS_ITS | Continuity of Care Document ---
Author Organization [facility] Address [address] [place] [address]- Care Team Providers Care Roustabout Crew Pusher Name Role Phone Prema SOSA, Lin Ortega Primary Care Physician [phone] Encounter [facility] Date(s): 09/30/21 - 10/07/21 [facility] [address] [place] [address]- Encounter Diagnosis Hypertension(Discharge Diagnosis) - 09/30/21 Vaginal burning(Discharge Diagnosis) - 09/30/21 Attending Physician: Mandi ROVING CAN TENDER, Sybil Allergies, Adverse Reactions, Alerts Substance Reaction [...] [facility]# [id number] PT. TOLERATED INJ. WITHOUT COMPLICATIONS....CO 2Result Comment: [03/04/2018] [facility]# [id number] 3Result Comment: [03/04/2016] pt. tolerated inj. without complications...CO 4Result Comment: [10/13/2017] [facility]# [id number] pt. tolerated inj. without complications...CO Medications brimonidine [...] Replace Required Details, Route to Pharmacy Electronically, [facility] #[id number], stop bisoprolol, 1... Start Date: 10/06/21 Status: Ordered metroNIDAZOLE 500 mg oral tablet 1 tablet = 500 mg, By Mouth, Every 8 hours, for 7 days, do not drink alcohol, # 21 tablet, 0 Refills, Acute 10/09/21 12:34:00 EDT, 10/02/21 12:34:00 EDT, Tablet, [facility] #[id number], Partial fill upon patient request if the prescription is for... Start Date: 10/02/21 Stop Date: 10/09/21 Status: Ordered metronidazole topical 0.75% gel with applicator 1 applicator, Vaginally, 2 times a day, for 10 days, dx: recurrent BV, # 140 Gm, 0 Refills, Acute 10/16/21 16:15:00 EDT, 10/06/21 16:15:00 EDT, Gel, [facility] #[id number], Partial fill upon patient request if the [...] 5 Refills, Maintenance, 04/04/21 11:49:00 EDT, ECCapsule, [facility] #[id number], Partial fill upon patient request if the [...] Cl inical Service Informant Hypertension Discharge Diagnosis 09/30/21 Vaginal burning Discharge Diagnosis 09/30/21 Vital Signs Most recent to oldest [Reference Range]: 1 2 Height 155 cm (09/30/21 8:59 AM) 155 cm (09/30/21 8:48 AM) Pulse Rate [55-90 bpm] 75 bpm (09/30/21 8:48 AM) Blood Pressure [90-138/55-84 mm Hg] 126/ 90mm Hg (09/30/21 8:59 AM) 146/86mm Hg *H* (09/30/21 8:48 AM) Temperature [96.8-100.4 DegF] 97.1 DegF (09/30/21 8:48 AM) Blood pressure sites Arm, left (09/30/21 8:59 AM) Arm, left (09/30/21 8:48 AM) Temperature Route Temporal (09/30/21 8:48 AM) Social History Social History Type Response Smoking Status Never smoker; Other: quit smoking about 35 years ago, 3 cigs/d x 3 years; entered on: 05/30/15 Sex Medical Equipment Implanted Date:12/28/18Target Site:Eye Right Description Quantity MRI Company Model CORNEA FULL THICKNESS - TSSU (K001-PK) 1 [employer] Unknow n GITA:No Information Assigning Authority: FDA
--- OUTSIDE RECORDS SUMMARY | 2023-10-23 08:13 | XMS_ITS | Continuity of Care Document ---
Author Organization [facility] Address [address] [place] [address]- Care Team Providers Care Bag Patcher Name Role Phone Lin Lloyd MD Primary Care Physician [facility] Date(s): 05/22/21 - 06/21/21 [facility] [address] [place], [place] [address] Attending Physician: Olinda Currie Admitting Physician: AdmtrOlinda [...] 05/16/12 Given 1Result Comment: [facility]# [id number] PT. TOLERATED INJ. WITHOUT COMPLICATIONS....CO 2Result Comment: [03/04/2018] [facility]# [id number] 3Result Comment: [03/04/2016] pt. tolerated inj. without complications...CO 4Result Comment: [10/13/2017] [facility]# [id number] pt. tolerated inj. without complications...CO Medications amLODIPine 2.5 mg oral tablet 2.5 mg, 1, tablet, By Mouth, Daily, # 90 tablet, Refills 2, Tot. Refills 2, Maintenance, 06/11/21 9:10:00 EST, Route to Pharmacy Electronically, [facility] #[id number], Partial fill upon patientrequest if the prescription [...] 5 Refills, Maintenance, 04/04/21 11:49:00 EDT, ECCapsule, [facility] #[id number], Partial fill upon patient request if the [...]
--- OUTSIDE RECORDS SUMMARY | 2023-10-23 08:14 | XMS_ITS | Continuity of Care Document ---
Author Organization [facility] Address [address] [place] [address]- Care Team Providers Care Seaming Machine Operator Name Role Phone Lin Lloyd MD Primary Care Physician [facility] Date(s): 06/19/21 - 10/17/21 [facility] [address] [place], [place] [address] Attending Physician: Lin Lloyd MD [...] Given 1Result Comment: [facility]# [id number] PT. TOLERATED INJ. WITHOUT COMPLICATIONS....CO 2Result Comment: [03/04/2018] [facility]# [id number] 3Result Comment: [03/04/2016] pt. tolerated inj. without complications...CO 4Result Comment: [10/13/2017] [facility]# [id number] pt. tolerated inj. without complications...CO Medications brimonidine [...] AT BEDTIME Start Date: 01/07/21 Status: Ordered [facility] Rx Refills 0, Maintenance, Durezol drops, 05/15/19 [...] 04/04/21 11:49:00 EDT, [facility] #[id number], Partial fill upon patient request if the [...]
--- OUTSIDE RECORDS SUMMARY | 2023-10-23 08:14 | XMS_ITS | Continuity of Care Document ---
Author Organization [facility] Address [address] [place] [address]- Care Team Providers Care Sleeve Fixer Name Role Phone Prema SOSA, Lin Ortega Primary Care Physician [facility] Date(s): 09/26/21 - 10/26/21 [facility] [address] [place], [place] [address] Allergies, Adverse Reactions, Alerts Substance [...] vaccine 05/16/12 Given 1Result Comment: [facility]# [id number] PT. TOLERATED INJ. WITHOUT COMPLICATIONS....CO 2Result Comment: [03/04/2018] [facility]# [id number] 3Result Comment: [03/04/2016] pt. tolerated inj. without complications...CO 4Result Comment: [10/13/2017] [facility]# [id number] pt. tolerated inj. without complications...CO Medications brimonidine [...] capsule, 5 Refills, Maintenance, 04/04/21 11:49:00 EDT, [id number], Partial fill upon patient request if the [...]
--- OUTSIDE RECORDS SUMMARY | 2023-10-23 08:14 | XMS_ITS | Continuity of Care Document ---
Author Organization [facility] Address [address] [place] [address]- Care Team Providers Care Post Doctoral Researcher Name Role Phone Lin Lloyd MD Primary Care Physician [facility] Date(s): 08/05/21 - 09/04/21 [facility] [address] [place] [address]- [place] Allergies, Adverse Reactions, Alerts Substance Reaction [...] [facility]# [id number] PT. TOLERATED INJ. WITHOUT COMPLICATIONS....CO 2Result Comment: [03/04/2018] [facility]# [id number] 3Result Comment: [03/04/2016] pt. tolerated inj. without complications...CO 4Result Comment: [10/13/2017] [facility]# [id number] pt. tolerated inj. without complications...CO Medications brimonidine [...] Replace Required Details, Route to Pharmacy Electronically, [facility] #[id number],... Start Date: 08/26/21 Status: Ordered Home Blood [...] 07/29/21 16:47:00 EST, Route to Pharmacy Electronically, [facility] #[id number], Partial fill upon patient request if the prescription is for a schedule I... Start Date: 07/29/21 Stop Date: 11/26/21 Status: Ordered [facility] Refills 0, Maintenance, Durezol drops, 05/15/19 15:41:08 EST, Compound Start Date: 05/15/19 Status: Ordered ofloxacin 0.3% ophthalmic solution INSTILL 1 DROP INTO LEFT EYE FOUR TIMES DAILY FOR 1 WEEK Start Date: 04/04/21 Status: Ordered omeprazole 20 mg oral enteric coated capsule 1 capsule = 20 mg, By Mouth, Daily, # 30 capsule, 5 Refills, Maintenance, 04/04/21 11:49:00 EDT, ECCapsule, [facility] #[id number], Partial fill upon patient request if the [...]
--- OUTSIDE RECORDS SUMMARY | 2023-10-23 08:14 | XMS_ITS | Continuity of Care Document ---
Author Organization [facility] Address [address] [place] [address]- Care Team Providers Care Shank Sander Name Role Phone Prema SOSA, Lin Ortega Primary Care Physician [facility] Date(s): 01/17/21 - 02/16/21 [facility] [address] [place], [place] [address] Allergies, Adverse Reactions, Alerts Substance Reaction [...] vaccine 05/16/12 Given 1Result Comment: [facility]# [id number] PT. TOLERATED INJ. WITHOUT COMPLICATIONS....CO 2Result Comment: [03/04/2018] [facility]# [id number] 3Result Comment: [03/04/2016] pt. tolerated inj. without complications...CO 4Result Comment: [10/13/2017] [facility]# [id number] pt. tolerated inj. without complications...CO Medications brimonidine [...] 01/16/21 11:45:00 EDT, Route to Pharmacy Electronically, [facility] #[id number], new dosage, cancel out prescriptin for 120mg [...] Refills, Maintenance, 11/12/20 10:23:00 EDT, Chew Tablet, [facility] #[id number], Partial fill upon patient request if the [...] 5 Refills, Maintenance, 01/16/21 11:51:00 EDT, Patch, [facility] #[id number], Partial fill upon patient r... Start Date: 01/16/21 Status: Ordered Misc Rx Refills 0, Maintenance, Durezol drops, 05/15/19 15:41:08 EST, Compound Start Date: 05/15/19 Status: Ordered ocular lubricant - solution See Instructions, PRN for dry eyes, 2 drops left eye 4 times a day as needed for pain/ dry eyes., #15 mL, 2 Refills, Maintenance, 01/07/21 14:31:00 EDT, Solution, [facility] #[id number], Partial fill upon patient request if the prescription is... Start Date: 01/07/21 Status: Ordered omeprazole 20 mg oral enteric coated capsule 1 capsule = 20 mg, By Mouth, Daily, # 30 capsule, 3 Refills, Maintenance, 01/17/21 12:14:00 EDT, ECCapsule, [facility] #[id number], Partial fill upon patient request if the [...] 0 Refills, Maintenance, 01/07/21 14:05:00 EDT, Tablet, [facility] #[id number], Partial fill upon patient request if the [...]
--- OUTSIDE RECORDS SUMMARY | 2023-10-23 08:14 | XMS_ITS | Continuity of Care Document ---
Author Organization [facility] Address [address] [place] [address]- Care Team Providers Care Juvenile Justice Officer Name Role Phone Lin Lloyd MD Primary Care Physician Encounter [facility] Date(s): 01/03/22 - 01/04/[address] [address]- Encounter Diagnosis Left eye pain(Final) - 01/04/22 Discharge Disposition: A-D/C Home Attending Physician: Kylie Gee MD Admitting Physician: Kylie Gee MD Referring Physician: Not on Staff, Referring [...] Comment: [facility]# [id number] PT. TOLERATED INJ. WITHOUT COMPLICATIONS....CO 2Result Comment: [03/04/2018] [facility]# [id number] 3Result Comment: [03/04/2016] pt. tolerated inj. without complications...CO 4Result Comment: [10/13/2017] [facility]# [id number] pt. tolerated inj. without complications...CO Medications Acetaminophen Tablet 650 mg, Tablet, By Mouth, Once, STAT, 01/04/22 11:06:00 EDT, Stop date 01/04/22 11:06:00 EDT Start Date: 01/04/22 Stop Date: 01/04/22 Status: Completed bisoprolol 5 mg oral tablet [...] Range]: 1 2 3 Height 158 cm (01/04/22 11: AM) 158 cm (01/04/22 1:13 AM) 158 cm (01/03/22 10:20 PM) Weight 48 kg (01/04/22: AM) 48 kg (01/04/22 1:13 AM) 48 kg (01/03/22 10:20 PM) Oxygen Saturation [94-100 %] 99 % (01/04/22 1:00 PM) 99 % (01/04/22: AM) 100 % (01/04/22 8:00 AM) Pulse Rate [55-90 bpm] 77 bpm (01/04/22 1:00 PM) 75 bpm (01/04/22 11: AM) 53 bpm *L* (01/04/22 8:00 AM) Body Mass Index [18.5-24.99] 19.23 (01/04/22 11: AM) 19.23 (01/03/22 10:20 PM) Blood Pressure [90-138/55-84 mm Hg] 153/66mm Hg *H* (01/04/22 1:00 PM) 165/73mm Hg *H* (01/04/22: AM) 191/97mm Hg *H* (01/04/22 8:00 AM) Respiratory Rate [16-30 br/min] 20 br/min (01/04/22 1:00 PM) 20 br/min (01/04/22 12:18 PM) 18 br/min (01/04/22 11:27 AM) Temperature [96.8-100.4 DegF] 97.4 DegF (01/04/22 11:27 AM) 97.7 DegF (01/04/22 4:14 AM) 98.6 DegF (01/03/22 10:20 PM) Mode of Delivery (Oxygen) Room air (01/04/22 1:00 PM) Room air (01/04/22 11:27 AM) Room air (01/04/22 8:00 AM) Blood pressure sites Arm, left (01/04/22 1:00 PM) Arm, left (01/04/22 11:27 AM) Arm, left (01/04/22 8:00 AM) Temperature Route Oral (01/04/22 11:27 AM) Temporal (01/04/22 4:14 AM) Oral (01/03/22 10:20 PM) Dry Weight 48 kg (01/04/22 11:27 AM) 48 kg (01/04/22 1:13 AM) 48 kg (01/03/22 10:20 PM) Weight Obtained Via Patient/family state d (01/03/22 10:20 PM) Dry Weight Obtained Via Patient/family s tated (01/03/22 10:20 PM) Social History Social History Type Response Smoking Status Never smoker; Other: quit smoking about 35 years ago, 3 cigs/d x 3 years; entered on: 05/30/15 Sex Medical Equipment Implanted Date:12/28/18Target Site:Eye Right Description Quantity MRI Company Model CORNEA FULL THICKNESS - TSSU (K001-PK) 1 [employer] Unknow n GITA:No Information Assigning Authority: FDA
--- OUTSIDE RECORDS SUMMARY | 2023-10-23 08:14 | XMS_ITS | Continuity of Care Document ---
Author Organization [facility] Address [address] [place] [address]- Care Team Providers Care Voice Data Communications Engineer Name Role Phone Lin Lloyd MD Primary Care Physician [phone] [place] [facility] - 04/08/22 [facility] [address] [place], [place] [address] Attending Physician: Kailey Garduno DO Allergies, Adverse [...] 1Result Comment: [facility] [place]# [id number] PT. TOLERATED INJ. WITHOUT COMPLICATIONS....CO 2Result Comment: [03/04/2018] [facility] [place] [facility]# [id number] 3Result Comment: [03/04/2016] pt. tolerated inj. without complications...CO 4Result Comment: [10/13/2017] [facility] [place] 2[facility]# [id number] pt. tolerated inj. without complications...CO Medications bisoprolol [...] oldest [Reference Range]: 1 Height 158 cm (04/01/22 2:53 PM) Weight 49.5 kg (04/01/22 2:53 PM) Oxygen Saturation [94-100 %] 97 % (04/01/22 2:53 PM) Pulse Rate [55-90 bpm] 91 bpm *H* (04/01/22 2:53 PM) Body Mass Index [18.5-24.99 kg/m2] 19.83 kg/m2 (04/01/22 2:53 PM) Blood Pressure [90-138/55-84 mm Hg] 116/ 70mm Hg (04/01/22 2:53 PM) Respiratory Rate [16-30 br/min] 18 br/mi n (04/01/22 2:53 PM) Temperature [96.8-100.4 DegF] 98.4 DegF (04/01/22 2:53 PM) Mode of Delivery (Oxygen) Room air (04/01/22 2:53 PM) Blood pressure sites Arm, left (04/01/22 2:53 PM) Temperature Route Temporal (04/01/22 2:53 PM) Weight Obtained Via Standing scale (04/01/22 2:53 PM) Social History Social History Type Response [...] MRI Safety Implantable Status Assigning Authority Unknown [id number] RCN Unknown Unknown 01/07/19 Unknown Unknown Active Unknown Patient Care team information Care Team Personnel Name: Lin Lloyd MD Position: [facility] Primary Care Physician Member Role: PCP Address: Address: [address] [place] [address] Name: Julio Sampson MD Position: [facility] Physician (General Medicine) Member Role: Lifetime Consulting Physician Address: Address: [address] [place] [id number] [[email or web address]] Name: Frederick Bermudez MD Position: [facility] ROOFING SUBCONTRACTOR MD Member Role: Lifetime ROOFING SUBCONTRACTOR Physician Address: Address: [address] [place] [address] Name: Hilda Tate RN Position: [facility] RN Member Role: Primary Care Nurse Name: Claudia Castellon RN Position: [facility] RN Member Role: Primary Care Nurse Name: Meghna Martinez RN Position: [facility] RN Member Role: Primary Care Nurse Name: Marie Gomez RN Position: [facility] RN Member Role: Primary Care Nurse Care Team Related Persons Name: STACEY BANDA Address: [place] [address] Name: HARDIK SIMMS Name: TABITHA ABDULLAHI Address: home [address] [place] [id number] Name: MADYSON ABDULLAHI
--- OUTSIDE RECORDS SUMMARY | 2023-10-23 08:14 | XMS_ITS | Continuity of Care Document ---
Author Organization [facility] Address [address] [place] [address]- Care Team Providers Care Advertising Job Titles Name Role Phone Prema SOSA, Lin Ortega Primary Care Physician [facility] Date[facility] 06[facility]20 - 07/10/20 [facility] [address] [place], [place] [address] Attending Physician: Olinda [...] Given 1Result Comment: [facility]# [id number] PT. TOLERATED INJ. WITHOUT COMPLICATIONS....CO 2Result Comment: [03/04/2018] [facility]# [id number] 3Result Comment: [03/04/2016] pt. tolerated inj. without complications...CO 4Result Comment: [10/13/2017] [facility]# [id number] pt. tolerated inj. without complications...CO Medications Diflucan 150 mg oral tablet 1 tablet = 150 mg, By Mouth, Every 48 hours, # 2 tablet, 0 Refills, Soft Stop, 06/10/20 10:25:00 EST, Tablet, [facility] #[id number], Partial fill upon patient request if the [...] 2 Refills, Maintenance, 09/13/19 15:08:00 EDT, Tablet, [facility] #[id number], PUT ON FILE, 154.94, cm, 06/19/19 11:29:00 [...]
--- OUTSIDE RECORDS SUMMARY | 2023-10-23 08:14 | XMS_ITS | Continuity of Care Document ---
Author Organization [facility] Address [address] [place] [address]- Care Team Providers Care Wastewater Treatment Plant Supervisor Name Role Phone Lin Lloyd MD Primary Care Physician [facility] Date(s): 05/11/19 - 05/18/19 [facility] [address] [place] [address]- [facility] Attending Physician: Kenrick Ashley MD Referring Physician: [...] 23-valent vaccine 05/16/12 Given 1Result Comment: [facility] [place]# [id number] PT. TOLERATED INJ. WITHOUT COMPLICATIONS....CO 2Result Comment: [03/04/2018] [facility] [place]# [id number] 3Result Comment: [03/04/2016] pt. tolerated inj. without complications...CO 4Result Comment: [10/13/2017] [facility] [place]# [id number] pt. tolerated inj. without complications...CO Medications ciprofloxacin 250 mg oral tablet 1 capsule, By Mouth, 2 times a day, for 7 days, TAKE WITH FOOD, # 14 tablet, 0 Refills, Acute 05/22/19 15:35:56 EST, 05/15/19 15:35:56 EST, Tablet, [facility] #[id number], 154.94, cm, 05/15/19 14:55:01 EST, Height, 46.2, [...] oldest [Reference Range]: 1 Height 154.94 cm (05/11/19 10:57 AM) Weight 46.5 kg (05/11/19 10:57 AM) Oxygen Saturation [94-100 %] 100 % (05/11/19 10:57 AM) Pulse Rate [55-90 bpm] 69 bpm (05/11/19 10:57 AM) Body Mass Index [18.5-24.99] 19.37 (05/11/19 10:57 AM) Blood Pressure [90-138/55-84 mm Hg] 163/ 108mm Hg *H* (05/11/19 10:57 AM) Respiratory Rate [16-30 br/min] 18 br/mi n (05/11/19 10:57 AM) Temperature [96.8-100.4 DegF] 97.5 DegF (05/11/19 10:57 AM) Mode of Delivery (Oxygen) Room air (05/11/19 10:57 AM) Blood pressure sites Arm, left (05/11/19 10:57 AM) Temperature Route Oral (05/11/19 10:57 AM) Dry Weight 46.2 kg (05/11/19 10:57 AM) Weight Obtained Via Standing scale (05/11/19 10:57 AM) Dry Weight Obtained Via Standing scale (05/11/19 10:57 AM) Social History Social History Type Response Smoking Status Never smoker; Other: quit smoking about 35 years ago, 3 cigs/d x 3 years; entered on: 05/30/15 Sex Medical Equipment Implanted Date:12/28/18Target Site:Eye Right Description Quantity MRI Company Model CORNEA FULL THICKNESS - TSSU (K001-PK) 1 [employer] Unknow n GITA:No Information Assigning Authority: FDA
--- OUTSIDE RECORDS SUMMARY | 2023-10-23 08:14 | XMS_ITS | Continuity of Care Document ---
Author Organization [facility] Address [address] [place] [address]- Care Team Providers Care Sales Account Associate Name Role Phone Prema SOSA, Lin Ortega Primary Care Physician [facility] Date(s): 03/05/20 - 04/04/20 [facility] [address] [place], [place] [address] Allergies, Adverse Reactions, Alerts Substance [...] 1Result Comment: [facility]# [id number] PT. TOLERATED INJ. WITHOUT COMPLICATIONS....CO 2Result Comment: [03/04/2018] [facility]# [id number] 3Result Comment: [03/04/2016] pt. tolerated inj. without complications...CO 4Result Comment: [10/13/2017] [facility]# [id number] pt. tolerated inj. without complications...CO Medications Diflucan 150 mg oral tablet 1 tablet = 150 mg, By Mouth, Once, PRN yeast infection symptoms, # 2 tablet, 0 Refills, Soft Stop, 11/21/19 13:22:00 EDT, Tablet, [facility] #[id number], 154.94, cm, 06/19/19 11:29:00 EST, Height, 47, [...] 2 Refills, Maintenance, 09/13/19 15:08:00 EDT, Tablet, [facility] #[id number], PUT ON FILE, 154.94, cm, 06/19/19 11:29:00 [...]
--- OUTSIDE RECORDS SUMMARY | 2023-10-23 08:14 | XMS_ITS | Continuity of Care Document ---
Author Organization [facility] Address [address] [place] [address] [address] [place] [address]- Care Team Providers Care Boilermaker Helper Name Role Phone Lin Lloyd MD Primary Care Physician [phone] [facility] [facility] Date(s): 01/08/22 - 02/07/[address] [place], [place] [address] Attending Physician: Admtr, [id number] Admitting Physician: Admtr, [...] Comment: [facility]# [id number] PT. TOLERATED INJ. WITHOUT COMPLICATIONS....CO 2Result Comment: [03/04/2018] [facility]# [id number] 3Result Comment: [03/04/2016] pt. tolerated inj. without complications...CO 4Result Comment: [10/13/2017] [facility]# [id number] pt. tolerated inj. without complications...CO Medications bisoprolol [...] MRI Safety Implantable Status Assigning Authority Unknown [id number] RCN Unknown Unknown 01/07/19 Unknown Unknown Active Unknown Care Team Personnel Name: Lin Lloyd MD Address: [address] [place] [address]
--- OUTSIDE RECORDS SUMMARY | 2023-10-23 08:14 | XMS_ITS | Continuity of Care Document ---
Author Organization [facility] Address [address] [place] [address]- Care Team Providers Care Tree Farmer Name Role Phone Lin Lloyd MD Primary Care Physician [place] [facility] 06/11/21 - 06/18/21 [facility] [address] [place], [place] [address] Encounter Diagnosis Vaginal discharge(Discharge Diagnosis) - 06/11/21 Attending Physician: Lin Lloyd MD Allergies, Adverse [...] influenza virus vaccine, inactivated 2 03/04/18 Gi hsarron influenza virus vaccine, inactivated 3 03/04/16 Gi sharron influenza virus vaccine, inactivated 03/06/13 Give n tetanus/diphtheria/pertussis, acel(Tdap) 4 10/13/17 Given pneumococcal 23-valent vaccine 05/16/12 Given 1Result Comment: [facility]# [id number] PT. TOLERATED INJ. WITHOUT COMPLICATIONS....CO 2Result Comment: [03/04/2018] [facility]# [id number] 3Result Comment: [03/04/2016] pt. tolerated inj. without complications...CO 4Result Comment: [10/13/2017] [facility]# [id number] pt. tolerated inj. without complications...CO Medications amLODIPine 2.5 mg oral tablet 2.5 mg, 1, tablet, By Mouth, Daily, # 90 tablet, Refills 2, Tot. Refills 2, Maintenance, 06/11/21 9:10:00 EST, Route to Pharmacy Electronically, [facility] #[id number], Partial fill upon patientrequest if the prescription [...] 5 Refills, Maintenance, 04/04/21 11:49:00 EDT, ECCapsule, [facility] #[id number], Partial fill upon patient request if the [...] Dates Health Status Cl inical Service Informant Vaginal discharge Discharge Diagnosis 06/11/21 Social History Social History Type Response Smoking Status Never smoker; Other: quit smoking about 35 years ago, 3 cigs/d x 3 years; entered on: 05/30/15 Sex Medical Equipment Implanted Date:12/28/18Target Site:Eye Right Description Quantity MRI Company Model CORNEA FULL THICKNESS - TSSU (K001-PK) 1 [employer] Unknow n GITA:No Information Assigning Authority: FDA
--- OUTSIDE RECORDS SUMMARY | 2023-10-23 08:14 | XMS_ITS | Continuity of Care Document ---
Author Organization [facility] Address [address] [place] [address]- Care Team Providers Care Svp Business Development Name Role Phone Lin Lloyd MD Primary Care Physician [facility] Date(s): 12/22/22 - 01/21/23 [facility] [address] [place] [address]- [place] Allergies, Adverse Reactions, Alerts Substance Reaction [...] pneumococcal 23-valent vaccine 05/16/12 Given 1Result Comment: [facility] [id number] 2Result Comment: [03/04/2018] [facility]# [id number] 3Result Comment: [03/04/2016] pt. tolerated inj. without complications...CO 4Result Comment: [facility]# [id number] PT. TOLERATED INJ. WITHOUT COMPLICATIONS....CO 5Result Comment: [10/13/2017] [facility]# [id number] pt. tolerated inj. without complications...CO Medications brimonidine [...] MRI Safety Implantable Status Assigning Authority Unknown [id number] RCN Unknown Unknown 01/07/19 Unknown Unknown Active Unknown Patient Care team information Care Team Personnel Name: Lin Lloyd MD Position: [facility] Physician - Primary Care Member Role: PCP Address: Address: [address] [place] [address]- Name: Julio Sampson MD Position: [facility] Renal MD Member Role: Lifetime Consulting Physician Address: Address: [address] [place] [address] Name: Frederick Bermudez MD Position: [facility] APPRISE COUNSELOR MD Member Role: Lifetime APPRISE COUNSELOR Physician Address: Address: [address] [place] [id number] Name: Hilda Tate RN Position: [facility] RN Member Role: Primary Care Nurse Name: Claudia Castellon RN Position: S RN Member Role: Primary Care Nurse Name: Meghna Martinez RN Position: [facility] SN RN Member Role: Primary Care Nurse Name: Marie Gomez RN Position: [facility] Onco RN Member Role: Primary Care Nurse Care Team Related Persons Name: VERONIKASTACEY KHOURY Address: [place] [address] Name: HARDIK SIMMS Name: TABITHA ABDULLAHI Address: home [address] [place] [address] Name: MADYSON ABDULLAHI
--- OUTSIDE RECORDS SUMMARY | 2023-10-23 08:14 | XMS_ITS | Continuity of Care Document ---
Author Organization [facility] Address [address] [place] [address]- Care Team Providers Care Pcas Name Role Phone Prema SOSA, Lin Ortega Primary Care Physician [phone] [facility]counter [facility] Date(s): 09/29/21 - 10/29/21 [facility] [address] [place], [place] [address] Allergies, Adverse Reactions, Alerts [...] Comment: [facility]# [id number] PT. TOLERATED INJ. WITHOUT COMPLICATIONS....CO 2Result Comment: [03/04/2018] [facility]# [id number] 3Result Comment: [03/04/2016] pt. tolerated inj. without complications...CO 4Result Comment: [10/13/2017] [facility]# [id number] pt. tolerated inj. without complications...CO Medications brimonidine [...] capsule, 5 Refills, Maintenance, 04/04/21 11:49:00 EDT, [id number], Partial fill upon patient request if the [...]
--- OUTSIDE RECORDS SUMMARY | 2023-10-23 08:14 | XMS_ITS | Continuity of Care Document ---
Author Organization [facility] Address [address] [place] [address]- Care Team Providers Care Internet Sales Manager Name Role Phone Prema SOSA, Lin Ortega Primary Care Physician [phone] Encounter [facility] Date(s): 09/11/21 - 01/09/22 [facility] [address] [place] [address] Attending Physician: Nida Zuniga MD Referring Physician: Ángel Mireles Allergies, Adverse Reactions, Alerts Substance Reaction Severity [...] Given 1Result Comment: [facility]# [id number] PT. TOLERATED INJ. WITHOUT COMPLICATIONS....CO 2Result Comment: [03/04/2018] [facility]# [id number] 3Result Comment: [03/04/2016] pt. tolerated inj. without complications...CO 4Result Comment: [10/13/2017] [facility]# [id number] pt. tolerated inj. without complications...CO Medications bisoprolol [...]
--- OUTSIDE RECORDS SUMMARY | 2023-10-23 08:14 | XMS_ITS | Continuity of Care Document ---
Author Organization [facility] Address [address] [place] [address]- Care Team Providers Care Check Examiner Name Role Phone Prema SOSA, Lin Ortega Primary Care Physician [phone] [facility]counter [facility] Date(s): 11/13/21 - 12/13/21 [facility] [address] [place], [place] [address] Allergies, Adverse Reactions, Alerts Substance Reaction [...] pneumococcal 23-valent vaccine 05/16/12 Given 1Result Comment: [facility]# [id number] PT. TOLERATED INJ. WITHOUT COMPLICATIONS....CO 2Result Comment: [03/04/2018] [facility]# [id number] 3Result Comment: [03/04/2016] pt. tolerated inj. without complications...CO 4Result Comment: [10/13/2017] [facility]# [id number] pt. tolerated inj. without complications...CO Medications brimonidine [...]
--- OUTSIDE RECORDS SUMMARY | 2023-10-23 08:14 | XMS_ITS | Continuity of Care Document ---
Author Organization [facility] Address [address] [place] [address]- Care Team Providers Care Quality Control Operator Name Role Phone Prema SOSA, Lin Ortega Primary Care Physician [phone] [facility]counter [facility] Date(s): 03/08/23 - 04/07/23 [facility] [address] [place], [place] [address] Allergies, Adverse [...] Given 1Result Comment: [facility] [id number] 2Result Comment: [03/04/2018] [facility]# [id number] 3Result Comment: [03/04/2016] pt. tolerated inj. without complications...CO 4Result Comment: [facility]# [id number] PT. TOLERATED INJ. WITHOUT COMPLICATIONS....CO 5Result Comment: [10/13/2017] [facility]# [id number] pt. tolerated inj. without complications...CO Medications brimonidine [...] MRI Safety Implantable Status Assigning Authority Unknown [id number] RCN Unknown Unknown 01/07/19 Unknown Unknown Active Unknown Patient Care team information Care Team Personnel Name: Lin Lloyd MD Position: [facility] Physician - Primary Care Member Role: PCP Address: Address: [address] [place] [address]- Name: Julio Sampson MD Position: [facility] Renal MD Member Role: Lifetime Consulting Physician Address: Address: [address] [place] [address] Name: Frederick Bermudez MD Position: [facility] HANDBAG FINISHER MD Member Role: Lifetime HANDBAG FINISHER Physician Address: Address: [address] [place] [address] Name: Sarai VASQUEZ, Marie White Position: [facility] Onco RN Member Role: Primary Care Nurse Name: Hilda Tate RN Position: S RN Member Role: Primary Care Nurse Name: Claudia Castellon RN Position: S RN Member Role: Primary Care Nurse Name: Meghna Martinez RN Position: [facility] SN RN Member Role: Primary Care Nurse Care Team Related Persons Name: STACEY BANDA Address: [place] [address] Name: HARDIK SIMMS Name: TABITHA ABDULLAHI Address: home [address] [place] [id number] Name: MADYSON ABDULLAHI
--- OUTSIDE RECORDS SUMMARY | 2023-10-23 08:14 | XMS_ITS | Continuity of Care Document ---
Author Organization [facility] Address [address] [place] [address]- Care Team Providers Care Teacher Learning Disabled Name Role Phone Lin Lloyd MD Primary Care Physician [facility] Date(s): 02/14/21 - 03/16/21 [facility] [address] [place] [address]- [place] Allergies, Adverse Reactions, Alerts Substance Reaction Severity Status chlorthalidone made BP go down Active hydrochlorothiazide Hydrochlorothiazide adverse reaction Hydrochlorothiazide adverse reaction depression Active lisinopril tinnitus Active losartan itching Active Amlodipine Besylate-Atorvastatin made BP down Active penicillins rash Active Immunizations Given and Recorded Vaccine Date Status Refusal Reason pneumococcal 13-valent vaccine 1 03/14/19 Given influenza virus vaccine, inactivated 2 03/04/18 Gi sharron influenza virus vaccine, inactivated 3 03/04/16 Gi sharron influenza virus vaccine, inactivated 03/06/13 Give n tetanus/diphtheria/pertussis, acel(Tdap) 4 10/13/17 Given pneumococcal 23-valent vaccine 05/16/12 Given 1Result Comment: [facility]# [id number] PT. TOLERATED INJ. WITHOUT COMPLICATIONS....CO 2Result Comment: [03/04/2018] [facility]# [id number] 3Result Comment: [03/04/2016] pt. tolerated inj. without complications...CO 4Result Comment: [10/13/2017] [facility]# [id number] pt. tolerated inj. without complications...CO Medications amiodarone 200 mg oral tablet 200 mg, 1, tablet, By Mouth, Daily, # 30 tablet, Refills 3, Tot. Refills 3, Maintenance, 03/07/21 14:10:00 EDT, Route to Pharmacy Electronically, [facility] #[id number], Partial fill upon patient request if the prescription is for a schedule II o... Start Date: 03/07/21 Status: Ordered amLODIPine 5 mg oral tablet 5 mg, 1, tablet, By Mouth, Daily, # 30 tablet, Refills 5, Tot. Refills 5, Maintenance, 03/14/21 14:41:00 EDT, Route to Pharmacy Electronically, [facility] #[id number], Pt reports allergy to amlodipine, however, reaction [...] Refills, Maintenance, 11/12/20 10:23:00 EDT, Chew Tablet, [facility] #[id number], Partial fill upon patient request if the [...] 5 Refills, Maintenance, 01/16/21 11:51:00 EDT, Patch, [facility] #[id number], Partial fill upon patient r... Start Date: 01/16/21 Status: Ordered Misc Rx Refills 0, Maintenance, Durezol drops, 05/15/19 15:41:08 EST, Compound Start Date: 05/15/19 Status: Ordered ocular lubricant - solution See Instructions, PRN for dry eyes, 2 drops left eye 4 times a day as needed for pain/ dry eyes., #15 mL, 2 Refills, Maintenance, 01/07/21 14:31:00 EDT, Solution, [facility] #[id number], Partial fill upon patient request if the prescription is... Start Date: 01/07/21 Status: Ordered omeprazole 20 mg oral enteric coated capsule 1 capsule = 20 mg, By Mouth, Daily, # 30 capsule, 3 Refills, Maintenance, 01/17/21 12:14:00 EDT, ECCapsule, [facility] #[id number], Partial fill upon patient request if the [...] 0 Refills, Maintenance, 01/07/21 14:05:00 EDT, Tablet, [facility] #[id number], Partial fill upon patient request if the [...]
--- OUTSIDE RECORDS SUMMARY | 2023-10-23 08:14 | XMS_ITS | Continuity of Care Document ---
Author Organization [facility] Address [address] [place] [address]- Care Team Providers Care Chemical Reclamation Equipment Operator Name Role Phone Prema SOSA, Lin Ortega Primary Care Physician [facility] [place](s[place] 04/01/21 - 05/01/21 [facility] [address] [place] [address]- Allergies, Adverse Reactions, Alerts Substance Reaction Severity [...] Comment: [facility]# [id number] PT. TOLERATED INJ. WITHOUT COMPLICATIONS....CO 2Result Comment: [03/04/2018] [facility]# [id number] 3Result Comment: [03/04/2016] pt. tolerated inj. without complications...CO 4Result Comment: [10/13/2017] [facility]# [id number] pt. tolerated inj. without complications...CO Medications amLODIPine 5 mg oral tablet See Instructions, take 1/2 by mouth daily, # 15 tablet, Refills 5, Tot. Refills 5, Maintenance, 03/14/21 14:41:00 EDT, Instructions Replace Required Details, Route to Pharmacy Electronically, [facility] #[id number], Pt reports allergy to amlodipi... Start Date: [...] 5 Refills, Maintenance, 04/04/21 11:49:00 EDT, ECCapsule, [facility] #[id number], Partial fill upon patient request if the [...]
--- OUTSIDE RECORDS SUMMARY | 2023-10-23 08:14 | XMS_ITS | Continuity of Care Document ---
Author Organization [facility] Address [address] [place] [address]- Care Team Providers Care Traveler Changer Name Role Phone Lin Lloyd MD Primary Care Physician [place] [facility] [place] 06/16/23 [facility] [address] [place], [place] [address] Attending Physician: Admjamel, Olinda Admitting Physician: Admtr, Olinda Referring Physician: [...] pneumococcal 23-valent vaccine 05/16/12 Given 1Result Comment: [facility] [id number] 2Result Comment: [03/04/2018] [facility]# [id number] 3Result Comment: [03/04/2016] pt. tolerated inj. without complications...CO 4Result Comment: [facility]# [id number] PT. TOLERATED INJ. WITHOUT COMPLICATIONS....CO 5Result Comment: [10/13/2017] [facility]# [id number] pt. tolerated inj. without complications...CO Medications brimonidine [...] MRI Safety Implantable Status Assigning Authority Unknown [id number] RCN Unknown Unknown 01/07/19 Unknown Unknown Active Unknown EKG study * Event Display: EKG Authored Date: [id number] Patient Care team information Care Team Personnel Name: Lin Lloyd MD Position: [facility] Physician - Primary Care Member Role: PCP Address: Address: [address] [place] [address]- [place] Name: Adrián SOSA, Julio Bethea Position: [facility] Renal MD Member Role: Lifetime Consulting Physician Address: Address: [address] [facility], [facility] [address] [place] [address]- [place] Name: Frederick Bermudez MD Position: [facility] BOX PULLER MD Member Role: Lifetime BOX PULLER Physician Address: Address: [address] [facility], [address] [address]- [place] Name: Jarvis VASQUEZ, Marie White Position: [facility] Onco RN Member Role: Primary Care Nurse Name: Hilda Tate RN Position: S RN Member Role: Primary Care Nurse Name: Claudia Castellon RN Position: S RN Member Role: Primary Care Nurse Name: Meghna Martinez RN Position: [facility] SN RN Member Role: Primary Care Nurse Care Team Related Persons Name: STACEY BANDA Address: [place] [address] Name: HARDIK SIMMS Name: TABITHA ABDULLAHI Address: home [address] [place] [id number] Name: MADYSON ABDULLAHI
--- OUTSIDE RECORDS SUMMARY | 2023-10-23 08:14 | XMS_ITS | Continuity of Care Document ---
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 tolerated inj. without complications...CO 4Result Comment: [facility]# [id number] PT. TOLERATED INJ. WITHOUT COMPLICATIONS....CO 5Result Comment: [10/13/2017] [facility]# [id number] pt. tolerated inj. without complications...CO Medications brimonidine [...] Maintenance,08/18/22 14:42:00 EDT, Route to Pharmacy Electronically, [facility][id number], Partial fill upon patient request if the [...] Clinical Service Informant Atrial tachycardia Discharge Diagnosis 11/10/22 Cerebral Aneurysm, Nonruptured Discharge Diagnosis 11/10/22 Hypertension Discharge Diagnosis 11/10/22 Vital Signs Most recent to oldest [Reference Range]: 1 2 3 Height 48 cm (11/10/22 3:06 PM) 48 cm (11/10/22 2:33 PM) 48 cm (11/10/22 2:28 PM) Oxygen Saturation [94-100 %] 98 % (11/10/22 2:28 PM) Pulse Rate [55-90 bpm] 84 bpm (11/10/22 2:28 PM) Blood Pressure [90-138/55-84 mm Hg] 158/74mm Hg *H* (11/10/22 3:06 PM) 150/78mm Hg *H* (11/10/22 2:33 PM) 150/70mm Hg *H* (11/10/22 2:28 PM) Mode of Delivery (Oxygen) Room air (11/10/22 2:28 PM) Blood pressure sites Arm, left (11/10/22 2:33 PM) Arm, left (11/10/22 2:28 PM) Social History Social History Type Response [...] MRI Safety Implantable Status Assigning Authority Unknown [id number] RCN Unknown Unknown 01/07/19 Unknown Unknown Active Unknown Patient Care team information Care Team Personnel Name: Lin Lloyd MD Position: [facility] Physician - Primary Care Member Role: PCP Address: Address: [address] [place] [address]- Name: Julio Sampson MD Position: [facility] Renal MD Member Role: Lifetime Consulting Physician Address: Address: [address] [place] [address]- Name: Frederick Bermudez MD Position: [facility] DEBEAKER Member Role: Lifetime DEBEAKER Physician Address: Address: [address] [place] [address], [place] [address]- Name: Hilda Tate RN Position: S RN Member Role: Primary Care Nurse Name: Claudia Castellon RN Position: S RN Member Role: Primary Care Nurse Name: Meghna Martinez RN Position: [facility] SN RN Member Role: Primary Care Nurse Name: Marie Gomez RN Position: [facility] Onco RN Member Role: Primary Care Nurse Care Team Related Persons Name: STACEY BANDA Address: [place] [address] Name: HARDIK SIMMS Name: TABITHA ABDULLAHI Address: home [address] [place] [id number] Name: MADYSON ABDULLAHI
--- OUTSIDE RECORDS SUMMARY | 2023-10-23 08:14 | XMS_ITS | Continuity of Care Document ---
Author Organization [facility] Address [address] [place] [address]- Care Team Providers Care Sales Supervisor Name Role Phone Lin Lloyd MD Primary Care Physician Encounter [facility] Date(s): 04/07/21 - 05/07/21 [facility] [address] [place] [address]- [place] Allergies, Adverse Reactions, Alerts Substance Reaction [...] [facility]# [id number] PT. TOLERATED INJ. WITHOUT COMPLICATIONS....CO 2Result Comment: [03/04/2018] [facility]# [id number] 3Result Comment: [03/04/2016] pt. tolerated inj. without complications...CO 4Result Comment: [10/13/2017] [facility]# [id number] pt. tolerated inj. without complications...CO Medications amLODIPine 5 mg oral tablet See Instructions, take 1/2 by mouth daily, # 15 tablet, Refills 5, Tot. Refills 5, Maintenance, 03/14/21 14:41:00 EDT, Instructions Replace Required Details, Route to Pharmacy Electronically, [facility] #[id number], Pt reports allergy to amlodipi... Start Date: [...] 5 Refills, Maintenance, 04/04/21 11:49:00 EDT, ECCapsule, [facility] #[id number], Partial fill upon patient request if the [...]
--- OUTSIDE RECORDS SUMMARY | 2023-10-23 08:14 | XMS_ITS | Continuity of Care Document ---
Author Organization [facility] Address [address] [place] [address]- Care Team Providers Care Commercial Glazier Name Role Phone Lin Lloyd MD Primary Care Physician [place] [facility] [place]22 [facility] [address] [place] [address]- Attending Physician: Olinda Currie Admitting Physician: AdmtrOlinda [...] 1Result Comment: [facility]# [id number] PT. TOLERATED INJ. WITHOUT COMPLICATIONS....CO 2Result Comment: [03/04/2018] [facility]# [id number] 3Result Comment: [03/04/2016] pt. tolerated inj. without complications...CO 4Result Comment: [10/13/2017] [facility]# [id number] pt. tolerated inj. without complications...CO Medications bisoprolol [...] MRI Safety Implantable Status Assigning Authority Unknown [id number] RCN Unknown Unknown 01/07/19 Unknown Unknown Active Unknown Patient Care team information Personnel Name: Prema SOSA, Lin Ortega Address: Address: [address] [place] [address]
--- OUTSIDE RECORDS SUMMARY | 2023-10-23 08:14 | XMS_ITS | Continuity of Care Document ---
Author Organization [facility] Address [address] [place] [address]- Care Team Providers Care Bracelet Form Coverer Name Role Phone Lin Lloyd MD Primary Care Physician [phone] Encounter [facility] Date(s): 01/04/21 - 01/07/[address] [address]- Encounter Diagnosis Heart rate fast(Final) - 01/04/21 Discharge Disposition: A-D/C Home Attending Physician: Osbaldo Gibbons MD Admitting Physician: Anita Hatfield MD Referring Physician: Not on Staff, Referring [...] vaccine 05/16/12 Given 1Result Comment: [facility]# [id number] PT. TOLERATED INJ. WITHOUT COMPLICATIONS....CO 2Result Comment: [03/04/2018] [facility]# [id number] 3Result Comment: [03/04/2016] pt. tolerated inj. without complications...CO 4Result Comment: [10/13/2017] [facility]# [id number] pt. tolerated inj. without complications...CO Medications acetaminophen 325 mg oral tablet 650 mg, By Mouth, Every 4 hours, PRN, Temperature Greater than 100.5, Refills 0, Maintenance, Pain , Mild, 01/03/21 9:18:00 EDT, Partial fill upon patient request if the prescription is for a schedule II opioid drug. Start Date: 01/03/21 Status: Ordered brimonidine 0.2% ophthalmic solution See Instructions, 1 drop into Right eye three times a day, 0 Refills, Maintenance, 01/07/21 14:01:00 EDT, Solution, Partial fill upon patient request if the prescription is for a schedule II opioid drug. Start Date: 01/07/21 Status: Ordered Cardizem CD 120 mg/24 hours oral capsule, extended release 120 mg, CD Capsule, By Mouth, will d/c 30mg cardizem dose q6 hourly from 8/10 AM, 01/07/21 9:00:00 EDT Start Date: 01/07/21 Stop Date: 01/07/21 Status: Completed Cardizem CD 120 mg/24 hours oral capsule, extended release 120 mg, 1, capsule, By Mouth, Daily, # 30 capsule, Refills 2, Tot. Refills 2, Maintenance, 01/07/2114:03:00 EDT, Route to Pharmacy Electronically, [facility] #[id number], Partial fill upon patient request if the prescription is for a schedule II... Start Date: 01/07/21 Status: Ordered estradiol 0.1 mg/g vaginal cream See Instructions, apply topically as directed 5 times a week, # 42 Gm, 3 Refills, Maintenance, 07/13/18 13:56:17 EST Start Date: 07/13/18 Status: Ordered Gas-X 80 mg oral tablet, chewable 1 tablet = 80 mg, Chew, 4 times a day, # 48 tablet, 0 Refills, Maintenance, 11/12/20 10:23:00 EDT, Chew Tablet, [facility] #[id number], Partial fill upon patient request if the prescription is for a schedule II opioid drug., 158, cm, 10/29/20 8:1... Start Date: 11/12/20 Status: Ordered latanoprost 0.005% ophthalmic solution INSTILL 1 DROP INTO RIGHT EYE AT BEDTIME Start Date: 01/07/21 Status: Ordered lidocaine 5% topical film 1 patch, Topically, Daily, remove patches after 12 hours If patches not covered by insurance, can use lidocaine gel or cream, # 30 patch, 0 Refills, Maintenance, 01/07/21 14:03:00 EDT, Patch, [facility] #[id number], Partial fill upon patient r... Start Date: 01/07/21 Status: Ordered Misc Rx Refills 0, Maintenance, Durezol drops, 05/15/19 15:41:08 EST, Compound Start Date: 05/15/19 Status: Ordered ocular lubricant - solution See Instructions, PRN for dry eyes, 2 drops left eye 4 times a day as needed for pain/ dry eyes., #15 mL, 2 Refills, Maintenance, 01/07/21 14:31:00 EDT, Solution, [facility] #[id number], Partial fill upon patient request if the prescription is... Start Date: 01/07/21 Status: Ordered timolol maleate 0.5% ophthalmic gel forming solution INT 1 GTT IN OU BID UTD Start Date: 12/09/18 Status: Ordered traMADol 50 mg oral tablet 1 tablet = 50 mg, By Mouth, Every 8 hours, PRN as needed for pain, # 25 tablet, 0 Refills, Maintenance, 01/07/21 14:05:00 EDT, Tablet, [facility] #[id number], Partial fill upon patient request if the prescription is for a schedule II opioid drug.... Start Date: 01/07/21 Status: Ordered Tylenol 325 mg oral capsule 2 capsule = 650 mg, By Mouth, Every 4 hours, PRN as needed for pain, # 60 capsule, 1 Refills, Maintenance, 01/07/21 14:04:00 EDT, Capsule, [facility] #[id number], Partial fill upon patient request if the prescription is for a schedule II opioid d... Start Date: 01/07/21 Status: Ordered Tylenol 325 mg oral tablet 975 mg, Tablet, By Mouth, 01/07/21 9:00:00 EDT Start Date: 01/07/21 Stop Date: 01/07/21 Status: Completed Problem List Condition Effective Dates Status Health [...] Exam Date Time Procedure Performing Provider Status 01/06/21 10:14 PM XR Hip Bilat 2 Views W/AP Pelvis Burnham Behzadcurttirso; Auth (Verified) Notes: (XR Hip Bilat 2 Views W/AP Pelvis) Reason For Exam: fall with low back pain;Pain RESULT: Hip Bilat 2 Views W/ AP Pelvis Hip Bilat 2 Views W/ AP Pelvis Reason: Pain; fall with low back pain COMPARISON: CT of the abdomen and pelvis dated November 14, 2020. FINDINGS: No fracture or dislocation. Moderate degenerative changes of the spine are partially imaged. Degenerative changes hips are mild. Numerous large pelvic phleboliths are noted. Low-density structure with rounded soft tissue attenuation lesions in the right lower pelvis corresponds to the dermoid cyst seen on prior CT. IMPRESSION: No fracture. WSN: [id number] Ordering Physician: Osbaldo Gibbons Dictated By: Jair Rose MD Dictated Date/Time: 01/07/21 7:54 am Reviewed By: Jair Rose MD Signed By: Jair Rose MD Signed Date/Time: 01/07/21 7:54 am Transcribed By: CHARBEL Transcribed Date/Time: 01/07/21 7:52 am Vital Signs Most recent to oldest [Reference Range]: 1 2 3 Weight 48.0 kg (01/04/21 6:46 AM) Oxygen Saturation [94-100 %] 100 % (01/07/21 8:00 AM) 100 % (01/07/21 4:40 AM) 100 % (01/07/21 12:08 AM) Pulse Rate [55-90 bpm] 89 bpm (01/07/21 11:31 AM) 87 bpm (01/07/21 8:00 AM) 70 bpm (01/07/21 4:40 AM) Blood Pressure [90-138/55-84 mm Hg] 125/78mm Hg (01/07/21 11:31 AM) 121/75mm Hg (01/07/21 8:00 AM) 151/72mm Hg *H* (01/07/21 4:40 AM) Respiratory Rate [16-30 br/min] 17 br/min (01/07/21 9:22 AM) 18 br/min (01/07/21 8:00 AM) 18 br/min (01/07/21 4:40 AM) Temperature [96.8-100.4 DegF] 97.9 DegF (01/07/21 8:00 AM) 98.4 DegF (01/07/21 4:40 AM) 98.5 DegF (01/07/21 12:08 AM) Mode of Delivery (Oxygen) Room air (01/07/21 8:00 AM) Room air (01/07/21 4:40 AM) Room air (01/07/21 12:08 AM) Blood pressure sites Arm, right (01/07/21 8:00 AM) Arm, left (01/07/21 4:40 AM) Arm, left (01/07/21 12:08 AM) Temperature Route Oral (01/07/21 8:00 AM) Oral (01/07/21 4:40 AM) Oral (01/07/21 12:08 AM) Dry Weight 48.0 kg (01/04/21 6:46 AM) Weight Obtained Via Patient/family state d (01/04/21 6:46 AM) Dry Weight Obtained Via Patient/family s tated (01/04/21 6:46 AM) Social History Social History Type Response Smoking Status Never smoker; Other: quit smoking about 35 years ago, 3 cigs/d x 3 years; entered on: 05/30/15 Sex Medical Equipment Implanted Date:12/28/18Target Site:Eye Right Description Quantity MRI Company Model CORNEA FULL THICKNESS - TSSU (K001-PK) 1 [employer] Unknow n GITA:No Information Assigning Authority: FDA
[2023-10-23 09:27] LABS: Bacterial Vaginosis PCR POSITIVE (Negative); Candida Group PCR NOT DETECTED (Not Detect); Candida glab krusei PCR NOT DETECTED (Not Detect); Trichomonas vaginalis PCR NOT DETECTED (Not Detect)
[2023-10-23 09:47] VITALS: BP 170/83; PULSE 70; RESP 16; TEMP 36.9; O2SAT 98
[2023-10-23] MEDS: Sodium Phosphate,Mono-Dibasic 133 ML ENEMA PR (10:26)
--- NOTE | 2023-10-23 10:47 | PC.NURSE ---
Pt tolerated enema well, able to have bowel movement.
[2023-10-23 11:22] VITALS: BP 180/95; PULSE 74; RESP 16; TEMP 36.6; O2SAT 97
[2023-10-23 11:23] VITALS: BP 180/95; PULSE 74; RESP 16; TEMP 36.6; O2SAT 97
== END 2023-10-23 12:09 | disposition home or self-care (01) ==
PROVIDERS: Nurse Practitioner Family; Emergency Provider Student in an Organized Health Care Education/Training Program
DX: K80.20 Calculus of gallbladder without cholecystitis without obstruction (principal); N76.0 Acute vaginitis
CPT/HCPCS: 0352U; 36415; 74176; 80053; 81001; 83690; 83735; 84484; 85025; 93005; 96374; 99284; 99285

== ENCOUNTER → 2023-10-23 02:24 | Outpatient (BNV) | payer MEDICARE, SELFPAY | PROVIDERS: Emergency Provider Student in an Organized Health Care Education/Training Program; Visit Provider Internal Medicine Cardiovascular Disease | DX: R94.31 Abnormal electrocardiogram [ECG] [EKG] (principal) | CPT/HCPCS: 93010 ==

== ENCOUNTER 2023-11-01 03:00 | Emergency (ER) | payer MEDICARE, SELFPAY ==
--- NOTE | ~2023-11-01 | CT_ITS ---
EXAMINATION: CT ABDOMEN AND PELVIS WITHOUT CONTRAST CLINICAL INFORMATION: Left flank pain. COMPARISON: 10/23/2023 TECHNIQUE: Multidetector volumetric imaging was performed from the superior aspect of the liver through the pubic symphysis. Sagittal and coronal reformatted images were obtained on the technologist's workstation. This CT examination was performed using dose optimization techniques as appropriate, variously including the following: *Automated exposure control *Adjustment of mA and/or kV according to patient size (this includes techniques or standardized protocols for targeted exams where dose is matched to indication/reason for exam; i.e. extremities or head) *Use of iterative reconstruction technique DLP: 368 mGy-cm FINDINGS: LUNG BASES: No pleural or pericardial effusion. LIVER, GALLBLADDER, AND BILIARY TREE: The noncontrast liver is normal in size and contour. No biliary ductal dilatation is present. Gallstone. PANCREAS: Questionable hypodense lesion in the head of the pancreas measuring 1.0 x 1.8 cm unchanged from the comparison study. No dilatation of the main pancreatic duct. SPLEEN: Unremarkable. ADRENAL GLANDS: Unremarkable. KIDNEYS AND URETERS: The kidneys are symmetric in size. No renal calculus. No hydronephrosis. No perinephric stranding. BLADDER: Unremarkable. GASTROINTESTINAL TRACT: Diverticular disease of the colon. No small bowel obstruction. Appendix is within normal limits. ABDOMINAL WALL: No significant hernia is appreciated. LYMPH NODES: No bulky lymphadenopathy. VASCULAR: Normal caliber abdominal aorta. PELVIC VISCERA: Right ovarian dermoid cyst. OSSEOUS STRUCTURES: No destructive bone lesions. CT/CT abdomen pelvis wo IV con IMPRESSION: No acute abnormality in the abdomen or pelvis. Questionable hypodense lesion in the head of the pancreas measuring 1.0 x 1.8 cm unchanged from the comparison study. No dilatation of the main pancreatic duct. MRI/MRCP is recommended.
[2023-11-01 03:06] VITALS: BP 196/108; PULSE 92; O2SAT 96
[2023-11-01 03:11] VITALS: BP 172/90; PULSE 87; RESP 18; TEMP 36.8; O2SAT 96; BMI 20.1
[2023-11-01 05:51] LABS: Appearance Urine Clear; Color Urine Yellow; Glucose Urine UA Negative (Negative); Leukocyte Esterase Urine Moderate (2+) (Negative); Nitrite Urine Negative (Negative); Specific Gravity - Urine <= 1.005 (1.005-1.025); UMIC TRIGGER UACC YES; Urine Blood Negative (Negative); Urine Ketones Negative (Negative); Urine Protein Negative (Neg-Trace)
[2023-11-01 06:00] LABS: Bacteria Urine None Seen (None Seen); Hyaline Casts Urine 0-2 /LPF (0-2); RBC Urine 0-2 /HPF (0-2); Squamous Epithelial Cell Urine 0-2 /HPF (0-2); WBC Urine 0-5 /HPF (0-5)
[2023-11-01 06:02] VITALS: BP 174/86; PULSE 80; RESP 16; TEMP 36.7; O2SAT 96
--- NOTE | 2023-11-01 07:28 | ED_ITS ---
HPI - Abdominal Pain General Chief Complaint: Abdominal Pain Stated Complaint: ABDOMINAL PAIN Time Seen by Provider: 11/01/23 07:26 Source: patient and RN notes reviewed Mode of arrival: ambulatory Limitations: no limitations History of Present Illness ED Provider: Zara Perez PA-C HPI narrative: This is a 83-year-old female, legally blind, with no known medical problems, who presents emergency department with abdominal pain as well as vaginal burning pain for the last week. Patient was seen in the emergency room on October 22 for the same pain. Patient states that she has had ongoing pain. At that time she was diagnosed with bacterial vaginosis and was treated with a 5 day course of metronidazole. She has been using this which has provided her with reliief however states that the last several days she is noticed increased vaginal burning. Unsure of vaginal discharge or bleeding due to vision impairment Denies dysuria, hematuria, urinary frequency or urgency. No fevers or chills. No chest pain or shortness of breath. No other complaints or concerns at this time. MD elicited complaint: abdominal pain Pertinent past history: none Onset (ago): day(s) Pain Consistency: constant Severity: moderate Related Data Previous Rx's ?Medication ?Instructions ?Recorded metronidazole 0.75 % topical gel 1 appl topical BEDTIME 5 days #45 11/01/23 grams Allergies Allergy/AdvReac Type Severity Reaction Status Date / Time Penicillins Allergy Unknown Verified 11/01/23 03:16 ANTIBIOTICS Allergy Intermediate STOMACH Uncoded 06/23/22 14:47 UPSET Review of Systems Review of Systems Yes all other systems are reviewed and are negative Constitutional: Reports as per HPI Physical Exam ED Vital Signs: Vital Signs - 24 hr 11/01/23 03:11 11/01/23 06:02 11/01/23 08:14 Temperature 98.2 F 98.1 F Pulse Rate 87 80 68 Respiratory Rate 18 16 18 Blood Pressure 172/90 H 174/86 H 152/80 H Pulse Oximetry 96 96 96 Oxygen Delivery Method Room Air Room Air Room Air BMI result Body Mass Index 20.1 Const General: cooperative, comfortable and no acute distress Orientation/consciousness: patient oriented x3 Limitations: no limitations HENMT Head: Yes normal to inspection, Yes normocephalic and Yes atraumatic Ears: hearing grossly normal bilaterally General nose exam: Normal external nose present Face and sinus: Yes normal facial exam Mouth: Normal oral and palatal mucosa present, oropharynx normal and moist mucous membranes Throat: Yes posterior oropharynx normal Eyes General: appearance normal, both eyes and all related structures Eyelids: Yes eyelids normal Conjunctivae: conjunctivae normal Sclerae: sclerae normal Pupils: Equal, round and reactive pupils present EOM: EOMs intact bilaterally Neck Neck: Yes normal visual inspection, Yes full ROM and Yes no lymphadenopathy Lymphatic: no lymphadenopathy noted Chest Chest palpation & inspection: normal inspection of the chest Resp Effort & Inspection: normal respiratory effort and able to speak in complete sentences Auscultation: clear to auscultation bilaterally, no crackles, no rales, no rhonchi and no wheezes Cardio Rate: regular rate Rhythm: regular rhythm Heart sounds: S1 normal heart sound present and S2 normal heart sound present GI Other: Abdomen is diffusely tender with mild TTP overlying left upper quadrant and left flank. normoactive BS present. Inspection: Yes normal to inspection Other: pelvic examination performed with ED nurse, Angelita present. External genitalia normal, no ulcerations or erythema, edema. Opening of the vaginal vault there is erythema with thick, white curd like discharge present. Skin General skin exam: no rashes or lesions noted Trauma: no lacerations or abrasions Wounds: no wounds Neuro General: patient oriented x3 and moves all extremities Cranial nerves: Yes Equal, round and reactive pupils present Extrem General: Yes normal to inspection Right upper extremity: normal to inspection Left upper extremity: normal to inspection Right lower extremity: normal to inspection Left lower extremity: normal to inspection Course Reevaluation(s) Reevaluation #1: labs reassuring. CT unremarkable for any acute process. Pelvic exam concerning for BV or yeast. Swabs return prior to pt leaving - no evidence of BV, yeast seen. Treated with 1 time dose of diflucan. Advised to f/u with PCP. She understands and agrees with plan. Stable for d/c. Medical Decision Making Medical Decision Making MDM Narrative: This is a 83-year-old female, legally blind, with no known medical problems, who presents emergency department with abdominal pain for the last week. Patient was seen in the emergency room on October 22 for the same pain. Patient states that she has had ongoing pain, diagnosed with BV and treated with metronidazole and symptoms improved. Pt does have diffuse TTP throughout abdomen with left flank TTP. Given findings will get labs, ct, and perform pelvic examination. Differential Diagnosis Differential Diagnoses: The differential diagnosis associated with the presentation includes BV, yeast, constipation, bowel obstruction - less likely, nephroliathiasis Admission/Observation Consideration of admission/observation: Escalation of care including admission/observation considered Escalation of care including admission/observation considered however given workup today not warranted at this time. Lab Data MDM Lab Attestation statement: I reviewed the patient's lab results. Slight leukopenia at 3.6, stable H&H, no evidence of KAUR; urine with moderate leuk esterase, similar to previous urine sample; 11/01/23 08:22 11/01/23 08:22 Labs: Lab Results 11/01/23 11/01/23 11/01/23 Range/Units 05:45 08:22 12:40 WBC 3.6 L (4.8-10.8) X10*3/uL RBC 4.34 (4.20-5.50) X10*6/uL Hgb 13.9 (12.0-16.0) g/dl Hct 41.6 (37.0-47.0) % MCV 95.9 (80.0-98.0) fL MCH 32.0 (27.0-33.0) pg MCHC 33.4 (31.0-35.0) g/dl RDW 13.7 (11.0-16.0) % Plt Count 182 (160-400) X10*3/uL MPV 10.2 (9.4-12.3) fL Immature Gran % (Auto) 0.3 (0.0-0.4) % Neut % (Auto) 43.4 L (45-73) % Lymph % (Auto) 43.7 H (20-40) % Calvert % (Auto) 8.7 (2-11) % Eos % (Auto) 2.8 (0-4) % Baso % (Auto) 1.1 (0-2) % Lymph # (Auto) 1.6 (1.2-4.9) X10*3/uL [place]vert # (Auto) 0.3 (0.1-1.2) X10*3/uL Eos # (Auto) 0.1 (0.0-0.4) X10*3/uL Baso # (Auto) 0.0 (0.0-0.2) X10*3/uL Abs Immat Gran (auto) 0.01 (0.00-0.03) X10*3/uL Absolute Neuts (auto) 1.5 L (2.0-8.3) x10*3/uL Absolute Nucleated RBC 0.000 (0.0-0.012) X10*3/uL Nucleated RBC % (auto) 0.0 (0.0-0.2) /100WBC Sodium 144 (135-145) mmol/L Potassium 3.6 (3.3-5.1) mmol/L Chloride 113 H (96-108) mmol/L Carbon Dioxide 24 (22-29) mmol/L Anion Gap 11 L (12-20) BUN 8 L (9-16) mg/dL Creatinine 0.81 (0.5-1.4) mg/dL Estim Creat Clear Calc 40.0 Estimated GFR > 60 Random Glucose 78 (60-115) mg/dL Calcium 8.8 (8.4-10.2) mg/dL Total Bilirubin 0.7 (0.0-1.0) mg/dL Direct Bilirubin 0.2 (0.0-0.5) mg/dL AST 17 (5-31) U/L ALT 10 (0-31) U/L Alkaline Phosphatase 94 (39-117) U/L Troponin I High Sens 6.8 (<3.5-17.0) ng/L Total Protein 6.8 (6.5-8.0) g/dL Albumin 3.6 (3.5-5.0) g/dL Lipase 25 (8-78) U/L Urine Color Yellow Yellow Urine Appearance Clear Clear Urine pH 7.0 7.5 (5.0-9.0) Ur Specific [place] <= 1.005 <= 1.005 (1.005-1.025) Urine Protein Negative Negative (Neg-Trace) mg/dL Urine Glucose (UA) Negative Negative (Negative) mg/dL Urine Ketones Negative Negative (Negative) mg/dL Urine Blood Negative Negative (Negative) Urine Nitrite Negative Negative (Negative) Ur Leukocyte Esterase Moderate (2+) H Moderate (2+) H (Negative) Urine RBC 0-2 0-2 (0-2) /HPF Urine WBC 0-5 0-5 (0-5) /HPF Ur Squamous Epith Cells 0-2 0-2 (0-2) /HPF Urine Bacteria None Seen None Seen (None Seen) Hyaline Casts 0-2 0-2 (0-2) /LPF T. vaginalis (PCR) NOT DETECTED (Not Detect) Bact Vaginosis (PCR) NEGATIVE (Negative) C. krusei/glabrata (PCR) NOT DETECTED (Not Detect) April group (PCR) DETECTED A (Not Detect) Radiology Impression Discussion of test interpretation with radiology: I have reviewed the radiologist's reading. External Record Review External record reviewed: Inpatient record, Office record, Outpatient record, Prior outpatient labs, Prior outpatient radiology, Primary care record and Outside ED record Medications Administered Discontinued Medications Generic Name Dose Route Start Last Admin Trade Name Freq PRN Reason Stop Dose Admin Fluconazole 150 mg 11/01/23 13:33 11/01/23 14:48 Fluconazole 150 Mg Tablet PO 11/01/23 13:34 150 mg ONCE ONE Administration Discharge Plan Discharge Clinical Impression: Bacterial vaginosis, Yeast infection Patient Disposition: Home, Self-Care Instructions: Bacterial Vaginosis (ED), Yeast Infection (ED), Vaginal Discharge (ED) Additional Instructions: You were seen in the emergency department due to abdominal pain, and vaginal burning sensation. You have evidence of a yeast infection, and possible bacterial vaginosis. We gave you a 1 time dose of a medication to help treat for yeast infection. Please drink plenty of fluids and get plenty of rest. If any new or worsening symptoms occur including but not limited to worsening abdominal pain, please return for re-evaluation. I want you to follow-up with your primary care physician regarding this visit, call to make an appointment. Prescriptions: New metronidazole 0.75 % gel 1 appl topical BEDTIME 5 Days Qty: 45 0RF Discontinued metronidazole 0.75 % (37.5mg/5 gram) gel 1 appful vaginal BEDTIME 5 Days Qty: 70 0RF [place] [facility] [place] [facility] [place] Interventions: ED Discharge Assessment Last Done: 11/01/23 15:35 Discharge Date/Time: 11/01/23 15:36 Print Language: Maltese
--- NOTE | 2023-11-01 07:43 | ECG_ITS ---
Test Reason : epigastric pain Blood Pressure : / mmHG Vent. Rate : 069 BPM Atrial Rate : 069 BPM P-R Int : 172 ms QRS Dur : 092 ms QT Int : 450 ms P-R-T Axes : 058 -30 101 degrees QTc Int : 482 ms Normal sinus rhythm Biatrial enlargement Left axis deviation T wave abnormality, consider lateral ischemia Prolonged QT Abnormal ECG When compared with ECG of 23-OCT-2023 07:51, T wave inversion now evident in Anterolateral leads QT has lengthened Referred By: Zara Perez Electronically Signed By:TARYN DE LA FUENTE MD
[2023-11-01 08:14] VITALS: BP 152/80; PULSE 68; RESP 18; O2SAT 96
[2023-11-01 08:25] LABS: MANUAL DIFF FLAG NO
[2023-11-01 08:27] LABS: Basophils Percent Auto 1.1 % (0-2); Eosinophils Absolute Auto 0.1 X10*3/uL (0.0-0.4); Eosinophils Percent Auto 2.8 % (0-4); Hematocrit 41.6 % (37.0-47.0); Hemoglobin 13.9 g/dl (12.0-16.0); Imm Gran Abs Auto 0.01 X10*3/uL (0.00-0.03); Imm Gran Pct Auto 0.3 % (0.0-0.4); Lymphocytes Absolute Auto 1.6 X10*3/uL (1.2-4.9); Lymphocytes Percent Auto 43.7 % (20-40); Mean Corpuscular HGB Conc 33.4 g/dl (31.0-35.0); Mean Corpuscular Volume 95.9 fL (80.0-98.0); Mean Platelet Volume 10.2 fL (9.4-12.3); Monocytes Absolute Auto 0.3 X10*3/uL (0.1-1.2); Monocytes Percent Auto 8.7 % (2-11); Neutrophils Absolute Auto 1.5 x10*3/uL (2.0-8.3); Neutrophils Percent Auto 43.4 % (45-73); Platelet Count 182 X10*3/uL (160-400); Red Blood Count 4.34 X10*6/uL (4.20-5.50); Red Cell Distribution Width 13.7 % (11.0-16.0); White Blood Count 3.6 X10*3/uL (4.8-10.8)
[2023-11-01 08:28] LABS: Appearance Urine Clear; Color Urine Yellow; Glucose Urine UA Negative (Negative); Leukocyte Esterase Urine Moderate (2+) (Negative); Nitrite Urine Negative (Negative); PH 7.5 (5.0-9.0); Specific Gravity - Urine <= 1.005 (1.005-1.025); UMIC TRIGGER UACC YES; Urine Blood Negative (Negative); Urine Ketones Negative (Negative); Urine Protein Negative (Neg-Trace)
[2023-11-01 08:39] LABS: Bacteria Urine None Seen (None Seen); Hyaline Casts Urine 0-2 /LPF (0-2); RBC Urine 0-2 /HPF (0-2); Squamous Epithelial Cell Urine 0-2 /HPF (0-2); WBC Urine 0-5 /HPF (0-5)
[2023-11-01 08:44] LABS: Alanine Aminotransferase 10 U/L (0-31); Albumin Level 3.6 g/dL (3.5-5.0); Alkaline Phosphatase 94 U/L (39-117); Anion Gap 11 (12-20); Aspartate Amino Transferase 17 U/L (5-31); Bilirubin Direct 0.2 mg/dL (0.0-0.5); Bilirubin Total 0.7 mg/dL (0.0-1.0); Blood Urea Nitrogen 8 mg/dL (9-16); Calcium 8.8 mg/dL (8.4-10.2); Carbon Dioxide 24 mmol/L (22-29); Chloride 113 mmol/L (96-108); Estimated Glomerular Filt Rate > 60; Glucose Random 78 mg/dL (60-115); Lipase 25 U/L (8-78); Potassium 3.6 mmol/L (3.3-5.1); Sodium 144 mmol/L (135-145); Total Protein 6.8 g/dL (6.5-8.0)
[2023-11-01 08:51] LABS: Troponin-I High Sensitivity 6.8 ng/L (<3.5-17.0)
[2023-11-01 13:44] LABS: Bacterial Vaginosis PCR NEGATIVE (Negative); Candida Group PCR DETECTED (Not Detect); Candida glab krusei PCR NOT DETECTED (Not Detect); Trichomonas vaginalis PCR NOT DETECTED (Not Detect)
[2023-11-01 14:14] VITALS: BP 167/86; PULSE 64; RESP 16; TEMP 36.6; O2SAT 97
[2023-11-01] MEDS: Fluconazole 150 MG TABLET PO (14:48)
[2023-11-01 15:35] VITALS: BP 167/86; PULSE 64; RESP 16; TEMP 36.6; O2SAT 97
--- OUTSIDE RECORDS SUMMARY | 2023-11-05 09:13 | XMS_ITS | Continuity of Care Document ---
Author Organization [facility] Address [address] [place] [address]- Care Team Providers Care Semiconductor Packages Leak Tester Name Role Phone Prema SOSA, Lin Ortega Primary Care Physician [facility] Date(s): 09/09/21 - 10/09/21 [facility] [address] [place], [place] [address] Allergies, Adverse Reactions, Alerts Substance Reaction [...] 1Result Comment: [facility]# [id number] PT. TOLERATED INJ. WITHOUT COMPLICATIONS....CO 2Result Comment: [03/04/2018] [facility]# [id number] 3Result Comment: [03/04/2016] pt. tolerated inj. without complications...CO 4Result Comment: [10/13/2017] [facility]# [id number] pt. tolerated inj. without complications...CO Medications brimonidine [...] 10/16/21 6:20:00 EDT, 10/09/21 6:20:00 EDT, Cream, [facility] #[id number], Partial fill upon patient request if the [...] Replace Required Details, Route to Pharmacy Electronically, [facility] #[id number], stop bisoprolol, 1... Start Date: 10/06/21 Status: Ordered metronidazole topical 0.75% gel with applicator 1 applicator, Vaginally, 2 times a day, for 10 days, dx: recurrent BV, # 140 Gm, 0 Refills, Acute 10/16/21 16:15:00 EDT, 10/06/21 16:15:00 EDT, Gel, [facility] #[id number], Partial fill upon patient request if the [...] 5 Refills, Maintenance, 04/04/21 11:49:00 EDT, ECCapsule, [facility] #[id number], Partial fill upon patient request if the [...]
--- OUTSIDE RECORDS SUMMARY | 2023-11-05 09:13 | XMS_ITS | Continuity of Care Document ---
Author Organization [facility] Address [address] [place] [address]- Care Team Providers Care Operating Theatre Technician Name Role Phone Lin Lloyd MD Primary Care Physician [phone] [facility]counter [facility] Date(s): 12/31/21 - 01/30/22 [facility] [address] [place], [place] [address] Allergies, Adverse Reactions, Alerts Substance [...] vaccine 05/16/12 Given 1Result Comment: [facility]# [id number] PT. TOLERATED INJ. WITHOUT COMPLICATIONS....CO 2Result Comment: [03/04/2018] [facility]# [id number] 3Result Comment: [03/04/2016] pt. tolerated inj. without complications...CO 4Result Comment: [10/13/2017] [facility]# [id number] pt. tolerated inj. without complications...CO Medications bisoprolol [...] MRI Safety Implantable Status Assigning Authority Unknown [id number] RCN Unknown Unknown 01/07/19 Unknown Unknown Active Unknown Care Team Personnel Name: Lin Lloyd MD Address: [address] [place] [address]
--- OUTSIDE RECORDS SUMMARY | 2023-11-05 09:13 | XMS_ITS | Continuity of Care Document ---
Author Organization [facility] Address [address] [place] [address]- Care Team Providers Care Presidential Support Specialist Name Role Phone Lin Lloyd MD Primary Care Physician [phone] Encounter [facility] Date(s): 07/22/21 - 08/21/21 [facility] [address] [place] [address]- [place] Allergies, Adverse Reactions, Alerts Substance Reaction [...] Given 1Result Comment: [facility]# [id number] PT. TOLERATED INJ. WITHOUT COMPLICATIONS....CO 2Result Comment: [03/04/2018] [facility]# [id number] 3Result Comment: [03/04/2016] pt. tolerated inj. without complications...CO 4Result Comment: [10/13/2017] [facility]# [id number] pt. tolerated inj. without complications...CO Medications brimonidine [...] 07/29/21 16:47:00 EST, Route to Pharmacy Electronically, [facility] #[id number], Partial fill upon patient request if the [...] 5 Refills, Maintenance, 04/04/21 11:49:00 EDT, ECCapsule, [facility] #[id number], Partial fill upon patient request if the [...]
--- OUTSIDE RECORDS SUMMARY | 2023-11-05 09:13 | XMS_ITS | Continuity of Care Document ---
Author Organization [facility] Address [address] [place] [address]- Care Team Providers Care Lip Cutter And Scorer Name Role Phone Prema SOSA, Lin Ortega Primary Care Physician [phone] [facility]counter [facility] Date(s): 10/09/21 - 11/08/21 [facility] [address] [place], [place] [address] Allergies, Adverse Reactions, [...] Given 1Result Comment: [facility]# [id number] PT. TOLERATED INJ. WITHOUT COMPLICATIONS....CO 2Result Comment: [03/04/2018] [facility]# [id number] 3Result Comment: [03/04/2016] pt. tolerated inj. without complications...CO 4Result Comment: [10/13/2017] [facility]# [id number] pt. tolerated inj. without complications...CO Medications brimonidine [...] 5 Refills, Maintenance, 04/04/21 11:49:00 EDT, [facility] #[id number], Partial fill upon patient request if the [...]
--- OUTSIDE RECORDS SUMMARY | 2023-11-05 09:13 | XMS_ITS | Continuity of Care Document ---
[facility] Address [address] [place] [address], [address] [place] [address]- Care Team Providers Care Child Specialist Name Role Phone Prema SOSA, Lin Ortega Primary Care Physician Encounter [facility] Date(s): 07/31/21 - 08/30/21 [facility] Russ Rodass [facility] [address] [facility] [place], [place] [address] Attending Physician: Olinda Currie Admitting Physician: Olinda [...] vaccine 05/16/12 Given 1Result Comment: [facility]# [id number] PT. TOLERATED INJ. WITHOUT COMPLICATIONS....CO 2Result Comment: [03/04/2018] [facility]# [id number] 3Result Comment: [03/04/2016] pt. tolerated inj. without complications...CO 4Result Comment: [10/13/2017] [facility]# [id number] pt. tolerated inj. without complications...CO Medications brimonidine [...] Replace Required Details, Route to Pharmacy Electronically, [email or web address] #[id number],... Start Date: 08/26/21 Status: Ordered Home Blood [...] 07/29/21 16:47:00 EST, Route to Pharmacy Electronically, [facility] #[id number], Partial fill upon patient request if the [...] capsule, 5 Refills, Maintenance, 04/04/21 11:49:00 EDT, [id number], Partial fill upon patient request if the [...]
== END 2023-11-01 15:36 | disposition home or self-care (01) ==
PROVIDERS: Physician Assistant Medical; Emergency Provider Emergency Medicine; PCP Internal Medicine
DX: N76.0 Acute vaginitis (principal); B37.31 Acute candidiasis of vulva and vagina
CPT/HCPCS: 0352U; 36415; 74176; 80048; 80076; 81001; 83690; 84484; 85025; 93005; 99284; 99285

== ENCOUNTER → 2023-11-01 07:43 | Outpatient (BNV) | payer MEDICARE, SELFPAY | PROVIDERS: Emergency Provider Emergency Medicine; PCP Internal Medicine; Visit Provider Internal Medicine Cardiovascular Disease | DX: R94.31 Abnormal electrocardiogram [ECG] [EKG] (principal); R10.9 Unspecified abdominal pain | CPT/HCPCS: 93010 ==

== ENCOUNTER 2023-11-09 04:29 | Emergency (ER) | payer MEDICARE, SELFPAY ==
--- NOTE | 2023-11-09 | ECG_ITS ---
Test Reason : ABD PAIN Blood Pressure : / mmHG Vent. Rate : 082 BPM Atrial Rate : 082 BPM P-R Int : 166 ms QRS Dur : 088 ms QT Int : 388 ms P-R-T Axes : 049 -28 101 degrees QTc Int : 453 ms Normal sinus rhythm Possible Left atrial enlargement T wave abnormality, consider lateral ischemia Abnormal ECG When compared with ECG of 01-NOV-2023 08:03, No significant change was found Referred By: Generic ED Physician Electronically Signed By:CALLIE ESPINOZA
[2023-11-09 04:32] VITALS: BP 150/87; BP 154/90; PULSE 76; PULSE 79; RESP 17; TEMP 36.8; O2SAT 97; O2SAT 98; BMI 21.6
[2023-11-09 04:56] LABS: Basophils Percent Auto 0.7 % (0-2); Eosinophils Absolute Auto 0.1 X10*3/uL (0.0-0.4); Eosinophils Percent Auto 1.7 % (0-4); Hematocrit 40.6 % (37.0-47.0); Hemoglobin 13.4 g/dl (12.0-16.0); Imm Gran Abs Auto 0.02 X10*3/uL (0.00-0.03); Imm Gran Pct Auto 0.5 % (0.0-0.4); Lymphocytes Absolute Auto 1.7 X10*3/uL (1.2-4.9); Lymphocytes Percent Auto 41.8 % (20-40); MANUAL DIFF FLAG NO; Mean Corpuscular Hemoglobin 31.3 pg (27.0-33.0); Mean Corpuscular Volume 94.9 fL (80.0-98.0); Mean Platelet Volume 10.3 fL (9.4-12.3); Monocytes Absolute Auto 0.4 X10*3/uL (0.1-1.2); Monocytes Percent Auto 9.4 % (2-11); Neutrophils Absolute Auto 1.9 x10*3/uL (2.0-8.3); Neutrophils Percent Auto 45.9 % (45-73); Platelet Count 193 X10*3/uL (160-400); Red Blood Count 4.28 X10*6/uL (4.20-5.50); Red Cell Distribution Width 13.7 % (11.0-16.0)
--- NOTE | 2023-11-09 04:58 | PC.NURSE ---
pt biba from home, blind at baseline, a&ox4, reporting onset of right upper quadrant pain. pt reports hx of gallstones and reports pain since. pt also reporting vaginal burning at this time, reports starting new cream.pt denies any urinary symptoms at this time. denies chest pain n/v/d. 22G placed in right wrist. labs obtained and sent to lab.
[2023-11-09 05:12] LABS: Alanine Aminotransferase 10 U/L (0-31); Albumin Level 3.6 g/dL (3.5-5.0); Alkaline Phosphatase 90 U/L (39-117); Anion Gap 12 (12-20); Aspartate Amino Transferase 19 U/L (5-31); Bilirubin Total 1.1 mg/dL (0.0-1.0); Blood Urea Nitrogen 13 mg/dL (9-16); Calcium 8.9 mg/dL (8.4-10.2); Carbon Dioxide 24 mmol/L (22-29); Chloride 111 mmol/L (96-108); Creatinine Clr Calc Pharmacy 41.7; Estimated Glomerular Filt Rate > 60; Glucose Random 83 mg/dL (60-115); Potassium 4.1 mmol/L (3.3-5.1); Sodium 143 mmol/L (135-145); Total Protein 6.8 g/dL (6.5-8.0)
[2023-11-09 06:26] LABS: Appearance Urine Cloudy; Color Urine Yellow; Glucose Urine UA Negative (Negative); Leukocyte Esterase Urine Negative (Negative); Nitrite Urine Negative (Negative); PH 7.5 (5.0-9.0); Specific Gravity - Urine 1.015 (1.005-1.025); Urine Blood Negative (Negative); Urine Ketones Negative (Negative); Urine Protein Negative (Neg-Trace)
[2023-11-09 06:46] VITALS: BP 148/73; PULSE 62; RESP 17; TEMP 37.2; O2SAT 96
--- NOTE | 2023-11-09 06:46 | PC.NURSE ---
urine sample obtained at this time on bedpan, pt placed on purewick per request.
--- NOTE | 2023-11-09 07:16 | ED.ABDPAIN ---
HPI - Abdominal Pain General Chief Complaint: Abdominal Pain Stated Complaint: abd pain Time Seen by Provider: 11/09/23 06:33 Source: patient, RN notes reviewed and old records reviewed Mode of arrival: EMS Limitations: no limitations History of Present Illness ED Provider: Ana Leon PA-C HPI narrative: 83-year-old female with history of cholelithiasis, legally blind presenting for evaluation of right-sided abdominal pain and vaginal burning. She was seen here for this problem on 10/22 with diagnosis of BV treated with metronidazole and 10/31 diagnosed with vaginal yeast infection treated with 1 dose of diflucan, CT abd/pelvis at both of those visits showed stable large gallstone present in gallbladder, stable right ovarian dermoid cyst, and were negative for acute process. Since her visit here on 10/31 she followed up with her transportation project manager who gave her vaginal estrogen cream for apparent atrophic vaginitis. Today she reports that she is having continued right-sided abdominal pain that she believes is due to her gallstone. The pain is intermittent and aching that hurts when she pushes on it. Also having some intermittent sharp pain in her upper abdomen. Denies nausea, vomiting, diarrhea. Having regular bowel movements with help from prune juice. Denies urinary symptoms, but continues to have stinging pain at the opening of her vagina, has been using the vaginal estrogen cream x3 days so far. elicited complaint: abdominal pain Pain Consistency: intermittent Location: diffuse Quality: aching Exacerbating factors: nothing Relieving factors: nothing Context: history of similar episodes Related Data Previous Rx's ?Medication ?Instructions ?Recorded metronidazole 0.75 % topical gel 1 appl topical BEDTIME 5 days #45 11/01/23 grams famotidine 40 mg tablet (Pepcid) 40 mg PO DAILY #30 tabs 11/09/23 fluconazole 100 mg tablet 100 mg PO ONCE #1 tab 11/09/23 (Diflucan) Allergies Allergy/AdvReac Type Severity Reaction Status Date / Time Penicillins Allergy Unknown Verified 11/09/23 04:38 ANTIBIOTICS Allergy Intermediate STOMACH Uncoded 11/09/23 04:38 UPSET Review of Systems Review of Systems Yes all other systems are reviewed and are negative PMFSH Social History Social History Smoked in Last 30 Days: No Use of substances other than those prescribed or required for medical reasons: No Advance Directives: No Advance Directives Information Provided: Yes Do you have a plan to hurt others: No Plan Physical Exam ED Vital Signs: Vital Signs - 24 hr 11/09/23 04:32 11/09/23 06:46 11/09/23 07:28 Temperature 98.2 F 98.9 F 97.7 F Pulse Rate 79 62 119 H Respiratory Rate 17 17 18 Blood Pressure 150/87 H 148/73 H 143/91 H Pulse Oximetry 97 96 96 Oxygen Delivery Method Room Air Room Air Room Air 11/09/23 08:37 Temperature 97.3 F Pulse Rate 74 Respiratory Rate 16 Blood Pressure 147/89 H Pulse Oximetry 98 Oxygen Delivery Method Room Air BMI result Body Mass Index 21.6 Appearance: Alert. Oriented X3. No acute distress. Head: normocephalic, atraumatic. Eyes: Corneal haziness bilaterally c/w blindness ENT: Pharynx normal. No tonsillar swelling or exudate. Poor dentition Neck: Normal inspection. Neck supple. CVS: Normal heart rate and rhythm. Pulses normal. Respiratory: No respiratory distress. Breath sounds normal. Abdomen: Soft with fullness in the epigastric area with mild tenderness, no rebound or guarding, normal active : white cream on the external vagina, no excoriations or lesions. pelvic deferred Skin: Skin warm and dry. Normal skin color. Normal skin turgor. No rashes. Extremities: No lower extremity edema. No joint swelling. Neuro/psych: Oriented X 3. Grossly normal, nonfocal. CN II-XII intact. Normal speech and cognition. Medical Decision Making Medical Decision Making MDM Narrative: 83-year-old female with history of cholelithiasis, legally blind presenting for evaluation of right-sided abdominal pain and vaginal burning. Her exam is reassuring. Her labs are unchanged aside from a very mild elevation of her bilirubin of 1.1. She has had 2 CT scans in the last month. She has no associated nausea, vomiting. Her symptoms seem to be acute on chronic. Reviewed the patient's CT scan findings with the patient. She will be referred to GI for possible outpatient MRCP. No emergent need for this today. Her vaginal burning could be due to ongoing yeast as she was only treated with Diflucan x1. This also could be due to atrophic vaginitis for which she was prescribed estrogen cream and just started on it. Will defer back to her OBGYN for further evaluation and treatment. Will plan to treat empirically for vaginal candidiasis with Diflucan x2. Will also start her on Pepcid for her intermittent epigastric discomfort. At this time patient is stable for discharge home with outpatient follow-up. Differential Diagnosis Differential Diagnoses: The differential diagnosis associated with the presentation includes Pancreatic mass, pancreatic cancer, gastritis, peptic ulcer disease, constipation, UTI, atrophic vaginitis, yeast infection Lab Data MDM Lab Attestation statement: I reviewed the patient's lab results. Normal renal function, normal CBC, normal urinalysis 11/09/23 04:51 11/09/23 04:51 Labs: Lab Results 11/09/23 11/09/23 Range/Units 04:51 06:19 WBC 4.0 L (4.8-10.8) X10*3/uL RBC 4.28 (4.20-5.50) X10*6/uL Hgb 13.4 (12.0-16.0) g/dl Hct 40.6 (37.0-47.0) % MCV 94.9 (80.0-98.0) fL MCH 31.3 (27.0-33.0) pg MCHC 33.0 (31.0-35.0) g/dl RDW 13.7 (11.0-16.0) % Plt Count 193 (160-400) X10*3/uL MPV 10.3 (9.4-12.3) fL Immature Gran % (Auto) 0.5 H (0.0-0.4) % Neut % (Auto) 45.9 (45-73) % Lymph % (Auto) 41.8 H (20-40) % [place] % (Auto) 9.4 (2-11) % Eos % (Auto) 1.7 (0-4) % Baso % (Auto) 0.7 (0-2) % Lymph # (Auto) 1.7 (1.2-4.9) X10*3/uL [place] # (Auto) 0.4 (0.1-1.2) X10*3/uL Eos # (Auto) 0.1 (0.0-0.4) X10*3/uL Baso # (Auto) 0.0 (0.0-0.2) X10*3/uL Abs Immat Gran (auto) 0.02 (0.00-0.03) X10*3/uL Absolute Neuts (auto) 1.9 L (2.0-8.3) x10*3/uL Absolute Nucleated RBC 0.000 (0.0-0.012) X10*3/uL Nucleated RBC % (auto) 0.0 (0.0-0.2) /100WBC Sodium 143 (135-145) mmol/L Potassium 4.1 (3.3-5.1) mmol/L Chloride 111 H (96-108) mmol/L Carbon Dioxide 24 (22-29) mmol/L Anion Gap 12 (12-20) BUN 13 (9-16) mg/dL Creatinine 0.78 (0.5-1.4) mg/dL Estim Creat Clear Calc 41.7 Estimated GFR > 60 Random Glucose 83 (60-115) mg/dL Calcium 8.9 (8.4-10.2) mg/dL Total Bilirubin 1.1 H (0.0-1.0) mg/dL AST 19 (5-31) U/L ALT 10 (0-31) U/L Alkaline Phosphatase 90 (39-117) U/L Total Protein 6.8 (6.5-8.0) g/dL Albumin 3.6 (3.5-5.0) g/dL Urine Color Yellow Urine Appearance Cloudy Urine pH 7.5 (5.0-9.0) Ur Specific [place] 1.015 (1.005-1.025) Urine Protein Negative (Neg-Trace) mg/dL Urine Glucose (UA) Negative (Negative) mg/dL Urine Ketones Negative (Negative) mg/dL Urine Blood Negative (Negative) Urine Nitrite Negative (Negative) Ur Leukocyte Esterase Negative (Negative) Independent Interpretation I performed an independent interpretation of an: EKG Interpretation: EKG with normal sinus rhythm, ventricular rate 82 beats per minute, unchanged T-wave inversion in V4 V5, no ST segment elevations or depressions. Normal MD interval External Record Review External record reviewed: Prior outpatient labs and Prior outpatient radiology Tests considered The following testing was considered but not selected: Considered ultrasound of the right upper quadrant however patient has no right upper quadrant tenderness, negative Perez sign on examination Prescription Management I considered prescription management with: Pain Medication, Antibiotic and Other (Antifungal) Chronic Conditions Patient?s care impacted by: Other (Blindness) Medications Administered Discontinued Medications Generic Name Dose Route Start Last Admin Trade Name Sarkis PRN Reason Stop Dose Admin Famotidine 20 mg 11/09/23 08:27 11/09/23 08:34 Famotidine 20 Mg Tablet PO 11/09/23 08:28 20 mg ONCE ONE Administration Fluconazole 150 mg 11/09/23 08:27 11/09/23 08:34 Fluconazole 150 Mg Tablet PO 11/09/23 08:28 150 mg ONCE ONE Administration Critical Care Time Critical Care Time Critical Care Time: No Discharge Plan Discharge Clinical Impression: Abdominal pain Qualifiers: Abdominal location: epigastric Qualified Code(s): R10.13 - Epigastric pain Patient Disposition: Home, Self-Care Instructions: Abdominal Pain (ED) Additional Instructions: Recommend following up with Gastroenterology for further evaluation of a possible pancreas lesion for specialized testing. This is nonemergent. Recommend adding the prescribed antacid to help with the abdominal pain. Recommend continuing prune juice to fully evacuate your bowels. Your CT scans are showing large amount of stool in your colon. You were treated for possible ongoing yeast infection that can cause vaginal burning. A 2nd dose of the medication has been sent to your pharmacy, take it on 11/11 Follow up with your PLANT MAINTENANCE ENGINEER and primary care doctor If you develop new or worsening symptoms call 911 or come back to the ER for further evaluation. 11/01/23 - CT/CT abdomen pelvis wo IV con IMPRESSION: No acute abnormality in the abdomen or pelvis. Questionable hypodense lesion in the head of the pancreas measuring 1.0 x 1.8 cm unchanged from the comparison study. No dilatation of the main pancreatic duct. MRI/MRCP is recommended. Prescriptions: New famotidine [Pepcid] 40 mg tablet 40 mg PO DAILY Qty: 30 0RF fluconazole [Diflucan] 100 mg tablet 100 mg PO ONCE Qty: 1 0RF Rx Instructions: to be taken on 11/11 No Action metronidazole 0.75 % gel 1 appl topical BEDTIME 5 Days Qty: 45 0RF Referrals: [facility] [Provider Group] (Epigastric pain, possible pancreatic lesion) Discharge Date/Time: 11/09/23 09:14 Print Language: Palauan
[2023-11-09 07:28] VITALS: BP 143/91; PULSE 119; RESP 18; TEMP 36.5; O2SAT 96
[2023-11-09] MEDS: Famotidine 20 MG TABLET PO (08:34)
[2023-11-09] MEDS: Fluconazole 150 MG TABLET PO (08:34)
[2023-11-09 08:37] VITALS: BP 147/89; PULSE 74; RESP 16; TEMP 36.3; O2SAT 98
== END 2023-11-09 09:14 | disposition home or self-care (01) ==
PROVIDERS: Student in an Organized Health Care Education/Training Program; Emergency Provider Emergency Medicine
DX: R30.0 Dysuria (principal); R10.13 Epigastric pain; N89.8 Other specified noninflammatory disorders of vagina; R94.31 Abnormal electrocardiogram [ECG] [EKG]; R10.2 Pelvic and perineal pain; Z79.899 Other long term (current) drug therapy
CPT/HCPCS: 36415; 51701; 80053; 81003; 85025; 93005; 99283; 99285

== ENCOUNTER → 2023-11-09 04:43 | Outpatient (BNV) | payer MEDICARE, SELFPAY | PROVIDERS: Emergency Provider Emergency Medicine; Visit Provider Internal Medicine | DX: R94.31 Abnormal electrocardiogram [ECG] [EKG] (principal); R10.9 Unspecified abdominal pain | CPT/HCPCS: 93010 ==

== ENCOUNTER 2023-11-13 20:20 | Emergency (ER) | payer MEDICARE, SELFPAY ==
[2023-11-13 20:29] VITALS: BP 150/98; PULSE 74; O2SAT 100
[2023-11-13 20:32] VITALS: BP 141/88; PULSE 60; PULSE 68; RESP 16; RESP 17; TEMP 36.7; O2SAT 98; BMI 21.2
[2023-11-13 20:56] LABS: MANUAL DIFF FLAG NO
[2023-11-13 20:59] LABS: Basophils Percent Auto 0.5 % (0-2); Eosinophils Absolute Auto 0.1 X10*3/uL (0.0-0.4); Eosinophils Percent Auto 1.6 % (0-4); Hematocrit 40.7 % (37.0-47.0); Hemoglobin 13.6 g/dl (12.0-16.0); Imm Gran Abs Auto 0.01 X10*3/uL (0.00-0.03); Imm Gran Pct Auto 0.3 % (0.0-0.4); Lymphocytes Absolute Auto 1.8 X10*3/uL (1.2-4.9); Lymphocytes Percent Auto 47.6 % (20-40); Mean Corpuscular HGB Conc 33.4 g/dl (31.0-35.0); Mean Corpuscular Hemoglobin 31.8 pg (27.0-33.0); Mean Corpuscular Volume 95.1 fL (80.0-98.0); Mean Platelet Volume 10.6 fL (9.4-12.3); Monocytes Absolute Auto 0.5 X10*3/uL (0.1-1.2); Monocytes Percent Auto 12.1 % (2-11); Neutrophils Absolute Auto 1.4 x10*3/uL (2.0-8.3); Neutrophils Percent Auto 37.9 % (45-73); Platelet Count 193 X10*3/uL (160-400); Red Blood Count 4.28 X10*6/uL (4.20-5.50); Red Cell Distribution Width 13.6 % (11.0-16.0); White Blood Count 3.7 X10*3/uL (4.8-10.8)
[2023-11-13 21:17] LABS: Alanine Aminotransferase 10 U/L (0-31); Albumin Level 3.8 g/dL (3.5-5.0); Alkaline Phosphatase 96 U/L (39-117); Anion Gap 11 (12-20); Aspartate Amino Transferase 17 U/L (5-31); Bilirubin Total 0.5 mg/dL (0.0-1.0); Blood Urea Nitrogen 11 mg/dL (9-16); Calcium 8.7 mg/dL (8.4-10.2); Carbon Dioxide 27 mmol/L (22-29); Chloride 110 mmol/L (96-108); Creatinine Clr Calc Pharmacy 39.6; Estimated Glomerular Filt Rate > 60; Glucose Random 87 mg/dL (60-115); Lipase 32 U/L (8-78); Sodium 144 mmol/L (135-145)
--- NOTE | 2023-11-13 21:23 | ED.ABDPAIN ---
HPI - Abdominal Pain General Chief Complaint: Abdominal Pain Stated Complaint: abd pain Time Seen by Provider: 11/13/23 21:22 Source: patient Mode of arrival: EMS Limitations: no limitations History of Present Illness ED Provider: linus WILKS narrative: Patient 83 years old legally blind been here 2 times in last [address] scans of the abdomen pelvis showed 6 cm right ovarian dermoid cyst and cholelithiasis been followed by PCP and phlebotomy director no acute intervention needed comes here for vaginal discharge since yesterday all the patient's can not see what she can feel it was diagnosed with vaginal candidiasis last time and treated Related Data Previous Rx's ?Medication ?Instructions ?Recorded metronidazole 0.75 % topical gel 1 appl topical BEDTIME 5 days #45 11/01/23 grams famotidine 40 mg tablet (Pepcid) 40 mg PO DAILY #30 tabs 11/09/23 fluconazole 100 mg tablet 100 mg PO ONCE #1 tab 11/09/23 (Diflucan) Allergies Allergy/AdvReac Type Severity Reaction Status Date / Time Penicillins Allergy Unknown Verified 11/13/23 20:33 ANTIBIOTICS Allergy Intermediate STOMACH Uncoded 11/09/23 04:38 UPSET Review of Systems Review of Systems Yes all other systems are reviewed and are negative PMFSH Social History Social History Smoked in Last 30 Days: No Use of substances other than those prescribed or required for medical reasons: No Advance Directives: No Advance Directives Information Provided: Yes Do you have a plan to hurt others: No Plan Physical Exam ED Vital Signs: Vital Signs - 24 hr 11/13/23 20:32 11/13/23 20:32 Temperature 98.1 F 98.1 F Pulse Rate 60 68 Respiratory Rate 16 17 Blood Pressure 141/88 H 141/88 H Pulse Oximetry 98 98 Oxygen Delivery Method Room Air Room Air BMI result Body Mass Index 21.2 Appearance: Alert. Oriented X3. No acute distress. Eyes: Legally blind ENT: Pharynx normal. Oral Mucosa moist Neck: Normal inspection. Neck supple. CVS: Normal heart rate and rhythm. Pulses normal. Respiratory: No respiratory distress. Equal air entry bilateral, no wheezing/rales/rhonchi Abdomen: Soft and nontender. Bowel sounds are present, no mass palpable, no CVA tenderness : No significant vaginal discharge noted Skin: Skin warm and dry. Normal skin color. Normal skin turgor. Extremities: No lower extremity edema. No calf tenderness Neuro: Oriented X 3. Medical Decision Making Medical Decision Making [facility] Narrative: Patient with nonspecific vaginal discharge per history all the patient's legally blind on examination no discharge was noticed will give a dose of Diflucan as she had candidiasis last time per daughter patient is putting vaginal estrogen cream and likely that is what she feeling as discharge Lab Data [facility] Lab Attestation statement: I reviewed the patient's lab results. 11/13/23 20:49 11/13/23 20:49 Labs: Lab Results 11/13/23 Range/Units 20:49 WBC 3.7 L (4.8-10.8) X10*3/uL RBC 4.28 (4.20-5.50) X10*6/uL Hgb 13.6 (12.0-16.0) g/dl Hct 40.7 (37.0-47.0) % MCV 95.1 (80.0-98.0) fL MCH 31.8 (27.0-33.0) pg MCHC 33.4 (31.0-35.0) g/dl RDW 13.6 (11.0-16.0) % Plt Count 193 (160-400) X10*3/uL MPV 10.6 (9.4-12.3) fL Immature Gran % (Auto) 0.3 (0.0-0.4) % Neut % (Auto) 37.9 L (45-73) % Lymph % (Auto) 47.6 H (20-40) % [place] % (Auto) 12.1 H (2-11) % Eos % (Auto) 1.6 (0-4) % Baso % (Auto) 0.5 (0-2) % Lymph # (Auto) 1.8 (1.2-4.9) X10*3/uL [place] # (Auto) 0.5 (0.1-1.2) X10*3/uL Eos # (Auto) 0.1 (0.0-0.4) X10*3/uL Baso # (Auto) 0.0 (0.0-0.2) X10*3/uL Abs Immat Gran (auto) 0.01 (0.00-0.03) X10*3/uL Absolute Neuts (auto) 1.4 L (2.0-8.3) x10*3/uL Absolute Nucleated RBC 0.000 (0.0-0.012) X10*3/uL Nucleated RBC % (auto) 0.0 (0.0-0.2) /100WBC Sodium 144 (135-145) mmol/L Potassium 4.0 (3.3-5.1) mmol/L Chloride 110 H (96-108) mmol/L Carbon Dioxide 27 (22-29) mmol/L Anion Gap 11 L (12-20) BUN 11 (9-16) mg/dL Creatinine 0.82 (0.5-1.4) mg/dL Estim Creat Clear Calc 39.6 Estimated GFR > 60 Random Glucose 87 (60-115) mg/dL Calcium 8.7 (8.4-10.2) mg/dL Total Bilirubin 0.5 (0.0-1.0) mg/dL AST 17 (5-31) U/L ALT 10 (0-31) U/L Alkaline Phosphatase 96 (39-117) U/L Total Protein 7.0 (6.5-8.0) g/dL Albumin 3.8 (3.5-5.0) g/dL Lipase 32 (8-78) U/L Medications Administered Discontinued Medications Generic Name Dose Route Start Last Admin Trade Name Sarkis PRN Reason Stop Dose Admin Fluconazole 150 mg 11/13/23 21:34 11/13/23 21:38 Fluconazole 150 Mg Tablet PO 11/13/23 21:35 150 mg ONCE ONE Administration Discharge Plan Discharge Clinical Impression: Candidiasis of vagina Patient Disposition: Home, Self-Care Instructions: Yeast Infection (ED) Additional Instructions: Care as advised No vaginal discharge noticed today Prescriptions: No Action famotidine [Pepcid] 40 mg tablet 40 mg PO DAILY Qty: 30 0RF fluconazole [Diflucan] 100 mg tablet 100 mg PO ONCE Qty: 1 0RF Rx Instructions: to be taken on 11/11 metronidazole 0.75 % gel 1 appl topical BEDTIME 5 Days Qty: 45 0RF Print Language: Panamanian
[2023-11-13] MEDS: Fluconazole 150 MG TABLET PO (21:38)
[2023-11-13 22:30] VITALS: BP 141/88; PULSE 60; RESP 16; TEMP 36.7; O2SAT 98
== END 2023-11-13 22:30 | disposition home or self-care (01) ==
PROVIDERS: Emergency Provider Internal Medicine
DX: B37.31 Acute candidiasis of vulva and vagina (principal)
CPT/HCPCS: 36415; 80053; 83690; 85025; 99283; 99284